=== PATIENT | female | born 1975 | race Caucasian/White ===

== ENCOUNTER 2023-01-29 12:18 | Emergency (ER) | payer OTHER, SELFPAY ==
[2023-01-29] VITALS (14 sets, daily range): BP systolic 130–191; BP diastolic 79–110; PULSE 62–82; RESP 12–23; TEMP 36.1; O2SAT 91–100; BMI 31.6; BMI 33.3
--- NOTE | ~2023-01-29 | XR_ITS ---
EXAMINATION: XR SHOULDER, RIGHT CLINICAL INFORMATION: Post reduction COMPARISON: Portable right shoulder 01/29/2023 TECHNIQUE: Right shoulder is imaged in 3 portable views. FINDINGS: There is interval reduction of the right anterior shoulder dislocation. The glenohumeral alignment is normal. The acromioclavicular alignment is normal. There is no visible fracture. XR/XR shoulder RT min 2V IMPRESSION: Interval reduction of anterior shoulder dislocation. No visible fracture.
--- NOTE | ~2023-01-29 | XR_ITS ---
EXAMINATION: XR SHOULDER, RIGHT CLINICAL INFORMATION: Right shoulder pain. COMPARISON: None available. TECHNIQUE: Three views of the right shoulder. FINDINGS: There is anterior dislocation of the humeral head relative to the bony glenoid. There is no acute fracture. The right acromioclavicular joint is intact. The visualized right ribs are intact. The soft tissues are unremarkable. XR/XR shoulder RT min 2V IMPRESSION: Right glenohumeral anterior dislocation. No acute fracture.
--- NOTE | 2023-01-29 12:28 | ED_ITS ---
HPI - Fall General Chief Complaint: Fall <TAYLOR Jennings - Last Filed: 01/29/23 12:31> Stated Complaint: Fall/ Shoulder Pain <TAYLOR Jennings - Last Filed: 01/29/23 12:31> Time Seen by Provider: 01/29/23 12:30 <TAYLOR Jennings - Last Filed: 01/29/23 12:31> Source: patient, family and RN notes reviewed <Amisha Corley NP - Last Filed: 01/29/23 17:00> Mode of arrival: ambulatory <Amisha Corley NP - Last Filed: 01/29/23 17:00> Limitations: no limitations <Amisha Corley NP - Last Filed: 01/29/23 17:00> History of Present Illness HPI Narrative: This is a 47 year old female right hand dominant presenting today, accompanied by male business administration teacher, with complaints of right shoulder pain status post mechanical fall 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 Pt reports that while she was exiting her vehicle, she accidentally tripped on a cord in her car, and she landed directly onto her right shoulder. She denies hitting her head or LOC. Denies history of right shoulder injuries in the past. She has no numbness or tingling. Denies right elbow or right wrist pain. No other complaints or concerns at this time. <Amisha Corley NP - Last Filed: 01/29/23 17:00> MD complaint: fall <Amisha Corley NP - Last Filed: 01/29/23 17:00> Onset (ago): minute(s) <Amisha Corley NP - Last Filed: 01/29/23 17:00> Fall from: standing <Amisha Corley NP - Last Filed: 01/29/23 17:00> Fall witnessed: no <Amisha Corley NP - Last Filed: 01/29/23 17:00> Place fall occurred: street <Amisha Corley NP - Last Filed: 01/29/23 17:00> Loss of consciousness: none <Amisha Corley NP - Last Filed: 01/29/23 17:00> Prolonged down time: no <Amisha Corley NP - Last Filed: 01/29/23 17:00> Symptoms prior to fall: none <Amisha Corley NP - Last Filed: 01/29/23 17:00> Context: tripped/slipped <Amisha Corley NP - Last Filed: 01/29/23 17:00> Location of injury - extremities: right: shoulder <Amisha Corley NP - Last Filed: 01/29/23 17:00> Severity: moderate <Amisha Corley NP - Last Filed: 01/29/23 17:00> Quality: aching <Amisha Corley NP - Last Filed: 01/29/23 17:00> Associated symptoms (after fall): denies <Amisha Corley NP - Last Filed: 01/29/23 17:00> Related Data Home Medications: Previous Rx's Medication Instructions Recorded ibuprofen 600 mg tablet 600 mg PO Q8H PRN pain #14 tabs 01/29/23 tramadol 50 mg tablet 50 mg PO BID PRN pain #6 tabs 01/29/23 <TAYLOR Jennings - Last Filed: 01/29/23 12:31> Allergies/Adverse Reactions: Allergies Allergy/AdvReac Type Severity Reaction Status Date / Time No Known Allergies Allergy Verified 01/29/23 12:29 <TAYLOR Jennings - Last Filed: 01/29/23 12:31> Review of Systems Review of Systems: Yes all other systems are reviewed and are negative <Amisha Corley NP - Last Filed: 01/29/23 17:00> Constitutional: Constitutional: Reports no additional constitutional complain ts, Denies body ache(s), Denies chills, Denies fever(s), Denies headache(s) and Denies weakness <Amisha Corley NP - Last Filed: 01/29/23 17:00> Eyes: Eyes: Reports no additional eye complaints and Denies change in vision <Amisha Corley NP - Last Filed: 01/29/23 17:00> ENT: Reports system reviewed and no additional complaints, except as documented, Denies dizziness, Denies headache(s), Denies nasal congestion, Denies nasal discharge and Denies neck pain <Amisha Corley NP - Last Filed: 01/29/23 17:00> Cardiovascular: Cardiovascular: Reports no additional cardiovascular complaints, Denies chest pain, Denies leg edema and Denies dyspnea <Amisha Corley NP - Last Filed: 01/29/23 17:00> Respiratory: Respiratory: Reports no additional respiratory complaints, Denies cough and Denies dyspnea <Amisha Corley PROFESSIONAL EMPLOYER CONSULTANT - Last Filed: 01/29/23 17:00> Gastrointestinal: Gastrointestinal: Reports no additional gastrointestinal complaints, Denies abdominal pain, Denies diarrhea, Denies nausea and Denies vomiting <Amisha Corley PROFESSIONAL EMPLOYER CONSULTANT - Last Filed: 01/29/23 17:00> Genitourinary: Genitourinary: Reports no additional female genitourinary complaints and Denies urinary incontinence <Amisha Corley NP - Last Filed: 01/29/23 17:00> Musculoskeletal: Musculoskeletal: Reports no additional musculoskeletal complaints, Denies back pain, Reports deformity, Reports arthralgias, Reports joint swelling, Reports limited range of motion, Denies neck pain, Denies numbness and Denies tingling <Amisha Corley PROFESSIONAL EMPLOYER CONSULTANT - Last Filed: 01/29/23 17:00> Integumentary/Breasts: Skin/Breast: Reports system reviewed and no additional complaints, except as docu and Denies rash <Amisha Corley PROFESSIONAL EMPLOYER CONSULTANT - Last Filed: 01/29/23 17:00> Neurologic: Reports system reviewed and no additional complaints, except as documented, Denies Abnormal speech present, Denies dizziness, Denies headache(s), Denies numbness, Denies tingling and Denies weakness <Amisha Corley NP - Last Filed: 01/29/23 17:00> [facility] Past Medical History Attestation statement: The following information was validated with the patient. <Amisha Corley NP - Last Filed: 01/29/23 17:00> Source: old records reviewed and nursing notes reviewed <CORIE Mahan [facility] t Filed: 01/29/23 17:00> Social History Social History: Social History Smoked in Last 30 Days: No Use of substances other than those prescribed or required for medical reasons: No Advance Directives: No Advance Directives Information Provided: No <TAYLOR Jennings - Last Filed: 01/29/23 12:31> Physical Exam Vital Signs: Vital Signs: Last Vital Signs Temp 97.0 F 01/29/23 12:29 Pulse 78 01/29/23 16:51 Resp 16 01/29/23 16:51 BP 132/84 01/29/23 16:51 Pulse Ox 99 01/29/23 16:51 O2 Del Method 01/29/23 16:51 BMI result Body Mass Index 33.3 <TAYLOR Jennings - Last Filed: 01/29/23 12:31> Vital Signs: Last Vital Signs Temp 97.0 F 01/29/23 12:29 Pulse 78 01/29/23 16:51 Resp 16 01/29/23 16:51 BP 132/84 01/29/23 16:51 Pulse Ox 99 01/29/23 16:51 O2 Del Method 01/29/23 16:51 BMI result Body Mass Index 33.3 <Amisha Corley NP - Last Filed: 01/29/23 17:00> Vital Signs: Last Vital Signs Temp 97.0 F 01/29/23 12:29 Pulse 78 01/29/23 16:51 Resp 16 01/29/23 16:51 BP 132/84 01/29/23 16:51 Pulse Ox 99 01/29/23 16:51 O2 Del Method 01/29/23 16:51 BMI result Body Mass Index 33.3 <Shefali Iraheta MD - Last Filed: 01/29/23 16:58> Const: General: cooperative, healthy appearing, comfortable and no acute distress <Amisha Corley NP - Last Filed: 01/29/23 17:00> Orientation/consciousness: patient oriented x3 <Amisha Corley NP - Last Filed: 01/29/23 17:00> Limitations: no limitations <Amisha Corley PROFESSIONAL EMPLOYER CONSULTANT - Last Filed: 01/29/23 17:00> HEENT: Head: Yes normal to inspection <Amisha Corley PROFESSIONAL EMPLOYER CONSULTANT - Last Filed: 01/29/23 17:00> Ears: hearing grossly normal bilaterally <Amisha Corley PROFESSIONAL EMPLOYER CONSULTANT - Last Filed: 01/29/23 17:00> General nose exam: Normal external nose present <Amisha Corley PROFESSIONAL EMPLOYER CONSULTANT - Last Filed: 01/29/23 17:00> Face and sinus: Yes normal facial exam <Amisha Corley PROFESSIONAL EMPLOYER CONSULTANT - Last Filed: 01/29/23 17:00> Mouth: Normal oral and palatal mucosa present <Amisha Corley PROFESSIONAL EMPLOYER CONSULTANT - Last Filed: 01/29/23 17:00> Throat: Yes posterior oropharynx normal <Amisha Corley PROFESSIONAL EMPLOYER CONSULTANT - Last Filed: 01/29/23 17:00> Eyes: General: appearance normal, both eyes and all related structures <Amisha Corley PROFESSIONAL EMPLOYER CONSULTANT - Last Filed: 01/29/23 17:00> Pupils: Equal, round and reactive pupils present <Amisha Corley PROFESSIONAL EMPLOYER CONSULTANT - Last Filed: 01/29/23 17:00> Neck: Neck: Yes normal visual inspection <Amisha Corley PROFESSIONAL EMPLOYER CONSULTANT - Last Filed: 01/29/23 17:00> Chest: Chest palpation & inspection: normal inspection of the chest <Amisha Corley PROFESSIONAL EMPLOYER CONSULTANT - Last Filed: 01/29/23 17:00> Resp: Effort & Inspection: normal respiratory effort <Amisha Corley PROFESSIONAL EMPLOYER CONSULTANT - Last Filed: 01/29/23 17:00> Auscultation: clear to auscultation bilaterally <Amisha Corley PROFESSIONAL EMPLOYER CONSULTANT - Last Filed: 01/29/23 17:00> Cardio: Rate: regular rate <Amisha Corley PROFESSIONAL EMPLOYER CONSULTANT - Last Filed: 01/29/23 17:00> Rhythm: regular rhythm <Amisha Corley PROFESSIONAL EMPLOYER CONSULTANT - Last Filed: 01/29/23 17:00> Peripheral pulses: Peripheral pulses 2+ throughout <Amisha Corley PROFESSIONAL EMPLOYER CONSULTANT - Last Filed: 01/29/23 17:00> GI: Inspection: Yes normal to inspection <Amisha Corley PROFESSIONAL EMPLOYER CONSULTANT - Last Filed: 01/29/23 17:00> Palpation (GI): Soft to palpation and nontender <Amisha Corley PROFESSIONAL EMPLOYER CONSULTANT - Last Filed: 01/29/23 17:00> Auscultation: normal bowel sounds <Amisha Corley PROFESSIONAL EMPLOYER CONSULTANT - Last Filed: 01/29/23 17:00> Back/Spine/Pelvis: Thoracic/Lumbar Spine: thoracic and lumbar spine normal to inspection <Amisha Corley PROFESSIONAL EMPLOYER CONSULTANT - Last Filed: 01/29/23 17:00> Skin: General skin exam: no rashes or lesions noted <Amisha Corley PROFESSIONAL EMPLOYER CONSULTANT - Last Filed: 01/29/23 17:00> Neuro: General: patient oriented x3, no focal motor deficits and normal sensation to monofilament <Amisha Corley PROFESSIONAL EMPLOYER CONSULTANT - Last Filed: 01/29/23 17:00> Cranial nerves: Yes Equal, round and reactive pupils present <Amisha Corley PROFESSIONAL EMPLOYER CONSULTANT - Last Filed: 01/29/23 17:00> Cognition (Neuro): normal cognition <Amisha Corley PROFESSIONAL EMPLOYER CONSULTANT - Last Filed: 01/29/23 17:00> Speech: No Abnormal speech present <Amisha Corley PROFESSIONAL EMPLOYER CONSULTANT - Last Filed: 01/29/23 17:00> Gait exam (Neuro): Normal gait present <Amisha Corley PROFESSIONAL EMPLOYER CONSULTANT - Last Filed: 01/29/23 17:00> Motor exam (neuro): 5/5 motor strength present throughout <Amisha Corley PROFESSIONAL EMPLOYER CONSULTANT - Last Filed: 01/29/23 17:00> Extrem: Other: Right shoulder with obvious deformity, unable to assess tenderness or ROM secondary to severe pain. Radial pulses 2+. Distal sensation normal. <Amisha Corley PROFESSIONAL EMPLOYER CONSULTANT - Last Filed: 01/29/23 17:00> General: Yes normal to inspection <Amisha Corley PROFESSIONAL EMPLOYER CONSULTANT - Last Filed: 01/29/23 17:00> Course Course Course Narrative: This is an RME: Additional HPI, ROS, PE not included below will be deferred to primary provider. 47 year old female presents w/ severe R shoulder pain sp fall, patient tripped on her laptop and landed right on her right shoulder. Sevre 10/10 pain cant move it. No previous injuries to right shoulder. No head strike or head trauma when she fell. Not on blood thinners. Denies numbness and tingling Physical exam unable to move her right shoulder, guarding right shoulder. 2+ radial pulses equal bilateral. Normal sensation to bilateral upper extremities. Question dislocated right shoulder based off of exam. Will bring in to Emergency minor care. Imaging ordered. <TAYLOR Jennings - Last Filed: 01/29/23 12:31> Reevaluation(s) Reevaluation #1: -Conscious sedation/shoulder reduction done in conjunction with Dr Shefali Iraheta <Amisha Corley NP - Last Filed: 01/29/23 17:00> Medications Administered Discontinued Medications Generic Name Dose Route Start Last Admin Trade Name Randyq PRN Reason Stop Dose Admin Hydromorphone HCl 0.5 mg 01/29/23 13:04 01/29/23 13:11 Hydromorphone Hcl 0.5 Mg/0.5 Ml Syringe IVPUSH 01/29/23 13:05 0.5 mg ONCE ONE Administration Protocol Hydromorphone HCl 1 mg 01/29/23 15:23 01/29/23 15:30 Hydromorphone Hcl 1 Mg/Ml Syringe IVPUSH 01/29/23 15:24 1 mg ONCE ONE Administration Protocol Morphine Sulfate 4 mg 01/29/23 12:37 01/29/23 12:44 Morphine Sulfate 4 Mg/Ml Cartridge IVPUSH 01/29/23 12:38 4 mg ONCE ONE Administration Protocol Ondansetron HCl 4 mg 01/29/23 12:37 01/29/23 12:44 Ondansetron Hcl 4 Mg/2 Ml Vial IVPUSH 01/29/23 12:38 4 mg ONCE ONE Administration Ondansetron HCl 4 mg 01/29/23 14:23 01/29/23 14:28 Ondansetron Hcl 4 Mg/2 Ml Vial IVPUSH 01/29/23 14:24 4 mg ONCE ONE Administration Propofol 40 mg 01/29/23 14:22 01/29/23 14:28 Propofol 200 Mg/20 Ml Vial IVPUSH 01/29/23 14:23 40 mg ONCE ONE Administration Propofol 40 mg 01/29/23 14:51 01/29/23 14:31 Propofol 200 Mg/20 Ml Vial IVPUSH 01/29/23 14:52 40 mg ONCE ONE Administration <Marlin Pearson PA - Last Filed: 01/29/23 12:31> Medications Administered Discontinued Medications Generic Name Dose Route Start Last Admin Trade Name Freq PRN Reason Stop Dose Admin Hydromorphone HCl 0.5 mg 01/29/23 13:04 01/29/23 13:11 Hydromorphone Hcl 0.5 Mg/0.5 Ml Syringe IVPUSH 01/29/23 13:05 0.5 mg ONCE ONE Administration Protocol Hydromorphone HCl 1 mg 01/29/23 15:23 01/29/23 15:30 Hydromorphone Hcl 1 Mg/Ml Syringe IVPUSH 01/29/23 15:24 1 mg ONCE ONE Administration Protocol Morphine Sulfate 4 mg 01/29/23 12:37 01/29/23 12:44 Morphine Sulfate 4 Mg/Ml Cartridge IVPUSH 01/29/23 12:38 4 mg ONCE ONE Administration Protocol Ondansetron HCl 4 mg 01/29/23 12:37 01/29/23 12:44 Ondansetron Hcl 4 Mg/2 Ml Vial IVPUSH 01/29/23 12:38 4 mg ONCE ONE Administration Ondansetron HCl 4 mg 01/29/23 14:23 01/29/23 14:28 Ondansetron Hcl 4 Mg/2 Ml Vial IVPUSH 01/29/23 14:24 4 mg ONCE ONE Administration Propofol 40 mg 01/29/23 14:22 01/29/23 14:28 Propofol 200 Mg/20 Ml Vial IVPUSH 01/29/23 14:23 40 mg ONCE ONE Administration Propofol 40 mg 01/29/23 14:51 01/29/23 14:31 Propofol 200 Mg/20 Ml Vial IVPUSH 01/29/23 14:52 40 mg ONCE ONE Administration <Amisha Corley PROFESSIONAL EMPLOYER CONSULTANT - Last Filed: 01/29/23 17:00> Medications Administered Discontinued Medications Generic Name Dose Route Start Last Admin Trade Name Freq PRN Reason Stop Dose Admin Hydromorphone HCl 0.5 mg 01/29/23 13:04 01/29/23 13:11 Hydromorphone Hcl 0.5 Mg/0.5 Ml Syringe IVPUSH 01/29/23 13:05 0.5 mg ONCE ONE Administration Protocol Hydromorphone HCl 1 mg 01/29/23 15:23 01/29/23 15:30 Hydromorphone Hcl 1 Mg/Ml Syringe IVPUSH 01/29/23 15:24 1 mg ONCE ONE Administration Protocol Morphine Sulfate 4 mg 01/29/23 12:37 01/29/23 12:44 Morphine Sulfate 4 Mg/Ml Cartridge IVPUSH 01/29/23 12:38 4 mg ONCE ONE Administration Protocol Ondansetron HCl 4 mg 01/29/23 12:37 01/29/23 12:44 Ondansetron Hcl 4 Mg/2 Ml Vial IVPUSH 01/29/23 12:38 4 mg ONCE ONE Administration Ondansetron HCl 4 mg 01/29/23 14:23 01/29/23 14:28 Ondansetron Hcl 4 Mg/2 Ml Vial IVPUSH 01/29/23 14:24 4 mg ONCE ONE Administration Propofol 40 mg 01/29/23 14:22 01/29/23 14:28 Propofol 200 Mg/20 Ml Vial IVPUSH 01/29/23 14:23 40 mg ONCE ONE Administration Propofol 40 mg 01/29/23 14:51 01/29/23 14:31 Propofol 200 Mg/20 Ml Vial IVPUSH 01/29/23 14:52 40 mg ONCE ONE Administration <Shefali Iraheta MD - Last Filed: 01/29/23 16:58> Procedures Orthopedic Joint Reduction Joint #1: Time Out Performed: Yes <Shefali Iraheta MD - Last Filed: 01/29/23 16:58> Side: right <Shefali Iraheta MD - Last Filed: 01/29/23 16:58> Joint Reduction Location: shoulder <Shefali Iraheta MD - Last Filed: 01/29/23 16:58> Analgesia: procedural sedation <Shefali Iraheta MD - Last Filed: 01/29/23 16:58> Shoulder Technique Used (if applicable): external rotation <Shefali Iraheta MD - Last Filed: 01/29/23 16:58> Post-reduction neuro exam: intact <Shefali Iraheta MD - Last Filed: 01/29/23 16:58> Post-reduction vascular: intact <Shefali Iraheta MD - Last Filed: 01/29/23 16:58> Post Reduction X-Ray Obtained: Yes <Shefali Iraheta MD - Last Filed: 01/29/23 16:58> Post Reduction X-Ray Results: reduced <Shefali Iraheta MD - Last Filed: 01/29/23 16:58> Splint Applied: Yes <Shefali Iraheta MD - Last Filed: 01/29/23 16:58> Patient Tolerated Procedure: well and no complications <Shefali Iraheta MD - Last Filed: 01/29/23 16:58> Procedural Sedation Indication: fracture/dislocation reduction (Right shoulder dislocation) <Shefali Iraheta MD - Last Filed: 01/29/23 16:58> ASA Class: I <Shefali Iraheta MD - Last Filed: 01/29/23 16:58> Mallampati Class: I <Shefali Iraheta MD - Last Filed: 01/29/23 16:58> Time of Last PO Intake: 09:00 <Shefali Iraheta MD - Last Filed: 01/29/23 16:58> Preparation: silo painter applied, pulse oximeter, supplemental O2 applied, suction/airway equipment at bedside and IV secured <Shefali Iraheta MD - Last Filed: 01/29/23 16:58> IV Propofol dose (mg): 80 <Shefali Iraheta MD - Last Filed: 01/29/23 16:58> Patient Tolerated Procedure: well and no complications <Shefali Iraheta MD - Last Filed: 01/29/23 16:58> Medical Decision Making Medical Decision Making MDM Narrative: 47 year old female, right hand dominant with a hx of arthritis, presents to the ER for evaluation of right shoulder pain status post mechanical fall which happened just F[employer]ER. X-rays of right shoulder significant for right glenohumeral anterior dislocation. Pt is hypertensive, likely due to severe pain. Patient medicated with morphine 4mg IM. Pt with ongoing severe pain, medicated with Dilaudid. Will perform conscious sedation for right shoulder reduction. Discussed risks vs benefits with patient and , and patient & consent for conscious sedation shoulder r eduction. <Amisha Corley NP - Last Filed: 01/29/23 17:00> 47 year old female, right hand dominant with a hx of arthritis, presents to the ER for evaluation of right shoulder pain status post mechanical fall which happened just F[employer]. X-rays of right shoulder significant for right glenohumeral anterior dislocation. Pt is hypertensive, likely due to severe pain. Patient medicated with morphine 4mg IM. Pt with ongoing severe pain, medicated with Dilaudid. Will perform conscious sedation for right shoulder reduction. Discussed risks vs benefits with patient and , and patient & consent for conscious sedation shoulder reduction. -I reviewed patient's baseline labs, EKG my interpretation: Normal sinus rhythm , heart rate 62, no ST segment depression or elevation, nonspecific T-wave inversion in lead 3, QTC 436 -patient requested conscious sedation, agree to procedure (shoulder reduction) -patient received a total of 80 mg of propofol IV. The right shoulder was successfully reduced, Right arm placed in a sling -patient instructed to follow-up with orthopedics -I reviewed the x-ray for post reduction of the right shoulder, my interpretation of the x-ray: Aligned, reduced. -16:32, patient states that she feels completely back to baseline. Patient was ambulated to the bathroom, normal steady gait, no nausea or dizziness. No chest pain shortness of breath. Patient states that she feels completely back to normal. <Shefali Iraheta MD - Last Filed: 01/29/23 16:58> Differential Diagnosis Differential Diagnoses: The differential diagnosis associated with the presentation includes <Amisha Corley NP - Last Filed: 01/29/23 17:00> fracture, dislocation, contusion <Amisha Corley NP - Last Filed: 01/29/23 17:00> Lab Data MDM Lab Attestation statement: I reviewed the patient's lab results. <Amisha Corley NP - Last Filed: 01/29/23 17:00> I reviewed the patient's lab results. <Shefali Iraheta MD - Last Filed: 01/29/23 16:58> Result Diagrams: 01/29/23 13:33 01/29/23 04:34 <TAYLOR Jennings - Last Filed: 01/29/23 12:31> Labs: Lab Results 01/29/23 01/29/23 Range/Units 04:34 13:33 WBC 9.6 (4.8-10.8) X10*3/uL RBC 4.88 (4.20-5.50) X10*6/uL Hgb 14.0 (12.0-16.0) g/dl Hct 42.0 (37.0-47.0) % MCV 86.1 (80.0-98.0) fL MCH 28.7 (27.0-33.0) pg MCHC 33.3 (31.0-35.0) g/dl RDW 12.9 (11.0-16.0) % Plt Count 330 (160-400) X10*3/uL MPV 9.5 (9.4-12.3) fL Immature Gran % (Auto) 0.9 H (0.0-0.4) % Neut % (Auto) 66.1 (45-73) % Lymph % (Auto) 20.0 (20-40) % Newberry % (Auto) 11.0 (2-11) % Eos % (Auto) 1.5 (0-4) % Baso % (Auto) 0.5 (0-2) % Lymph # (Auto) 1.9 (1.2-4.9) X10*3/uL Newberry # (Auto) 1.1 (0.1-1.2) X10*3/uL Eos # (Auto) 0.1 (0.0-0.4) X10*3/uL Baso # (Auto) 0.1 (0.0-0.2) X10*3/uL Abs Immat Gran (auto) 0.09 H (0.00-0.03) X10*3/uL Absolute Neuts (auto) 6.3 (2.0-8.3) x10*3/uL Absolute Nucleated RBC 0.000 (0.0-0.012) X10*3/uL Nucleated RBC % (auto) 0.0 (0.0-0.2) /100WBC Sodium 139 (135-145) mmol/L Potassium 4.0 (3.3-5.1) mmol/L Chloride 109 H (96-108) mmol/L Carbon Dioxide 22 (22-29) mmol/L Anion Gap 12 (12-20) BUN 14 (9-16) mg/dL Creatinine 0.85 (0.5-1.4) mg/dL Estim Creat Clear Calc 81.6 Estimated GFR > 60 Random Glucose 117 H (60-115) mg/dL Calcium 9.2 (8.4-10.2) mg/dL <TAYLOR Jennings - Last Filed: 01/29/23 12:31> Lab Results 01/29/23 01/29/23 Range/Units 04:34 13:33 WBC 9.6 (4.8-10.8) X10*3/uL RBC 4.88 (4.20-5.50) X10*6/uL Hgb 14.0 (12.0-16.0) g/dl Hct 42.0 (37.0-47.0) % MCV 86.1 (80.0-98.0) fL MCH 28.7 (27.0-33.0) pg MCHC 33.3 (31.0-35.0) g/dl RDW 12.9 (11.0-16.0) % Plt Count 330 (160-400) X10*3/uL MPV 9.5 (9.4-12.3) fL Immature Gran % (Auto) 0.9 H (0.0-0.4) % Neut % (Auto) 66.1 (45-73) % Lymph % (Auto) 20.0 (20-40) % Newberry % (Auto) 11.0 (2-11) % Eos % (Auto) 1.5 (0-4) % Baso % (Auto) 0.5 (0-2) % Lymph # (Auto) 1.9 (1.2-4.9) X10*3/uL Newberry # (Auto) 1.1 (0.1-1.2) X10*3/uL Eos # (Auto) 0.1 (0.0-0.4) X10*3/uL Baso # (Auto) 0.1 (0.0-0.2) X10*3/uL Abs Immat Gran (auto) 0.09 H (0.00-0.03) X10*3/uL Absolute Neuts (auto) 6.3 (2.0-8.3) x10*3/uL Absolute Nucleated RBC 0.000 (0.0-0.012) X10*3/uL Nucleated RBC % (auto) 0.0 (0.0-0.2) /100WBC Sodium 139 (135-145) mmol/L Potassium 4.0 (3.3-5.1) mmol/L Chloride 109 H (96-108) mmol/L Carbon Dioxide 22 (22-29) mmol/L Anion Gap 12 (12-20) BUN 14 (9-16) mg/dL Creatinine 0.85 (0.5-1.4) mg/dL Estim Creat Clear Calc 81.6 Estimated GFR > 60 Random Glucose 117 H (60-115) mg/dL Calcium 9.2 (8.4-10.2) mg/dL <Amisha Corley, PROFESSIONAL EMPLOYER CONSULTANT - Last Filed: 01/29/23 17:00> Lab Results 01/29/23 01/29/23 Range/Units 04:34 13:33 WBC 9.6 (4.8-10.8) X10*3/uL RBC 4.88 (4.20-5.50) X10*6/uL Hgb 14.0 (12.0-16.0) g/dl Hct 42.0 (37.0-47.0) % MCV 86.1 (80.0-98.0) fL MCH 28.7 (27.0-33.0) pg MCHC 33.3 (31.0-35.0) g/dl RDW 12.9 (11.0-16.0) % Plt Count 330 (160-400) X10*3/uL MPV 9.5 (9.4-12.3) fL Immature Gran % (Auto) 0.9 H (0.0-0.4) % Neut % (Auto) 66.1 (45-73) % Lymph % (Auto) 20.0 (20-40) % Newberry % (Auto) 11.0 (2-11) % Eos % (Auto) 1.5 (0-4) % Baso % (Auto) 0.5 (0-2) % Lymph # (Auto) 1.9 (1.2-4.9) X10*3/uL Newberry # (Auto) 1.1 (0.1-1.2) X10*3/uL Eos # (Auto) 0.1 (0.0-0.4) X10*3/uL Baso # (Auto) 0.1 (0.0-0.2) X10*3/uL Abs Immat Gran (auto) 0.09 H (0.00-0.03) X10*3/uL Absolute Neuts (auto) 6.3 (2.0-8.3) x10*3/uL Absolute Nucleated RBC 0.000 (0.0-0.012) X10*3/uL Nucleated RBC % (auto) 0.0 (0.0-0.2) /100WBC Sodium 139 (135-145) mmol/L Potassium 4.0 (3.3-5.1) mmol/L Chloride 109 H (96-108) mmol/L Carbon Dioxide 22 (22-29) mmol/L Anion Gap 12 (12-20) BUN 14 (9-16) mg/dL Creatinine 0.85 (0.5-1.4) mg/dL Estim Creat Clear Calc 81.6 Estimated GFR > 60 Random Glucose 117 H (60-115) mg/dL Calcium 9.2 (8.4-10.2) mg/dL <Shefali Iraheta MD - Last Filed: 01/29/23 16:58> Independent Interpretation I performed an independent interpretation of an: Plain X-Ray <Amisha Corley NP - Last Filed: 01/29/23 17:00> Interpretation: I independently reviewed the x-ray and agree with radiologist's report <Amisha Corley NP - Last Filed: 01/29/23 17:00> Radiology Impression Discussion of test interpretation with radiology: I have reviewed the radiologist's reading. <Amisha Corley NP - Last Filed: 01/29/23 17:00> Radiologist Impression: [address] [address] XRay Report Signed Patient: Aura Patel MR#: [id number] : 1975 Acct:[id number] Age/Sex: 47 / F ADM Date: 01/29/23 Loc: .ED Attending Dr: Ordering Physician: Marlin Pearson Date of Service: 01/29/23 Procedure(s): XR shoulder RT min 2V Accession Number(s): [id number] cc: Marlin Pearson~ EXAMINATION: XR SHOULDER, RIGHT CLINICAL INFORMATION: Right shoulder pain.? COMPARISON: None available.? TECHNIQUE: Three views of the right shoulder. FINDINGS: There is anterior dislocation of the humeral head relative to the bony glenoid. There is no acute fracture. The right acromioclavicular joint is intact. The visualized right ribs are intact. The soft tissues are unremarkable.? XR/XR shoulder RT min 2V IMPRESSION: Right glenohumeral anterior dislocation. No acute fracture. <Amisha Corley NP - Last Filed: 01/29/23 17:00> Critical Care Time Critical Care Time Critical Care Time: Yes <Amisha Corley NP - Last Filed: 01/29/23 17:00> Total Critical Care Time: 60 <Amisha Corley NP - Last Filed: 01/29/23 17:00> Attestation: Right anterior shoulder dislocation requiring reduction with conscious sedation <Amisha Corley NP - Last Filed: 01/29/23 17:00> Discharge Plan Discharge Clinical Impression: Anterior shoulder dislocation <TAYLOR Jennings - Last Filed: 01/29/23 12:31> Patient Disposition: Home, Self-Care <TAYLOR Jennings - Last Filed: 01/29/23 12:31> Instructions: Shoulder Dislocation (ED), Shoulder Immobilizer (ED) <TAYLOR Jennings - Last Filed: 01/29/23 12:31> Additional Instructions: Please follow-up with your primary care physician tomorrow. If you have any worsening or new symptoms, please return to the emergency room or call 911 <TAYLOR Jennings - Last Filed: 01/29/23 12:31> Prescriptions: New ibuprofen 600 mg tablet 600 mg PO Q8H PRN (Reason: pain) Qty: 14 0RF tramadol 50 mg tablet 50 mg PO BID PRN (Reason: pain) Qty: 6 0RF <TAYLOR Jennings - Last Filed: 01/29/23 12:31> Referrals: Manda Guzmán PA-C [[facility]] - 01/31/23 <TAYLOR eJnnings - Last Filed: 01/29/23 12:31> Stand Alone Forms: Work/School Release <TAYLOR Jennings - Last Filed: 01/29/23 12:31> Interventions: ED Discharge Assessment Last Done: 01/29/23 16:57 <TAYLOR Jennings - Last Filed: 01/29/23 12:31> Discharge Date/Time: 01/29/23 16:58 <TAYLOR Jennings - Last Filed: 01/29/23 12:31>
[2023-01-29] MEDS: ondansetron HCL 4 MG/2 ML VIAL IVPUSH ×2 (12:44→14:28)
[2023-01-29] MEDS: Morphine Sulfate 4 MG/ML CARTRIDGE IVPUSH (12:44)
[2023-01-29] MEDS: HYDROmorphone HCl 0.5 MG/0.5 ML SYRINGE IVPUSH (13:11)
--- NOTE | 2023-01-29 13:18 | ECG_ITS ---
Test Reason : Conscious sedation Blood Pressure : / mmHG Vent. Rate : 062 BPM Atrial Rate : 062 BPM P-R Int : 148 ms QRS Dur : 084 ms QT Int : 430 ms P-R-T Axes : 036 000 009 degrees QTc Int : 436 ms Normal sinus rhythm Cannot rule out Anterior infarct , age undetermined Abnormal ECG No previous ECGs available Referred By: Shefali Iraheta Electronically Signed By:RODRIGO CASTAÑEDA MD
[2023-01-29 13:39] LABS: MANUAL DIFF FLAG NO
[2023-01-29 13:46] LABS: Basophils Absolute Auto 0.1 X10*3/uL (0.0-0.2); Basophils Percent Auto 0.5 % (0-2); Eosinophils Absolute Auto 0.1 X10*3/uL (0.0-0.4); Eosinophils Percent Auto 1.5 % (0-4); Imm Gran Abs Auto 0.09 X10*3/uL (0.00-0.03); Imm Gran Pct Auto 0.9 % (0.0-0.4); Lymphocytes Absolute Auto 1.9 X10*3/uL (1.2-4.9); Mean Corpuscular HGB Conc 33.3 g/dl (31.0-35.0); Mean Corpuscular Hemoglobin 28.7 pg (27.0-33.0); Mean Corpuscular Volume 86.1 fL (80.0-98.0); Mean Platelet Volume 9.5 fL (9.4-12.3); Monocytes Absolute Auto 1.1 X10*3/uL (0.1-1.2); Neutrophils Absolute Auto 6.3 x10*3/uL (2.0-8.3); Neutrophils Percent Auto 66.1 % (45-73); Platelet Count 330 X10*3/uL (160-400); Red Blood Count 4.88 X10*6/uL (4.20-5.50); Red Cell Distribution Width 12.9 % (11.0-16.0); White Blood Count 9.6 X10*3/uL (4.8-10.8)
[2023-01-29 14:06] LABS: Anion Gap 12 (12-20); Blood Urea Nitrogen 14 mg/dL (9-16); Calcium 9.2 mg/dL (8.4-10.2); Carbon Dioxide 22 mmol/L (22-29); Chloride 109 mmol/L (96-108); Creatinine Clr Calc Pharmacy 81.6; Estimated Glomerular Filt Rate > 60; Glucose Random 117 mg/dL (60-115); Sodium 139 mmol/L (135-145)
[2023-01-29] MEDS: propofoL 200 MG/20 ML VIAL 40 MG IVPUSH ×2 (14:28→14:31)
[2023-01-29] MEDS: HYDROmorphone HCl 1 MG/ML SYRINGE IVPUSH (15:30)
--- NOTE | 2023-01-29 16:31 | PC.NURSE ---
this RN walked pt to bathroom with no difficulty, reports 4/10 pain but says I am feeling much better MD Iraheta aware, plan to discharge shortly. Pt changed into her regular clothes, IV fluids finishing at this time
== END 2023-01-29 16:58 | disposition home or self-care (01) ==
PROVIDERS: Emergency Provider Emergency Medicine
DX: M25.511 Pain in right shoulder (principal); S43.004A Unspecified dislocation of right shoulder joint, initial encounter; W18.39XA Other fall on same level, initial encounter; Y93.89 Activity, other specified; Y92.9 Unspecified place or not applicable
CPT/HCPCS: 36415; 73030; 80048; 85025; 93005; 96374; 96375; 96376; 99285; J1170; J2270; J2405

== ENCOUNTER → 2023-02-08 09:29 | Outpatient (BNVA) | payer OTHER, SELFPAY | PROVIDERS: PCP Internal Medicine; Visit Provider Physician Assistant | DX: S43.004A Unspecified dislocation of right shoulder joint, initial encounter (principal); V48.4XXA Person boarding or alighting a car injured in noncollision transport accident, initial encounter; Y93.C9 Activity, other involving computer technology and electronic devices; Y92.9 Unspecified place or not applicable; Y99.8 Other external cause status | CPT/HCPCS: 99202 ==

== ENCOUNTER → 2023-03-21 12:13 | Outpatient (BNVA) | payer OTHER, MEDICAID, SELFPAY | PROVIDERS: PCP Internal Medicine; Visit Provider Physician Assistant | DX: S43.004D Unspecified dislocation of right shoulder joint, subsequent encounter (principal) | CPT/HCPCS: 99212 ==

== ENCOUNTER 2023-06-11 09:52 | Emergency (ER) | payer OTHER, MEDICAID, SELFPAY ==
[2023-06-11 10:05] VITALS: BP 164/97; PULSE 80; RESP 20; TEMP 37.2; O2SAT 98; BMI 32.5
[2023-06-11] MEDS: Butalb/Acetamin/Caff 50/325/40 TABLET 2 TAB PO (11:15)
--- NOTE | 2023-06-11 11:37 | PC.NURSE ---
awaiting antibiotic to be brought up from pharmacy
[2023-06-11] MEDS: Morphine Sulfate Immed Release 15 MG TABLET PO (11:59)
[2023-06-11] MEDS: Clindamycin HCL 150 MG CAPSULE 450 MG PO (11:59)
--- NOTE | 2023-06-11 12:12 | ED.DENTAL ---
HPI - Dental/Oral General Chief complaint: Dental/Oral Stated complaint: dental pain Time Seen by Provider: 06/11/23 10:09 Source: patient, RN notes reviewed and old records reviewed Mode of arrival: ambulatory History of Present Illness HPI Narrative: 48-year-old female with no significant past medical history presenting to the ED complaining continue to left lower dental pain radiating to left side of face and head x 2 weeks. Admits saw dentist last week, supposed to be scheduled for root canal however tooth was infected and referred to specialist, has been taking amoxicillin and previous prescription for oxycodone (for back pain) without relief. Reports dentist follow-up in August. Admits dental pain is causing her migraine headaches. Denies facial swelling, fever/chills, oral swelling/difficulty or inability to swallow, ear pain, drainage from ear, drainage from mouth MD Complaint: tooth pain Related Data Home Medications Medication Instructions Recorded Confirmed oxycodone-acetaminophen 5 mg-325 1 tab PO BID PRN 02/08/23 mg tablet Previous Rx's Medication Instructions Recorded ibuprofen 600 mg tablet 600 mg PO Q8H PRN pain #14 tabs 01/29/23 celecoxib 200 mg capsule 200 mg PO BID #60 caps 06/05/23 clindamycin HCl 150 mg capsule 450 mg PO TID 7 days #63 caps 06/11/23 Allergies Allergy/AdvReac Type Severity Reaction Status Date / Time No Known Allergies Allergy Verified 03/21/23 12:33 Review of Systems Review of Systems: Constitutional: No Fever, No Chills ENT/Mouth: +dental pain, No Ear Pain, No Nasal Congestion, No Hoarseness, No sore throat, No Rhinorrhea, No Swallowing Difficulty Cardiovascular: No Chest Pain, No SOB Respiratory: No Cough, No Sputum, No Wheezing Gastrointestinal: No Nausea, No Vomiting, No Diarrhea, No Abdominal pain Skin: No Skin Lesions, No rash Neuro: No Weakness, + headache Yes all other systems are reviewed and are negative Constitutional: Constitutional: Reports as per [facility] Past Medical History Attestation statement: The following information was validated with the patient. 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 No facial swelling. Head: Yes normal to inspection and Yes atraumatic Ears: hearing grossly normal bilaterally, external ears normal, TM's normal bilaterally and mastoids normal General nose exam: Normal external nose present Face and sinus: Yes normal facial exam Mouth: Normal oral and palatal mucosa present Throat: Yes posterior oropharynx normal, Yes tonsils normal, Yes uvula midline and No uvular edema Eyes: General: appearance normal, both eyes and all related structures EOM: EOMs intact bilaterally Neck: Neck: Yes normal visual inspection, Yes full ROM, Yes no lymphadenopathy, Yes no meningeal signs, No anterior neck swelling and No torticollis Resp: Effort & Inspection: normal respiratory effort and no respiratory distress Cardio: Rate: regular rate Skin: Rashes: no rashes Wounds: no wounds Neuro: General: patient oriented x3, gait normal, tone normal, moves all extremities, no meningeal signs, no focal motor deficits and CN's II-XI intact bilaterally Cognition (Neuro): normal cognition Gait exam (Neuro): Normal gait present Extrem: General: Yes normal to inspection Medications Administered Discontinued Medications Generic Name Dose Route Start Last Admin Trade Name Freq PRN Reason Stop Dose Admin Acetaminophen/Butalbital/Caffeine 2 tab 06/11/23 11:01 06/11/23 11:15 Butalb/Acetamin/Caff 50/325/40 Tablet PO 06/11/23 11:02 2 tab ONCE ONE Administration Clindamycin HCl 450 mg 06/11/23 11:02 06/11/23 11:59 Clindamycin Hcl 150 Mg Capsule PO 06/11/23 11:03 450 mg ONCE ONE Administration Morphine Sulfate 15 mg 06/11/23 11:54 06/11/23 11:59 Morphine Sulfate Immed Release 15 Mg Tablet PO 06/11/23 11:55 15 mg ONCE ONE Administration Oxycodone HCl 5 mg 06/11/23 11:49 06/11/23 11:53 Oxycodone Hcl Immed Release 5 Mg Tablet PO 06/11/23 11:50 Not Given ONCE ONE Medical Decision Making Medical Decision Making MDM Narrative: 48-year-old female with no significant past medical history presenting to the ED complaining continue to left lower dental pain radiating to left side of face and head x 2 weeks. On exam vital signs stable, NAD, nontoxic appearing, physical exam as noted above with left lower 3rd molar gingival tenderness, no appreciable abscess formation or cellulitis. No facial swelling. Concern for continue dental infection/gingivitis vs migraine headache. 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 clindamycin, pain control, dentistry follow-up Results discussed with patient including worrisome signs and symptoms and strict return precautions, and when to return to the emergency department. They verbalized understanding and feel safe for discharge at this time. Differential Diagnosis Differential Diagnoses: The differential diagnosis associated with the presentation includes As above External Record Review External record reviewed: Inpatient record, Office record, Outpatient record, Prior outpatient labs, Prior outpatient radiology, Primary care record and Outside ED record Tests considered The following testing was considered but not selected: As above Prescription Management I considered prescription management with: Pain Medication and Antibiotic Discharge Plan Discharge Clinical Impression: Toothache Patient Disposition: Home, Self-Care Instructions: Toothache (ED) Additional Instructions: Stop taking previously prescribed amoxicillin and starts taking clindamycin which is another antibiotic. Take with probiotics Continue taking previously prescribed oxycodone for pain In addition take ibuprofen and Tylenol You need to call your dentist for closer follow-up If symptoms persist or worsen/pain becomes unbearable return to the ED Prescriptions: New clindamycin HCl 150 mg capsule 450 mg PO TID 7 Days Qty: 63 0RF No Action celecoxib 200 mg capsule 200 mg PO BID Qty: 60 3RF ibuprofen 600 mg tablet 600 mg PO Q8H PRN (Reason: pain) Qty: 14 0RF oxycodone-acetaminophen 5-325 mg tablet 1 tab PO BID PRN Referrals: Adair Lagunas [Dentist] - Phong Dowd DMD [Dentist] - Hamlet Snider DMD [Dentist] - Meg Vergara MD [Primary Care Provider] - Interventions: ED Discharge Assessment Last Done: 06/11/23 12:50 Discharge Date/Time: 06/11/23 12:51
== END 2023-06-11 12:51 | disposition home or self-care (01) ==
PROVIDERS: Emergency Provider Emergency Medicine; PCP Internal Medicine
DX: K08.89 Other specified disorders of teeth and supporting structures (principal); Z79.899 Other long term (current) drug therapy
CPT/HCPCS: 99283

== ENCOUNTER 2023-09-03 13:10 | Emergency (ER) | payer OTHER, SELFPAY ==
--- NOTE | ~2023-09-03 | XR_ITS ---
EXAMINATION: XR KNEE, RIGHT CLINICAL INFORMATION: Pain. Using. COMPARISON: None available. TECHNIQUE: Four views of the right knee. FINDINGS: Examination demonstrates mild degenerative changes predominantly involving the medial and patellofemoral compartments, with mild joint space narrowing. No fracture or joint effusion identified. Alignment is anatomic. No abnormal soft tissue calcification appreciated. XR/XR knee RT 3V IMPRESSION: Mild degenerative change.
--- NOTE | ~2023-09-03 | US_ITS ---
EXAMINATION: US VENOUS ULTRASOUND WITH DOPPLER LOWER EXTREMITY, RIGHT CLINICAL INFORMATION: Right leg pain, swelling and bruising. COMPARISON: None available. TECHNIQUE: Ultrasound of the deep veins is performed from the hip to the calf with compression sonography and color and pulse Doppler assessment. Spectral analysis with color-flow imaging is performed. FINDINGS: There is normal venous compression and respiratory variation and augmented flow. The visualized common femoral vein, superficial femoral vein, profunda femoral vein, popliteal vein, and the trifurcation region shows no evidence of deep venous thrombosis. There is a 6.1 x 1.5 x 2.8 cm Pitts's cyst. If the patient's symptoms persist, followup ultrasound in 5 days 7 days might be of value to exclude proximal propagation from a non-visualized calf vein. US/US venous duplex LE RT IMPRESSION: No DVT demonstrated in the right lower extremity. 6.1 x 1.5 x 2.8 cm Pitts's cyst.
--- NOTE | ~2023-09-03 | XR_ITS ---
EXAMINATION: XR FOOT, RIGHT CLINICAL INFORMATION: Pain and swelling. COMPARISON: None available. TECHNIQUE: AP, lateral, and oblique views of the right foot. FINDINGS: Small plantar calcaneal spur. Mild degenerative changes of the first MTP joint. The bones and soft tissues otherwise appear unremarkable. No fracture appreciated. Alignment is anatomic. Joint spaces are maintained. XR/XR foot RT 2V IMPRESSION: The history does not specify exactly where symptoms of pain and swelling are located, limiting sensitivity and specificity of this study. Recommend clinical correlation. Mild degenerative changes of the first MTP joint. Small plantar calcaneal spur.
--- NOTE | ~2023-09-03 | XR_ITS ---
EXAMINATION: XR TIBIA AND FIBULA, RIGHT CLINICAL INFORMATION: Pain. Swelling. COMPARISON: None available. TECHNIQUE: AP and lateral views of the right tibia and fibula were obtained. FINDINGS: The bones and soft tissues appear unremarkable. No fracture appreciated. No osseous lesions identified. XR/XR tibia fibula RT 2V IMPRESSION: Normal Naveen film examination of the right tibia and fibula.
[2023-09-03 13:19] VITALS: BP 180/96; PULSE 88; RESP 16; TEMP 36.6; O2SAT 100; BMI 31.5
--- NOTE | 2023-09-03 13:19 | ED.GENADULT ---
HPI - General Adult General Chief complaint: Extremity Problem Stated complaint: r knee pain Time Seen by Provider: 09/03/23 15:26 Source: patient Mode of arrival: ambulatory Limitations: no limitations History of Present Illness HPI narrative: Patient is a 48 year old assigned female at with a history of right knee arthritis presenting to the emergency department today with right knee and lower extremity pain, bruising, and swelling. Patient states that over the last day she has noticed right lower leg bruising and swelling with pain. Patient denies any dizziness, lightheadedness, abdominal pain, nausea, vomiting, fever, chills, blurry vision, double vision, loss of vision, chest pain, difficulty breathing, shortness of breath, back pain, night sweats, pain with urination, increased urinary frequency, increased urinary urgency, blood in her urine or stool, syncope or a near syncopal episode, recent trauma or falls, bowel incontinence, bladder incontinence, bowel retention, bladder retention, or any other complaints at this time. Onset (ago): day(s) Location: right and lower extremity Severity: mild Severity scale (1-10): 3 Quality: aching and dull Pain Consistency: constant Relieving factors: none Exacerbating factors: none Associated symptoms: denies other symptoms Treatments prior to arrival: none Related Data Home Medications Medication Instructions Recorded Confirmed oxycodone-acetaminophen 5 mg-325 1 tab PO BID PRN 02/08/23 mg tablet Previous Rx's Medication Instructions Recorded ibuprofen 600 mg tablet 600 mg PO Q8H PRN pain #14 tabs 01/29/23 celecoxib 200 mg capsule 200 mg PO BID #60 caps 06/05/23 clindamycin HCl 150 mg capsule 450 mg (3 x 150 mg) PO TID 7 days 06/11/23 #63 caps Allergies Allergy/AdvReac Type Severity Reaction Status Date / Time No Known Allergies Allergy Verified 03/21/23 12:33 Review of Systems Constitutional: Constitutional: Reports no additional constitutional complaints, Denies chills, Denies fever(s) and Denies night sweats Eyes: Eyes: Reports no additional eye complaints, Denies blurry vision, Denies change in vision, Denies diplopia, Denies eye discharge, Denies loss of vision and Denies eye pain ENT: Denies dizziness Cardiovascular: Cardiovascular: Reports no additional cardiovascular complaints, Denies chest pain, Denies lightheadedness, Denies Loss of Consciousness and Denies dyspnea Respiratory: Respiratory: Reports no additional respiratory complaints and Denies dyspnea Gastrointestinal: Gastrointestinal: Reports no additional gastrointestinal complaints, Denies abdominal pain, Denies melena, Denies hematochezia, Denies change in bowel habits and Denies change in stool character Genitourinary: Genitourinary: Denies hematuria, Denies urinary frequency, Denies dysuria, Denies urinary incontinence, Denies urinary hesitancy and Denies urinary urgency Musculoskeletal: Musculoskeletal: Reports no additional musculoskeletal complaints, Denies numbness and Denies tingling Comments: right lower extremity pain, swelling, and bruising Neurologic: Denies dizziness, Denies loss of vision, Denies numbness and Denies tingling Psychiatric: Psychiatric: Reports no additional psychiatric complaints Endocrine: Endocrine: Reports no additional endocrine complaints Hematologic/Lymphatic: Hematologic/Lymphatic: Reports no additional hematologic/lymphatic complaints Allergic/Immunologic: Allergic/Immunologic: Reports no additional allergic/immunologic complaints PMFSH Past Medical History Attestation statement: The following information was validated with the patient. 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 ED Vital Signs: Vital Signs - 24 hr 09/03/23 13:19 Temperature 98 F Pulse Rate 88 Respiratory Rate 16 Blood Pressure 180/96 H Pulse Oximetry 100 Oxygen Delivery Method Room Air BMI result Body Mass Index 31.5 Const General: cooperative, no acute distress, alert and awake Nutritional Appearance: well nourished Orientation/consciousness: patient oriented x3 Limitations: no limitations HENMT Head: Yes normal to inspection and Yes atraumatic Ears: hearing grossly normal bilaterally and external ears normal General nose exam: Normal external nose present, no nasal discharge noted and no epistaxis Face and sinus: Yes normal facial exam, No abrasion and No laceration Mouth: Normal oral and palatal mucosa present, no drooling and no muffled voice Eyes General: appearance normal, both eyes and all related structures Periorbital: periorbital findings normal Eyelids: Yes eyelids normal Conjunctivae: conjunctivae normal Pupils: Equal, round and reactive pupils present EOM: EOMs intact bilaterally Neck Neck: Yes normal visual inspection, Yes full ROM and Yes no lymphadenopathy Chest Chest palpation & inspection: normal inspection of the chest Resp Effort & Inspection: normal respiratory effort and able to speak in complete sentences GI Inspection: Yes normal to inspection Neuro General: patient oriented x3 and moves all extremities Cranial nerves: Yes Equal, round and reactive pupils present Cognition (Neuro): normal cognition Motor exam (neuro): 5/5 motor strength present throughout Sensory Exam: Normal double simultaneous stimulation for sensation Coordination: [id number] test normal Extrem Other: minimal swelling and bruising present to the right lower extremity General: Yes full ROM and Yes capillary refill normal Psych Appearance: grossly normal Mental Status: mental status grossly normal Affect: normal affect Attitude: cooperative Thought process: Normal thought process present Thought content: Normal thought content present Insight: Good insight present (Psych) Course Course Course Narrative: RME performed by Laine Geronimo PA-C. Patient is a 48 year old assigned female at presenting to the emergency department with right knee pain and right lower leg pain. Patient states that something came out of her right knee / lower leg and has a big bruise. Imaging ordered. Patient placed back in the waiting room pending room availability and results. Medical Decision Making Medical Decision Making MDM Narrative: Patient is a 48 year old assigned female at with a history of right knee osteoarthritis presenting to the emergency department today with right lower extremity pain, swelling, and bruising. Patient's physical exam was as noted in the physical exam portion of this note. Patient's right knee, right tib + fib, and right foot x-rays showed no acute process. Patient's right lower leg US showed a pitts's cyst. Patient's clinical presentation is consistent with an actively leaking pitts's cyst. I explained my physical exam findings as well as all test results to the patient. I answered all questions asked by the patient. I stressed the importance of the patient taking her medication as prescribed. I stressed the importance of the patient following up with her primary care provider and an orthopedic provider. I stressed the importance of the patient returning to the emergency department immediately if her symptoms were to worsen or if she were to develop any dizziness, shortness of breath, difficulty breathing, chest pain, blurry vision, loss of vision, nausea, vomiting, abdominal pain, fever, chills, back pain, or any other complaints. Patient verbalized agreement and understanding with this treatment plan and discharge. Differential Diagnosis Differential Diagnoses: The differential diagnosis associated with the presentation includes Pitts's cyst DVT Osteoarthritis Independent Interpretation I performed an independent interpretation of an: Plain X-Ray and Ultrasound Interpretation: My interpretation is in agreement with the radiologist's impression of these imaging studies. EXAMINATION: XR FOOT, RIGHT CLINICAL INFORMATION: Pain and swelling. COMPARISON: None available. TECHNIQUE: AP, lateral, and oblique views of the right foot. FINDINGS: Small plantar calcaneal spur. Mild degenerative changes of the first MTP joint. The bones and soft tissues otherwise appear unremarkable. No fracture appreciated. Alignment is anatomic. Joint spaces are maintained. XR/XR foot RT 2V IMPRESSION: The history does not specify exactly where symptoms of pain and swelling are located, limiting sensitivity and specificity of this study. Recommend clinical correlation. Mild degenerative changes of the first MTP joint. Small plantar calcaneal spur. Dictated By: Jose Tovar Signed By: Electronically signed by Jose Tovar 09/03/23 1456 EXAMINATION: XR KNEE, RIGHT CLINICAL INFORMATION: Pain. Using. COMPARISON: None available. TECHNIQUE: Four views of the right knee. FINDINGS: Examination demonstrates mild degenerative changes predominantly involving the medial and patellofemoral compartments, with mild joint space narrowing. No fracture or joint effusion identified. Alignment is anatomic. No abnormal soft tissue calcification appreciated. XR/XR knee RT 3V IMPRESSION: Mild degenerative change. Dictated By: Jose Tovar Signed By: Electronically signed by Jose Tovar 09/03/23 1458 EXAMINATION: XR TIBIA AND FIBULA, RIGHT CLINICAL INFORMATION: Pain. Swelling. COMPARISON: None available. TECHNIQUE: AP and lateral views of the right tibia and fibula were obtained. FINDINGS: The bones and soft tissues appear unremarkable. No fracture appreciated. No osseous lesions identified. XR/XR tibia fibula RT 2V IMPRESSION: Normal Naveen film examination of the right tibia and fibula. Dictated By: Jose Tovar Signed By: Electronically signed by Jose Tovar 09/03/23 1458 EXAMINATION: US VENOUS ULTRASOUND WITH DOPPLER LOWER EXTREMITY, RIGHT CLINICAL INFORMATION: Right leg pain, swelling and bruising. COMPARISON: None available. TECHNIQUE: Ultrasound of the deep veins is performed from the hip to the calf with compression sonography and color and pulse Doppler assessment. Spectral analysis with color-flow imaging is performed. FINDINGS: There is normal venous compression and respiratory variation and augmented flow. The visualized common femoral vein, superficial femoral vein, profunda femoral vein, popliteal vein, and the trifurcation region shows no evidence of deep venous thrombosis. There is a 6.1 x 1.5 x 2.8 cm Pitts's cyst. If the patient's symptoms persist, followup ultrasound in 5 days 7 days might be of value to exclude proximal propagation from a non-visualized calf vein. US/US venous duplex LE RT IMPRESSION: No DVT demonstrated in the right lower extremity. 6.1 x 1.5 x 2.8 cm Pitts's cyst. Dictated By: Bari Martinez Signed By: Electronically signed by Bari Martinez 09/03/23 1136 Radiology Impression Discussion of test interpretation with radiology: I have reviewed the radiologist's reading. Discharge Plan Discharge Clinical Impression: Pitts's cyst Patient Disposition: Home, Self-Care Instructions: Bakers Cyst (ED) Additional Instructions: Follow up with your primary care provider and an orthopedic provider. Return to the emergency department immediately if your symptoms worsen or if you develop any dizziness, shortness of breath, difficulty breathing, chest pain, blurry vision, loss of vision, nausea, vomiting, abdominal pain, fever, chills, back pain, or any other complaints. Prescriptions: No Action celecoxib 200 mg capsule 200 mg PO BID Qty: 60 3RF ibuprofen 600 mg tablet 600 mg PO Q8H PRN (Reason: pain) Qty: 14 0RF clindamycin HCl 150 mg capsule 450 mg PO TID 7 Days Qty: 63 0RF oxycodone-acetaminophen 5-325 mg tablet 1 tab PO BID PRN Referrals: [facility] [Provider Group] (Call to establish and follow up with an orthopedic provider.) Meg Vergara MD [Primary Care Provider] - Stand Alone Forms: Work/School Release Print Language: Portuguese
== END 2023-09-03 15:33 | disposition home or self-care (01) ==
PROVIDERS: Emergency Provider Emergency Medicine; PCP Internal Medicine
DX: M71.21 Synovial cyst of popliteal space [Baker], right knee (principal); R60.0 Localized edema; M79.604 Pain in right leg; M79.671 Pain in right foot
CPT/HCPCS: 73562; 73590; 73620; 93971; 99282; 99284

== ENCOUNTER 2024-03-31 10:58 | Outpatient (AMB) | payer OTHER, SELFPAY ==
--- NOTE | 2024-03-31 11:06 | HO.SPINEOV ---
Intake Visit Reasons: disk herniation in lumbar spine Intake Note: Ms. Patel is here today c/o back pain. Allergies No Known Allergies Allergy (Verified 03/21/23 12:33) Assessment & Plan Assessment & Plan (1) Spondylolisthesis, lumbar region: Code(s): M43.16 - Spondylolisthesis, lumbar region Category: Medical Plan Dear Dr Craig, Thank you for referring Mrs Patel to our office today. This is a 49-year-old female who has had chronic back pain for many years. It is located in the lower lumbar area. She has no radicular features, it is primarily mechanical back pain. She has a lot of problems with being in 1 position for any length of time. Specifically, standing, sitting, lying down can all cause discomfort in she will have to get up and move around and change position in order to make it go away. She has pain all throughout the day from the morning straight through to the night. She has tried all the usual conservative treatments including physical therapy, chiropractic, acupuncture. She is due to have an upcoming cortisone injection at your office. She can take Motrin but only sparingly as it will cause rectal bleeding. She has taken Tylenol but it does not really do much. She takes an oxycodone periodically just to try to get through the day. She comes in today to see us with an MRI showing a spondylolisthesis at L4-5 with right L4 foraminal disc protrusion. PMH: Recently had a right knee replacement, history of fibromyalgia, diverticulitis, IBS Social hx: She does not smoke, drink or use any recreational drugs Medications: Oxycodone p.r.n. Allergies: Motrin causes rectal bleeding Physical exam: She is awake alert oriented no acute distress, she has pain over the lower lumbar spine to palpation, strength in the lower extremities is normal. Imaging review: Lumbar MRI done at [facility] shows a grade 1-2 spondylolisthesis at L4-5 with overgrowth of the facets and right-sided neuroforaminal stenosis with a disc protrusion. Impression: 49-year-old female with chronic low back pain, who has been through all the usual conservative treatments, who has a grade 1-2 spondylolisthesis at L4-5. I suspect when she stands and moves she has some degree of instability. I am going to send her for flexion-extension x-rays. Nonetheless, given the spondylolisthesis and the lack of response to conservative treatments I think she had be a good candidate for surgery. Typically this is something Dr. Carranza would choose to do an L4-5 oblique lumbar interbody fusion. We did discuss that procedure at length, risks, benefits etc. as well as recovery. The patient is interested in moving forward. I tentatively scheduled her for June 24. I will call her once I have a chance to finalize the plan with Dr. Carranza. Thank you for allowing us to care for your patient. The total time spent with this visit with this patient was 45 minutes reviewing history, physical exam, lumbar imaging review, and implementation of treatment plan or further diagnostic testing Lopez Carranza MD,PhD [facility] Orders: Orders XR lumbar spine 4V min Today M43.16 - Spondylolisthesis, lumbar region Coding Level of Care Code New Pt Level 4 (61227) Diagnoses Spondylolisthesis, lumbar region M43.16
== END 2024-03-31 12:00 | disposition home or self-care (01) ==
PROVIDERS: PCP Internal Medicine; Referring Provider Physical Medicine & Rehabilitation; Visit Provider Physician Assistant
DX: M43.16 Spondylolisthesis, lumbar region (principal)
CPT/HCPCS: 99204

== ENCOUNTER 2024-03-31 10:58 | Outpatient (REF) | payer OTHER, SELFPAY ==
--- NOTE | ~2024-03-31 | XR_ITS ---
EXAMINATION: XR LUMBOSACRAL SPINE WITH OBLIQUES CLINICAL INFORMATION: Spondylolisthesis lumbar region. COMPARISON: MR lumbar spine 10/01/2021, radiographs lumbar spine 06/23/2021. TECHNIQUE: 4 views of the lumbar spine inclusive of AP, lateral, neutral flexion and extension views. Please note that visualization is limited particularly at level of L1-L2 on AP view due to overlying presumed bra hardware. FINDINGS: Facet arthritis in the [id number] lumbar spine. Moderate multilevel lumbar spondylosis with loss of disc space height at L4-L5. Grade 1 anterolisthesis of L4 and L5 with flexion and extension. XR/XR lumbar spine 4V min IMPRESSION: 1. Moderate multilevel lumbar spondylosis with loss of disc space height at L4-L5. 2. Grade 1 anterolisthesis of L4 and L5 with flexion and extension.
== END 2024-03-31 10:59 | disposition home or self-care (01) ==
LOC: HO.HOSX 10:58
PROVIDERS: PCP Internal Medicine; Visit Provider Physician Assistant
DX: M43.16 Spondylolisthesis, lumbar region (principal)
CPT/HCPCS: 72110; 99202

== ENCOUNTER 2024-04-16 14:58 | Outpatient (AMB) | payer OTHER, SELFPAY ==
--- NOTE | 2024-04-16 15:08 | HO.SPINEOV ---
Intake Visit Reasons: Discuss surgery Intake Note: Ms. Patel is here today to Discuss Surgery [employer] Required: No Allergies No Known Allergies Allergy (Verified 04/16/24 15:10) Assessment & Plan Assessment & Plan (1) Spondylolisthesis, lumbar region: Code(s): M43.16 - Spondylolisthesis, lumbar region Category: Medical Plan Dear colleague, On 04/16/2024 I saw for preoperative visit Aura Patel to discuss her upcoming L4-5 oblique lumbar interbody fusion. We addressed expected postoperative course. Most people recover around 6 weeks. She currently takes 2 oxycodone is a day prescribed by the primary care physician. I advised her to not further increase his preoperatively as it will interfere with postoperative pain control. We will briefly prescribe narcotics for a few weeks postoperatively. She is scheduled for 06/24/2024. All questions were answered. I spent 15 minutes in this consult. Thank you for letting me take care of your patient. Do not hesitate to call with any questions or concerns. Daquan Carranza MD, PhD Sp[facility] Trained Neurosurgeon Director, [facility] [place] [facility] Coding Level of Care Code Est Pt Level 2 (31280) Diagnoses Spondylolisthesis, lumbar region M43.16
== END 2024-04-16 15:29 | disposition home or self-care (01) ==
PROVIDERS: PCP Internal Medicine; Visit Provider Neurological Surgery
DX: M43.16 Spondylolisthesis, lumbar region (principal)
CPT/HCPCS: 99212

== ENCOUNTER → 2024-04-16 14:58 | Outpatient (BNVA) | payer OTHER, SELFPAY | PROVIDERS: PCP Internal Medicine; Visit Provider Neurological Surgery | DX: M43.16 Spondylolisthesis, lumbar region (principal) | CPT/HCPCS: 99212 ==

== ENCOUNTER 2024-09-15 09:08 | Outpatient (AMB) | payer OTHER, SELFPAY ==
--- NOTE | 2024-09-15 09:10 | A.OFFVIS_ITS ---
Vital Signs 09/15/24 09:11 Height 5 ft 3 in Weight 182 lb 15.739 oz BMI 32.4 BP 153/73 H Blood Pressure Location Lt brachial Position Sitting Pulse 75 Intake Visit Reasons: Diverticulitis Intake Note: Enmanuel presents in the office as a new patient for Diverticulitis. CC: She states that she goes between constipation. and diarrhea. She will eat and the food will go right through her. She gets bloated in her stomach. Allergies No Known Allergies Allergy (Verified 09/15/24 09:12) HPI Comments Details: 49 y.o F who is here for consultation after acute uncomplicated diverticulitis in May. Pt reports this is the 2nd time she had diverticulitis. Last flare was 15-[address] ago in [facility], for which she was in the hospital for almost a week. Almost had to get surgery done but then improved and eventually discharged. More recently, was admitted to the hospital in May for acute uncomplicated diverticulitis. CT abdomen and pelvis showed involvement of distal descending colon. Patient was managed with IV antibiotics and discharge within 24 hours on 7 days of levaquin and flagyl. Currently, pt reports altered BM habits. Has significant bloating and pain ana cristina after eating. Also has urgency and passes loose BMs. Can also fluctuate towards constipation. Last colo was possibly 6-7 years ago at [facility]. Recalls polyps. Pat grandmother had CRC in her 70s. Pt also has GERD on her problem list. However reports this is very well managed. Does not take any daily meds. Occ takes Tums 1-2 times in a month. No difficulty swallowing, no regurgitation. No unintentional weight loss. Of note- pt had a recent stress test for occ R sided chest pains lasting 10 mins without shortness of breath, nausea, vomiting. Stress test reportedly normal, will get a copy of the report. 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 Review of Systems Const All systems reviewed & are unremarkable except as noted in HPI and below Physical Exam Vital Signs: Last Vital Signs Pulse 75 09/15/24 09:11 BP 153/73 H 09/15/24 09:11 BMI result Body Mass Index 32.4 No apparent distress Nonicteric Abdomen soft, nondistended Alert and oriented x3, normal gait Assessment & Plan Assessment & Plan (1) History of diverticulitis: Code(s): Z87.19 - Personal history of other diseases of the digestive system Category: Medical (2) Chest pain: Code(s): R07.9 - Chest pain, unspecified Category: Medical (3) GERD (gastroesophageal reflux disease): Code(s): K21.9 - Gastro-esophageal reflux disease without esophagitis Category: Medical (4) Change in bowel habit: Code(s): R19.4 - Change in bowel habit Category: Medical Plan Follow up colonoscopy indicated after recent diverticulitis flare and now with altered bowel habits. Will also book her for EGD at the same time for eval of atypical chest pain and GERD. Pt aware will need to review stress test report prior to booking these. Plan: - EGD/colo - PEG prep Rxed and instructions reviewed. - Msg sent to team to obtain PCP clearance/stress test report - Trial of omeprazole 20 once daily x 8 weeks in the interim for atypical chest pain without pyrosis Follow up after procedures. Medications: New omeprazole 20 mg PO DAILY 90 caps 0RF K21.9 - Gastro-esophageal reflux disease without esophagitis, R07.9 - Chest pain, unspecified peg 3350-electrolytes 236-22.74-6.74 -5.86 gram (Golytely) as per split prep instructions, until fecal effluent is clear 240 mL PO Q10M 4,000 mL 0RF colonoscopy Coding Level of Care Code New Pt Level 4 (80490) Diagnoses History of diverticulitis Z87.19 Chest pain R07.9 GERD (gastroesophageal reflux disease) K21.9 Change in bowel habit R19.4
[2024-09-15 09:11] VITALS: BP 153/73; PULSE 75; BMI 32.4
== END 2024-09-15 10:06 | disposition home or self-care (01) ==
LOC: HO.HGI 09:09
PROVIDERS: PCP Internal Medicine; Visit Provider Internal Medicine
DX: Z87.19 Personal history of other diseases of the digestive system (principal); R07.9 Chest pain, unspecified; K21.9 Gastro-esophageal reflux disease without esophagitis; R19.4 Change in bowel habit
CPT/HCPCS: 99204

== ENCOUNTER → 2024-09-15 09:08 | Outpatient (BNVA) | payer OTHER, SELFPAY | PROVIDERS: PCP Internal Medicine; Visit Provider Internal Medicine | DX: K21.9 Gastro-esophageal reflux disease without esophagitis (principal); R07.9 Chest pain, unspecified; R19.4 Change in bowel habit; Z87.19 Personal history of other diseases of the digestive system | CPT/HCPCS: 99202 ==

== ENCOUNTER 2024-10-14 07:33 | Inpatient (IN) | payer OTHER, SELFPAY ==
[2024-09-29 10:06] VITALS: BP 156/91; PULSE 73; RESP 16; O2SAT 97; BMI 31.9
[2024-09-29 12:02] LABS: Hematocrit 44.2 % (37.0-47.0); Hemoglobin 14.3 g/dl (12.0-16.0); Mean Corpuscular HGB Conc 32.4 g/dl (31.0-35.0); Mean Corpuscular Hemoglobin 28.7 pg (27.0-33.0); Mean Corpuscular Volume 88.6 fL (80.0-98.0); Mean Platelet Volume 9.6 fL (9.4-12.3); Platelet Count 325 X10*3/uL (160-400); Red Blood Count 4.99 X10*6/uL (4.20-5.50); Red Cell Distribution Width 12.3 % (11.0-16.0); White Blood Count 6.6 X10*3/uL (4.8-10.8)
[2024-09-29 12:34] LABS: Anion Gap 10 (12-20); Blood Urea Nitrogen 14 mg/dL (9-16); Calcium 9.1 mg/dL (8.4-10.2); Carbon Dioxide 24 mmol/L (22-29); Chloride 108 mmol/L (96-108); Estimated Glomerular Filt Rate > 60; Glucose Fasting 81 mg/dL (60-99); Sodium 138 mmol/L (135-145)
[2024-10-14] VITALS (15 sets, daily range): BP systolic 108–150; BP diastolic 52–109; PULSE 79–109; RESP 13–23; TEMP 36–36.7; O2SAT 96–100
--- OUTSIDE RECORDS SUMMARY | 2024-10-14 07:40 | XMS_ITS | Continuity of Care Document ---
Author Organization [facility] Address [address] [place] [id number]- Care Team Providers Care Dungeon Master Name Role Phone Meg Vergara MD Primary Care Physician Encounter [facility] Date(s): 02/13/23 - 03/15/[address] [address] Attending Physician: AdmGhazala pena Admitting Physician: Admtr, Ar8 Referring Physician: Admtr, Ar8 Allergies, Adverse Reactions, Alerts No Known Allergies Immunizations Given and Recorded Vaccine Date Status Refusal Reason influenza virus vaccine, inactivated 1 09/07/22 Gi venkatesh influenza virus vaccine, inactivated 09/06/21 Douglas rded influenza virus vaccine, inactivated 2 09/28/20 Gi venkatesh influenza virus vaccine, inactivated 3 10/31/19 Gi venkatesh influenza virus vaccine, inactivated 11/27/17 Douglas rded influenza virus vaccine, inactivated 09/27/16 Give n influenza virus vaccine, inactivated 08/05/14 Give n influenza virus vaccine, inactivated 4 07/22/12 Gi venkatesh influenza virus vaccine, inactivated 08/17/11 Gi venkatesh influenza virus vaccine, inactivated 08/18/10 Give n tetanus/diphtheria/pertussis, acel(Tdap) 6 03/09/22 Given tetanus/diphtheria/pertussis, acel(Tdap) 7 01/12/11 Given SARS-CoV-2 (COVID-19) mRNA BNT-162b2 vac 09/06/21 Recorded SARS-CoV-2 (COVID-19) mRNA BNT-162b2 vac 02/14/21 Recorded SARS-CoV-2 (COVID-19) mRNA BNT-162b2 vac 01/24/21 Recorded 1Result Comment: [facility] [id number] 2Result Comment: [facility] [id number] Pt tolerated vaccine without inicident...NH 3Result Comment: [id number] 4Admin Note: FLULAVAL 5Admin Note: given w/o incident 6Result Comment: [facility] [id number] 7Admin Note: [facility] Medications acetaminophen-oxyCODONE 325 mg-5 mg oral tablet 1, tablet, By Mouth, 2 times a day, PRN, for 28 days, # 56 tablet, Refills 0, Tot. Refills 0, Acute, Pain , Severe, 04/05/23 15:37:00 EDT, 03/08/23 15:37:00 EDT, Route to Pharmacy Electronically, [facility] #[id number] Tablet, Partial fill upon p... Start Date: 03/08/23 Stop Date: 04/05/23 Status: Ordered Albuterol (Eqv-ProAir HFA) 90 mcg/inh inhalation aerosol 2 puffs, Inhalation, 4 times a day, PRN NEEDED FOR WHEEZING OR SHORTNESS OF BREATH, # 8.5 Gm, 0 Refills, [facility] #[id number], 25, INHALE 2 PUFFS FOUR TIMES DAILY NEEDED FOR WHEEZING OR SHORTNESS OF BREATH, 169, cm, 10/31/21 15:06:00 EST,... Start Date: 01/19/22 Status: Ordered amitriptyline 10 mg oral tablet 1, tablet, By Mouth, Daily at bedtime, # 30 tablet, Refills 0, Maintenance, 12/14/22 17:14:00 EST, Route to Pharmacy Electronically, [facility] #[id number], 169, cm, 11/08/22 14:13:00 EST, Height, 92.8, kg, 05/12/21 16:58:00 EDT, Dry Weight Start Date: 12/14/22 Status: Ordered Emgality Prefilled Syringe 120 mg/mL subcutaneous solution 0 Refills, Maintenance, 11/08/22 14:45:00 EST, Partial fill upon patient request if the prescription is for a schedule II opioid drug. Start Date: 11/08/22 Status: Ordered hyoscyamine 0.125 mg oral tablet 0.125 mg, 1, tablet, By Mouth, 3 times a day, PRN, # 90 tablet, Refills 0, Tot. Refills 0, Maintenance, for spasm, 09/07/22 14:26:00 EDT, Route to Pharmacy Electronically, [facility] #[id number], Partial fill upon patient request if the prescript... Start Date: 09/07/22 Stop Date: 10/07/22 Status: Ordered omeprazole 20 mg oral enteric coated capsule 1 capsule, By Mouth, Daily, PRN NEEDED FOR INDIGESTION, # 90 capsule, 1 Refills, Maintenance, 11/08/22 15:02:00 EST, [facility] #[id number], 169, cm, 11/08/22 14:13:00 EST, Height, 92.8, kg, 05/12/21 16:58:00 EDT, Dry Weight Start Date: 11/08/22 Stop Date: 05/07/23 Status: Ordered phentermine 37.5 mg oral tablet 0 Refills, Maintenance, 09/07/22 14:14:00 EDT, Partial fill upon patient request if the prescription is for a schedule II opioid drug. Start Date: 09/07/22 Status: Ordered topiramate 100 mg oral tablet 0 Refills, Maintenance, 09/07/22 14:14:00 EDT, Partial fill upon patient request if the prescription is for a schedule II opioid drug. Start Date: 09/07/22 Status: Ordered Problem List Condition Confirmation Course Effective Dates Status H ealth Status Informant Family history of diabetes mellitus Confirmed Active Fibromyalgia Confirmed Active Drug or alcohol risk assessment or counseling 1 Confirmed Active GERD - Gastro-esophageal reflux disease Confirmed Active Use of opiates for therapeutic purposes Confirmed Active IBS - Irritable bowel syndrome Confirmed Active Insomnia Confirmed Active Low back pain Confirmed Active Lumbar spondylosis Confirmed Active Lumbosacral radiculopathy Confirmed Active Well woman exam with routine gynecological exam Confirmed Active Migraine Confirmed Active GONZÁLEZ (obstructive sleep apnea) Confirmed Active Lower extremity pain Confirmed Active Moderate somatic symptom disorder with predominant pain Confirmed Active 1SOAPP-R: 5 on 05/08/17 Social History Social History Type Response Smoking Status Never smoker entered on: 02/05/14 Sex Patient Care team information Care Team Personnel Name: Kandis Leahy RN Position: [facility] RN Member Role: Primary Care Nurse Name: Meg Vergara MD Position: [facility] Primary Care Physician Member Role: PCP Address: Address: [address] [facility] [place] [address]- Care Team Related Persons Name: ROB KANG Name: LAUREN GOMES Address: home [address] [place] [address] Name: REGINE TREADWELL Address: home [address] [place] [address]
--- OUTSIDE RECORDS SUMMARY | 2024-10-14 07:40 | XMS_ITS | Continuity of Care Document ---
Author Organization [facility] Address [address] [place] [address]- Care Team Providers Care Graphotype Operator Name Role Phone Meg Vergara MD Primary Care Physician Encounter [facility] Date(s): 08/20/24 - 09/19/24 [facility] [address] [place], [place] [address] Allergies, Adverse Reactions, Alerts No Known Allergies Immunizations Given and Recorded Vaccine Date Status Refusal Reason influenza virus vaccine, inactivated 1 08/27/24 Gi venkatesh influenza virus vaccine, inactivated 2 09/18/23 Gi venkatesh influenza virus vaccine, inactivated 3 09/07/22 Gi venkatesh influenza virus vaccine, inactivated 09/06/21 Douglas rded influenza virus vaccine, inactivated 4 09/28/20 Gi venkatesh influenza virus vaccine, inactivated 5 10/31/19 Gi venkatesh influenza virus vaccine, inactivated 11/27/17 Douglas rded influenza virus vaccine, inactivated 09/27/16 Give n influenza virus vaccine, inactivated 08/05/14 Give n influenza virus vaccine, inactivated 6 07/22/12 Gi venkatesh influenza virus vaccine, inactivated 7 08/17/11 Gi venkatesh influenza virus vaccine, inactivated 08/18/10 Give n tetanus/diphtheria/pertussis, acel(Tdap) 8 03/09/22 Given tetanus/diphtheria/pertussis, acel(Tdap) 9 01/12/11 Given SARS-CoV-2 (COVID-19) mRNA BNT-162b2 vac 09/06/21 Recorded SARS-CoV-2 (COVID-19) mRNA BNT-162b2 vac 02/14/21 Recorded SARS-CoV-2 (COVID-19) mRNA BNT-162b2 vac 01/24/21 Recorded 1Result Comment: [facility] [id number] 2Result Comment: [facility] [id number] 3Result Comment: [facility] [id number] 4Result Comment: [facility] [id number] Pt tolerated vaccine without inicident...NH 5Result Comment: [id number] 6Admin Note: FLULAVAL 7Admin Note: given w/o incident 8Result Comment: [facility] [id number] 9Admin Note: [employer] Medications acetaminophen-oxyCODONE 325 mg-5 mg oral tablet 1, tablet, By Mouth, 2 times a day, PRN, for 28 days, # 56 tablet, Refills 0, Tot. Refills 0, Acute, Pain , Severe, 10/16/24 13:51:00 EST, 09/18/24 13:51:00 EST, Route to Pharmacy Electronically, [facility] #[id number] Tablet, Partial fill upon p... Start Date: 09/18/24 Stop Date: 10/16/24 Status: Ordered Albuterol (Eqv-ProAir HFA) 90 mcg/inh inhalation aerosol 2 puffs, Inhalation, 4 times a day, PRN NEEDED FOR WHEEZING OR SHORTNESS OF BREATH, # 8.5 Gm, 0 Refills, [facility] #[id number], 25, INHALE 2 PUFFS FOUR TIMES DAILY NEEDED FOR WHEEZING OR SHORTNESS OF BREATH, 169, cm, 10/31/21 15:06:00 EST,... Start Date: 01/19/22 Status: Ordered Botox Inj Every 3 months, for migraines, 0 Refills, Maintenance, 04/08/24 12:05:00 EDT, Partial fill upon patient request if the prescription is for a schedule II opioid drug. Start Date: 04/08/24 Status: Ordered fluticasone 50 mcg/inh nasal spray See Instructions, SHAKE LIQUID AND USE 1 SPRAY IN EACH NOSTRIL TWICE DAILY SHAKE WELL BEFORE USING,# 16 Gm, 0 Refills, Maintenance, 08/20/24 21:36:00 EDT, [facility] #[id number], 30, SHAKE LIQUID AND USE 1 SPRAY IN EACH NOSTRIL TWICE DAILY SHAKE... Start Date: 08/20/24 Status: Ordered metronidazole topical 0.75% gel with applicator 1 applicator, Vaginally, Daily at bedtime, for 5 days, # 70 Gm, 0 Refills, Acute 09/20/24 10:34:00 EST, 09/15/24 10:34:00 EST, Gel, [facility] #[id number], Partial fill upon patient request if the prescription is for a schedule II opioid drug., 1... Start Date: 09/15/24 Stop Date: 09/20/24 Status: Ordered omeprazole 20 mg oral enteric coated capsule 1 capsule, By Mouth, Daily, PRN NEEDED FOR INDIGESTION, # 90 capsule, 3 Refills, Maintenance, 05/30/24 16:14:00 EDT, [facility] #[id number], 160, cm, 05/30/24 15:48:00 EDT, Height, 81, kg, 05/30/24 15:48:00 EDT, Dry Weight Start Date: 05/30/24 Status: Ordered phentermine 37.5 mg oral tablet 0 Refills, Maintenance, 08/27/24 14:37:00 EDT, Partial fill upon patient request if the prescription is for a schedule II opioid drug. Start Date: 08/27/24 Status: Ordered topiramate 50 mg oral tablet 0 Refills, Maintenance, 04/16/24 11:15:00 EDT, Partial fill upon patient request if the prescription is for a schedule II opioid drug. Start Date: 04/16/24 Status: Ordered Problem List Condition Confirmation Course [...] gynecological exam Confirmed Active Migraine Confirmed Active Obese class I Confirmed Active GONZÁLEZ (obstructive sleep apnea) Confirmed Active Lower extremity pain Confirmed Active Moderate somatic symptom disorder with predominant pain Confirmed Active 1SOAPP-R: 5 on 05/08/17 Social History Social History Type Response Smoking Status Never smoker entered on: 02/05/14 Sex Patient Care team information Care Team Personnel Name: Kandis Leahy RN Position: [facility] RN Member Role: Primary Care Nurse Name: Anita Hemphill RN Position: S RN Member Role: Primary Care Nurse Name: Meg Vergara MD Position: [facility] Physician - Primary Care Member Role: PCP Address: Address: [address] [place] [address] [facility] [place], [place] [address] Name: Elaina Lyon RN Position: [facility] OB RN Member Role: Primary Care Nurse Care Team Related Persons Name: ROB KANG Name: LAUREN GOMES Address: home [address] [place] [id number] Name: REGINE TREADWELL Address: [address] [place] [address]
--- OUTSIDE RECORDS SUMMARY | 2024-10-14 07:40 | XMS_ITS | Continuity of Care Document ---
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 Name Role Phone Meg Vergara MD Primary Care Physician Encounter [facility] Date(s): 05/12/21 - 05/13/[address] [address] Discharge Disposition: A-D/C Home Attending Physician: Braxton Stein MD Admitting Physician: Joel Gomez MD Referring Physician: Not on Staff, Referring MD Allergies, Adverse Reactions, Alerts Substance Reaction Severity Status NKA Active Immunizations Given and Recorded Vaccine Date Status Refusal Reason SARS-CoV-2 (COVID-19) mRNA BNT-162b2 vac 02/14/21 Recorded SARS-CoV-2 (COVID-19) mRNA BNT-162b2 vac 01/24/21 Recorded influenza virus vaccine, inactivated 1 09/28/20 Gi venkatesh influenza virus vaccine, inactivated 2 10/31/19 Gi venkatesh influenza virus vaccine, inactivated 11/27/17 Douglas rded influenza virus vaccine, inactivated 09/27/16 Give n influenza virus vaccine, inactivated 08/05/14 Give n influenza virus vaccine, inactivated 3 07/22/12 Gi venkatesh influenza virus vaccine, inactivated 4 08/17/11 Gi venkatesh influenza virus vaccine, inactivated 08/18/10 Give n tetanus/diphtheria/pertussis, acel(Tdap) 5 01/12/11 Given 1Result Comment: [facility] 34594-017-43 Pt tolerated vaccine without inicident...NH 2Result Comment: [id number] 3Admin Note: FLULAVAL 4Admin Note: given w/o incident 5Admin Note: [facility] Medications acetaminophen-oxyCODONE 325 mg-5 mg oral tablet 1, tablet, By Mouth, 2 times a day, PRN, may fill for less for 28 days, # 56 tablet, Refills 0, Tot. Refills 0, Acute, Pain , Severe, 06/02/21 11:11:00 EDT, 05/05/21 11:11:00 EDT, Route to Pharmacy Electronically, [facility] #[id number] Tablet... Start Date: 05/05/21 Stop Date: 06/02/21 Status: Ordered Aimovig SureClick Autoinjector-aooe 140 mg/mL subcutaneous solution 0 Refills, Maintenance, 09/05/19 11:33:37 EDT Start Date: 09/05/19 Status: Ordered docusate sodium 100 mg oral capsule 100 mg, 1, capsule, By Mouth, 2 times a day, # 60 capsule, Refills 5, Tot. Refills 5, Maintenance, 05/11/21 16:01:00 EDT, Route to Pharmacy Electronically, [facility] #[id number], 160, cm, 12/17/20 10:53:00 EST, Height, 83.9, kg, 11/21/19 2:52:00... Start Date: 05/11/21 Stop Date: 11/07/21 Status: Ordered Excedrin Migraine oral tablet 2 tablet, By Mouth, Every 6 hours, PRN for headache, Maintenance, 06/28/19 17:39:20 EDT, Tablet Start Date: 06/28/19 Status: Ordered lactulose 10 gm/15 ml oral syrup 30 mL = 20 Gm, By Mouth, 2 times a day, for 3 days, # 180 mL, 0 Refills, Acute 05/14/21 16:00:00 EDT, 05/11/21 16:00:00 EDT, Syrup, [facility] #[id number], 30 mL By Mouth 2 times a day,x3 days, 160, cm, 12/17/20 10:53:00 EST, Height, 83.9, kg, 01... Start Date: 05/11/21 Stop Date: 05/14/21 Status: Ordered MiraLax oral powder for reconstitution = 17 Gm, By Mouth, Daily, dissolve in water before taking, # 255 Gm, 0 Refills, Acute 06/10/21 20:00:00 EDT, 05/13/21 12:25:00 EDT, REC Powder, [facility] #[id number], Partial fill upon patient request if the prescription is for a schedule II opi... Start Date: 05/13/21 Stop Date: 06/10/21 Status: Ordered omeprazole 20 mg oral enteric coated capsule 1 capsule = 20 mg, By Mouth, Daily, PRN Dyspepsia, # 30 capsule, 2 Refills, Maintenance, 09/22/19 17:05:14 EST Start Date: 09/22/19 Stop Date: 12/21/19 Status: Ordered ProAir HFA 90 mcg/inh inhalation aerosol with adapter 2, puffs, Inhalation, 4 times a day, PRN, # 1 each, Refills 2, Tot. Refills 2, Maintenance, 12/23/20 15:08:00 EST, Aerosol, Route to Pharmacy Electronically, [id number], [facility] #[id number], 160, cm, 12/17/20 10:53:00... Start Date: 12/23/20 Stop Date: 03/23/21 Status: Ordered Splint See Instructions, # 1 each, Maintenance, use for right wrist at night dx-carpal tunnel syndrome duration -99, 04/02/20 14:28:00 EDT, Supply Start Date: 04/02/20 Status: Ordered traMADol 50 mg oral tablet 1 tablet = 50 mg, By Mouth, Every 4 hours, PRN as needed for pain, for 3 days, # 12 tablet, 0 Refills, Acute 05/16/21 15:07:00 EDT, 05/13/21 15:07:00 EDT, Tablet, [facility] #[id number], Partialfill upon patient request if the prescription is fo... Start Date: 05/13/21 Stop Date: 05/16/21 Status: Ordered Ultram 50 mg oral tablet 100 mg, Tablet, By Mouth, Every 6 hours, PRN for Pain , Moderate, Routine, 05/12/21 19:57:00 EDT Start Date: 05/12/21 Stop Date: 05/13/21 Status: Discontinued Problem List Condition Effective Dates Status Health Status Inform ant Family history of diabetes mellitus(Confirmed) Active Fibromyalgia(Confirmed) Active Drug or alcohol risk assessm ent or counseling(Confirmed) 1 Active GERD - Gastro-esophageal ref lux disease(Confirmed) Active Use of opiates for therapeut ic purposes(Confirmed) Active IBS - Irritable bowel syndrome(Confirmed) Active Insomnia(Confirmed) Active Low back pain(Confirmed) Active Lumbar spondylosis(Confirmed) Active Lumbosacral radiculopathy(Confirmed) Active Well woman exam with routine gynecological exam(Confirmed) Active Migraine(Confirmed) Active GONZÁLEZ (obstructive sleep apnea)(Confirmed) Active Lower extremity pain(Confirmed) Active Moderate somatic symptom dis order with predominant pain(Confirmed) Active 1SOAPP-R: 5 on 05/08/17 Vital Signs Most recent to oldest [Reference Range]: 1 2 3 Height 169 cm (05/13/21 3:45 AM) 169 cm (05/12/21 11:45 PM) 169 cm (05/12/21 7:46 PM) Weight 92.8 kg (05/12/21 4:58 PM) 92.8 kg (05/12/21 2:04 PM) 92.8 kg (05/12/21 10:32 AM) Oxygen Saturation [94-100 %] 96 % (05/13/21 10:52 AM) 99 % (05/13/21 7:51 AM) 97 % (05/13/21 3:45 AM) Pulse Rate [55-90 bpm] 87 bpm (05/13/21 10:52 AM) 80 bpm (05/13/21 7:51 AM) 85 bpm (05/13/21 3:45 AM) Body Mass Index [18.5-24.99] 32.49 *>HHI* (05/12/21 4:58 PM) 32.49 *>HHI* (05/12/21 2:04 PM) 32.49 *>HHI* (05/12/21 10:32 AM) Blood Pressure [90-138/55-84 mm Hg] 104/58mm Hg (05/13/21 10:52 AM) 97/53mm Hg (05/13/21 7:51 AM) 95/57mm Hg (05/13/21 3:45 AM) Respiratory Rate [16-30 br/min] 20 br/min (05/13/21 10:52 AM) 18 br/min (05/13/21 9:52 AM) 18 br/min (05/13/21 9:00 AM) Temperature [96.8-100.4 DegF] 97.9 DegF (05/13/21 10:52 AM) 98.1 DegF (05/13/21 7:51 AM) 98.0 DegF (05/13/21 3:45 AM) Mode of Delivery (Oxygen) Room air (05/13/21 10:52 AM) Room air (05/13/21 7:51 AM) Room air (05/13/21 3:45 AM) Blood pressure sites Arm, right (05/13/21 10:52 AM) Arm, right (05/13/21 7:51 AM) Arm, right (05/13/21 3:45 AM) Temperature Route Oral (05/13/21 10:52 AM) Oral (05/13/21 7:51 AM) Oral (05/13/21 3:45 AM) Dry Weight 92.8 kg (05/12/21 4:58 PM) 92.8 kg (05/12/21 2:04 PM) 92.8 kg (05/12/21 10:32 AM) Weight Obtained Via Standing scale (05/12/21 10:19 AM) Dry Weight Obtained Via Standing scale (05/12/21 10:19 AM) Social History Social History Type Response Smoking Status Never smoker entered on: 02/05/14 Sex
--- OUTSIDE RECORDS SUMMARY | 2024-10-14 07:40 | XMS_ITS | Continuity of Care Document ---
Author Organization 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 [address] [place], [place] [address] Allergies, Adverse Reactions, Alerts No Known Allergies Immunizations Given and Recorded Vaccine Date Status Refusal Reason influenza virus vaccine, inactivated 1 09/18/23 Gi venkatesh influenza virus vaccine, inactivated 2 09/07/22 Gi venkatesh influenza virus vaccine, inactivated 09/06/21 Douglas rded influenza virus vaccine, inactivated 3 09/28/20 Gi venkatesh influenza virus vaccine, inactivated 4 10/31/19 Gi venkatesh influenza virus vaccine, inactivated 11/27/17 Douglas rded influenza virus vaccine, inactivated 09/27/16 Give n influenza virus vaccine, inactivated 08/05/14 Give n influenza virus vaccine, inactivated 5 07/22/12 Gi venkatesh influenza virus vaccine, inactivated 6 08/17/11 Gi venkatesh influenza virus vaccine, inactivated 08/18/10 Give n tetanus/diphtheria/pertussis, acel(Tdap) 7 03/09/22 Given tetanus/diphtheria/pertussis, acel(Tdap) 8 01/12/11 Given SARS-CoV-2 (COVID-19) mRNA BNT-162b2 vac 09/06/21 Recorded SARS-CoV-2 (COVID-19) mRNA BNT-162b2 vac 02/14/21 Recorded SARS-CoV-2 (COVID-19) mRNA BNT-162b2 vac 01/24/21 Recorded 1Result Comment: [facility] 2] 22780-935-02 2Result Comment: [facility]NOTE 2] 79191-286-13 3Result Comment: [facility][NOTE 2] 50644-777-88 Pt tolerated vaccine without inicident...NH 4Result Comment: [id number] 5Admin Note: FLULAVAL 6Admin Note: given w/o incident 7Result Comment: [facility][NOTE 2] 74256-950-36 8Admin Note: [facility] Medications acetaminophen-oxyCODONE 325 mg-5 mg oral tablet 1, tablet, By Mouth, 2 times a day, PRN, for 28 days, # 56 tablet, Refills 0, Tot. Refills 0, Acute, Pain , Severe, 12/20/23 16:34:00 EST, 11/22/23 16:34:00 EST, Route to Pharmacy Electronically, [facility] #[id number] Tablet, Partial fill upon p... Start Date: 11/22/23 Stop Date: 12/20/23 Status: Ordered Albuterol (Eqv-ProAir HFA) 90 mcg/inh inhalation aerosol 2 puffs, Inhalation, 4 times a day, PRN NEEDED FOR WHEEZING OR SHORTNESS OF BREATH, # 8.5 Gm, 0 Refills, [facility] #[id number], 25, INHALE 2 PUFFS FOUR TIMES DAILY NEEDED FOR WHEEZING OR SHORTNESS OF BREATH, 169, cm, 10/31/21 15:06:00 EST,... Start Date: 01/19/22 Status: Ordered amitriptyline 10 mg oral tablet 1, tablet, By Mouth, Daily at bedtime, # 30 tablet, Refills 0, Maintenance, 12/14/22 17:14:00 EST, Route to Pharmacy Electronically, [facility] #[id number], 169, cm, 11/08/22 14:13:00 EST, Height, 92.8, [...] 0, Tot. Refills 0, Maintenance, for spasm, 10/22/23 12:37:00 EST, Route to Pharmacy Electronically, [facility] #[id number], Partial fill upon patient request if the prescript... Start Date: 10/22/23 Stop Date: 11/21/23 Status: Ordered omeprazole 20 mg oral enteric coated capsule 1 capsule, By Mouth, Daily, PRN NEEDED FOR INDIGESTION, # 90 capsule, 1 Refills, Maintenance, 07/13/23 13:09:00 EDT, [facility] #[id number], 169, cm, 02/07/23 11:17:00 EDT, Height Start Date: 07/13/23 Status: Ordered phentermine 37.5 mg oral tablet 0 Refills, Maintenance, 09/07/22 14:14:00 EDT, Partial fill upon patient request if the prescription is for a schedule II opioid drug. Start Date: 09/07/22 Status: Ordered sucralfate 1 gm/10 ml oral suspension 10 mL = 1 Gm, By Mouth, 3 times a day before meals and bedtime, # 280 mL, 0 Refills, Maintenance, 10/22/23 12:37:00 EST, [facility] #[id number], Partial fill upon patient request if the prescription is for a schedule II opioid drug., 169, cm, ... Start Date: 10/22/23 Stop Date: 10/29/23 Status: Ordered topiramate 100 mg oral tablet 0 Refills, Maintenance, 09/07/22 14:14:00 EDT, Partial fill upon patient request if the prescription is for a schedule II opioid drug. Start Date: 09/07/22 Status: Ordered Zithromax Z-Nash 250 mg oral tablet See Instructions, as directed on package labeling, # 6 tablet, 0 Refills, Maintenance, 10/19/23 14:39:00 EST, Tablet, [facility] #[id number], Partial fill upon patient request if the prescription is for a schedule II opioid drug., 169, cm, ... Start Date: 10/19/23 Status: Ordered Problem List Condition Confirmation Course [...] team information Care Team Personnel Name: Kandis Leayh RN Position: [facility] SN RN Member Role: Primary Care Nurse Name: Meg Vergara MD Position: [facility] Physician - Primary Care Member Role: PCP Address: Address: [address] [place] [address] Adult [place] [address]- Care Team Related Persons Name: ROB KANG Name: LAUREN GOMES Address: home [address] [place] [address] Name: REGINE TREADWELL Address: home [address] [place] [address]
--- OUTSIDE RECORDS SUMMARY | 2024-10-14 07:40 | XMS_ITS | Continuity of Care Document ---
Author Organization [facility] ter Address [address] [place] [address]- Care Team Providers Care Core Analyst Name Role Phone Meg Vergara MD Primary Care Physician Encounter [facility] Date(s): 01/29/20 - 03/05/[address] [address]- [facility] Attending Physician: Marce Naranjo MD Admitting Physician: Marce Naranjo MD Referring Physician: Marce Naranjo MD Allergies, Adverse Reactions, Alerts Substance Reaction Severity Status NKA Active Immunizations Given and Recorded Vaccine Date Status Refusal Reason influenza virus vaccine, inactivated 1 10/31/19 Gi venkatesh influenza virus vaccine, inactivated 11/27/17 Douglas rded influenza virus vaccine, inactivated 09/27/16 Give n influenza virus vaccine, inactivated 08/05/14 Give n influenza virus vaccine, inactivated 2 07/22/12 Gi venkatesh influenza virus vaccine, inactivated 3 08/17/11 Gi venkatesh influenza virus vaccine, inactivated 08/18/10 Give n tetanus/diphtheria/pertussis, acel(Tdap) 4 01/12/11 Given 1Result Comment: [id number] 2Admin Note: FLULAVAL 3Admin Note: given w/o incident 4Admin Note: [facility] Medications acetaminophen-oxyCODONE 325 mg-5 mg oral tablet 1, tablet, By Mouth, 2 times a day, PRN, may fill for less for 28 days, # 56 tablet, Refills 0, Tot. Refills 0, Acute, Pain , Severe, 03/11/20 9:13:00 EDT, 02/12/20 9:13:00 EDT, Route to Pharmacy Electronically, [facility] #[id number] Tablet,... Start Date: 02/12/20 Stop Date: 03/11/20 Status: Ordered Aimovig SureClick Autoinjector-aooe 140 mg/mL subcutaneous solution 0 Refills, Maintenance, 09/05/19 11:33:37 EDT Start Date: 09/05/19 Status: Ordered Excedrin Migraine oral tablet 2 tablet, By Mouth, Every 6 hours, PRN for headache, Maintenance, 06/28/19 17:39:20 EDT, Tablet Start Date: 06/28/19 Status: Ordered ibuprofen 800 mg oral tablet 1, tablet, By Mouth, 3 times a day, FOR ACRUTE MIGRAINE., # 30 tablet, Refills 0, Tot. Refills 0, Acute, 02/20/20 9:33:00 EDT, Route to Pharmacy Electronically, [facility] #[id number], 160, cm, 01/16/20 11:09:00 EST, Height, 83.9, kg, 11/21/19 2:... Start Date: 02/20/20 Status: Ordered omeprazole 20 mg oral enteric coated capsule 1 capsule = 20 mg, By Mouth, Daily, PRN Dyspepsia, # 30 capsule, 2 Refills, Maintenance, 09/22/19 17:05:14 EST Start Date: 09/22/19 Stop Date: 12/21/19 Status: Ordered ProAir HFA 90 mcg/inh inhalation aerosol with adapter 2, puffs, Inhalation, 4 times a day, PRN, # 1 each, Refills 5, Tot. Refills 5, Maintenance, 11/18/19 12:52:00 EST, Aerosol, Route to Pharmacy Electronically, [id number], [facility] #[id number], 160, cm, 10/31/19 10:30:00... Start Date: 11/18/19 Stop Date: 05/16/20 Status: Ordered Zofran 4 mg oral tablet 1 tablet = 4 mg, By Mouth, Every 8 hours, PRN Nausea & Vomiting, # 10 tablet, 0 Refills, Maintenance, 06/13/19 17:01:42 EDT, Tablet Start Date: 06/13/19 Status: Ordered Problem List Condition Effective Dates Status Health [...] predominant pain(Confirmed) Active 1SOAPP-R: 5 on 05/08/17 Social History Social History Type Response Smoking Status Never smoker entered on: 02/05/14 Sex
--- OUTSIDE RECORDS SUMMARY | 2024-10-14 07:40 | XMS_ITS | Continuity of Care Document ---
Author Organization [facility] Address [address] [place] [address]- Care Team Providers Care Card Painter Name Role Phone Meg Vergara MD Primary Care Physician [phone] Encounter [facility] Date(s): 01/29/24 - 02/28/24 [facility] [address] [place], [place] [address] Allergies, Adverse Reactions, Alerts [...] mRNA BNT-162b2 vac 01/24/21 Recorded 1Result Comment: [facility] [id number] 2Result Comment: [facility] [id number] 3Result Comment: [facility] 24674-536-17 Pt tolerated vaccine without inicident...NH 4Result Comment: [id number] 5Admin Note: FLULAVAL 6Admin Note: given w/o incident 7Result Comment: [facility] [id number] 8Admin Note: [facility] Medications acetaminophen-oxyCODONE 325 mg-5 mg oral tablet 1, tablet, By Mouth, 2 times a day, PRN, for 28 days, # 56 tablet, Refills 0, Tot. Refills 0, Acute, Pain , Severe, 03/18/24 16:52:00 EDT, 02/19/24 16:52:00 EDT, Route to Pharmacy Electronically, [facility] #[id number] Tablet, Partial fill upon p... Start Date: 02/19/24 Stop Date: 03/18/24 Status: Ordered Albuterol (Eqv-ProAir HFA) 90 mcg/inh inhalation aerosol 2 puffs, Inhalation, 4 times a day, PRN NEEDED FOR WHEEZING OR SHORTNESS OF BREATH, # 8.5 Gm, 0 Refills, [facility] #[id number], 25, INHALE 2 PUFFS FOUR TIMES DAILY NEEDED FOR WHEEZING OR SHORTNESS OF BREATH, 169, cm, 10/31/21 15:06:00 EST,... Start Date: 01/19/22 Status: Ordered amitriptyline 10 mg oral tablet 1, tablet, By Mouth, Daily at bedtime, # 30 tablet, Refills 0, Maintenance, 12/14/22 17:14:00 EST, Route to Pharmacy Electronically, [facility] #[id number], 169, cm, 11/08/22 14:13:00 EST, Height, 92.8, [...] 10/22/23 12:37:00 EST, Route to Pharmacy Electronically, [facility] #[id number], Partial fill upon patient request if the prescript... Start Date: 10/22/23 Stop Date: 11/21/23 Status: Ordered omeprazole 20 mg oral enteric coated capsule 1 capsule, By Mouth, Daily, PRN NEEDED FOR INDIGESTION, # 90 capsule, 0 Refills, Maintenance, 01/18/24 18:31:00 EST, [facility] #[id number], 169, cm, 10/22/23 12:21:00 EST, Height, 83, kg, 10/22/23 12:21:00 EST, Dry Weight Start Date: 01/18/24 Status: Ordered sucralfate 1 gm/10 ml oral suspension 10 mL = 1 Gm, By Mouth, 3 times a day before meals and bedtime, # 280 mL, 0 Refills, Maintenance, 10/22/23 12:37:00 EST, [facility] #[id number], Partial fill upon patient request if the [...] 0 Refills, Maintenance, 10/19/23 14:39:00 EST, Tablet, [facility] #[id number], Partial fill upon patient request if the prescription is for a schedule II opioid drug., 169, cm, .. Start Date: 10/19/23 Status: Ordered Problem List [...] Care team information Care Team Personnel Name: Ursula BURCH, Meg Bains Position: [facility] Physician - Primary Care Member Role: PCP Address: Address: [address] [place] [address] Adult & [place] [address]- Care Team Related Persons Name: ROB KANG Name: LAUREN GOMES Address: home [address] [place] [id number] Name: REGINE TREADWELL Address: home [address] [place] [address]
--- OUTSIDE RECORDS SUMMARY | 2024-10-14 07:40 | XMS_ITS | Continuity of Care Document ---
Author Organization [facility] Address [address] [place] [address]- Care Team Providers Care Vp Patient Name Role Phone Meg Vergara MD Primary Care Physician Encounter [facility] Date(s): 06/29/22 - 07/06/22 [facility] [address] [place], [place] [address] Encounter Diagnosis Acute otitis media, right(Discharge Diagnosis) - 06/29/22 Attending Physician: Yesenia [employer], Shea Allergies, Adverse Reactions, Alerts No Known Allergies Immunizations Given and Recorded Vaccine Date Status Refusal Reason tetanus/diphtheria/pertussis, acel(Tdap) 1 03/09/22 Given tetanus/diphtheria/pertussis, acel(Tdap) 2 01/12/11 Given influenza virus vaccine, inactivated 09/06/21 Douglas rded [...] influenza virus vaccine, inactivated 08/18/10 Give n SARS-CoV-2 (COVID-19) mRNA BNT-162b2 vac 09/06/21 Recorded SARS-CoV-2 (COVID-19) mRNA BNT-162b2 vac 02/14/21 Recorded SARS-CoV-2 (COVID-19) mRNA BNT-162b2 vac 01/24/21 Recorded 1Result Comment: [facility] [id number] 2Admin Note: [facility] 3Result Comment: [facility] 69498-785-22 Pt tolerated vaccine without inicident...NH 4Result Comment: [id number] 5Admin Note: FLULAVAL 6Admin Note: given w/o incident Medications acetaminophen-oxyCODONE 325 mg-5 mg oral tablet 1, tablet, By Mouth, 2 times a day, PRN, for 28 days, # 56 tablet, Refills 0, Tot. Refills 0, Acute, Pain , Severe, 07/18/22 11:55:00 EDT, 06/20/22 11:55:00 EDT, Route to Pharmacy Electronically, [facility] #[id number] Tablet, Partial fill upon p... Start Date: 06/20/22 Stop Date: 07/18/22 Status: Ordered Aimovig SureClick Autoinjector-aooe 140 mg/mL subcutaneous solution 0 Refills, Maintenance, 09/05/19 11:33:37 EDT Start Date: 09/05/19 Status: Ordered Albuterol (Eqv-ProAir HFA) 90 mcg/inh inhalation aerosol 2 puffs, Inhalation, 4 times a day, PRN NEEDED FOR WHEEZING OR SHORTNESS OF BREATH, # 8.5 Gm, 0 Refills, [facility] #[id number], 25, INHALE 2 PUFFS FOUR TIMES DAILY NEEDED FOR WHEEZING OR SHORTNESS OF BREATH, 169, cm, 10/31/21 15:06:00 EST,... Start Date: 01/19/22 Status: Ordered Fish Oil By Mouth, 0 Refills, Maintenance, 03/09/22 10:56:00 EDT, Partial fill upon patient request if the prescription is for a schedule II opioid drug. Start Date: 03/09/22 Status: Ordered Home Blood Pressure Monitor See Instructions, # 1 each, Maintenance, Use to check BP as instructed ICD 10: I10, 02/15/22 14:31:00 EDT, Supply Start Date: 02/15/22 Status: Ordered Multivitamin Daily, 0 Refills, Maintenance, 03/09/22 10:56:00 EDT, Partial fill upon patient request if the prescription is for a schedule II opioid drug. Start Date: 03/09/22 Status: Ordered omeprazole 20 mg oral enteric coated capsule 1 capsule, By Mouth, Daily, PRN NEEDED FOR INDIGESTION, # 30 capsule, 2 Refills, [facility] #[id number], 169, cm, 03/27/22 16:12:00 EDT, Height, 92.8, kg, 05/12/21 16:58:00 EDT, Dry Weight Start Date: 05/10/22 Status: Ordered Vitamin C By Mouth, Daily, 0 Refills, Maintenance, 03/09/22 10:56:00 EDT, Partial fill upon patient request if the prescription is for a schedule II opioid drug. Start Date: 03/09/22 Status: Ordered Problem List Condition Effective Dates [...] predominant pain(Confirmed) Active 1SOAPP-R: 5 on 05/08/17 Diagnosis Diagnosis Type Effective Dates Health Status Cl inical Service Informant Acute otitis media, right Discharge Diagnosis 06/29/22 Vital Signs Most recent to oldest [Reference Range]: 1 Height 169 cm (06/29/22 10:54 AM) Weight 83.4 kg (06/29/22 10:54 AM) Oxygen Saturation [94-100 %] 99 % (06/29/22 10:54 AM) Pulse Rate [55-90 bpm] 98 bpm *H* (06/29/22 10:54 AM) Body Mass Index [18.5-24.99] 29.2 *H* (06/29/22 10:54 AM) Blood Pressure [90-138/55-84 mm Hg] 106/ 66mm Hg (06/29/22 10:54 AM) Mode of Delivery (Oxygen) Room air (06/29/22 10:54 AM) Blood pressure sites Arm, left (06/29/22 10:54 AM) Weight Obtained Via Standing scale (06/29/22 10:54 AM) Social History Social History Type Response Smoking Status Never smoker entered on: 02/05/14 Sex Care Team Personnel Name: Ursula BURCH, Meg Bains Address: [address] [place] [address] Adult & Pediatric [place], [place] [address]
--- OUTSIDE RECORDS SUMMARY | 2024-10-14 07:40 | XMS_ITS | Continuity of Care Document ---
Author Organization [facility] Address [address] [place] [address]- Care Team Providers Care Pen Ruler Operator Name Role Phone Ursula BURCH, Meg Bains Primary Care Physician [place] [facility] [place]20 [facility] [address] [place] [address]- [facility] Allergies, Adverse Reactions, Alerts Substance Reaction Severity [...] tetanus/diphtheria/pertussis, acel(Tdap) 4 01/12/11 Given 1Result Comment: [id number] 2Admin Note: FLULAVAL 3Admin Note: given w/o incident 4Admin Note: [facility] Medications acetaminophen-oxyCODONE 325 mg-5 mg oral tablet 1, tablet, By Mouth, 2 times a day, PRN, may fill for less for 28 days, # 56 tablet, Refills 0, Tot. Refills 0, Acute, Pain , Severe, 09/09/20 9:33:00 EDT, 08/12/20 9:33:00 EDT, Route to Pharmacy Electronically, [facility] #[id number] Tablet,... Start Date: 08/12/20 Stop Date: 09/09/20 Status: Ordered Aimovig SureClick Autoinjector-aooe 140 mg/mL [...] 02/20/20 9:33:00 EDT, Route to Pharmacy Electronically, [facility] #[id number], 160, cm, 01/16/20 11:09:00 EST, Height, 83.9, [...] 12:52:00 EST, Aerosol, Route to Pharmacy Electronically, [id number], [facility] #[id number], 160, cm, 10/31/19 10:30:00... Start Date: 11/18/19 Stop Date: 05/16/20 Status: Ordered Splint See Instructions, # 1 each, Maintenance, use for right wrist at night dx-carpal tunnel syndrome duration -99, 04/02/20 14:28:00 EDT, Supply Start Date: 04/02/20 Status: Ordered Zofran 4 mg oral tablet [...]
--- OUTSIDE RECORDS SUMMARY | 2024-10-14 07:40 | XMS_ITS | Continuity of Care Document ---
Author Organization [facility] Address [address] [place] [address]- Care Team Providers Care Director Selection And Administration Name Role Phone Meg Vergara MD Primary Care Physician Encounter [facility] [place] Date(s): 12/25/23 - 01/24/24 [facility] [address] [place], [place] [address] Allergies, Adverse Reactions, Alerts No [...] mRNA BNT-162b2 vac 01/24/21 Recorded 1Result Comment: [facility] 27978-822-40 2Result Comment: [facility] [id number] 3Result Comment: [facility] 90054-793-01 Pt tolerated vaccine without inicident...NH 4Result Comment: [id number] 5Admin Note: FLULAVAL 6Admin Note: given w/o incident 7Result Comment: [facility] 47620-457-63 8Admin Note: [employer] Medications acetaminophen-oxyCODONE 325 mg-5 mg oral tablet 1-2 tablet, By Mouth, Every 6 hours, PRN, dx- acute knee pain post knee replacement for 7 days, # 28 tablet, Refills 0, Tot. Refills 0, Acute, Pain , Severe, 01/28/24 17:12:00 EDT, 01/21/24 17:12:00 EDT, Route to Pharmacy Electronically, [facility]... Start Date: 01/21/24 Stop Date: 01/28/24 Status: Ordered Albuterol (Eqv-ProAir HFA) 90 mcg/inh inhalation aerosol 2 puffs, Inhalation, 4 times a day, PRN NEEDED FOR WHEEZING OR SHORTNESS OF BREATH, # 8.5 Gm, 0 Refills, [facility] #[id number], 25, INHALE 2 PUFFS FOUR TIMES DAILY NEEDED FOR WHEEZING OR SHORTNESS OF BREATH, 169, cm, 10/31/21 15:06:00 EST,... Start Date: 01/19/22 Status: Ordered amitriptyline 10 mg oral tablet 1, tablet, By Mouth, Daily at bedtime, # 30 tablet, Refills 0, Maintenance, 12/14/22 17:14:00 EST, Route to Pharmacy Electronically, [facility] #[id number], 169, cm, 11/08/22 14:13:00 EST, Height, 92.8, [...] 10/22/23 12:37:00 EST, Route to Pharmacy Electronically, [facility] #[id number], Partial fill upon patient request if the prescript... Start Date: 10/22/23 Stop Date: 11/21/23 Status: Ordered omeprazole 20 mg oral enteric coated capsule 1 capsule, By Mouth, Daily, PRN NEEDED FOR INDIGESTION, # 90 capsule, 0 Refills, Maintenance, 01/18/24 18:31:00 EST, [facility] #[id number], 169, cm, 10/22/23 12:21:00 EST, Height, 83, kg, 10/22/23 12:21:00 EST, Dry Weight Start Date: 01/18/24 Status: Ordered sucralfate 1 gm/10 ml oral suspension 10 mL = 1 Gm, By Mouth, 3 times a day before meals and bedtime, # 280 mL, 0 Refills, Maintenance, 10/22/23 12:37:00 EST, [facility] #[id number], Partial fill upon patient request if the [...] 0 Refills, Maintenance, 10/19/23 14:39:00 EST, Tablet, [facility] #[id number], Partial fill upon patient request if the [...] Personnel Name: Ursula BURCH, Meg Bains Position: [facility] Physician - Primary Care Member Role: PCP Address: Address: [address] [place] [address] Adult [place] [address]- Care Team Related Persons Name: ROB KANG Name: LAUREN GOMES Address: home [address] [place] [address] Name: REGINE TREADWELL Address: home [address] [place] [address]
--- OUTSIDE RECORDS SUMMARY | 2024-10-14 07:40 | XMS_ITS | Continuity of Care Document ---
Author Organization [facility] Address [address] [place] [address]- Care Team Providers Care Promotions Representative Name Role Phone Meg Vergara MD Primary Care Physician Encounter [facility] [place] Date(s): 11/08/22 - 02/02/23 [facility] [address] [place], [place] [address] Attending Physician: Meg Vergara MD Allergies, Adverse Reactions, Alerts No Known Allergies [...] 07/22/12 Gi venkatesh influenza virus vaccine, inactivated 5 08/17/11 Gi venkatesh influenza virus vaccine, inactivated 08/18/10 Give n tetanus/diphtheria/pertussis, acel(Tdap) 6 03/09/22 Given tetanus/diphtheria/pertussis, acel(Tdap) 7 01/12/11 Given SARS-CoV-2 (COVID-19) mRNA BNT-162b2 vac 09/06/21 Recorded SARS-CoV-2 (COVID-19) mRNA BNT-162b2 vac 02/14/21 Recorded SARS-CoV-2 (COVID-19) mRNA BNT-162b2 vac 01/24/21 Recorded 1Result Comment: [facility] [id number] 2Result Comment: [facility] 16812-757-60 Pt tolerated vaccine without inicident...NH 3Result Comment: [id number] 4Admin Note: FLULAVAL 5Admin Note: given w/o incident 6Result Comment: [facility] [id number] 7Admin Note: [employer] Medications Albuterol (Eqv-ProAir HFA) 90 mcg/inh inhalation aerosol 2 puffs, Inhalation, 4 times a day, PRN NEEDED FOR WHEEZING OR SHORTNESS OF BREATH, # 8.5 Gm, 0 Refills, [facility] #[id number], 25, INHALE 2 PUFFS FOUR TIMES DAILY NEEDED FOR WHEEZING OR SHORTNESS OF BREATH, 169, cm, 10/31/21 15:06:00 EST,... Start Date: 01/19/22 Status: Ordered amitriptyline 10 mg oral tablet 1, tablet, By Mouth, Daily at bedtime, # 30 tablet, Refills 0, Maintenance, 12/14/22 17:14:00 EST, Route to Pharmacy Electronically, [facility] #[id number], 169, cm, 11/08/22 14:13:00 EST, Height, 92.8, [...] 09/07/22 14:26:00 EDT, Route to Pharmacy Electronically, [facility] #[id number], Partial fill upon patient request if the prescript... Start Date: 09/07/22 Stop Date: 10/07/22 Status: Ordered omeprazole 20 mg oral enteric coated capsule 1 capsule, By Mouth, Daily, PRN NEEDED FOR INDIGESTION, # 90 capsule, 1 Refills, Maintenance, 11/08/22 15:02:00 EST, [facility] #[id number], 169, cm, 11/08/22 14:13:00 EST, Height, 92.8, [...] Team Personnel Name: Kandis Leahy RN Position: [facility] SN RN Member Role: Primary Care Nurse Name: Meg Vergara MD Position: [facility] Primary Care Physician Member Role: PCP Address: Address: [address] [place] [address] Adult & [place] [address]- Care Team Related Persons Name: ROB KANG Name: LAUREN GOMES Address: home [address] [place] [address] Name: REGINE TREADWELL Address: home [address] [place] [address]
--- OUTSIDE RECORDS SUMMARY | 2024-10-14 07:40 | XMS_ITS | Continuity of Care Document ---
Author Organization [facility] Address [address] [place] [address]- Care Team Providers Care Laborer Tan [place] Name Role Phone Meg Vergara MD Primary Care Physician [phone] Encounter [facility] [place] Date(s): 04/10/24 - 05/10/24 [facility] [address] [place], [place] [address] Allergies, Adverse Reactions, Alerts [...] mRNA BNT-162b2 vac 01/24/21 Recorded 1Result Comment: [facility] [id number] 2Result Comment: [facility] 24255-548-77 3Result Comment: [facility] 12656-892-10 Pt tolerated vaccine without inicident...NH 4Result Comment: [id number] 5Admin Note: FLULAVAL 6Admin Note: given w/o incident 7Result Comment: [facility] 33324-681-93 8Admin Note: [employer] Medications acetaminophen-oxyCODONE 325 mg-5 mg oral tablet 1, tablet, By Mouth, 2 times a day, PRN, for 28 days, # 56 tablet, Refills 0, Tot. Refills 0, Acute, Pain , Severe, 05/15/24 10:20:00 EDT, 04/17/24 10:20:00 EDT, Route to Pharmacy Electronically, [facility] #[id number] Tablet, Partial fill upon p... Start Date: 04/17/24 Stop Date: 05/15/24 Status: Ordered Albuterol (Eqv-ProAir HFA) 90 mcg/inh inhalation aerosol 2 puffs, Inhalation, 4 times a day, PRN NEEDED FOR WHEEZING OR SHORTNESS OF BREATH, # 8.5 Gm, 0 Refills, [facility] #[id number], 25, INHALE 2 PUFFS FOUR TIMES DAILY NEEDED FOR WHEEZING OR SHORTNESS OF BREATH, 169, cm, 10/31/21 15:06:00 EST,... Start Date: 01/19/22 Status: Ordered Botox Inj Every 3 months, for migraines, 0 Refills, Maintenance, 04/08/24 12:05:00 EDT, Partial fill upon patient request if the prescription is for a schedule II opioid drug. Start Date: 04/08/24 Status: Ordered meloxicam 15 mg oral tablet 0 Refills, Maintenance, 04/08/24 12:04:00 EDT, Partial fill upon patient request if the prescription is for a schedule II opioid drug. Start Date: 04/08/24 Status: Ordered omeprazole 20 mg oral enteric coated capsule 1 capsule, By Mouth, Daily, PRN NEEDED FOR INDIGESTION, # 90 capsule, 1 Refills, Maintenance, 04/16/24 11:14:00 EDT, [facility] #[id number], 169, cm, 04/16/24 10:32:00 EDT, Height, 83.9, kg, 04/16/24 10:29:00 EDT, Dry Weight Start Date: 04/16/24 Status: Ordered phentermine 37.5 mg oral tablet 1 tablet = 37.5 mg, By Mouth, Daily, for 30 days, at least one hour after meals, # 30 tablet, 0 Refills, Acute 05/11/24 14:14:00 EDT, 04/11/24 14:14:00 EDT, Tablet, [facility] #[id number], Partial fill upon patient request if the prescription is... Start Date: 04/11/24 Stop Date: 05/11/24 Status: Ordered topiramate 50 mg oral tablet [...] Team Personnel Name: Kandis Leahy RN Position: [facility] RN Member Role: Primary Care Nurse Name: Meg Vergara MD Position: [facility] Physician - Primary Care Member Role: PCP Address: Address: [address] [place] [address] Adult [place] [address]- Care Team Related Persons Name: ROB KANG Name: LAUREN GOMES Address: home [address] [place] [address] Name: REGINE TREADWELL Address: home [address] [place] [address]
--- OUTSIDE RECORDS SUMMARY | 2024-10-14 07:40 | XMS_ITS | Continuity of Care Document ---
Author Organization [facility] Address [address] [place] [address]- Care Team Providers Care Studio Technician Name Role Phone Meg Vergara MD Primary Care Physician [phone] Encounter [facility] Date(s): 05/10/22 - 06/09/22 [facility] [address] [place], [place] [address] Allergies, Adverse Reactions, Alerts No Known [...] BNT-162b2 vac 01/24/21 Recorded 1Result Comment: [facility] 31041-612-78 2Admin Note: [employer] 3Result Comment: [facility] 52570-430-58 Pt tolerated vaccine without inicident...NH 4Result Comment: [id number] 5Admin Note: FLULAVAL 6Admin Note: given w/o incident Medications acetaminophen-oxyCODONE 325 mg-5 mg oral tablet 1, tablet, By Mouth, 2 times a day, PRN, for 28 days, # 56 tablet, Refills 0, Tot. Refills 0, Acute, Pain , Severe, 06/19/22 15:04:00 EDT, 05/22/22 15:04:00 EDT, Route to Pharmacy Electronically, [facility] #[id number] Tablet, Partial fill upon p... Start Date: 05/22/22 Stop Date: 06/19/22 Status: Ordered Aimovig SureClick Autoinjector-aooe 140 mg/mL subcutaneous solution 0 Refills, Maintenance, 09/05/19 11:33:37 EDT Start Date: 09/05/19 Status: Ordered Albuterol (Eqv-ProAir HFA) 90 mcg/inh inhalation aerosol 2 puffs, Inhalation, 4 times a day, PRN NEEDED FOR WHEEZING OR SHORTNESS OF BREATH, # 8.5 Gm, 0 Refills, [facility] #[id number], 25, INHALE 2 PUFFS FOUR TIMES DAILY [...] EDT, Supply Start Date: 02/15/22 Status: Ordered Linzess 145 mcg oral capsule 1 capsule = 145 mcg, By Mouth, Daily, # 30 capsule, 1 Refills, Maintenance, 03/29/22 11:14:00 EDT, Capsule, [facility] #[id number], Partial fill upon patient request if the prescription is for aschedule II opioid drug., 169, cm, 03/27/22 16:12:0... Start Date: 03/29/22 Status: Ordered Multivitamin Daily, 0 Refills, Maintenance, 03/09/22 10:56:00 EDT, Partial fill upon patient request if the prescription is for a schedule II opioid drug. Start Date: 03/09/22 Status: Ordered omeprazole 20 mg oral enteric coated capsule 1 capsule, By Mouth, Daily, PRN NEEDED FOR INDIGESTION, # 30 capsule, 2 Refills, [facility] #[id number], 169, cm, 03/27/22 16:12:00 EDT, Height, 92.8, [...]
--- OUTSIDE RECORDS SUMMARY | 2024-10-14 07:40 | XMS_ITS | Continuity of Care Document ---
Author Organization [facility] Address [address] [place] [address]- Care Team Providers Care Outboard Motorboat Operator Name Role Phone Meg Vergara MD Primary Care Physician Encounter [facility] [place] Date(s): 05/30/24 - 06/06/24 [facility] [address] [place], [place] [address] Encounter Diagnosis Acute diverticulitis(Discharge Diagnosis) - 05/31/24 IBS - Irritable bowel syndrome(Discharge Diagnosis) - 05/31/24 Use of opiates for therapeutic purposes(Discharge Diagnosis) - 05/31/24 Attending Physician: Meg Vergara MD Allergies, Adverse [...] mRNA BNT-162b2 vac 01/24/21 Recorded 1Result Comment: [facility] [id number] 2Result Comment: [facility] 48154-720-58 3Result Comment: [facility] 45145-544-60 Pt tolerated vaccine without inicident...NH 4Result Comment: [id number] 5Admin Note: FLULAVAL 6Admin Note: given w/o incident 7Result Comment: [facility] 22770-375-04 8Admin Note: [facility] Medications acetaminophen-oxyCODONE 325 mg-5 mg oral tablet 1, tablet, By Mouth, 2 times a day, PRN, for 28 days, # 56 tablet, Refills 0, Tot. Refills 0, Acute, Pain , Severe, 06/13/24 17:14:00 EDT, 05/16/24 17:14:00 EDT, Route to Pharmacy Electronically, [facility] #[id number] Tablet, Partial fill upon p... Start Date: 05/16/24 Stop Date: 06/13/24 Status: Ordered Albuterol (Eqv-ProAir HFA) 90 mcg/inh inhalation aerosol 2 puffs, Inhalation, 4 times a day, PRN NEEDED FOR WHEEZING OR SHORTNESS OF BREATH, # 8.5 Gm, 0 Refills, [facility] #[id number], 25, INHALE 2 PUFFS FOUR TIMES DAILY [...] capsule, 1 Refills, Maintenance, 04/16/24 11:14:00 EDT, [email or web address] #[id number], 169, cm, 04/16/24 10:32:00 EDT, Height, 83.9, kg, 04/16/24 10:29:00 EDT, Dry Weight Start Date: 04/16/24 Status: Ordered omeprazole 20 mg oral enteric coated capsule 1 capsule, By Mouth, Daily, PRN NEEDED FOR INDIGESTION, # 90 capsule, 3 Refills, Maintenance, 05/30/24 16:14:00 EDT, [facility] #[id number], 160, cm, 05/30/24 15:48:00 EDT, Height, 81, kg, 05/30/24 15:48:00 EDT, Dry Weight Start Date: 05/30/24 Status: Ordered topiramate 50 mg oral tablet [...] pain Confirmed Active 1SOAPP-R: 5 on 05/08/17 Diagnosis Diagnosis Type Effective Dates Health Status Clinical Service Informant Acute diverticulitis Discharge Diagnosis 05/31/24 IBS - Irritable bowel syndrome Discharge Diagnosis 05/31/24 Use of opiates for therapeutic purposes Discharge Diagnosis 05/31/24 Vital Signs Most recent to oldest [Reference Range]: 1 Height 160 cm (05/30/24 3:48 PM) Weight 81 kg (05/30/24 3:48 PM) Oxygen Saturation [94-100 %] 100 % (05/30/24 3:48 PM) Pulse Rate [55-90 bpm] 100 bpm *H* (05/30/24 3:48 PM) Body Mass Index [18.5-24.99 kg/m2] 31.64 kg/m2 *>HHI* (05/30/24 3:48 PM) Blood Pressure [90-138/55-84 mm Hg] 120/ 82mm Hg (05/30/24 3:48 PM) Mode of Delivery (Oxygen) Room air (05/30/24 3:48 PM) Blood pressure sites Arm, right (05/30/24 3:48 PM) Dry Weight 81 kg (05/30/24 3:48 PM) Weight Obtained Via Standing scale (05/30/24 3:48 PM) Dry Weight Obtained Via Standing scale (05/30/24 3:48 PM) Social History Social History Type Response Smoking Status Never smoker entered on: 02/05/14 Sex Note * Candace Rain: PERFORM Event Display: Patient Education/Instruction Authored Date: [id number] Ambulatory Adult Visit Summary [facility] [address] [place] [address] Name: HUGO GOMES : 1975?? Visit: 05/30/2024 15:32?? Ambulatory Visit Instructions ?? Your Care Team Primary Care Provider Meg Vergara MD? This Visit Provider Meg Vergara MD Vitals Signs Pulse Rate:??100 bpm??High Height: 160 cm Systolic Blood Pressure: 120 mm Hg Weight: 81 kg Diastolic Blood Pressure: 82 mm Hg Body Mass Index:??31.64 kg/m2??Critical Oxygen Saturation: 100 % Body surface area: 1.9 What to do next Instructions From Your Provider soft diet, advance as tolerated if foods with seeds/ fiber -.small amounts and not 2-3 days in a row.?? fluids + stool softeners - docusate if stool is hard ?? referral to [facility]?? Scheduled Follow-Up Appointments 2023 2:30 PM EDT ?? With: Elmer Jarrell MD Where: [facility] [address] [facility] 3rd Floor, [address] [place] [address]- Status: Pending Sunday 1:40 PM EDT ?? With: Meg Vergara MD Where: [facility] [address] [place] [address]- Status: Pending Medications The list below reflects the information in our records and provided by you today along with any changes made during this visit. Please continue your medications until treatment is completed or stopped by your provider. If this is different from the information you have or there are other questions,please contact the prescribing provider. What How Much When Why Instructions Changed Omeprazole (omeprazole 20 mg oral enteric coated capsule) 1 capsule Oral Daily as needed for NEEDED FOR INDIGESTION Changed Omeprazole (omeprazole 20 mg oral enteric coated capsule) 1 capsule Oral Daily as needed for NEEDED FOR INDIGESTION Pickup at [facility] #[id number] Unchanged Albuterol (Albuterol (Eqv-ProAir HFA) 90 mcg/ inh inhalation aerosol) 2 puff(s) Inhalation 4 times a day as needed for NEEDED FOR WHEEZING OR SHORTNESS OF BREATH Unchanged onabotulinumtoxinA (Botox Inj) Every 3 months for migraines ?? Unchanged Oxycodone / Acetaminophen (acetaminophen-oxyCODONE 325 mg-5 mg oral tablet) 1 tab(s) Oral Twice a day as needed for Pain , Severe DDD (degenerative disc disease), lumbar Duration: 28 Days Unchanged Topiramate (topiramate 50 mg oral tablet) Pharmacy Information [facility] #[id number]: [address] [place], [place] [id number] [phone] ?? What When Comments Stop Taking Meloxicam (meloxicam 15 mg oral tablet) Medications and Immunizations Administered Medications Given During Visit No medications given during this visit.?? Allergies (NKA means No Known Allergies) NKA Common Emergency Awareness Tips IS IT A STROKE? Act FAST and Check for these signs: FACE Does the face look uneven? ARM Does one arm drift down? SPEECH Does their speech sound strange? TIME Call at any sign of stroke ?? Heart Attack Signs Chest discomfort: Most heart attacks involve discomfort in the center of the chest and lasts more than a few minutes, or goes away and comes back. It can feel like uncomfortable pressure, squeezing, fullness or pain. Discomfort in upper body: Symptoms can include pain or discomfort in one or both arms, back, neck, jaw or stomach. Shortness of breath: With or without discomfort. Other signs: Breaking out in a cold sweat, nausea, or lightheaded. Remember, MINUTES DO MATTER. If you experience any of these heart attack warning signs, call to get immediate medical attention! ?? Smoking can increase your chances of developing chronic health problems and can cause harmful effects to other family members in your house. If you smoke, you are strongly encouraged to quit. Please call [facility] [employer] - is now [employer] [facility] at [phone] or [phone] ([phone]) or log in to [email or web address] for referrals to smoking cessation programs. ?? The National Suicide Prevention Hotline is available 04/06 if you or someone you know needs to find a reason to keep living. By calling 7-334-581-Thismoment (6987) you'll be connected to a skilled, trained counselor at a crisis center in your area. [facility] [employer] - is now [employer] Portal You can view and manage your care through the patient portal or by using a health care charlene of your choosing. [employer] is a website that allows you to securely view your medical information including your hospital discharge summary, office visit summaries, medications and follow-up visits. You can also request appointments, renew medications, and request access to your medical information using a health care charlene of your choosing, or just ask a question. You can enroll at [email or web address] or register during your next office visit. [facility], in keeping with [facility] guidance, no longer requires face masks for staff, patientsor visitors in most situations. Similiar to time spent indoors at other locations, there is the chance that you were exposed to repiratory viruses during your time with us (such as flu or COVID-19). If you develop symptoms concerning for a viral respiratory infection, please seek testing (and treatment if indicated) from your medical provider or home test kit. ?? Disclaimer: The information provided is of a general nature and is intended to be used in conjunction with the recommendations and advice of your health care practitioner. Every effort has been made to ensure that the information provided is accurate and complete at the time it is provided to you however, as your needs change, or, as new information becomes available, different or additional instructions may be required. ?? If you have questions, please consult with your primary care provider or pharmacist, as appropriate. This information is not intended to serve as substitution for assessment and evaluation by a qualified health care provider. If you do not have a primary care provider, you may find a [facility] provider by calling [facility] at [phone]. Patient Care team information Care Team Personnel Name: Kandis Leahy RN Position: [facility] RN Member Role: Primary Care Nurse Name: Anita Hemphill RN Position: [facility] RN Member Role: Primary Care Nurse Name: Meg Vergara MD Position: [facility] Physician - Primary Care Member Role: PCP Address: Address: [address] [place] [address] Adult [place] [address]- Care Team Related Persons Name: ROB KANG Name: LAUREN GOMES Address: [address] [address] Name: REGINE TREADWELL Address: home [address] [place] [address]
--- OUTSIDE RECORDS SUMMARY | 2024-10-14 07:40 | XMS_ITS | Continuity of Care Document ---
Author Organization [facility] Address [address] [place] [address]- Care Team Providers Care Duco Polisher Name Role Phone Meg Vergara MD Primary Care Physician Encounter [facility] [place] Date(s): 01/01/24 - 01/31/24 [facility] [address] [place], [place] [address] Allergies, Adverse Reactions, Alerts No Known Allergies Immunizations Given and Recorded Vaccine Date Status Refusal Reason influenza virus vaccine, inactivated 1 09/18/23 Gi venkatesh influenza virus vaccine, inactivated 2 09/07/22 Gi venkatesh influenza virus vaccine, inactivated 09/06/21 Douglas rded influenza virus vaccine, inactivated 3 09/28/20 Gi venaktesh influenza virus vaccine, inactivated 4 10/31/19 Gi [...] mRNA BNT-162b2 vac 01/24/21 Recorded 1Result Comment: [facility] 38264-425-08 2Result Comment: [facility] [id number] 3Result Comment: [facility] [id number] Pt tolerated vaccine without inicident...NH 4Result Comment: [id number] 5Admin Note: FLULAVAL 6Admin Note: given w/o incident 7Result Comment: [facility] [id number] 8Admin Note: [employer] Medications acetaminophen-oxyCODONE 325 mg-5 mg oral tablet 1-2 tablet, By Mouth, Every 6 hours, PRN, dx- acute knee pain post knee replacement for 7 days, # 28 tablet, Refills 0, Tot. Refills 0, Acute, Pain , Severe, 02/05/24 16:59:00 EDT, 01/29/24 16:59:00 EDT, Route to Pharmacy Electronically, [facility]... Start Date: 01/29/24 Stop Date: 02/05/24 Status: Ordered Albuterol (Eqv-ProAir HFA) 90 mcg/inh inhalation aerosol 2 puffs, Inhalation, 4 times a day, PRN NEEDED FOR WHEEZING OR SHORTNESS OF BREATH, # 8.5 Gm, 0 Refills, [facility] #[id number], 25, INHALE 2 PUFFS FOUR TIMES DAILY NEEDED FOR WHEEZING OR SHORTNESS OF BREATH, 169, cm, 10/31/21 15:06:00 EST,... Start Date: 01/19/22 Status: Ordered amitriptyline 10 mg oral tablet 1, tablet, By Mouth, Daily at bedtime, # 30 tablet, Refills 0, Maintenance, 12/14/22 17:14:00 EST, Route to Pharmacy Electronically, [facility] #[id number], 169, cm, 11/08/22 14:13:00 EST, Height, 92.8, [...] 10/22/23 12:37:00 EST, Route to Pharmacy Electronically, [facility] #[id number], Partial fill upon patient request if the prescript... Start Date: 10/22/23 Stop Date: 11/21/23 Status: Ordered omeprazole 20 mg oral enteric coated capsule 1 capsule, By Mouth, Daily, PRN NEEDED FOR INDIGESTION, # 90 capsule, 0 Refills, Maintenance, 01/18/24 18:31:00 EST, [facility] #[id number], 169, cm, 10/22/23 12:21:00 EST, Height, 83, kg, 10/22/23 12:21:00 EST, Dry Weight Start Date: 01/18/24 Status: Ordered sucralfate 1 gm/10 ml oral suspension 10 mL = 1 Gm, By Mouth, 3 times a day before meals and bedtime, # 280 mL, 0 Refills, Maintenance, 10/22/23 12:37:00 EST, [facility] #[id number], Partial fill upon patient request if the [...] 0 Refills, Maintenance, 10/19/23 14:39:00 EST, Tablet, [facility] #[id number], Partial fill upon patient request if the [...] Personnel Name: Ursula BURCH, Meg Bains Position: [facility] Physician - Primary Care Member Role: PCP Address: Address: [address] [place] [address] Adult & [place] [address]- Care Team Related Persons Name: ROB KANG Name: LAUREN GOMES Address: home [address] [place] [id number] Name: REGINE TREADWELL Address: home [address] [place] [address]
--- OUTSIDE RECORDS SUMMARY | 2024-10-14 07:40 | XMS_ITS | Continuity of Care Document ---
Author Organization [facility] Address [address] [place] [address]- Care Team Providers Care Salesperson Recreational Vehicles Name Role Phone Meg Vergara MD Primary Care Physician [phone] Encounter [facility] [place] Date(s): 11/16/20 - 12/16/[address] [address] Attending Physician: AdmGhazala pena Admitting Physician: Admtr, [id number] Referring Physician: Admtr, Ar8 Allergies, Adverse Reactions, Alerts Substance Reaction Severity Status NKA Active Immunizations Given and Recorded Vaccine Date Status Refusal Reason influenza virus vaccine, inactivated 1 09/28/20 Gi [...] tetanus/diphtheria/pertussis, acel(Tdap) 5 01/12/11 Given 1Result Comment: [facility] 01326-620-89 Pt tolerated vaccine without inicident...NH 2Result Comment: [id number] 3Admin Note: FLULAVAL 4Admin Note: given w/o incident 5Admin Note: [employer] Medications acetaminophen-oxyCODONE 325 mg-5 mg oral tablet 1, tablet, By Mouth, 2 times a day, PRN, may fill for less for 28 days, # 56 tablet, Refills 0, Tot. Refills 0, Acute, Pain , Severe, 01/03/21 15:42:00 EST, 12/06/20 15:42:00 EST, Route to Pharmacy Electronically, [facility] #[id number] Tablet... Start Date: 12/06/20 Stop Date: 01/03/21 Status: Ordered Aimovig SureClick Autoinjector-aooe 140 mg/mL subcutaneous solution 0 Refills, Maintenance, 09/05/19 11:33:37 EDT Start Date: 09/05/19 Status: Ordered Excedrin Migraine oral tablet 2 tablet, By Mouth, Every 6 hours, PRN for headache, Maintenance, 06/28/19 17:39:20 EDT, Tablet Start Date: 06/28/19 Status: Ordered omeprazole 20 mg oral enteric coated capsule 1 capsule = 20 mg, By Mouth, Daily, PRN Dyspepsia, # 30 capsule, 2 Refills, Maintenance, 09/22/19 17:05:14 EST Start Date: 09/22/19 Stop Date: 12/21/19 Status: Ordered Splint See Instructions, # 1 each, Maintenance, use for right wrist at night dx-carpal tunnel syndrome duration -99, 04/02/20 14:28:00 EDT, Supply Start Date: 04/02/20 Status: Ordered Problem List Condition Effective Dates [...]
--- OUTSIDE RECORDS SUMMARY | 2024-10-14 07:40 | XMS_ITS | Continuity of Care Document ---
Author Organization [facility] Address [address] [place] [address]- Care Team Providers Care Finished Goods Inspector Name Role Phone Meg Vergara MD Primary Care Physician [phone] Encounter [facility] [place] Date(s): 05/19/21 - 07/30/21 [facility] [address] [place], [place] [address] Attending Physician: Meg Vergara MD Allergies, Adverse Reactions, Alerts Substance Reaction [...] tetanus/diphtheria/pertussis, acel(Tdap) 5 01/12/11 Given 1Result Comment: [facility] [id number] Pt tolerated vaccine without inicident...NH 2Result Comment: [id number] 3Admin Note: FLULAVAL 4Admin Note: given w/o incident 5Admin Note: [employer] Medications Aimovig SureClick Autoinjector-aooe 140 mg/mL subcutaneous solution 0 Refills, Maintenance, 09/05/19 11:33:37 EDT Start Date: 09/05/19 Status: Ordered docusate sodium 100 mg oral capsule 100 mg, 1, capsule, By Mouth, 2 times a day, # 60 capsule, Refills 5, Tot. Refills 5, Maintenance, 05/11/21 16:01:00 EDT, Route to Pharmacy Electronically, [facility] #[id number], 160, cm, 12/17/20 10:53:00 EST, Height, 83.9, [...] 15:08:00 EST, Aerosol, Route to Pharmacy Electronically, [id number], [id number], 160, cm, 12/17/20 10:53:00... Start Date: 12/23/20 [...]
--- OUTSIDE RECORDS SUMMARY | 2024-10-14 07:40 | XMS_ITS | Continuity of Care Document ---
Author Organization [facility]] [facility] Address [address] [place] [address]- Care Team Providers Care Vegetable Farming Supervisor Name Role Phone Meg Vergara MD Primary Care Physician [place] [facility] 03/20/24 - 04/19/24 [facility] [address] [place], [place] [address] Allergies, Adverse Reactions, Alerts No [...] vac 01/24/21 Recorded 1Result Comment: [facility] 47395-790-41 2Result Comment: [facility] 72152-543-77 3Result Comment: [facility] 50904-102-07 Pt tolerated vaccine without inicident...NH 4Result Comment: [id number] 5Admin Note: FLULAVAL 6Admin Note: given w/o incident 7Result Comment: [facility] 09684-035-42 8Admin Note: [employer] Medications acetaminophen-oxyCODONE 325 mg-5 mg oral tablet 1, tablet, By Mouth, 2 times a day, PRN, for 28 days, # 56 tablet, Refills 0, Tot. Refills 0, Acute, Pain , Severe, 05/15/24 10:20:00 EDT, 04/17/24 10:20:00 EDT, Route to Pharmacy Electronically, [facility] #[id number] Tablet, Partial fill upon p... Start Date: 04/17/24 Stop Date: 05/15/24 Status: Ordered Albuterol (Eqv-ProAir HFA) 90 mcg/inh inhalation aerosol 2 puffs, Inhalation, 4 times a day, PRN NEEDED FOR WHEEZING OR SHORTNESS OF BREATH, # 8.5 Gm, 0 Refills, [facility] #[id number], 25, INHALE 2 PUFFS FOUR TIMES DAILY NEEDED FOR WHEEZING OR SHORTNESS OF BREATH, 169, cm, 10/31/21 15:06:00 EST,... Start Date: 01/19/22 Status: Ordered Botox Inj Every 3 months, for migraines, 0 Refills, Maintenance, 04/08/24 12:05:00 EDT, Partial fill upon patient request if the prescription is for a schedule II opioid drug. Start Date: 04/08/24 Status: Ordered ibuprofen 600 mg oral tablet 600 mg, 1, tablet, By Mouth, 3 times a day, # 42 tablet, Refills 0, Tot. Refills 0, Acute 04/30/24 11:22:00 EDT, 04/16/24 11:22:00 EDT, Route to Pharmacy Electronically, [facility] #[id number], Partial fill upon patient request if the prescriptio... Start Date: 04/16/24 Stop Date: 04/30/24 Status: Ordered meloxicam 15 mg oral tablet 0 Refills, Maintenance, 04/08/24 12:04:00 EDT, Partial fill upon patient request if the prescription is for a schedule II opioid drug. Start Date: 04/08/24 Status: Ordered omeprazole 20 mg oral enteric coated capsule 1 capsule, By Mouth, Daily, PRN NEEDED FOR INDIGESTION, # 90 capsule, 1 Refills, Maintenance, 04/16/24 11:14:00 EDT, [facility] #[id number], 169, cm, 04/16/24 10:32:00 EDT, Height, 83.9, kg, 04/16/24 10:29:00 EDT, Dry Weight Start Date: 04/16/24 Status: Ordered phentermine 37.5 mg oral tablet 1 tablet = 37.5 mg, By Mouth, Daily, for 30 days, at least one hour after meals, # 30 tablet, 0 Refills, Acute 05/11/24 14:14:00 EDT, 04/11/24 14:14:00 EDT, Tablet, [facility] #[id number], Partial fill upon patient request if the [...] Team Personnel Name: Kandis Leahy RN Position: [facility] RN Member Role: Primary Care Nurse Name: Meg Vergara MD Position: [facility] Physician - Primary Care Member Role: PCP Address: Address: [address] [facility] [place] [address]- Care Team Related Persons Name: ROB KANG Name: LAUREN GOMES Address: home [address] [place] [address] Name: REGINE TREADWELL Address: home [address] [place] [address]
--- OUTSIDE RECORDS SUMMARY | 2024-10-14 07:40 | XMS_ITS | Continuity of Care Document ---
Author Organization [facility] Address [address] [place] [address]- Care Team Providers Care Board Winder Name Role Phone Meg Vergara MD Primary Care Physician [place] [facility] [place]s): 02/08/22 - 02/15/22 [facility] [address] [place], [place] [address] Encounter Diagnosis Migraine(Discharge Diagnosis) - 02/08/22 Attending Physician: Not on Staff, Attending MD Referring Physician: Meg Vergara MD Allergies, Adverse Reactions, Alerts No Known Allergies Immunizations Given and Recorded Vaccine Date Status Refusal Reason influenza virus vaccine, inactivated 09/06/21 Douglas rded influenza virus vaccine, inactivated 1 09/28/20 Gi [...] SARS-CoV-2 (COVID-19) mRNA BNT-162b2 vac 01/24/21 Recorded tetanus/diphtheria/pertussis, acel(Tdap) 5 01/12/11 Given 1Result Comment: [facility] 44491-482-14 Pt tolerated vaccine without inicident...NH 2Result Comment: [id number] 3Admin Note: FLULAVAL 4Admin Note: given w/o incident 5Admin Note: [employer] Medications acetaminophen-oxyCODONE 325 mg-5 mg oral tablet 1, tablet, By Mouth, 2 times a day, PRN, fill on or after 12/28/21; may fill for less for 28 days, #56 tablet, Refills 0, Tot. Refills 0, Acute, Pain , Severe, 02/22/22 18:08:00 EDT, 01/25/22 18:08:00 EDT, Route to Pharmacy Electronically, [facility]... Start Date: 01/25/22 Stop Date: 02/22/22 Status: Ordered Aimovig SureClick Autoinjector-aooe 140 mg/mL subcutaneous solution 0 Refills, Maintenance, 09/05/19 11:33:37 EDT Start Date: 09/05/19 Status: Ordered Albuterol (Eqv-ProAir HFA) 90 mcg/inh inhalation aerosol 2 puffs, Inhalation, 4 times a day, PRN NEEDED FOR WHEEZING OR SHORTNESS OF BREATH, # 8.5 Gm, 0 Refills, [facility] #[id number], 25, INHALE 2 PUFFS FOUR TIMES DAILY NEEDED FOR WHEEZING OR SHORTNESS OF BREATH, 169, cm, 10/31/21 15:06:00 EST,... Start Date: 01/19/22 Status: Ordered Home Blood Pressure Monitor See Instructions, # 1 each, Maintenance, Use to check BP as instructed ICD 10: I10, 02/15/22 14:31:00 EDT, Supply Start Date: 02/15/22 Status: Ordered omeprazole 20 mg oral enteric coated capsule 1 capsule, By Mouth, Daily, PRN NEEDED FOR INDIGESTION, # 30 capsule, 2 Refills, [facility] #[id number], 169, cm, 10/31/21 15:06:00 EST, Height, 92.8, kg, 05/12/21 16:58:00 EDT, Dry Weight Start Date: 01/30/22 Status: Ordered Readi-Cat 2 oral suspension 450 mL = 9 Gm, By Mouth, 2 times a day, Please dispense two 450 mL bottles for a total dose that equals 900 mLs. Drink first bottle [address] and then drink second bottle [address] scan,# 2 each, 0 Refills, Maintenance, 11/01/21 9:55:00... Start Date: 11/01/21 Status: Ordered Splint See Instructions, # 1 [...] Diagnosis Diagnosis Type Effective Dates Health Status Clini rodney Service Informant Migraine Discharge Diagnosis 02/08/22 Social History Social History Type Response Smoking Status Never smoker entered on: 02/05/14 Sex
--- OUTSIDE RECORDS SUMMARY | 2024-10-14 07:40 | XMS_ITS | Continuity of Care Document ---
Author Organization [facility] Address [address] [place] [address]- Care Team Providers Care Accounting Policy Consultant Name Role Phone Ursula BURCH, Meg Bains Primary Care Physician Encounter [facility] [place] Date(s): 10/31/21 - 11/07/21 [facility] [address] [place], [place] [address] Attending Physician: Meg Vergara MD [...] tetanus/diphtheria/pertussis, acel(Tdap) 5 01/12/11 Given 1Result Comment: [facility] 92915-407-13 Pt tolerated vaccine without inicident...NH 2Result Comment: [id number] 3Admin Note: FLULAVAL 4Admin Note: given w/o incident 5Admin Note: [employer] Medications acetaminophen-oxyCODONE 325 mg-5 mg oral tablet 1, tablet, By Mouth, 2 times a day, PRN, may fill for less for 28 days, # 56 tablet, Refills 0, Tot. Refills 0, Acute, Pain , Severe, 11/25/21 11:48:00 EST, 10/28/21 11:48:00 EST, Route to Pharmacy Electronically, [facility] #[id number] Tablet... Start Date: 10/28/21 Stop Date: 11/25/21 Status: Ordered Aimovig SureClick Autoinjector-aooe 140 mg/mL subcutaneous solution 0 Refills, Maintenance, 09/05/19 11:33:37 EDT Start Date: 09/05/19 Status: Ordered Augmentin 875 mg-125 mg oral tablet 1 tablet, By Mouth, Every 12 hours, for 10 days, # 20 tablet, 0 Refills, Acute 11/10/21 15:52:00 EST, 10/31/21 15:52:00 EST, Tablet, [facility] #[id number], Partial fill upon patient request if the prescription is for a schedule II opioid drug.,... Start Date: 10/31/21 Stop Date: 11/10/21 Status: Ordered omeprazole 20 mg oral enteric coated capsule 1 capsule, By Mouth, Daily, PRN NEEDED FOR INDIGESTION, # 30 capsule, 2 Refills, [facility] #[id number], 169, cm, 10/31/21 15:06:00 EST, Height, 92.8, kg, 05/12/21 16:58:00 EDT, Dry Weight Start Date: 11/03/21 Status: Ordered ProAir HFA 90 mcg/inh inhalation aerosol with adapter 2, puffs, Inhalation, 4 times a day, PRN, # 1 each, Refills 2, Tot. Refills 2, Maintenance, 12/23/20 15:08:00 EST, Aerosol, Route to Pharmacy Electronically, [id number], [facility] #[id number], 160, cm, 12/17/20 10:53:00... Start Date: 12/23/20 Stop Date: 03/23/21 Status: Ordered Readi-Cat 2 oral suspension 450 [...] oldest [Reference Range]: 1 Height 169 cm (10/31/21 3:06 PM) Weight 84.5 kg (10/31/21 3:06 PM) Oxygen Saturation [94-100 %] 99 % (10/31/21 3:06 PM) Pulse Rate [55-90 bpm] 95 bpm *H* (10/31/21 3:06 PM) Body Mass Index [18.5-24.99] 29.59 *H* (10/31/21 3:06 PM) Blood Pressure [90-138/55-84 mm Hg] 128/ 88mm Hg (10/31/21 3:06 PM) Temperature [96.8-100.4 DegF] 97.7 DegF (10/31/21 3:06 PM) Blood pressure sites Arm, right (10/31/21 3:06 PM) Temperature Route Temporal (12/20/21 3:06 PM) Weight Obtained Via Standing scale (10/31/21 3:06 PM) Social History Social History Type Response Smoking Status Never smoker entered on: 02/05/14 Sex
--- OUTSIDE RECORDS SUMMARY | 2024-10-14 07:41 | XMS_ITS | Continuity of Care Document ---
Author Organization [facility] Address [address] [place] [address]- Care Team Providers Care Dining Car Hop Name Role Phone Meg Vergara MD Primary Care Physician Encounter [facility] [place] Date(s): 09/13/22 - 10/13/22 [facility] [address] [place] [address]- Attending Physician: AdmGhazala pena Admitting Physician: Admtr, [...] BNT-162b2 vac 01/24/21 Recorded 1Result Comment: [facility] 60126-728-29 2Result Comment: [facility] 74179-006-02 Pt tolerated vaccine without inicident...NH 3Result Comment: [id number] 4Admin Note: FLULAVAL 5Admin Note: given w/o incident 6Result Comment: [facility] 23017-795-81 7Admin Note: [employer] Medications acetaminophen-oxyCODONE 325 mg-5 mg oral tablet 1, tablet, By Mouth, 2 times a day, PRN, for 28 days, # 56 tablet, Refills 0, Tot. Refills 0, Acute, Pain , Severe, 11/09/22 12:50:00 EST, 10/12/22 12:50:00 EST, Route to Pharmacy Electronically, [facility] #[id number] Tablet, Partial fill upon p... Start Date: 10/12/22 Stop Date: 11/09/22 Status: Ordered Aimovig SureClick Autoinjector-aooe 140 mg/mL subcutaneous solution 0 Refills, Maintenance, 09/05/19 11:33:37 EDT Start Date: 09/05/19 Status: Ordered Albuterol (Eqv-ProAir HFA) 90 mcg/inh inhalation aerosol 2 puffs, Inhalation, 4 times a day, PRN NEEDED FOR WHEEZING OR SHORTNESS OF BREATH, # 8.5 Gm, 0 Refills, [facility] #[id number], 25, INHALE 2 PUFFS FOUR TIMES DAILY NEEDED FOR WHEEZING OR SHORTNESS OF BREATH, 169, cm, 10/31/21 15:06:00 EST,... Start Date: 01/19/22 Status: Ordered Fish Oil By Mouth, 0 Refills, Maintenance, 03/09/22 10:56:00 EDT, Partial fill upon patient request if the prescription is for a schedule II opioid drug. Start Date: 03/09/22 Status: Ordered hyoscyamine 0.125 mg oral tablet 0.125 mg, 1, tablet, By Mouth, 3 times a day, PRN, # 90 tablet, Refills 0, Tot. Refills 0, Maintenance, for spasm, 09/07/22 14:26:00 EDT, Route to Pharmacy Electronically, [facility] #[id number], Partial fill upon patient request if the prescript... Start Date: 09/07/22 Stop Date: 10/07/22 Status: Ordered Multivitamin Daily, 0 Refills, Maintenance, 03/09/22 10:56:00 EDT, Partial fill upon patient request if the prescription is for a schedule II opioid drug. Start Date: 03/09/22 Status: Ordered omeprazole 20 mg oral enteric coated capsule 1 capsule, By Mouth, Daily, PRN NEEDED FOR INDIGESTION, # 30 capsule, 1 Refills, Maintenance, 09/13/22 18:38:00 EDT, [facility] #[id number], 169, cm, 09/07/22 13:52:00 EDT, Height, 92.8, kg, 05/12/21 16:58:00 EDT, Dry Weight Start Date: 09/13/22 Status: Ordered phentermine 37.5 mg oral tablet [...] opioid drug. Start Date: 09/07/22 Status: Ordered Vitamin C By Mouth, Daily, 0 Refills, Maintenance, 03/09/22 10:56:00 EDT, Partial fill upon patient request if the prescription is for a schedule II opioid drug. Start Date: 03/09/22 Status: Ordered Problem List Condition Confirmation Course [...] RN Member Role: Primary Care Nurse Name: Ursula BURCH, Meg Bains Position: [facility] Primary Care Physician Member Role: PCP Address: Address: [address] [place] [address] Adult [place] [address]- Care Team Related Persons Name: ROB KANG Name: LAUREN GOMES Address: [address] [place] [address] Name: REGINE TREADWELL Address: [address] [place] [address]
--- OUTSIDE RECORDS SUMMARY | 2024-10-14 07:41 | XMS_ITS | Continuity of Care Document ---
Author Organization [facility] Address [address] [place] [address]- Care Team Providers Care Vocational Guidance Counselor Name Role Phone Meg Vergara MD Primary Care Physician [place] [facility]22 - 07/03/22 [facility] [address] [place], [place] [address] Encounter Diagnosis Impacted cerumen, right ear(Discharge Diagnosis) - 06/26/22 Attending Physician: Yesenia FONTENOT, Shea Referring Physician: Meg Vergara MD Allergies, Adverse [...] BNT-162b2 vac 01/24/21 Recorded 1Result Comment: [facility] 32513-679-96 2Admin Note: [employer] [facility] 3Result Comment: [facility] 55975-369-68 Pt tolerated vaccine without inicident...[place] 4Result Comment: [id number] 5Admin Note: FLULAVAL 6Admin Note: given w/o incident Medications acetaminophen-oxyCODONE 325 mg-5 mg oral tablet 1, tablet, By Mouth, 2 times a day, PRN, for 28 days, # 56 tablet, Refills 0, Tot. Refills 0, Acute, Pain , Severe, 07/18/22 11:55:00 EDT, 06/20/22 11:55:00 EDT, Route to Pharmacy Electronically, [facility] #[id number] Tablet, Partial fill upon p... Start Date: 06/20/22 Stop Date: 07/18/22 Status: Ordered Aimovig SureClick Autoinjector-aooe 140 mg/mL subcutaneous solution 0 Refills, Maintenance, 09/05/19 11:33:37 EDT Start Date: 09/05/19 Status: Ordered Albuterol (Eqv-ProAir HFA) 90 mcg/inh inhalation aerosol 2 puffs, Inhalation, 4 times a day, PRN NEEDED FOR WHEEZING OR SHORTNESS OF BREATH, # 8.5 Gm, 0 Refills, [facility] #[id number], 25, INHALE 2 PUFFS FOUR TIMES DAILY NEEDED FOR WHEEZING OR SHORTNESS OF BREATH, 169, cm, 10/31/21 15:06:00 EST,... Start Date: 01/19/22 Status: Ordered amoxicillin 500 mg oral capsule 1 capsule = 500 mg, By Mouth, 3 times a day, for 7 days, # 21 capsule, 0 Refills, Acute 07/06/22 11:12:00 EDT, 06/29/22 11:12:00 EDT, Capsule, [facility] #[id number], Partial fill upon patient request if the prescription is for a schedule II opio... Start Date: 06/29/22 Stop Date: 07/06/22 Status: Ordered Fish Oil By Mouth, 0 [...] FOR INDIGESTION, # 30 capsule, 2 Refills, [facility] #[id number], 169, cm, 03/27/22 16:12:00 EDT, Height, 92.8, [...] Dates Health Status Cl inical Service Informant Impacted cerumen, right ear Discharge Diagnosis 06/26/22 Vital Signs Most recent to oldest [Reference Range]: 1 Height 169 cm (06/26/22 1:27 PM) Oxygen Saturation [94-100 %] 98 % (06/26/22 1:27 PM) Pulse Rate [55-90 bpm] 77 bpm (06/26/22 1:27 PM) Blood Pressure [90-138/55-84 mm Hg] 135/ 86mm Hg (06/26/22 1:27 PM) Respiratory Rate [16-30 br/min] 20 br/mi n (06/26/22 1:27 PM) Temperature [96.8-100.4 DegF] 97.1 DegF (06/26/22 1:27 PM) Mode of Delivery (Oxygen) Room air (06/26/22 1:27 PM) Blood pressure sites Arm, left (06/26/22 1:27 PM) Temperature Route Tympanic (06/26/22 1:27 PM) Social History Social History Type Response Smoking Status Never smoker entered on: 02/05/14 Sex
--- OUTSIDE RECORDS SUMMARY | 2024-10-14 07:41 | XMS_ITS | Continuity of Care Document ---
Author Organization [facility] Address [address] [place] [address]- Care Team Providers Care Charge Out Clerk Name Role Phone Meg Vergara MD Primary Care Physician [place] [facility] [place]/23 [facility] [address] [place], [place] [address] Allergies, Adverse Reactions, Alerts No Known Allergies [...] mRNA BNT-162b2 vac 01/24/21 Recorded 1Result Comment: [facility] 93252-152-34 2Result Comment: [facility] 81293-353-82 3Result Comment: [facility] 59601-483-99 Pt tolerated vaccine without inicident...NH 4Result Comment: [id number] 5Admin Note: FLULAVAL 6Admin Note: given w/o incident 7Result Comment: [facility] 40338-674-85 8Admin Note: [employer] Medications acetaminophen-oxyCODONE 325 mg-5 mg oral tablet 1, tablet, By Mouth, 2 times a day, PRN, for 28 days, # 56 tablet, Refills 0, Tot. Refills 0, Acute, Pain , Severe, 11/22/23 16:49:00 EST, 10/25/23 16:49:00 EST, Route to Pharmacy Electronically, [facility] #[id number] Tablet, Partial fill upon p... Start Date: 10/25/23 Stop Date: 11/22/23 Status: Ordered Albuterol (Eqv-ProAir HFA) 90 mcg/inh inhalation aerosol 2 puffs, Inhalation, 4 times a day, PRN NEEDED FOR WHEEZING OR SHORTNESS OF BREATH, # 8.5 Gm, 0 Refills, [facility] #[id number], 25, INHALE 2 PUFFS FOUR TIMES DAILY NEEDED FOR WHEEZING OR SHORTNESS OF BREATH, 169, cm, 10/31/21 15:06:00 EST,... Start Date: 01/19/22 Status: Ordered amitriptyline 10 mg oral tablet 1, tablet, By Mouth, Daily at bedtime, # 30 tablet, Refills 0, Maintenance, 12/14/22 17:14:00 EST, Route to Pharmacy Electronically, [id number], 169, cm, 11/08/22 14:13:00 EST, Height, 92.8, [...] 10/22/23 12:37:00 EST, Route to Pharmacy Electronically, [facility][id number], Partial fill upon patient request if the prescript... Start Date: 10/22/23 Stop Date: 11/21/23 Status: Ordered omeprazole 20 mg oral enteric coated capsule 1 capsule, By Mouth, Daily, PRN NEEDED FOR INDIGESTION, # 90 capsule, 1 Refills, Maintenance, 07/13/23 13:09:00 EDT, [facility] #[id number], 169, cm, 02/07/23 11:17:00 EDT, Height Start [...] mL, 0 Refills, Maintenance, 10/22/23 12:37:00 EST, [facility][id number], Partial fill upon patient request if the [...] 0 Refills, Maintenance, 10/19/23 14:39:00 EST, Tablet, [id number], Partial fill upon patient request if the [...] Team Personnel Name: Kandis Leahy RN Position: [facility] SN RN Member Role: Primary Care Nurse Name: Meg Vergara MD Position: [facility] Physician - Primary Care Member Role: PCP Address: Address: [address] [place] [address] Adult [place] [address]- Care Team Related Persons Name: ROB KANG Name: LAUREN GOMES Address: home [address] [place] [id number] Name: REGINE TREADWELL Address: home [address] [place] [address]
--- OUTSIDE RECORDS SUMMARY | 2024-10-14 07:41 | XMS_ITS | Continuity of Care Document ---
Author Organization [facility] Address [address] [place] [address]- Care Team Providers Care Loan Secretary Name Role Phone Meg Vergara MD Primary Care Physician [place] [facility] [place] Date(s): 07/22/22 - 08/21/22 [facility] [address] [place], [place] [address] Allergies, Adverse Reactions, Alerts No [...] mRNA BNT-162b2 vac 01/24/21 Recorded 1Result Comment: [facility] 57947-140-29 2Admin Note: [employer] [facility] 3Result Comment: [facility] 46221-093-20 Pt tolerated vaccine without inicident...NH 4Result Comment: [id number] 5Admin Note: FLULAVAL 6Admin Note: given w/o incident Medications acetaminophen-oxyCODONE 325 mg-5 mg oral tablet 1, tablet, By Mouth, 2 times a day, PRN, for 28 days, # 56 tablet, Refills 0, Tot. Refills 0, Acute, Pain , Severe, 09/12/22 12:59:00 EDT, 08/15/22 12:59:00 EDT, Route to Pharmacy Electronically, [facility] #[id number] Tablet, Partial fill upon p... Start Date: 08/15/22 Stop Date: 09/12/22 Status: Ordered Aimovig SureClick Autoinjector-aooe 140 mg/mL subcutaneous solution 0 Refills, Maintenance, 09/05/19 11:33:37 EDT Start Date: 09/05/19 Status: Ordered Albuterol (Eqv-ProAir HFA) 90 mcg/inh inhalation aerosol 2 puffs, Inhalation, 4 times a day, PRN NEEDED FOR WHEEZING OR SHORTNESS OF BREATH, # 8.5 Gm, 0 Refills, [facility] #[id number], 25, INHALE 2 PUFFS FOUR TIMES DAILY NEEDED FOR WHEEZING OR SHORTNESS OF BREATH, 169, cm, 10/31/21 15:06:00 EST,... Start Date: 01/19/22 Status: Ordered Fish Oil By Mouth, 0 Refills, Maintenance, 03/09/22 10:56:00 EDT, Partial fill upon patient request if the prescription is for a schedule II opioid drug. Start Date: 03/09/22 Status: Ordered Linzess 145 mcg oral capsule 1 capsule = 145 mcg, By Mouth, Daily, for 30 days, # 30 capsule, 1 Refills, Acute 09/26/22 10:53:00EST, 07/28/22 10:53:00 EDT, Capsule, [facility] #[id number], Partial fill upon patient requestif the prescription is for a schedule II opioid karley... Start Date: 07/28/22 Stop Date: 09/26/22 Status: Ordered Multivitamin Daily, 0 Refills, Maintenance, 03/09/22 10:56:00 EDT, Partial fill upon patient request if the prescription is for a schedule II opioid drug. Start Date: 03/09/22 Status: Ordered omeprazole 20 mg oral enteric coated capsule 1 capsule, By Mouth, Daily, PRN NEEDED FOR INDIGESTION, # 30 capsule, 0 Refills, Maintenance, 08/15/22 5:56:00 EDT, [facility] #[id number], 169, cm, 07/28/22 10:21:00 EDT, Height, 92.8, kg, 05/12/21 16:58:00 EDT, Dry Weight Start Date: 08/15/22 Status: Ordered Vitamin C By Mouth, Daily, [...] on: 02/05/14 Sex Patient Care team information Personnel Name: Ursula BURCH, Meg Bains Address: Address: [address] [place] [address] Adult & Pediatric [address]
--- OUTSIDE RECORDS SUMMARY | 2024-10-14 07:41 | XMS_ITS | Continuity of Care Document ---
Author Organization [facility] Address [address] [place] [address]- Care Team Providers Care Package Reinspector Name Role Phone Meg Vergara MD Primary Care Physician Encounter [facility] Date(s): 01/15/24 - 02/14/24 [facility] [address] [place], [place] [address] Allergies, Adverse Reactions, Alerts No Known Allergies Immunizations Given and Recorded Vaccine Date Status Refusal Reason influenza virus vaccine, inactivated 1 09/18/23 Gi venkatesh influenza virus vaccine, inactivated 2 09/07/22 Gi venkatesh influenza virus vaccine, inactivated 09/06/21 Douglas rded influenza virus vaccine, inactivated 3 09/28/20 Gi veknatesh influenza virus vaccine, inactivated 4 10/31/19 Gi [...] 1Result Comment: [facility] 93291-270-46 2Result Comment: [facility] 91689-694-44 3Result Comment: [facility] 40347-715-54 Pt tolerated vaccine without inicident...NH 4Result Comment: [id number] 5Admin Note: FLULAVAL 6Admin Note: given w/o incident 7Result Comment: [facility] 39427-768-67 8Admin Note: [employer] Medications acetaminophen-oxyCODONE 325 mg-5 mg oral tablet 1-2 tablet, By Mouth, Every 6 hours, PRN, dx- acute knee pain post knee replacement for 7 days, # 28 tablet, Refills 0, Tot. Refills 0, Acute, Pain , Severe, 02/20/24 15:03:00 EDT, 02/13/24 15:03:00 EDT, Route to Pharmacy Electronically, [facility]... Start Date: 02/13/24 Stop Date: 02/20/24 Status: Ordered Albuterol (Eqv-ProAir HFA) 90 mcg/inh inhalation aerosol 2 puffs, Inhalation, 4 times a day, PRN NEEDED FOR WHEEZING OR SHORTNESS OF BREATH, # 8.5 Gm, 0 Refills, [facility] #[id number], 25, INHALE 2 PUFFS FOUR TIMES DAILY NEEDED FOR WHEEZING OR SHORTNESS OF BREATH, 169, cm, 10/31/21 15:06:00 EST,... Start Date: 01/19/22 Status: Ordered amitriptyline 10 mg oral tablet 1, tablet, By Mouth, Daily at bedtime, # 30 tablet, Refills 0, Maintenance, 12/14/22 17:14:00 EST, Route to Pharmacy Electronically, [facility] #[id number], 169, cm, 11/08/22 14:13:00 EST, Height, 92.8, [...] 10/22/23 12:37:00 EST, Route to Pharmacy Electronically, [facility] #[id number], Partial fill upon patient request if the prescript... Start Date: 10/22/23 Stop Date: 11/21/23 Status: Ordered omeprazole 20 mg oral enteric coated capsule 1 capsule, By Mouth, Daily, PRN NEEDED FOR INDIGESTION, # 90 capsule, 0 Refills, Maintenance, 01/18/24 18:31:00 EST, [facility] #[id number], 169, cm, 10/22/23 12:21:00 EST, Height, 83, kg, 10/22/23 12:21:00 EST, Dry Weight Start Date: 01/18/24 Status: Ordered sucralfate 1 gm/10 ml oral suspension 10 mL = 1 Gm, By Mouth, 3 times a day before meals and bedtime, # 280 mL, 0 Refills, Maintenance, 10/22/23 12:37:00 EST, [facility] #[id number], Partial fill upon patient request if the [...] 0 Refills, Maintenance, 10/19/23 14:39:00 EST, Tablet, [facility] #[id number], Partial fill upon patient request if the [...] Personnel Name: Ursula BURCH, Meg Bains Position: S Physician - Primary Care Member Role: PCP Address: Address: [address] [place] [address] Adult [place] [address]- Care Team Related Persons Name: ROB KANG Name: LAUREN GOMES Address: home [address] [place] [id number] Name: REGINE TREADWELL Address: home [address] [place] [address]
--- OUTSIDE RECORDS SUMMARY | 2024-10-14 07:41 | XMS_ITS | Continuity of Care Document ---
Author Organization [facility] Address [address] [place] [address]- Care Team Providers Care Fan Balancer Name Role Phone Meg Vergara MD Primary Care Physician [place] [facility] [place]24 [place] 05/02/24 [facility] [address] [place], [place] [address] Allergies, Adverse Reactions, Alerts [...] BNT-162b2 vac 01/24/21 Recorded 1Result Comment: [facility] 45576-570-44 2Result Comment: [facility] 75946-426-42 3Result Comment: [facility] 62701-096-09 Pt tolerated vaccine without inicident...NH 4Result Comment: [id number] 5Admin Note: FLULAVAL 6Admin Note: given w/o incident 7Result Comment: [facility] 95667-934-05 8Admin Note: [facility] Medications acetaminophen-oxyCODONE 325 mg-5 mg oral tablet 1, tablet, By Mouth, 2 times a day, PRN, for 28 days, # 56 tablet, Refills 0, Tot. Refills 0, Acute, Pain , Severe, 05/15/24 10:20:00 EDT, 04/17/24 10:20:00 EDT, Route to Pharmacy Electronically, [facility] #[id number] Tablet, Partial fill upon p... Start Date: 04/17/24 Stop Date: 05/15/24 Status: Ordered Albuterol (Eqv-ProAir HFA) 90 mcg/inh inhalation aerosol 2 puffs, Inhalation, 4 times a day, PRN NEEDED FOR WHEEZING OR SHORTNESS OF BREATH, # 8.5 Gm, 0 Refills, [facility] #[id number], 25, INHALE 2 PUFFS FOUR TIMES DAILY [...] capsule, 1 Refills, Maintenance, 04/16/24 11:14:00 EDT, [facility] #[id number], 169, cm, 04/16/24 10:32:00 EDT, Height, 83.9, kg, 04/16/24 10:29:00 EDT, Dry Weight Start Date: 04/16/24 Status: Ordered phentermine 37.5 mg oral tablet 1 tablet = 37.5 mg, By Mouth, Daily, for 30 days, at least one hour after meals, # 30 tablet, 0 Refills, Acute 05/11/24 14:14:00 EDT, 04/11/24 14:14:00 EDT, Tablet, [facility] #[id number], Partial fill upon patient request if the [...] Team Personnel Name: Kandis Leahy RN Position: [facility] RN Member Role: Primary Care Nurse Name: Meg Vergara MD Position: [facility] Physician - Primary Care Member Role: PCP Address: Address: [address] [place] [address] Adult & [place] [address]- Care Team Related Persons Name: ROB KANG Name: LAUREN GOMES Address: home [address] [place] [address] Name: REGINE TREADWELL Address: home [address] [place] [address]
--- OUTSIDE RECORDS SUMMARY | 2024-10-14 07:41 | XMS_ITS | Continuity of Care Document ---
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 Role Phone Meg Vergara MD Primary Care Physician [phone] Encounter [facility] Date(s): 10/24/23 - 11/23/23 [facility] [address] [place], [place] [address] Allergies, Adverse Reactions, Alerts No [...] mRNA BNT-162b2 vac 01/24/21 Recorded 1Result Comment: [facility] 98819-175-69 2Result Comment: [facility] 31853-840-06 3Result Comment: [facility] 16579-124-84 Pt tolerated vaccine without inicident...NH 4Result Comment: [id number] 5Admin Note: FLULAVAL 6Admin Note: given w/o incident 7Result Comment: [facility] 97240-871-71 8Admin Note: [employer] [facility] Medications acetaminophen-oxyCODONE 325 mg-5 mg oral tablet 1, tablet, By Mouth, 2 times a day, PRN, for 28 days, # 56 tablet, Refills 0, Tot. Refills 0, Acute, Pain , Severe, 12/20/23 16:34:00 EST, 11/22/23 16:34:00 EST, Route to Pharmacy Electronically, [facility] #[id number] Tablet, Partial fill upon p... Start Date: 11/22/23 Stop Date: 12/20/23 Status: Ordered Albuterol (Eqv-ProAir HFA) 90 mcg/inh inhalation aerosol 2 puffs, Inhalation, 4 times a day, PRN NEEDED FOR WHEEZING OR SHORTNESS OF BREATH, # 8.5 Gm, 0 Refills, [facility] #[id number], 25, INHALE 2 PUFFS FOUR TIMES DAILY NEEDED FOR WHEEZING OR SHORTNESS OF BREATH, 169, cm, 10/31/21 15:06:00 EST,... Start Date: 01/19/22 Status: Ordered amitriptyline 10 mg oral tablet 1, tablet, By Mouth, Daily at bedtime, # 30 tablet, Refills 0, Maintenance, 12/14/22 17:14:00 EST, Route to Pharmacy Electronically, [facility] #[id number], 169, cm, 11/08/22 14:13:00 EST, Height, 92.8, [...] 10/22/23 12:37:00 EST, Route to Pharmacy Electronically, [facility] #[id number], Partial fill upon patient request if the prescript... Start Date: 10/22/23 Stop Date: 11/21/23 Status: Ordered omeprazole 20 mg oral enteric coated capsule 1 capsule, By Mouth, Daily, PRN NEEDED FOR INDIGESTION, # 90 capsule, 1 Refills, Maintenance, 07/13/23 13:09:00 EDT, [facility] #[id number], 169, cm, 02/07/23 11:17:00 EDT, Height Start [...] mL, 0 Refills, Maintenance, 10/22/23 12:37:00 EST, [facility] #[id number], Partial fill upon patient request if the [...] 0 Refills, Maintenance, 10/19/23 14:39:00 EST, Tablet, [facility] #26297, Partial fill upon patient request if the [...] Team Personnel Name: Kandis Leahy RN Position: [facility] SN RN Member Role: Primary Care Nurse Name: Meg Vergara MD Position: [facility] Physician - Primary Care Member Role: PCP Address: Address: [address] [place] [address] Adult & [place] [address]- Care Team Related Persons Name: ROB KANG Name: LAUREN GOMES Address: home [address] [place] [id number] Name: REGINE TREADWELL Address: home [address] [place] [address]
--- OUTSIDE RECORDS SUMMARY | 2024-10-14 07:41 | XMS_ITS | Continuity of Care Document ---
Author Organization 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 [address] [place], [place] [address] Allergies, Adverse Reactions, Alerts No [...] BNT-162b2 vac 01/24/21 Recorded 1Result Comment: [facility] 03004-659-44 2Result Comment: [facility] 56933-042-69 3Result Comment: [facility] 23714-949-86 Pt tolerated vaccine without inicident...NH 4Result Comment: [id number] 5Admin Note: FLULAVAL 6Admin Note: given w/o incident 7Result Comment: [facility] 83954-243-72 8Admin Note: [facility] Medications acetaminophen-oxyCODONE 325 mg-5 mg oral tablet 1, tablet, By Mouth, 2 times a day, PRN, for 28 days, # 56 tablet, Refills 0, Tot. Refills 0, Acute, Pain , Severe, 12/20/23 16:34:00 EST, 11/22/23 16:34:00 EST, Route to Pharmacy Electronically, [facility] #[id number] Tablet, Partial fill upon p... Start Date: 11/22/23 Stop Date: 12/20/23 Status: Ordered Albuterol (Eqv-ProAir HFA) 90 mcg/inh inhalation aerosol 2 puffs, Inhalation, 4 times a day, PRN NEEDED FOR WHEEZING OR SHORTNESS OF BREATH, # 8.5 Gm, 0 Refills, [facility] #[id number], 25, INHALE 2 PUFFS FOUR TIMES DAILY NEEDED FOR WHEEZING OR SHORTNESS OF BREATH, 169, cm, 10/31/21 15:06:00 EST,... Start Date: 01/19/22 Status: Ordered amitriptyline 10 mg oral tablet 1, tablet, By Mouth, Daily at bedtime, # 30 tablet, Refills 0, Maintenance, 12/14/22 17:14:00 EST, Route to Pharmacy Electronically, [facility] #[id number], 169, cm, 11/08/22 14:13:00 EST, Height, 92.8, [...] 10/22/23 12:37:00 EST, Route to Pharmacy Electronically, [facility] #[id number], Partial fill upon patient request if the prescript... Start Date: 10/22/23 Stop Date: 11/21/23 Status: Ordered omeprazole 20 mg oral enteric coated capsule 1 capsule, By Mouth, Daily, PRN NEEDED FOR INDIGESTION, # 90 capsule, 1 Refills, Maintenance, 07/13/23 13:09:00 EDT, [facility] #[id number], 169, cm, 02/07/23 11:17:00 EDT, Height Start [...] mL, 0 Refills, Maintenance, 10/22/23 12:37:00 EST, [facility] #[id number], Partial fill upon patient request if the [...] 0 Refills, Maintenance, 10/19/23 14:39:00 EST, Tablet, [facility] #[id number], Partial fill upon patient request if the [...] Team Personnel Name: Kandis Leahy RN Position: [facility] SN RN Member Role: Primary Care Nurse Name: Meg Vergara MD Position: [facility] Physician - Primary Care Member Role: PCP Address: Address: [address] [place] [address] Adult & [place] [address]- Care Team Related Persons Name: ROB KANG Name: LAUREN GOMES Address: home [address] [place] [id number] Name: REGINE TREADWELL Address: home [address] [place] [address]
--- OUTSIDE RECORDS SUMMARY | 2024-10-14 07:41 | XMS_ITS | Continuity of Care Document ---
Author Organization [facility] Address [address] [place] [address]- Care Team Providers Care File System Installer Name Role Phone Meg Vergara MD Primary Care Physician Encounter [facility] Date(s): 05/22/21 - 06/21/21 [facility] [address] [place], [place] [address] Allergies, Adverse Reactions, Alerts Substance Reaction Severity [...] tetanus/diphtheria/pertussis, acel(Tdap) 5 01/12/11 Given 1Result Comment: [facility] 87953-120-93 Pt tolerated vaccine without inicident...NH 2Result Comment: [id number] 3Admin Note: FLULAVAL 4Admin Note: given w/o incident 5Admin Note: [facility] Medications acetaminophen-oxyCODONE 325 mg-5 mg oral tablet 1, tablet, By Mouth, 2 times a day, PRN, may fill for less for 28 days, # 56 tablet, Refills 0, Tot. Refills 0, Acute, Pain , Severe, 06/30/21 9:52:00 EDT, 06/02/21 9:52:00 EDT, Route to Pharmacy Electronically, [facility] #[id number] Tablet,... Start Date: 06/02/21 Stop Date: 06/30/21 Status: Ordered [employer] SureClick Autoinjector-aooe 140 mg/mL subcutaneous solution 0 Refills, Maintenance, 09/05/19 11:33:37 EDT Start Date: 09/05/19 Status: Ordered docusate sodium 100 mg oral capsule 100 mg, 1, capsule, By Mouth, 2 times a day, # 60 capsule, Refills 5, Tot. Refills 5, Maintenance, 05/11/21 16:01:00 EDT, Route to Pharmacy Electronically, [facility] #[id number], 160, cm, 12/17/20 10:53:00 EST, Height, 83.9, [...] 15:08:00 EST, Aerosol, Route to Pharmacy Electronically, [id number], [facility] #[id number], 160, cm, 12/17/20 10:53:00... Start Date: 12/23/20 [...]
--- OUTSIDE RECORDS SUMMARY | 2024-10-14 07:41 | XMS_ITS | Continuity of Care Document ---
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 Name Role Phone Meg Vergara MD Primary Care Physician [place] [facility] [place] [facility] [id number] Date(s): 04/08/24 - 04/15/24 [facility] [address] [place], [place] [address] Attending Physician: Meg Vergara [...] Recorded 1Result Comment: [facility] 91105-199-28 2Result Comment: [facility] 52553-704-43 3Result Comment: [facility] 78165-301-77 Pt tolerated vaccine without inicident...NH 4Result Comment: [id number] 5Admin Note: FLULAVAL 6Admin Note: given w/o incident 7Result Comment: [facility] 41042-107-31 8Admin Note: [facility] Medications acetaminophen-oxyCODONE 325 mg-5 mg oral tablet 1, tablet, By Mouth, 2 times a day, PRN, for 28 days, # 56 tablet, Refills 0, Tot. Refills 0, Acute, Pain , Severe, 04/17/24 15:31:00 EDT, 03/20/24 15:31:00 EDT, Route to Pharmacy Electronically, [facility] #[id number] Tablet, Partial fill upon p... Start Date: 03/20/24 Stop Date: 04/17/24 Status: Ordered Albuterol (Eqv-ProAir HFA) 90 mcg/inh inhalation aerosol 2 puffs, Inhalation, 4 times a day, PRN NEEDED FOR WHEEZING OR SHORTNESS OF BREATH, # 8.5 Gm, 0 Refills, [facility] #[id number], 25, INHALE 2 PUFFS FOUR TIMES DAILY [...] capsule, 0 Refills, Maintenance, 01/18/24 18:31:00 EST, [facility][id number], 169, cm, 10/22/23 12:21:00 EST, Height, 83, kg, 10/22/23 12:21:00 EST, Dry Weight Start Date: 01/18/24 Status: Ordered phentermine 37.5 mg oral tablet 1 tablet = 37.5 mg, By Mouth, Daily, for 30 days, at least one hour after meals, # 30 tablet, 0 Refills, Acute 05/11/24 14:14:00 EDT, 04/11/24 14:14:00 EDT, Tablet, [facility] #[id number], Partial fill upon patient request if the prescription is... Start Date: 04/11/24 Stop Date: 05/11/24 Status: Ordered Problem List Condition Confirmation Course [...] pain Confirmed Active 1SOAPP-R: 5 on 05/08/17 Vital Signs Most recent to oldest [Reference Range]: 1 Height 169 cm (04/08/24 11:34 AM) Weight 83.6 kg (04/08/24 11:34 AM) Oxygen Saturation [94-100 %] 98 % (04/08/24 11:34 AM) Pulse Rate [55-90 bpm] 92 bpm *H* (04/08/24 11:34 AM) Body Mass Index [18.5-24.99 kg/m2] 29.27 kg/m2 *H* (04/08/24 11:34 AM) Blood Pressure [90-138/55-84 mm Hg] 127/ 85mm Hg (04/08/24 11:34 AM) Mode of Delivery (Oxygen) Room air (04/08/24 11:34 AM) Blood pressure sites Arm, right (04/08/24 11:34 AM) Dry Weight 83.6 kg (04/08/24 11:34 AM) Weight Obtained Via Standing scale (04/08/24 11:34 AM) Dry Weight Obtained Via Standing scale (04/08/24 11:34 AM) Social History Social History Type Response Smoking Status Never smoker entered on: 02/05/14 Sex Patient Care team information Care Team Personnel Name: Kandis Leahy RN Position: [facility] RN Member Role: Primary Care Nurse Name: Meg Vergara MD Position: [facility] Physician - Primary Care Member Role: PCP Address: Address: [address] [place] [address] Adult & [place] [address]- Care Team Related Persons Name: ROB KANG Name: LAUREN GOMES Address: home [address] [place] [id number] Name: REGINE TREADWELL Address: home [address] [place] [address]
--- OUTSIDE RECORDS SUMMARY | 2024-10-14 07:41 | XMS_ITS | Continuity of Care Document ---
Author Organization [facility] Address [address] [place] [address]- Care Team Providers Care Medical Transcription Supervisor Name Role Phone Meg Vergara MD Primary Care Physician [phone] Encounter [facility] [place] [place] Date(s): 10/26/20 - 11/25/20 [facility] [address] [place], [place] [address] Attending Physician: Ghazala Ventura Admitting Physician: AdmtrGhazala Referring Physician: Admtr, Ar8 Allergies, Adverse Reactions, [...] tetanus/diphtheria/pertussis, acel(Tdap) 5 01/12/11 Given 1Result Comment: [facility] 17023-376-99 Pt tolerated vaccine without inicident...NH 2Result Comment: [id number] 3Admin Note: FLULAVAL 4Admin Note: given w/o incident 5Admin Note: [employer] Medications acetaminophen-oxyCODONE 325 mg-5 mg oral tablet 1, tablet, By Mouth, 2 times a day, PRN, may fill for less for 28 days, # 56 tablet, Refills 0, Tot. Refills 0, Acute, Pain , Severe, 12/06/20 10:52:00 EST, 11/08/20 10:52:00 EST, Route to Pharmacy Electronically, [facility] #[id number] Tablet... Start Date: 11/08/20 Stop Date: 12/06/20 Status: Ordered Aimovig SureClick Autoinjector-aooe 140 mg/mL [...]
--- OUTSIDE RECORDS SUMMARY | 2024-10-14 07:41 | XMS_ITS | Continuity of Care Document ---
Author Organization [facility] Address [address] [place] [address]- Care Team Providers Care Medical Genetics Director Name Role Phone Meg Vergara MD Primary Care Physician [phone] Encounter [facility] [place] [place] [place] [id number] Date(s): 08/27/24 - 09/03/24 [facility] [address] [place] [address]- Encounter Diagnosis IBS - Irritable bowel syndrome(Discharge Diagnosis) - 08/31/24 Low back pain(Discharge Diagnosis) - 08/31/24 Obese class I(Discharge Diagnosis) - 08/31/24 GERD - Gastro-esophageal reflux disease(Discharge Diagnosis) - 08/31/24 Migraine(Discharge Diagnosis) - 08/31/24 Attending Physician: Meg Vergara MD Allergies, Adverse [...] 01/12/11 Given SARS-CoV-2 (COVID-19) mRNA BNT-162b2 vac 10/26/21 Recorded SARS-CoV-2 (COVID-19) mRNA BNT-162b2 vac 02/14/21 Recorded SARS-CoV-2 (COVID-19) mRNA BNT-162b2 vac 01/24/21 Recorded 1Result Comment: [facility] 70691-163-49 2Result Comment: [facility] 26728-172-23 3Result Comment: [facility] 26298-501-45 4Result Comment: [facility] 18129-001-24 Pt tolerated vaccine without inicident...NH 5Result Comment: [id number] 6Admin Note: FLULAVAL 7Admin Note: given w/o incident 8Result Comment: [facility] 41984-996-41 9Admin Note: [employer] Medications acetaminophen-oxyCODONE 325 mg-5 mg oral tablet 1, tablet, By Mouth, 2 times a day, PRN, for 28 days, # 56 tablet, Refills 0, Tot. Refills 0, Acute, Pain , Severe, 09/18/24 17:34:00 EST, 08/21/24 17:34:00 EDT, Route to Pharmacy Electronically, [facility] #[id number] Tablet, Partial fill upon p... Start Date: 08/21/24 Stop Date: 09/18/24 Status: Ordered Albuterol (Eqv-ProAir HFA) 90 mcg/inh inhalation aerosol 2 puffs, Inhalation, 4 times a day, PRN NEEDED FOR WHEEZING OR SHORTNESS OF BREATH, # 8.5 Gm, 0 Refills, [facility] #[id number], 25, INHALE 2 PUFFS FOUR TIMES DAILY [...] Gm, 0 Refills, Maintenance, 08/20/24 21:36:00 EDT, [facility] #[id number], 30, SHAKE LIQUID AND USE 1 SPRAY IN EACH NOSTRIL TWICE DAILY SHAKE... Start Date: 08/20/24 Status: Ordered omeprazole 20 mg oral enteric coated capsule 1 capsule, By Mouth, Daily, PRN NEEDED FOR INDIGESTION, # 90 capsule, 3 Refills, Maintenance, 05/30/24 16:14:00 EDT, [facility] #[id number], 160, cm, 05/30/24 15:48:00 EDT, Height, 81, [...] Diagnosis Diagnosis Type Effective Dates Health Status inical Service Informant IBS - Irritable bowel syndrome Discharge Diagnosis 08/31/24 Low back pain Discharge Diagnosis 08/31/24 Obese class I Discharge Diagnosis 08/31/24 GERD - Gastro-esophagea l reflux disease Discharge Diagnosis 08/31/24 Migraine Discharge Diagnosis 08/31/24 Vital Signs Most recent to oldest [Reference Range]: 1 2 Height 160 cm (08/27/24 3:38 PM) 160 cm (08/27/24 2:39 PM) Weight 81 kg (08/27/24 3:38 PM) Blood Pressure [90-138/55-84 mm Hg] 130/ 80mm Hg (08/27/24 2:39 PM) Blood pressure sites Arm, right (08/27/24 2:39 PM) Social History Social History Type Response Smoking Status Never smoker entered on: 02/05/14 Sex EKG study * Event Display: ECG 12-Lead Authored Date: Please click on pdf link to open report * Event Display: ECG 12-Lead Authored Date: Ventricular Rate: 81 BPM Atrial Rate: 81 BPM P-R Interval: 144 ms QRS Duration: 84 ms Q-T Interval: 384 ms QTC Calculation(Bazett): 446 ms P Sweetwater: 43 degrees R Sweetwater: -8 degrees T Sweetwater: 18 degrees Normal sinus rhythm Possible Left atrial enlargement Cannot rule out Anterior infarct , age undetermined Abnormal ECG When compared with ECG of 20-MAY-2024 08:28, No significant change was found Confirmed by GREGORY LUNA MD ([id number]) on 08/27/2024 5:10:01 PM Also confirmed by GREGORY LUNA MD ([id number]) on 08/27/2024 5:13:12 PM Hughes: GREGORY LUNA MD Note * Raiza Artis: AVA Event Display: Patient Education/Instruction Authored Date: Ambulatory Adult Visit Summary [facility] [address] [place] [address] Name: HUGO GOMES : 1975?? Visit: 08/27/2024 13:40?? Ambulatory Visit Instructions ?? Your Care Team Primary Care Provider Meg Vergara MD? This Visit Provider Meg Vergara MD Your Diagnosis Chest pain Vitals Signs Systolic Blood Pressure: 130 mm Hg Height: 160 cm Diastolic Blood Pressure: 80 mm Hg ?? What to do next Instructions From Your Provider stool softener - DOCUSATE ( COLACE) 100 mg capsule- 2 capsule daily for 2-3 weeks may add SENNA to it if needed within 2-3 weeks ?? follow for colonoscopy and then discuss with GI about regimen for constipation? EKG ,stress test and monitor BP at home.? do sinus xray Scheduled Follow-Up Appointments Sunday 10:40 AM EDT ?? With: Jalyn Mariscal NP Where: [facility] [employer] [address] [place] [address]- Status: Pending Sunday 1:00 PM EST ?? With: Lincoln FONTENOT, María Farnsworth Where: [facility] [address] [facility] 3rd [address] [place] [address]- Status: Pending Follow-Up Appointments Follow Up with??Ursula BURCH, Meg Bains When:??12/30/2024 01:40 PM EST Where: [address] [facility] [place] [address]- Medications The list below reflects the information in our records and provided by you today along with any changes made during this visit. Please continue your medications until treatment is completed or stopped by your provider. If this is different from the information you have or there are other questions,please contact the prescribing provider. What How Much When Why Instructions Unchanged Albuterol (Albuterol (Eqv-ProAir HFA) 90 mcg/ inh inhalation aerosol) 2 puff(s) Inhalation 4 times a day as needed for NEEDED FOR WHEEZING OR SHORTNESS OF BREATH Unchanged Fluticasone Nasal (fluticasone 50 mcg/ inh nasal spray) See instructions SHAKE LIQUID AND USE 1 SPRAY IN EACH NOSTRIL TWICE DAILY SHAKE WELL BEFORE USING ?? Unchanged Omeprazole (omeprazole 20 mg oral enteric coated capsule) 1 capsule Oral Daily as needed for NEEDED FOR INDIGESTION Unchanged onabotulinumtoxinA (Botox Inj) Every 3 months for migraines ?? Unchanged Oxycodone / Acetaminophen (acetaminophen-oxyCODONE 325 mg-5 mg oral tablet) 1 tab(s) Oral Twice a day as needed for Pain , Severe DDD (degenerative disc disease), lumbar Duration: 28 Days Unchanged Phentermine (phentermine 37.5 mg oral tablet) Unchanged Topiramate (topiramate 50 mg oral tablet) Medications and Immunizations Administered [...] are strongly encouraged to quit. Please call [facility] [place] [facility] Link at [phone] or [phone] ([phone]) or log in to [email or web address] for referrals to smoking cessation programs. ?? The National Suicide Prevention Hotline is available 04/06 if you or someone you know needs to find a reason to keep living. By calling 5-687-663-mPortico (8242) you'll be connected to a skilled, trained counselor at a crisis center in your area. [facility] Portal You can view and manage your care through the patient portal or by using a health care charlene of your choosing. [employer] is a website that allows you to securely view your medical information including your hospital discharge summary, office visit summaries, medications and follow-up visits. You can also request appointments, renew medications, and request access to your medical information using a health care charlene of your choosing, or just ask a question. You can enroll at [email or web address] or register during your next office visit. [facility], in keeping with [facility] guidance, no longer requires face [...] primary care provider, you may find a [facility] provider by calling [facility] at [phone]. Patient Care team information Care Team Personnel Name: Kandis Leahy RN Position: [facility] RN Member Role: Primary Care Nurse Name: Anita Hemphill RN Position: [facility] RN Member Role: Primary Care Nurse Name: Meg Vergara MD Position: [facility] Physician - Primary Care Member Role: PCP Address: Address: [address] [place] [address] Adult & [place] [address]- Name: Elaina Lyon RN Position: [facility] RN Member Role: Primary Care Nurse Care Team Related Persons Name: ROB KANG Name: LAUREN GOMES Address: home [address] [place] [id number] Name: REGINE TREADWELL Address: home [address] [place] [address]
--- OUTSIDE RECORDS SUMMARY | 2024-10-14 07:41 | XMS_ITS | Continuity of Care Document ---
Author Organization [facility] Address [address] [facility], [address] [place] [address]- Care Team Providers Care Malted Milk Masher Name Role Phone Meg Vergara MD Primary Care Physician Encounter [facility] [place] Date(s): 09/12/24 - 09/19/24 [facility] [address] [facility] 4th [place] [address]- Attending Physician: Not on Staff, Attending MD Referring Physician: Harini Camarillo Allergies, Adverse Reactions, Alerts No Known Allergies [...] mRNA BNT-162b2 vac 01/24/21 Recorded 1Result Comment: [facility] 95709-500-57 2Result Comment: [facility] 77657-804-23 3Result Comment: [facility] 36001-852-93 4Result Comment: [facility] 98235-346-17 Pt tolerated vaccine without inicident...NH 5Result Comment: [id number] 6Admin Note: FLULAVAL 7Admin Note: given w/o incident 8Result Comment: [facility] 05851-465-97 9Admin Note: [employer] [facility] Medications acetaminophen-oxyCODONE 325 mg-5 mg oral tablet 1, tablet, By Mouth, 2 times a day, PRN, for 28 days, # 56 tablet, Refills 0, Tot. Refills 0, Acute, Pain , Severe, 10/16/24 13:51:00 EST, 09/18/24 13:51:00 EST, Route to Pharmacy Electronically, [facility] #[id number] Tablet, Partial fill upon p... Start Date: 09/18/24 Stop Date: 10/16/24 Status: Ordered Albuterol (Eqv-ProAir HFA) 90 mcg/inh inhalation aerosol 2 puffs, Inhalation, 4 times a day, PRN NEEDED FOR WHEEZING OR SHORTNESS OF BREATH, # 8.5 Gm, 0 Refills, [facility] #[id number], 25, INHALE 2 PUFFS FOUR TIMES DAILY [...] Gm, 0 Refills, Maintenance, 08/20/24 21:36:00 EDT, [facility] #[id number], 30, SHAKE LIQUID AND USE 1 SPRAY IN EACH NOSTRIL TWICE DAILY SHAKE... Start Date: 08/20/24 Status: Ordered metronidazole topical 0.75% gel with applicator 1 applicator, Vaginally, Daily at bedtime, for 5 days, # 70 Gm, 0 Refills, Acute 09/20/24 10:34:00 EST, 09/15/24 10:34:00 EST, Gel, [facility] #[id number], Partial fill upon patient request if the prescription is for a schedule II opioid drug., 1... Start Date: 09/15/24 Stop Date: 09/20/24 Status: Ordered omeprazole 20 mg oral enteric coated capsule 1 capsule, By Mouth, Daily, PRN NEEDED FOR INDIGESTION, # 90 capsule, 3 Refills, Maintenance, 05/30/24 16:14:00 EDT, [facility] #[id number], 160, cm, 05/30/24 15:48:00 EDT, Height, 81, [...] oldest [Reference Range]: 1 Height 160 cm (09/12/24 10:12 AM) Weight 83.18 kg (09/12/24 10:12 AM) Pulse Rate [55-90 bpm] 85 bpm (09/12/24 10:12 AM) Body Mass Index [18.5-24.99 kg/m2] 32.49 kg/m2 *>HHI* (09/12/24 10:12 AM) Blood Pressure [90-138/55-84 mm Hg] 134/ 79mm Hg (09/12/24 10:12 AM) Blood pressure sites Arm, right (09/12/24 10:12 AM) Weight Obtained Via Standing scale (09/12/24 10:12 AM) Social History Social History Type Response Smoking Status Never smoker entered on: 02/05/14 Sex Patient Care team information Care Team Personnel Name: Kandis Leahy RN Position: [facility] RN Member Role: Primary Care Nurse Name: Anita Hemphill RN Position: [facility] RN Member Role: Primary Care Nurse Name: Meg Vergara MD Position: [facility] Physician - Primary Care Member Role: PCP Address: Address: [address] [place] [address] Adult & Pediatric [place], [place] [address] Name: Elaina Lyon RN Position: [facility] RN Member Role: Primary Care Nurse Care Team Related Persons Name: ROB KANG Name: LAUREN GOMES Address: home [address] [place] [address] Name: REGINE TREADWELL Address: home [address] [place] [address]
--- OUTSIDE RECORDS SUMMARY | 2024-10-14 07:41 | XMS_ITS | Continuity of Care Document ---
Author Organization [facility] Address [address] [place] [address]- Care Team Providers Care Legal Financial Specialist Name Role Phone Meg Vergara MD Primary Care Physician [phone] Encounter [facility] [place] Date(s): 05/14/24 - 06/13/24 [facility] [address] [place], [place] [address] Allergies, Adverse Reactions, Alerts No Known [...] mRNA BNT-162b2 vac 01/24/21 Recorded 1Result Comment: [facility] 04123-435-40 2Result Comment: [facility] 58689-202-79 3Result Comment: [facility] 25601-997-83 Pt tolerated vaccine without inicident...NH 4Result Comment: [id number] 5Admin Note: FLULAVAL 6Admin Note: given w/o incident 7Result Comment: [facility] 69509-398-54 8Admin Note: [employer] Medications Albuterol (Eqv-ProAir HFA) 90 mcg/inh inhalation aerosol 2 puffs, Inhalation, 4 times a day, PRN NEEDED FOR WHEEZING OR SHORTNESS OF BREATH, # 8.5 Gm, 0 Refills, [facility] #[id number], 25, INHALE 2 PUFFS FOUR TIMES DAILY [...] capsule, 1 Refills, Maintenance, 04/16/24 11:14:00 EDT, [facility] #[id number], 169, cm, 04/16/24 10:32:00 EDT, Height, 83.9, kg, 04/16/24 10:29:00 EDT, Dry Weight Start Date: 04/16/24 Status: Ordered omeprazole 20 mg oral enteric coated capsule 1 capsule, By Mouth, Daily, PRN NEEDED FOR INDIGESTION, # 90 capsule, 3 Refills, Maintenance, 05/30/24 16:14:00 EDT, [facility] #[id number], 160, cm, 05/30/24 15:48:00 EDT, Height, 81, [...] Team Personnel Name: Kandis Leahy RN Position: [facility] RN Member Role: Primary Care Nurse Name: Anita Hemphill RN Position: [facility] RN Member Role: Primary Care Nurse Name: Meg Vergara MD Position: [facility] Physician - Primary Care Member Role: PCP Address: Address: [address] [place] [address] Adult & [place] [address]- Care Team Related Persons Name: ROB KANG Name: LAUREN GOMES Address: home [address] [place] [address] Name: REGINE TREADWELL Address: home [address] [place] [address]
--- OUTSIDE RECORDS SUMMARY | 2024-10-14 07:41 | XMS_ITS | Continuity of Care Document ---
Author Organization [facility] Address [address] [place] [address]- Care Team Providers Care Wrapper Stemmer Hand Name Role Phone Meg Vergara MD Primary Care Physician Encounter [facility] Date(s): 08/09/23 - 09/08/23 [facility] [address] [place], [place] [address]ies, Adverse Reactions, Alerts No Known Allergies [...] BNT-162b2 vac 01/24/21 Recorded 1Result Comment: [facility] 39270-102-02 2Result Comment: [facility] 71552-449-12 Pt tolerated vaccine without inicident...NH 3Result Comment: [id number] 4Admin Note: FLULAVAL 5Admin Note: given w/o incident 6Result Comment: [facility] 43640-325-02 7Admin Note: [employer] [facility] Medications acetaminophen-oxyCODONE 325 mg-5 mg oral tablet 1, tablet, By Mouth, 2 times a day, PRN, for 28 days, # 56 tablet, Refills 0, Tot. Refills 0, Acute, Pain , Severe, 09/26/23 17:07:00 EST, 08/29/23 17:07:00 EDT, Route to Pharmacy Electronically, [facility] #[id number] Tablet, Partial fill upon p... Start Date: 08/29/23 Stop Date: 09/26/23 Status: Ordered Albuterol (Eqv-ProAir HFA) 90 mcg/inh inhalation aerosol 2 puffs, Inhalation, 4 times a day, PRN NEEDED FOR WHEEZING OR SHORTNESS OF BREATH, # 8.5 Gm, 0 Refills, [facility] #[id number], 25, INHALE 2 PUFFS FOUR TIMES DAILY NEEDED FOR WHEEZING OR SHORTNESS OF BREATH, 169, cm, 10/31/21 15:06:00 EST,... Start Date: 01/19/22 Status: Ordered amitriptyline 10 mg oral tablet 1, tablet, By Mouth, Daily at bedtime, # 30 tablet, Refills 0, Maintenance, 12/14/22 17:14:00 EST, Route to Pharmacy Electronically, [facility] #[id number], 169, cm, 11/08/22 14:13:00 EST, Height, 92.8, [...] 09/07/22 14:26:00 EDT, Route to Pharmacy Electronically, [facility] #[id number], Partial fill upon patient request if the prescript... Start Date: 09/07/22 Stop Date: 10/07/22 Status: Ordered omeprazole 20 mg oral enteric coated capsule 1 capsule, By Mouth, Daily, PRN NEEDED FOR INDIGESTION, # 90 capsule, 1 Refills, Maintenance, 07/13/23 13:09:00 EDT, [facility] #[id number], 169, cm, 02/07/23 11:17:00 EDT, Height Start [...] Leahy RN Position: [facility] SN RN Member Role: Primary Care Nurse Name: Meg Vergara MD Position: [facility] Physician - Primary Care Member Role: PCP Address: Address: [address] [place] [address] Adult & [place] [address]- Care Team Related Persons Name: ROB KANG Name: LAUREN GOMES Address: [address] [address] Name: REGINE TREADWELL Address: home [address] [place] [address]
--- OUTSIDE RECORDS SUMMARY | 2024-10-14 07:41 | XMS_ITS | Continuity of Care Document ---
Author Organization [facility] Address [address] [place] [address]- Care Team Providers Care Market Research Analyst Name Role Phone Meg Vergara MD Primary Care Physician [phone] Encounter [facility] Date(s): 01/31/23 - 03/02/23 [facility] [address] [place], [place] [address] Allergies, Adverse Reactions, Alerts No [...] mRNA BNT-162b2 vac 01/24/21 Recorded 1Result Comment: [facility] 29771-192-73 2Result Comment: [facility] 94317-677-88 Pt tolerated vaccine without inicident...NH 3Result Comment: [id number] 4Admin Note: FLULAVAL 5Admin Note: given w/o incident 6Result Comment: [facility] 68170-119-49 7Admin Note: [facility] Medications acetaminophen-oxyCODONE 325 mg-5 mg oral tablet 1, tablet, By Mouth, 2 times a day, PRN, for 28 days, # 56 tablet, Refills 0, Tot. Refills 0, Acute, Pain , Severe, 03/07/23 16:43:00 EDT, 02/07/23 16:43:00 EDT, Route to Pharmacy Electronically, [facility] #[id number] Tablet, Partial fill upon p... Start Date: 02/07/23 Stop Date: 03/07/23 Status: Ordered Albuterol (Eqv-ProAir HFA) 90 mcg/inh inhalation aerosol 2 puffs, Inhalation, 4 times a day, PRN NEEDED FOR WHEEZING OR SHORTNESS OF BREATH, # 8.5 Gm, 0 Refills, [facility] #22509, 25, INHALE 2 PUFFS FOUR TIMES DAILY NEEDED FOR WHEEZING OR SHORTNESS OF BREATH, 169, cm, 10/31/21 15:06:00 EST,... Start Date: 01/19/22 Status: Ordered amitriptyline 10 mg oral tablet 1, tablet, By Mouth, Daily at bedtime, # 30 tablet, Refills 0, Maintenance, 12/14/22 17:14:00 EST, Route to Pharmacy Electronically, [facility] #[id number], 169, cm, 11/08/22 14:13:00 EST, Height, 92.8, [...] 09/07/22 14:26:00 EDT, Route to Pharmacy Electronically, [facility] #[id number], Partial fill upon patient request if the prescript... Start Date: 09/07/22 Stop Date: 10/07/22 Status: Ordered ibuprofen 600 mg oral tablet 600 mg, 1, tablet, By Mouth, 3 times a day, # 42 tablet, Refills 0, Tot. Refills 0, Acute 03/10/23 12:03:00 EDT, 02/07/23 12:02:00 EDT, Route to Pharmacy Electronically, [facility] #78237, Partial fill upon patient request if the prescriptio... Start Date: 02/07/23 Stop Date: 03/10/23 Status: Ordered omeprazole 20 mg oral enteric coated capsule 1 capsule, By Mouth, Daily, PRN NEEDED FOR INDIGESTION, # 90 capsule, 1 Refills, Maintenance, 11/08/22 15:02:00 EST, [facility] #[id number], 169, cm, 11/08/22 14:13:00 EST, Height, 92.8, [...] Team Personnel Name: Kandis Leahy RN Position: [facility] RN Member Role: Primary Care Nurse Name: Meg Vergara MD Position: [facility] Primary Care Physician Member Role: PCP Address: Address: [address] [place] [address] Adult & [place] [address]- Care Team Related Persons Name: ROB KANG Name: LAUREN GOMES Address: home [address] [place] [address] Name: REGINE TREADWELL Address: home [address] [place] [address]
--- OUTSIDE RECORDS SUMMARY | 2024-10-14 07:41 | XMS_ITS | Continuity of Care Document ---
Author Organization [facility] Address [address] [place] [address]- Care Team Providers Care Fur Blower Name Role Phone Meg Vergara MD Primary Care Physician [place] [facility] [place] 04/02[place]20 - 04/09/20 [facility] [address] [place] [address]- [facility] Attending Physician: Meg Vergara MD Allergies, Adverse [...] tetanus/diphtheria/pertussis, acel(Tdap) 4 01/12/11 Given 1Result Comment: [id number] 2Admin Note: FLULAVAL 3Admin Note: given w/o incident 4Admin Note: [facility] Medications acetaminophen-oxyCODONE 325 mg-5 mg oral tablet 1, tablet, By Mouth, 2 times a day, PRN, may fill for less for 28 days, # 56 tablet, Refills 0, Tot. Refills 0, Acute, Pain , Severe, 04/20/20 10:44:00 EDT, 03/23/20 10:44:00 EDT, Route to Pharmacy Electronically, [facility] #[id number] Tablet... Start Date: 03/23/20 Stop Date: 04/20/20 Status: Ordered [employer] SureClick Autoinjector-aooe 140 mg/mL [...] 02/20/20 9:33:00 EDT, Route to Pharmacy Electronically, [facility] #[id number], 160, cm, 01/16/20 11:09:00 EST, Height, 83.9, [...] 12:52:00 EST, Aerosol, Route to Pharmacy Electronically, [id number], [facility] #[id number], 160, cm, 10/31/19 10:30:00... Start Date: 11/18/19 [...] oldest [Reference Range]: 1 Height 160 cm (04/02/20 11:35 AM) Social History Social History Type Response Smoking Status Never smoker entered on: 02/05/14 Sex
--- OUTSIDE RECORDS SUMMARY | 2024-10-14 07:41 | XMS_ITS | Continuity of Care Document ---
Author Organization [facility] Address [address] [place] [address]- Care Team Providers Care Funeral Home Makeup Artist Name Role Phone Meg Vergara MD Primary Care Physician [facility] [facility] [place] [id number] Date(s): 01/14/21 - 02/13/21 [facility] [address] [place], [place] [address] Attending Physician: AdmGhazala pena Admitting Physician: Admtr, Ghazala Referring Physician: Admtr, Ar8 Allergies, Adverse Reactions, [...] tetanus/diphtheria/pertussis, acel(Tdap) 5 01/12/11 Given 1Result Comment: [facility] 02569-455-00 Pt tolerated vaccine without inicident...NH 2Result Comment: [id number] 3Admin Note: FLULAVAL 4Admin Note: given w/o incident 5Admin Note: [employer] Medications acetaminophen-oxyCODONE 325 mg-5 mg oral tablet 1, tablet, By Mouth, 2 times a day, PRN, may fill for less for 28 days, # 56 tablet, Refills 0, Tot. Refills 0, Acute, Pain , Severe, 02/28/21 10:51:00 EDT, 01/31/21 10:51:00 EDT, Route to Pharmacy Electronically, [facility] #[id number] Tablet... Start Date: 01/31/21 Stop Date: 02/28/21 Status: Ordered [employer] SureClick Autoinjector-aooe 140 mg/mL [...] 15:08:00 EST, Aerosol, Route to Pharmacy Electronically, [id number], [facility] #[id number], 160, cm, 12/17/20 10:53:00... Start Date: 12/23/20 [...]
--- OUTSIDE RECORDS SUMMARY | 2024-10-14 07:41 | XMS_ITS | Continuity of Care Document ---
Author Organization [facility] Address [address] [place] [address]- Care Team Providers Care Sponge Clipper Name Role Phone Meg Vergara MD Primary Care Physician Encounter [facility] Date(s): 10/21/19 - 10/31/19 [facility] [address] [place] [address]- [facility] Attending Physician: AdmGhazala pena Admitting Physician: Admtr, [...] tetanus/diphtheria/pertussis, acel(Tdap) 4 01/12/11 Given 1Result Comment: [id number] 2Admin Note: FLULAVAL 3Admin Note: given w/o incident 4Admin Note: [employer] Medications Aimovig SureClick Autoinjector-aooe 140 mg/mL subcutaneous solution 0 Refills, Maintenance, 09/05/19 11:33:37 EDT Start Date: 09/05/19 Status: Ordered cyclobenzaprine 10 mg oral tablet 10 mg, 1, tablet, By Mouth, Daily at bedtime, for 14 days, # 14 tablet, Refills 0, Tot. Refills 0, Acute 11/14/19 10:48:00 EST, 10/31/19 10:48:00 EST, Route to Pharmacy Electronically, [facility] #[id number], 160, cm, 10/31/19 10:30:00 EST, Heigh... Start Date: 10/31/19 Stop Date: 11/14/19 Status: Ordered Excedrin Migraine oral tablet 2 tablet, By Mouth, Every 6 hours, PRN for headache, Maintenance, 06/28/19 17:39:20 EDT, Tablet Start Date: 06/28/19 Status: Ordered Motrin Tablet 800 mg, By Mouth, Every 4 hours, PRN, Maintenance, headache, 06/28/19 17:39:55 EDT Start Date: 06/28/19 Status: Ordered omeprazole 20 mg oral enteric coated capsule 1 capsule = 20 mg, By Mouth, Daily, PRN Dyspepsia, # 30 capsule, 2 Refills, Maintenance, 09/22/19 17:05:14 EST Start Date: 09/22/19 Stop Date: 12/21/19 Status: Ordered Percocet-5/325 325 mg-5 mg oral tablet 1, tablet, By Mouth, 2 times a day, PRN, may fill for less for 28 days, # 56 tablet, Refills 0, Tot. Refills 0, Acute, Pain , Severe, 11/17/19 13:52:00 EST, 10/20/19 13:52:00 EST, Route to Pharmacy Electronically, [id number]... Start Date: 10/20/19 Stop Date: 11/17/19 Status: Ordered ProAir HFA 90 mcg/inh inhalation aerosol with adapter 2, puffs, Inhalation, 4 times a day, PRN, # 1 each, Refills 0, Tot. Refills 0, Maintenance, 10/24/18 11:31:25 EST, Aerosol, Route to Pharmacy Electronically, [id number], [id number] Start Date: 10/24/18 Stop Date: 11/23/18 Status: Ordered Zofran 4 mg oral tablet [...]
--- OUTSIDE RECORDS SUMMARY | 2024-10-14 07:41 | XMS_ITS | Continuity of Care Document ---
Author Organization [facility] Address [address] [place] [address]- Care Team Providers Care Follow Up Specialist Name Role Phone Meg Vergara MD Primary Care Physician [phone] [place] [facility] [place]18[place]23 - 09/25/23 [facility] [address] [place], [place] [address] Encounter Diagnosis Knee pain, right(Discharge Diagnosis) - 09/18/23 Lumbar spondylosis(Discharge Diagnosis) - 09/18/23 Attending Physician: Meg Vergara MD Allergies, Adverse [...] mRNA BNT-162b2 vac 01/24/21 Recorded 1Result Comment: [facility] 53050-666-70 2Result Comment: [facility] 22436-126-24 3Result Comment: [facility] 52532-436-93 Pt tolerated vaccine without inicident...NH 4Result Comment: [id number] 5Admin Note: FLULAVAL 6Admin Note: given w/o incident 7Result Comment: [facility] 47375-939-04 8Admin Note: [employer] Medications acetaminophen-oxyCODONE 325 mg-5 mg oral tablet 1, tablet, By Mouth, 2 times a day, PRN, for 28 days, # 56 tablet, Refills 0, Tot. Refills 0, Acute, Pain , Severe, 09/26/23 17:07:00 EST, 08/29/23 17:07:00 EDT, Route to Pharmacy Electronically, [facility] #[id number] Tablet, Partial fill upon p... Start Date: 08/29/23 Stop Date: 09/26/23 Status: Ordered Albuterol (Eqv-ProAir HFA) 90 mcg/inh inhalation aerosol 2 puffs, Inhalation, 4 times a day, PRN NEEDED FOR WHEEZING OR SHORTNESS OF BREATH, # 8.5 Gm, 0 Refills, [facility] #[id number], 25, INHALE 2 PUFFS FOUR TIMES DAILY NEEDED FOR WHEEZING OR SHORTNESS OF BREATH, 169, cm, 10/31/21 15:06:00 EST,... Start Date: 01/19/22 Status: Ordered amitriptyline 10 mg oral tablet 1, tablet, By Mouth, Daily at bedtime, # 30 tablet, Refills 0, Maintenance, 12/14/22 17:14:00 EST, Route to Pharmacy Electronically, [facility] #[id number], 169, cm, 11/08/22 14:13:00 EST, Height, 92.8, [...] 09/07/22 14:26:00 EDT, Route to Pharmacy Electronically, [facility] #[id number], Partial fill upon patient request if the prescript... Start Date: 09/07/22 Stop Date: 10/07/22 Status: Ordered omeprazole 20 mg oral enteric coated capsule 1 capsule, By Mouth, Daily, PRN NEEDED FOR INDIGESTION, # 90 capsule, 1 Refills, Maintenance, 07/13/23 13:09:00 EDT, [facility] #[id number], 169, cm, 02/07/23 11:17:00 EDT, Height Start [...] Effective Dates Health Status Clinical Service Informant Knee pain, right Discharge Diagnosis 09/18/23 Lumbar spondylosis Discharge Diagnosis 09/18/23 Vital Signs Most recent to oldest [Reference Range]: 1 Height 169 cm (09/18/23 11:27 AM) Weight 83.3 kg (09/18/23 11:27 AM) Oxygen Saturation [94-100 %] 97 % (09/18/23 11:27 AM) Pulse Rate [55-90 bpm] 90 bpm (09/18/23 11:27 AM) Body Mass Index [18.5-24.99 kg/m2] 29.17 kg/m2 *H* (09/18/23 11:27 AM) Blood Pressure [90-138/55-84 mm Hg] 133/ 88mm Hg (09/18/23 11:27 AM) Mode of Delivery (Oxygen) Room air (09/18/23 11:27 AM) Blood pressure sites Arm, left (09/18/23 11:27 AM) Weight Obtained Via Standing scale (09/18/23 11:27 AM) Social History Social History Type Response Smoking Status Never smoker entered on: 02/05/14 Sex Patient Care team information Care Team Personnel Name: Kandis Leahy RN Position: [facility] SN RN Member Role: Primary Care Nurse Name: Meg Vergara MD Position: [facility] Physician - Primary Care Member Role: PCP Address: Address: [address] [place] [address] Adult [place] [address]- Care Team Related Persons Name: ROB KANG Name: LAUREN GOMES Address: [address] [place] [address] Name: REGINE TREADWELL Address: home [address] [place] [address]
--- OUTSIDE RECORDS SUMMARY | 2024-10-14 07:41 | XMS_ITS | Continuity of Care Document ---
Author Organization [facility] Address [address] [place] [address]- Care Team Providers Care Roller Print Tender Name Role Phone Meg Vergara MD Primary Care Physician [phone] [place] [facility] [place] 03/02[place]21 - 04/01/21 [facility] [address] [place], [place] [address] Allergies, Adverse Reactions, Alerts Substance Reaction Severity [...] tetanus/diphtheria/pertussis, acel(Tdap) 5 01/12/11 Given 1Result Comment: [facility] 44202-028-26 Pt tolerated vaccine without inicident...NH 2Result Comment: [id number] 3Admin Note: FLULAVAL 4Admin Note: given w/o incident 5Admin Note: [employer] Medications acetaminophen-oxyCODONE 325 mg-5 mg oral tablet 1, tablet, By Mouth, 2 times a day, PRN, may fill for less for 28 days, # 56 tablet, Refills 0, Tot. Refills 0, Acute, Pain , Severe, 04/07/21 16:33:00 EDT, 03/10/21 16:33:00 EDT, Route to Pharmacy Electronically, [facility] #[id number] Tablet... Start Date: 03/10/21 Stop Date: 04/07/21 Status: Ordered [employer]ig SureClick Autoinjector-aooe 140 mg/mL [...] 15:08:00 EST, Aerosol, Route to Pharmacy Electronically, [id number], [facility] #[id number], 160, cm, 12/17/20 10:53:00... Start Date: 12/23/20 [...]
--- OUTSIDE RECORDS SUMMARY | 2024-10-14 07:41 | XMS_ITS | Continuity of Care Document ---
Author Organization [facility] Address [address] [place] [address]- Care Team Providers Care Heel Sewer Name Role Phone Meg Vergara MD Primary Care Physician [place] [facility] 04/16/24 - 04/23/24 [facility] [address] [place], [place] [address] Attending Physician: Meg Vergara [...] [facility] 44816-148-04 2Result Comment: [facility] 54795-788-18 3Result Comment: [facility] 61803-702-31 Pt tolerated vaccine without inicident...NH 4Result Comment: [id number] 5Admin Note: FLULAVAL 6Admin Note: given w/o incident 7Result Comment: [facility] 41256-987-16 8Admin Note: [employer] Medications acetaminophen-oxyCODONE 325 mg-5 mg oral tablet 1, tablet, By Mouth, 2 times a day, PRN, for 28 days, # 56 tablet, Refills 0, Tot. Refills 0, Acute, Pain , Severe, 05/15/24 10:20:00 EDT, 04/17/24 10:20:00 EDT, Route to Pharmacy Electronically, [facility] #[id number] Tablet, Partial fill upon p... Start Date: 04/17/24 Stop Date: 05/15/24 Status: Ordered Albuterol (Eqv-ProAir HFA) 90 mcg/inh inhalation aerosol 2 puffs, Inhalation, 4 times a day, PRN NEEDED FOR WHEEZING OR SHORTNESS OF BREATH, # 8.5 Gm, 0 Refills, [facility] #[id number], 25, INHALE 2 PUFFS FOUR TIMES DAILY [...] 04/16/24 11:22:00 EDT, Route to Pharmacy Electronically, [facility] #[id number], Partial fill upon patient request if the [...] capsule, 1 Refills, Maintenance, 04/16/24 11:14:00 EDT, [facility] #[id number], 169, cm, 04/16/24 10:32:00 EDT, Height, 83.9, kg, 04/16/24 10:29:00 EDT, Dry Weight Start Date: 04/16/24 Status: Ordered phentermine 37.5 mg oral tablet 1 tablet = 37.5 mg, By Mouth, Daily, for 30 days, at least one hour after meals, # 30 tablet, 0 Refills, Acute 05/11/24 14:14:00 EDT, 04/11/24 14:14:00 EDT, Tablet, [facility] #[id number], Partial fill upon patient request if the [...] pain Confirmed Active 1SOAPP-R: 5 on 05/08/17 Procedures Procedure Date Related Diagnosis Body Site Status Total knee arthroplasty RIGHT 12/25/23 Completed Vital Signs Most recent to oldest [Reference Range]: 1 2 Height 169 cm (04/16/24 10:32 AM) 169 cm (04/16/24 10:29 AM) Weight 83.9 kg (04/16/24 10:29 AM) Oxygen Saturation [94-100 %] 99 % (04/16/24 10:29 AM) Pulse Rate [55-90 bpm] 80 bpm (04/16/24 10:29 AM) Body Mass Index [18.5-24.99 kg/m2] 29.38 kg/m2 *H* (04/16/24 10:29 AM) Blood Pressure [90-138/55-84 mm Hg] 150/ 94mm Hg *H* (04/16/24 10:32 AM) 147/92mm Hg *H* (04/16/24 10:29 AM) Mode of Delivery (Oxygen) Room air (04/16/24 10:29 AM) Blood pressure sites Arm, left (04/16/24 10:32 AM) Arm, left (04/16/24 10:29 AM) Dry Weight 83.9 kg (04/16/24 10:29 AM) Weight Obtained Via Standing scale (04/16/24 10:29 AM) Dry Weight Obtained Via Standing scale (04/16/24 10:29 AM) Social History Social History Type Response Smoking Status Never smoker entered on: 02/05/14 Sex Note * Kina Mack: PERFORM Event Display: Patient Education/Instruction Authored Date: Ambulatory Adult Visit Summary [facility] [address] [place] [address] Name: HUGO GOMES : 1975?? Visit: 04/16/2024 10:12?? Ambulatory Visit Instructions ?? Your Care Team Primary Care Provider Meg Vergara MD? This Visit Provider Meg Vergara MD Vitals Signs Pulse Rate: 80 bpm Height: 169 cm Systolic Blood Pressure:??150 mm Hg??High Weight: 83.9 kg Diastolic Blood Pressure:??94 mm Hg??High Body Mass Index:??29.38 kg/m2??High Oxygen Saturation: 99 % Body surface area: 1.98 What to do next Instructions From Your Provider use triple antibiotic ointment? d/w about pros and cons, joan-operative pain management and reocmmendation if??more opiates are needed ?? call emergency department physician for annual exam?? [facility] to [facility] - to be done every 2 yrs. call [phone] Follow-Up Appointments Follow Up with??Bruce BURCH [OB], Kami Morelos Where: [address] [facility] [place] [address]- Future Orders MM Digital Mammo Screening, Routine, Reason for Exam: Screening, Conditional Orders: MM Diag/US Breast/Guided Asp/Breast Bx Breast Ultrasound Breast Biopsy, Once, *Est. 04/16/24 Medications The list below reflects the information in our records and provided by you today along with any changes made during this visit. Please continue your medications until treatment is completed or stopped by your provider. If this is different from the information you have or there are other questions,please contact the prescribing provider. What How Much When Why Instructions New Ibuprofen (ibuprofen 600 mg oral tablet) 1 tab(s) Oral 3 times a day Pickup at [facility] #[id number] Unchanged Albuterol (Albuterol (Eqv-ProAir HFA) 90 mcg/ inh inhalation aerosol) 2 puff(s) Inhalation 4 times a day as needed for NEEDED FOR WHEEZING OR SHORTNESS OF BREATH Unchanged Meloxicam (meloxicam 15 mg oral tablet) Unchanged Omeprazole (omeprazole 20 mg oral enteric coated capsule) 1 capsule Oral Daily as needed for NEEDED FOR INDIGESTION Pickup at [facility] #[id number] Unchanged onabotulinumtoxinA (Botox Inj) Every 3 months for migraines ?? Unchanged Oxycodone / Acetaminophen (acetaminophen-oxyCODONE 325 mg-5 mg oral tablet) 1 tab(s) Oral Twice a day as needed for Pain , Severe DDD (degenerative disc disease), lumbar Duration: 28 Days Unchanged Phentermine (phentermine 37.5 mg oral tablet) 1 tab(s) Oral Daily Duration: 30 Days at least one hour after meals ?? Unchanged Topiramate (topiramate 50 mg oral tablet) Pharmacy Information [facility] #[id number]: [address] [place], [place] [id number] [phone] Medications and Immunizations Administered Medications Given During [...] are strongly encouraged to quit. Please call [facility] at [phone] or [phone] ([phone]) or log in to [email or web address] for referrals to smoking cessation programs. ?? The National Suicide Prevention Hotline is available 04/06 if you or someone you know needs to find a reason to keep living. By calling 8-816-655-Beat.no (3941) you'll be connected to a skilled, trained counselor at a crisis center in your area. [facility] You can view and manage your care through the patient portal or by using a health care charlene of your choosing. [employer] is a website that allows you to securely view your medical information including your hospital discharge summary, office visit summaries, medications and follow-up visits. You can also request appointments, renew medications, and request access to your medical information using a health care charlene of your choosing, or just ask a question. You can enroll at [email or web address] or register during your next office visit. [facility], in keeping with [facility] guidance, no longer requires face masks for [...] primary care provider, you may find a [facility] provider by calling [facility] at [phone]. Patient Care team information Care Team Personnel Name: Kandis Leahy RN Position: [facility] SN RN Member Role: Primary Care Nurse Name: Meg Vergara MD Position: [facility] Physician - Primary Care Member Role: PCP Address: Address: [address] [place] [address] Adult & [place] [address]- Care Team Related Persons Name: ROB KANG Name: LAUREN GOMES Address: [address] [place] [address] Name: REGINE TREADWELL Address: [address] [place] [address]
--- OUTSIDE RECORDS SUMMARY | 2024-10-14 07:42 | XMS_ITS | Continuity of Care Document ---
Author Organization [facility] Address [address] [place] [address]- Care Team Providers Care Community Relations Director Name Role Phone Ursula BURCH, Meg Bains Primary Care Physician Encounter [facility] Date(s): 11/23/23 - 12/23/23 [facility] [address] [place], [place] [address] Allergies, Adverse Reactions, Alerts No Known [...] mRNA BNT-162b2 vac 01/24/21 Recorded 1Result Comment: [facility] 86172-440-65 2Result Comment: [facility] 27890-056-70 3Result Comment: [facility] 83417-803-95 Pt tolerated vaccine without inicident...NH 4Result Comment: [id number] 5Admin Note: FLULAVAL 6Admin Note: given w/o incident 7Result Comment: [facility] 57581-420-61 8Admin Note: [employer] [facility] Medications acetaminophen-oxyCODONE 325 mg-5 mg oral tablet 1, tablet, By Mouth, 2 times a day, PRN, for 28 days, # 56 tablet, Refills 0, Tot. Refills 0, Acute, Pain , Severe, 01/17/24 17:02:00 EST, 12/20/23 17:02:00 EST, Route to Pharmacy Electronically, [facility] #[id number] Tablet, Partial fill upon p... Start Date: 12/20/23 Stop Date: 01/17/24 Status: Ordered Albuterol (Eqv-ProAir HFA) 90 mcg/inh inhalation aerosol 2 puffs, Inhalation, 4 times a day, PRN NEEDED FOR WHEEZING OR SHORTNESS OF BREATH, # 8.5 Gm, 0 Refills, [facility] #[id number], 25, INHALE 2 PUFFS FOUR TIMES DAILY NEEDED FOR WHEEZING OR SHORTNESS OF BREATH, 169, cm, 10/31/21 15:06:00 EST,... Start Date: 01/19/22 Status: Ordered amitriptyline 10 mg oral tablet 1, tablet, By Mouth, Daily at bedtime, # 30 tablet, Refills 0, Maintenance, 12/14/22 17:14:00 EST, Route to Pharmacy Electronically, [facility] #[id number], 169, cm, 11/08/22 14:13:00 EST, Height, 92.8, [...] 10/22/23 12:37:00 EST, Route to Pharmacy Electronically, [facility] #[id number], Partial fill upon patient request if the prescript... Start Date: 10/22/23 Stop Date: 11/21/23 Status: Ordered omeprazole 20 mg oral enteric coated capsule 1 capsule, By Mouth, Daily, PRN NEEDED FOR INDIGESTION, # 90 capsule, 1 Refills, Maintenance, 07/13/23 13:09:00 EDT, [facility] #[id number], 169, cm, 02/07/23 11:17:00 EDT, Height Start [...] mL, 0 Refills, Maintenance, 10/22/23 12:37:00 EST, [facility] #[id number], Partial fill upon patient request if the prescription is for a schedule II opioid drug., 169, cm, ... Start Date: 10/22/23 Stop Date: 10/29/23 Status: Ordered topiramate 100 mg oral tablet 0 Refills, Maintenance, 09/07/22 14:14:00 EDT, Partial fill upon patient request if the prescription is for a schedule II opioid drug. Start Date: 09/07/22 Status: Ordered triamcinolone 0.1% topical cream 1 application, Topically, 2 times a day, for 14 days, APPLY TOPICALLY TO AFFECTED AREA(S) TWICE DAILY FOR 14 DAYS, # 15 Gm, 0 Refills, Acute 01/02/24 13:56:00 EST, 12/19/23 13:56:00 EST, Cream, [facility] #[id number], Partial fill upon patient re... Start Date: 12/19/23 Stop Date: 01/02/24 Status: Ordered Wegovy (0.25 mg dose) subcutaneous solution = 0.25 mg, Subcutaneous Injection, Every week, for 4 week(s), in the abdomen, thigh, or upper arm, # 2 mL, 0 Refills, Acute 01/18/24 9:58:00 EST, 12/21/23 9:58:00 EST, Solution, [facility] #[id number], Partial fill upon patient request if the pre... Start Date: 12/21/23 Stop Date: 01/18/24 Status: Ordered Zithromax Z-Nash 250 mg oral tablet See Instructions, as directed on package labeling, # 6 tablet, 0 Refills, Maintenance, 10/19/23 14:39:00 EST, Tablet, [facility] #08707, Partial fill upon patient request if the [...] Personnel Name: Ursula BURCH, Meg Bains Position: [facility] Physician - Primary Care Member Role: PCP Address: Address: [address] [place] [address] Adult & [place] [address]- Care Team Related Persons Name: ROB KANG Name: LAUREN GOMES Address: home [address] [place] [id number] Name: REGINE TREADWELL Address: [address] [place] [address]
--- OUTSIDE RECORDS SUMMARY | 2024-10-14 07:42 | XMS_ITS | Continuity of Care Document ---
Author Organization [facility] Address [address] [place] [address]- Care Team Providers Care Roving Department End Finder Name Role Phone Ursula BURCH, Meg Bains Primary Care Physician Encounter [facility] ACCT R [id number] Date(s): 12/17/20 - 12/24/20 [facility] [address] [place], [place] [address] Attending Physician: Meg Vergara MD Allergies, Adverse Reactions, Alerts Substance Reaction Severity Status NKA Active Immunizations Given and Recorded Vaccine Date Status Refusal Reason influenza virus vaccine, inactivated 1 09/28/20 Gi veknatesh influenza virus vaccine, inactivated 2 10/31/19 Gi venkatesh influenza virus vaccine, inactivated 11/27/17 Douglas rded influenza virus vaccine, inactivated 09/27/16 Give n influenza virus vaccine, inactivated 08/05/14 Give n influenza virus vaccine, inactivated 3 07/22/12 Gi venkatesh influenza virus vaccine, inactivated 4 08/17/11 Gi venkaetsh influenza virus vaccine, inactivated 08/18/10 Give n tetanus/diphtheria/pertussis, acel(Tdap) 5 01/12/11 Given 1Result Comment: [facility] 01641-326-16 Pt tolerated vaccine without inicident...NH 2Result Comment: [id number] 3Admin Note: FLULAVAL 4Admin Note: given w/o incident 5Admin Note: [facility] Medications acetaminophen-oxyCODONE 325 mg-5 mg oral tablet 1, tablet, By Mouth, 2 times a day, PRN, may fill for less for 28 days, # 56 tablet, Refills 0, Tot. Refills 0, Acute, Pain , Severe, 01/03/21 15:42:00 EST, 12/06/20 15:42:00 EST, Route to Pharmacy Electronically, [facility] #[id number] Tablet... Start Date: 12/06/20 Stop Date: 01/03/21 [...] 15:08:00 EST, Aerosol, Route to Pharmacy Electronically, [id number], [facility] #[id number], 160, cm, 12/17/20 10:53:00... Start Date: 12/23/20 [...] oldest [Reference Range]: 1 Height 160 cm (12/17/20 10:53 AM) Weight 81.6 kg (12/17/20 10:53 AM) Oxygen Saturation [94-100 %] 98 % (12/17/20 10:53 AM) Pulse Rate [55-90 bpm] 93 bpm *H* (12/17/20 10:53 AM) Body Mass Index [18.5-24.99] 31.88 *>HHI* (12/17/20 10:53 AM) Blood Pressure [90-138/55-84 mm Hg] 126/ 82mm Hg (12/17/20 10:53 AM) Temperature [96.8-100.4 DegF] 98.2 DegF (12/17/20 10:53 AM) Mode of Delivery (Oxygen) Room air (12/17/20 10:53 AM) Blood pressure sites Arm, left (12/17/20 10:53 AM) Temperature Route Temporal (12/17/20 10:53 AM) Weight Obtained Via Standing scale (12/17/20 10:53 AM) Social History Social History Type Response Smoking Status Never smoker entered on: 02/05/14 Sex
--- OUTSIDE RECORDS SUMMARY | 2024-10-14 07:42 | XMS_ITS | Continuity of Care Document ---
Author Organization [facility] Address [address] [place] [address]- Care Team Providers Care Publicity Agent Name Role Phone Meg Vergara MD Primary Care Physician [facility]counter [facility] Date(s): 05/22/21 - 06/21/21 [facility] [address] [place], [place] [address] Allergies, Adverse Reactions, Alerts Substance Reaction Severity [...] tetanus/diphtheria/pertussis, acel(Tdap) 5 01/12/11 Given 1Result Comment: [facility] 58724-953-58 Pt tolerated vaccine without inicident...NH 2Result Comment: [id number] 3Admin Note: FLULAVAL 4Admin Note: given w/o incident 5Admin Note: [facility] Medications acetaminophen-oxyCODONE 325 mg-5 mg oral tablet 1, tablet, By Mouth, 2 times a day, PRN, may fill for less for 28 days, # 56 tablet, Refills 0, Tot. Refills 0, Acute, Pain , Severe, 06/30/21 9:52:00 EDT, 06/02/21 9:52:00 EDT, Route to Pharmacy Electronically, [email or web address] #[id number] Tablet,... Start Date: 06/02/21 Stop Date: 06/30/21 Status: Ordered Aimovig SureClick Autoinjector-aooe 140 mg/mL subcutaneous solution 0 Refills, Maintenance, 09/05/19 11:33:37 EDT Start Date: 09/05/19 Status: Ordered docusate sodium 100 mg oral capsule 100 mg, 1, capsule, By Mouth, 2 times a day, # 60 capsule, Refills 5, Tot. Refills 5, Maintenance, 05/11/21 16:01:00 EDT, Route to Pharmacy Electronically, [email or web address] #[id number], 160, cm, 12/17/20 10:53:00 EST, Height, 83.9, [...] 15:08:00 EST, Aerosol, Route to Pharmacy Electronically, [id number], [email or web address] #[id number], 160, cm, 12/17/20 10:53:00... Start Date: 12/23/20 [...]
--- OUTSIDE RECORDS SUMMARY | 2024-10-14 07:42 | XMS_ITS | Continuity of Care Document ---
Author Organization [facility] Address [address] [place] [address]- Care Team Providers Care Mobile Heavy Equipment Operator Name Role Phone Meg Vergara MD Primary Care Physician Encounter [facility] Date(s): 07/19/22 - 08/18/22 [facility] [address] [place], [place] [address] Attending Physician: Gloria Price DO Allergies, Adverse Reactions, Alerts No Known Allergies [...] mRNA BNT-162b2 vac 01/24/21 Recorded 1Result Comment: [facility] 54863-457-93 2Admin Note: [facility] 3Result Comment: [facility] 11014-902-58 Pt tolerated vaccine without inicident...NH 4Result Comment: [id number] 5Admin Note: FLULAVAL 6Admin Note: given w/o incident Medications acetaminophen-oxyCODONE 325 mg-5 mg oral tablet 1, tablet, By Mouth, 2 times a day, PRN, for 28 days, # 56 tablet, Refills 0, Tot. Refills 0, Acute, Pain , Severe, 09/12/22 12:59:00 EDT, 08/15/22 12:59:00 EDT, Route to Pharmacy Electronically, [facility] #[id number] Tablet, Partial fill upon p... Start Date: 08/15/22 Stop Date: 09/12/22 Status: Ordered Aimovig SureClick Autoinjector-aooe 140 mg/mL subcutaneous solution 0 Refills, Maintenance, 09/05/19 11:33:37 EDT Start Date: 09/05/19 Status: Ordered Albuterol (Eqv-ProAir HFA) 90 mcg/inh inhalation aerosol 2 puffs, Inhalation, 4 times a day, PRN NEEDED FOR WHEEZING OR SHORTNESS OF BREATH, # 8.5 Gm, 0 Refills, [facility] #[id number], 25, INHALE 2 PUFFS FOUR TIMES DAILY [...] Acute 09/26/22 10:53:00EST, 07/28/22 10:53:00 EDT, Capsule, [facility] #[id number], Partial fill upon patient requestif the prescription [...] capsule, 0 Refills, Maintenance, 08/15/22 5:56:00 EDT, [facility] #[id number], 169, cm, 07/28/22 10:21:00 EDT, Height, 92.8, [...] Name: Ursula BURCH, Meg Bains Address: Address: [address] [place] [address] Adult & [place], [place] [address]
--- OUTSIDE RECORDS SUMMARY | 2024-10-14 07:42 | XMS_ITS | Continuity of Care Document ---
Author Organization [facility] Address [address] [place] [address]- Care Team Providers Care Informatics Consultant Name Role Phone Meg Vergara MD Primary Care Physician [facility]counter [facility] Date(s): 06/11/23 - 07/11/23 [facility] [address] [place], [place] [address] Allergies, Adverse Reactions, Alerts [...] 01/24/21 Recorded 1Result Comment: [facility] 49705-004-01 2Result Comment: [facility] 89227-129-48 Pt tolerated vaccine without inicident...NH 3Result Comment: [id number] 4Admin Note: FLULAVAL 5Admin Note: given w/o incident 6Result Comment: [facility] 30421-907-34 7Admin Note: [employer] Medications acetaminophen-oxyCODONE 325 mg-5 mg oral tablet 1, tablet, By Mouth, 2 times a day, PRN, for 28 days, # 56 tablet, Refills 0, Tot. Refills 0, Acute, Pain , Severe, 08/01/23 13:13:00 EDT, 07/04/23 13:13:00 EDT, Route to Pharmacy Electronically, [facility][id number] Tablet, Partial fill upon p... Start Date: 07/04/23 Stop Date: 08/01/23 Status: Ordered Albuterol (Eqv-ProAir HFA) 90 mcg/inh inhalation aerosol 2 puffs, Inhalation, 4 times a day, PRN NEEDED FOR WHEEZING OR SHORTNESS OF BREATH, # 8.5 Gm, 0 Refills, [facility] #[id number], 25, INHALE 2 PUFFS FOUR TIMES DAILY NEEDED FOR WHEEZING OR SHORTNESS OF BREATH, 169, cm, 10/31/21 15:06:00 EST,... Start Date: 01/19/22 Status: Ordered amitriptyline 10 mg oral tablet 1, tablet, By Mouth, Daily at bedtime, # 30 tablet, Refills 0, Maintenance, 12/14/22 17:14:00 EST, Route to Pharmacy Electronically, [facility] #[id number], 169, cm, 11/08/22 14:13:00 EST, Height, 92.8, [...] 09/07/22 14:26:00 EDT, Route to Pharmacy Electronically, [facility] #[id number], Partial fill upon patient request if the prescript... Start Date: 09/07/22 Stop Date: 10/07/22 Status: Ordered omeprazole 20 mg oral enteric coated capsule 1 capsule, By Mouth, Daily, PRN NEEDED FOR INDIGESTION, # 90 capsule, 0 Refills, Maintenance, 04/17/23 9:18:00 EDT, [facility] #[id number], 169, cm, 02/07/23 11:17:00 EDT, Height, 92.8, kg, 05/12/21 16:58:00 EDT, Dry Weight Start Date: 04/17/23 Status: Ordered phentermine 37.5 mg oral tablet [...] Team Personnel Name: Kandis Leahy RN Position: [facility] RN Member Role: Primary Care Nurse Name: Meg Vergara MD Position: [facility] Physician - Primary Care Member Role: PCP Address: Address: [address] [place] [address] Adult & Pediatric [address] Care Team Related Persons Name: ROB KANG Name: LAUREN GOMES Address: home [address] [place] [address] Name: REGINE TREADWELL Address: home [address] [place] [address]
--- OUTSIDE RECORDS SUMMARY | 2024-10-14 07:42 | XMS_ITS | Continuity of Care Document ---
Author Organization [facility] Address [address] [place] [address]- Care Team Providers Care Public Safety Director Name Role Phone Meg Vergara MD Primary Care Physician Encounter [facility] Date(s): 10/17/22 - 11/16/22 [facility] [address] [place], [place] [address] Allergies, Adverse Reactions, Alerts No Known Allergies [...] 01/24/21 Recorded 1Result Comment: [facility] 89601-125-25 2Result Comment: [facility] 33190-343-17 Pt tolerated vaccine without inicident...NH 3Result Comment: [id number] 4Admin Note: FLULAVAL 5Admin Note: given w/o incident 6Result Comment: [facility] 79823-727-36 7Admin Note: [employer] Medications acetaminophen-oxyCODONE 325 mg-5 mg oral tablet 1, tablet, By Mouth, 2 times a day, PRN, for 28 days, # 56 tablet, Refills 0, Tot. Refills 0, Acute, Pain , Severe, 12/07/22 15:58:00 EST, 11/09/22 15:58:00 EST, Route to Pharmacy Electronically, [facility] #[id number] Tablet, Partial fill upon p... Start Date: 11/09/22 Stop Date: 12/07/22 Status: Ordered Albuterol (Eqv-ProAir HFA) 90 mcg/inh inhalation aerosol 2 puffs, Inhalation, 4 times a day, PRN NEEDED FOR WHEEZING OR SHORTNESS OF BREATH, # 8.5 Gm, 0 Refills, [facility] #[id number], 25, INHALE 2 PUFFS FOUR TIMES DAILY NEEDED FOR WHEEZING OR SHORTNESS OF BREATH, 169, cm, 10/31/21 15:06:00 EST,... Start Date: 01/19/22 Status: Ordered amitriptyline 10 mg oral tablet 10 mg, 1, tablet, By Mouth, Daily at bedtime, # 30 tablet, Refills 0, Tot. Refills 0, Maintenance, 11/08/22 15:03:00 EST, Route to Pharmacy Electronically, [facility] #[id number], Partial fill upon patient request if the prescription is for a taylor... Start Date: 11/08/22 Stop Date: 12/08/22 Status: Ordered Em[employer] Prefilled Syringe 120 mg/mL [...] 09/07/22 14:26:00 EDT, Route to Pharmacy Electronically, [facility] #96147, Partial fill upon patient request if the prescript... Start Date: 09/07/22 Stop Date: 10/07/22 Status: Ordered omeprazole 20 mg oral enteric coated capsule 1 capsule, By Mouth, Daily, PRN NEEDED FOR INDIGESTION, # 90 capsule, 1 Refills, Maintenance, 11/08/22 15:02:00 EST, [id number], 169, cm, 11/08/22 14:13:00 EST, Height, 92.8, [...] Team Personnel Name: Kandis Leahy RN Position: [facility] RN Member Role: Primary Care Nurse Name: Meg Vergara MD Position: [facility] Primary Care Physician Member Role: PCP Address: Address: [address] [place] [address] Adult & Pediatric [address] Care Team Related Persons Name: ROB KANG Name: LAUREN GOMES Address: [address] [place] [address] Name: REGINE TREADWELL Address: [address] [place] [address]
--- OUTSIDE RECORDS SUMMARY | 2024-10-14 07:42 | XMS_ITS | Continuity of Care Document ---
Author Organization [facility] Address [address] [place] [address]- Care Team Providers Care Copra Processor Name Role Phone Meg Vergara MD Primary Care Physician Encounter [facility] Date(s): 04/14/20 - 05/14/20 [facility] [address] [place] [address] [facility] Attending Physician: Ghazala Ventura Admitting Physician: AdmtrGhazala [...] tetanus/diphtheria/pertussis, acel(Tdap) 4 01/12/11 Given 1Result Comment: [id number] 2Admin Note: FLULAVAL 3Admin Note: given w/o incident 4Admin Note: [employer] Medications acetaminophen-oxyCODONE 325 mg-5 mg oral tablet 1, tablet, By Mouth, 2 times a day, PRN, may fill for less for 28 days, # 56 tablet, Refills 0, Tot. Refills 0, Acute, Pain , Severe, 05/18/20 11:17:00 EDT, 04/20/20 11:17:00 EDT, Route to Pharmacy Electronically, [facility] #[id number] Tablet... Start Date: 04/20/20 Stop Date: 05/18/20 Status: Ordered Aimovig SureClick Autoinjector-aooe 140 mg/mL [...] 02/20/20 9:33:00 EDT, Route to Pharmacy Electronically, [facility] #[id number], 160, cm, 01/16/20 11:09:00 EST, Height, 83.9, [...] 12:52:00 EST, Aerosol, Route to Pharmacy Electronically, [id number], [facility] #[id number], 160, cm, 10/31/19 10:30:00... Start Date: 11/18/19 [...]
--- OUTSIDE RECORDS SUMMARY | 2024-10-14 07:42 | XMS_ITS | Continuity of Care Document ---
Author Organization [facility] Address [address] [place] [address]- Care Team Providers Care Dishwasher Name Role Phone Meg Vergara MD Primary Care Physician Encounter [facility] Date(s): 10/22/23 - 11/21/23 [facility] [address] [place], [place] [address] Attending Physician: AdmGhazala pena Admitting Physician: Admtr, [...] vac 01/24/21 Recorded 1Result Comment: [facility] 08189-071-60 2Result Comment: [facility] 83346-830-69 3Result Comment: [facility] 24475-250-47 Pt tolerated vaccine without inicident...NH 4Result Comment: [id number] 5Admin Note: FLULAVAL 6Admin Note: given w/o incident 7Result Comment: [facility] 20284-997-91 8Admin Note: [employer] Medications acetaminophen-oxyCODONE 325 mg-5 mg oral tablet 1, tablet, By Mouth, 2 times a day, PRN, for 28 days, # 56 tablet, Refills 0, Tot. Refills 0, Acute, Pain , Severe, 11/22/23 16:49:00 EST, 10/25/23 16:49:00 EST, Route to Pharmacy Electronically, [facility] #[id number] Tablet, Partial fill upon p... Start Date: 10/25/23 Stop Date: 11/22/23 Status: Ordered Albuterol (Eqv-ProAir HFA) 90 mcg/inh inhalation aerosol 2 puffs, Inhalation, 4 times a day, PRN NEEDED FOR WHEEZING OR SHORTNESS OF BREATH, # 8.5 Gm, 0 Refills, [facility] #37110, 25, INHALE 2 PUFFS FOUR TIMES DAILY NEEDED FOR WHEEZING OR SHORTNESS OF BREATH, 169, cm, 10/31/21 15:06:00 EST,... Start Date: 01/19/22 Status: Ordered amitriptyline 10 mg oral tablet 1, tablet, By Mouth, Daily at bedtime, # 30 tablet, Refills 0, Maintenance, 12/14/22 17:14:00 EST, Route to Pharmacy Electronically, [facility] #[id number], 169, cm, 11/08/22 14:13:00 EST, Height, 92.8, [...] 10/22/23 12:37:00 EST, Route to Pharmacy Electronically, [facility] #[id number], Partial fill upon patient request if the prescript... Start Date: 10/22/23 Stop Date: 11/21/23 Status: Ordered omeprazole 20 mg oral enteric coated capsule 1 capsule, By Mouth, Daily, PRN NEEDED FOR INDIGESTION, # 90 capsule, 1 Refills, Maintenance, 07/13/23 13:09:00 EDT, [facility] #[id number], 169, cm, 02/07/23 11:17:00 EDT, Height Start [...] mL, 0 Refills, Maintenance, 10/22/23 12:37:00 EST, [facility] #[id number], Partial fill upon patient request if the [...] 0 Refills, Maintenance, 10/19/23 14:39:00 EST, Tablet, [facility] #[id number], Partial fill upon patient request if the [...] Status Never smoker entered on: 02/05/14 Sex XR Upper extremity Views * Event Display: X-Ray Upper Extremity Authored Date: XR Shoulder Views * Event Display: X-Ray Shoulder Authored Date: Radiology * Event Display: X-Ray Knee, Non- BH Authored Date: * Event Display: X-Ray Ankle/Foot, Non- BH Authored Date: * Event Display: X-Ray Knee, Non- BH Authored Date: * Event Display: X-Ray Lower Extremity, Non- BH Authored Date: * Event Display: X-Ray Knee, Non- BH Authored Date: * Event Display: X-Ray Hip/Groin Authored Date: * Fannie Martinez: PERFORM Event Display: Radiology Results Scanned Authored Date: Patient Care team information Care Team Personnel Name: Kandis Leahy RN Position: [facility] SN RN Member Role: Primary Care Nurse Name: Mge Vergara MD Position: [facility] Physician - Primary Care Member Role: PCP Address: Address: [address] [place] [address] Adult [place] [address]- Care Team Related Persons Name: PEARL ROB Name: LAUREN GOMES Address: home [address] [place] [address] Name: REGINE TREADWELL Address: home [address] [place] [address]
--- OUTSIDE RECORDS SUMMARY | 2024-10-14 07:42 | XMS_ITS | Continuity of Care Document ---
Author Organization [facility] Address [address] [place] [address]- Care Team Providers Care Home Care Liaison Name Role Phone Ursula BURCH, Meg Bains Primary Care Physician [place] [facility] [place]s): 10/26/20 - 11/02/20 [facility] [address] [place], [place] [address] Encounter Diagnosis Right tennis elbow(Discharge Diagnosis) - 10/26/20 Golfer's elbow(Discharge Diagnosis) - 10/26/20 Attending Physician: Meg Vergara MD Allergies, Adverse [...] acel(Tdap) 5 01/12/11 Given 1Result Comment: [facility] 37524-885-82 Pt tolerated vaccine without inicident...NH 2Result Comment: [id number] 3Admin Note: FLULAVAL 4Admin Note: given w/o incident 5Admin Note: [facility] Medications acetaminophen-oxyCODONE 325 mg-5 mg oral tablet 1, tablet, By Mouth, 2 times a day, PRN, may fill for less for 28 days, # 56 tablet, Refills 0, Tot. Refills 0, Acute, Pain , Severe, 11/08/20 11:59:00 EST, 10/11/20 11:59:00 EST, Route to Pharmacy Electronically, [facility] #[id number] Tablet... Start Date: 10/11/20 Stop Date: 11/08/20 Status: Ordered [employer]ig SureClick Autoinjector-aooe 140 mg/mL [...] Dates Health Status Cl inical Service Informant Right tennis elbow Discharge Diagnosis 10/26/20 Golfer's elbow Discharge Diagnosis 10/26/20 Social History Social History Type Response Smoking Status Never smoker entered on: 02/05/14 Sex
--- OUTSIDE RECORDS SUMMARY | 2024-10-14 07:42 | XMS_ITS | Continuity of Care Document ---
Author Organization [facility] Address [address] [place] [address]- Care Team Providers Care Appraisal Analyst Name Role Phone Meg Vergara MD Primary Care Physician En[facility] Date(s): 03/08/23 - 04/07/23 [facility] [address] [place], [place] [address] Allergies, Adverse Reactions, Alerts [...] 01/24/21 Recorded 1Result Comment: [facility] 95353-009-16 2Result Comment: [facility] 97949-154-97 Pt tolerated vaccine without inicident...NH 3Result Comment: [id number] 4Admin Note: FLULAVAL 5Admin Note: given w/o incident 6Result Comment: [facility] 28087-669-56 7Admin Note: [employer] [facility] Medications acetaminophen-oxyCODONE 325 mg-5 mg oral tablet 1, tablet, By Mouth, 2 times a day, PRN, for 28 days, # 56 tablet, Refills 0, Tot. Refills 0, Acute, Pain , Severe, 05/03/23 15:23:00 EDT, 04/05/23 15:23:00 EDT, Route to Pharmacy Electronically, [facility] #[id number] Tablet, Partial fill upon p... Start Date: 04/05/23 Stop Date: 05/03/23 Status: Ordered Albuterol (Eqv-ProAir HFA) 90 mcg/inh inhalation aerosol 2 puffs, Inhalation, 4 times a day, PRN NEEDED FOR WHEEZING OR SHORTNESS OF BREATH, # 8.5 Gm, 0 Refills, [facility] #56323, 25, INHALE 2 PUFFS FOUR TIMES DAILY NEEDED FOR WHEEZING OR SHORTNESS OF BREATH, 169, cm, 10/31/21 15:06:00 EST,... Start Date: 01/19/22 Status: Ordered amitriptyline 10 mg oral tablet 1, tablet, By Mouth, Daily at bedtime, # 30 tablet, Refills 0, Maintenance, 12/14/22 17:14:00 EST, Route to Pharmacy Electronically, [facility] #66606, 169, cm, 11/08/22 14:13:00 EST, Height, 92.8, [...] 09/07/22 14:26:00 EDT, Route to Pharmacy Electronically, [facility] #[id number], Partial fill upon patient request if the prescript... Start Date: 09/07/22 Stop Date: 10/07/22 Status: Ordered omeprazole 20 mg oral enteric coated capsule 1 capsule, By Mouth, Daily, PRN NEEDED FOR INDIGESTION, # 90 capsule, 1 Refills, Maintenance, 11/08/22 15:02:00 EST, [facility] #95609, 169, cm, 11/08/22 14:13:00 EST, Height, 92.8, [...] Team Personnel Name: Kandis Leahy RN Position: [facility] RN Member Role: Primary Care Nurse Name: Meg Vergara MD Position: S Physician - Primary Care Member Role: PCP Address: Address: [address] [place] [address] Adult & Pediatric [address] Care Team Related Persons Name: ROB KANG Name: LAUREN GOMES Address: [address] [address] Name: REGINE TREADWELL Address: [address] [place] [address]
--- OUTSIDE RECORDS SUMMARY | 2024-10-14 07:42 | XMS_ITS | Continuity of Care Document ---
Author Organization [facility] Address [address] [place] [address]- Care Team Providers Care Pierce And Shave Press Operator Name Role Phone Meg Vergara MD Primary Care Physician [phone] [facility] [place] 02/13/23 - 04/15/23 [facility] [address] [place] [address]- Encounter Diagnosis Unspecified dislocation of right shoulder joint, subsequent encounter(Final) - Discharge Disposition: A-D/C Home Attending Physician: Meg Vergara MD Admitting Physician: Meg Vergara MD Referring Physician: Meg Vergara MD Allergies, [...] [facility] 03416-039-88 2Result Comment: [facility] 60742-657-23 Pt tolerated vaccine without inicident...NH 3Result Comment: [id number] 4Admin Note: FLULAVAL 5Admin Note: given w/o incident 6Result Comment: [facility] 74673-103-85 7Admin Note: [facility] Medications acetaminophen-oxyCODONE 325 mg-5 mg oral tablet 1, tablet, By Mouth, 2 times a day, PRN, for 28 days, # 56 tablet, Refills 0, Tot. Refills 0, Acute, Pain , Severe, 05/03/23 15:23:00 EDT, 04/05/23 15:23:00 EDT, Route to Pharmacy Electronically, [facility] #43535 Tablet, Partial fill upon p... Start Date: 04/05/23 Stop Date: 05/03/23 Status: Ordered Albuterol (Eqv-ProAir HFA) 90 mcg/inh inhalation aerosol 2 puffs, Inhalation, 4 times a day, PRN NEEDED FOR WHEEZING OR SHORTNESS OF BREATH, # 8.5 Gm, 0 Refills, [facility] #36312, 25, INHALE 2 PUFFS FOUR TIMES DAILY NEEDED FOR WHEEZING OR SHORTNESS OF BREATH, 169, cm, 10/31/21 15:06:00 EST,... Start Date: 01/19/22 Status: Ordered amitriptyline 10 mg oral tablet 1, tablet, By Mouth, Daily at bedtime, # 30 tablet, Refills 0, Maintenance, 12/14/22 17:14:00 EST, Route to Pharmacy Electronically, [facility] #[id number], 169, cm, 11/08/22 14:13:00 EST, Height, 92.8, [...] 09/07/22 14:26:00 EDT, Route to Pharmacy Electronically, [facility] #[id number], Partial fill upon patient request if the prescript... Start Date: 09/07/22 Stop Date: 10/07/22 Status: Ordered omeprazole 20 mg oral enteric coated capsule 1 capsule, By Mouth, Daily, PRN NEEDED FOR INDIGESTION, # 90 capsule, 1 Refills, Maintenance, 11/08/22 15:02:00 EST, [facility] #87653, 169, cm, 11/08/22 14:13:00 EST, Height, 92.8, [...] Nurse Name: Ursula BURCH, Meg Bains Position: [facility] Physician - Primary Care Member Role: PCP Address: Address: [address] [place] [address] Adult & [place] [address]- Care Team Related Persons Name: ROB KANG Name: LAUREN GOMES Address: home [address] [place] [id number] Name: REGINE TREADWELL Address: home [address] [place] [address]
--- OUTSIDE RECORDS SUMMARY | 2024-10-14 07:42 | XMS_ITS | Continuity of Care Document ---
Author Organization [facility] Address [address] [place] [address]- Care Team Providers Care Radio Frequency Technician Name Role Phone Meg Vergara MD Primary Care Physician [phone] Encounter [facility] Date(s): 02/05/23 - 03/07/23 [facility] [address] [place], [place] [address] Allergies, Adverse Reactions, Alerts No Known [...] 1Result Comment: [facility] [id number] 2Result Comment: [facility] 07689-934-87 Pt tolerated vaccine without inicident...NH 3Result Comment: [id number] 4Admin Note: FLULAVAL 5Admin Note: given w/o incident 6Result Comment: [facility] 79649-691-78 7Admin Note: [facility] Medications Albuterol (Eqv-ProAir HFA) 90 mcg/inh inhalation aerosol 2 puffs, Inhalation, 4 times a day, PRN NEEDED FOR WHEEZING OR SHORTNESS OF BREATH, # 8.5 Gm, 0 Refills, [facility] #[id number], 25, INHALE 2 PUFFS FOUR TIMES DAILY NEEDED FOR WHEEZING OR SHORTNESS OF BREATH, 169, cm, 10/31/21 15:06:00 EST,... Start Date: 01/19/22 Status: Ordered amitriptyline 10 mg oral tablet 1, tablet, By Mouth, Daily at bedtime, # 30 tablet, Refills 0, Maintenance, 12/14/22 17:14:00 EST, Route to Pharmacy Electronically, [facility] #[id number], 169, cm, 11/08/22 14:13:00 EST, Height, 92.8, [...] 09/07/22 14:26:00 EDT, Route to Pharmacy Electronically, [facility] #[id number], Partial fill upon patient request if the prescript... Start Date: 09/07/22 Stop Date: 10/07/22 Status: Ordered ibuprofen 600 mg oral tablet 600 mg, 1, tablet, By Mouth, 3 times a day, # 42 tablet, Refills 0, Tot. Refills 0, Acute 03/10/23 12:03:00 EDT, 02/07/23 12:02:00 EDT, Route to Pharmacy Electronically, [facility] #[id number], Partial fill upon patient request if the prescriptio... Start Date: 02/07/23 Stop Date: 03/10/23 Status: Ordered omeprazole 20 mg oral enteric coated capsule 1 capsule, By Mouth, Daily, PRN NEEDED FOR INDIGESTION, # 90 capsule, 1 Refills, Maintenance, 11/08/22 15:02:00 EST, [email or web address] #[id number], 169, cm, 11/08/22 14:13:00 EST, Height, 92.8, [...] Team Personnel Name: Kandis Leahy RN Position: [facility] RN Member Role: Primary Care Nurse Name: Meg Vergara MD Position: [facility] Primary Care Physician Member Role: PCP Address: Address: [address] [place] [address] Adult & Pediatric [address] Care Team Related Persons Name: ROB KANG Name: LAUREN GOMES Address: home [address] [place] [address] Name: REGINE TREADWELL Address: home [address] [place] [address]
--- OUTSIDE RECORDS SUMMARY | 2024-10-14 07:42 | XMS_ITS | Continuity of Care Document ---
Author Organization [facility] Address [address] [place] [address]- Care Team Providers Care Granulizing Machine Operator Name Role Phone Meg Vergara MD Primary Care Physician Encounter [facility] R [id number] Date(s): 12/17/20 - 02/13/21 [facility] [address] [place], [place] [address] Attending Physician: Meg Vergara MD Allergies, Adverse [...] tetanus/diphtheria/pertussis, acel(Tdap) 5 01/12/11 Given 1Result Comment: [facility] 31432-528-03 Pt tolerated vaccine without inicident...NH 2Result Comment: [id number] 3Admin Note: FLULAVAL 4Admin Note: given w/o incident 5Admin Note: [facility] Medications acetaminophen-oxyCODONE 325 mg-5 mg oral tablet 1, tablet, By Mouth, 2 times a day, PRN, may fill for less for 28 days, # 56 tablet, Refills 0, Tot. Refills 0, Acute, Pain , Severe, 02/28/21 10:51:00 EDT, 01/31/21 10:51:00 EDT, Route to Pharmacy Electronically, [facility] #[id number] Tablet... Start Date: 01/31/21 Stop Date: 02/28/21 [...] 15:08:00 EST, Aerosol, Route to Pharmacy Electronically, [id number], [facility] #[id number], 160, cm, 12/17/20 10:53:00... Start Date: 12/23/20 [...]
--- OUTSIDE RECORDS SUMMARY | 2024-10-14 07:42 | XMS_ITS | Continuity of Care Document ---
Author Organization [facility] Address [address] [place] [address]- Care Team Providers Care Leather Currier Name Role Phone Ursula BURCH, Meg Bains Primary Care Physician Encounter [facility] Date(s): 01/16/20 - 01/23/20 [facility] [address] [place] [address]- [facility] Attending Physician: Moreno Soriano MD Referring Physician: Meg Vergara MD Allergies, [...] tetanus/diphtheria/pertussis, acel(Tdap) 4 01/12/11 Given 1Result Comment: [id number] 2Admin Note: FLULAVAL 3Admin Note: given w/o [...] 12:52:00 EST, Aerosol, Route to Pharmacy Electronically, [id number], [facility] #[id number], 160, cm, 10/31/19 10:30:00... Start Date: 11/18/19 [...] oldest [Reference Range]: 1 Height 160 cm (01/16/20 11:09 AM) Weight 83.4 kg (01/16/20 11:09 AM) Oxygen Saturation [94-100 %] 99 % (01/16/20 11:09 AM) Pulse Rate [55-90 bpm] 71 bpm (01/16/20 11:09 AM) Body Mass Index [18.5-24.99] 32.58 *>HHI* (01/16/20 11:09 AM) Blood Pressure [90-138/55-84 mm Hg] 134/ 80mm Hg (01/16/20 11:09 AM) Mode of Delivery (Oxygen) Room air (01/16/20 11:09 AM) Blood pressure sites Arm, left (01/16/20 11:09 AM) Social History Social History Type Response Smoking Status Never smoker entered on: 02/05/14 Sex
--- OUTSIDE RECORDS SUMMARY | 2024-10-14 07:42 | XMS_ITS | Continuity of Care Document ---
Author Organization [facility] Address [address] [place] [address]- Care Team Providers Care Biomass Boiler Operator Name Role Phone Meg Vergara MD Primary Care Physician Encounter [facility] Date(s): 02/15/23 - 03/17/23 [facility] [address] [place], [place] [address] Allergies, Adverse Reactions, Alerts No [...] mRNA BNT-162b2 vac 01/24/21 Recorded 1Result Comment: [facility] 73708-809-80 2Result Comment: [facility] [id number] Pt tolerated vaccine without inicident...NH 3Result Comment: [id number] 4Admin Note: FLULAVAL 5Admin Note: given w/o incident 6Result Comment: [facility] [id number] 7Admin Note: [facility] Medications acetaminophen-oxyCODONE 325 mg-5 mg oral tablet 1, tablet, By Mouth, 2 times a day, PRN, for 28 days, # 56 tablet, Refills 0, Tot. Refills 0, Acute, Pain , Severe, 04/05/23 15:37:00 EDT, 03/08/23 15:37:00 EDT, Route to Pharmacy Electronically, [facility] #[id number] Tablet, Partial fill upon p... Start Date: 03/08/23 Stop Date: 04/05/23 Status: Ordered Albuterol (Eqv-ProAir HFA) 90 mcg/inh inhalation aerosol 2 puffs, Inhalation, 4 times a day, PRN NEEDED FOR WHEEZING OR SHORTNESS OF BREATH, # 8.5 Gm, 0 Refills, [facility] #[id number], 25, INHALE 2 PUFFS FOUR TIMES DAILY NEEDED FOR WHEEZING OR SHORTNESS OF BREATH, 169, cm, 10/31/21 15:06:00 EST,... Start Date: 01/19/22 Status: Ordered amitriptyline 10 mg oral tablet 1, tablet, By Mouth, Daily at bedtime, # 30 tablet, Refills 0, Maintenance, 12/14/22 17:14:00 EST, Route to Pharmacy Electronically, [facility] #[id number], 169, cm, 11/08/22 14:13:00 EST, Height, 92.8, [...] 09/07/22 14:26:00 EDT, Route to Pharmacy Electronically, [facility] #[id number], Partial fill upon patient request if the prescript... Start Date: 09/07/22 Stop Date: 10/07/22 Status: Ordered omeprazole 20 mg oral enteric coated capsule 1 capsule, By Mouth, Daily, PRN NEEDED FOR INDIGESTION, # 90 capsule, 1 Refills, Maintenance, 11/08/22 15:02:00 EST, [facility] #[id number], 169, cm, 11/08/22 14:13:00 EST, Height, 92.8, [...] Care Nurse Name: Meg Vergara MD Position: [facility] Primary Care Physician Member Role: PCP Address: Address: [address] [place] [address] Adult & Pediatric [address] Care Team Related Persons Name: ROB KANG Name: LAUREN GOMES Address: [address] [address] Name: REGINE TREADWELL Address: home [address] [place] [address]
--- OUTSIDE RECORDS SUMMARY | 2024-10-14 07:42 | XMS_ITS | Continuity of Care Document ---
Author Organization [facility] Address [address] [place] [address]- Care Team Providers Care Script Worker Name Role Phone Ursula BURCH, Meg Bains Primary Care Physician [facility]counter [facility] Date(s): 07/15/20 - 08/14/20 [facility] [address] [place] [address]- [facility] Allergies, Adverse Reactions, Alerts Substance Reaction Severity [...] tetanus/diphtheria/pertussis, acel(Tdap) 4 01/12/11 Given 1Result Comment: [id number] 2Admin Note: FLULAVAL 3Admin Note: given w/o incident 4Admin Note: [facility] Medications acetaminophen-oxyCODONE 325 mg-5 mg oral tablet 1, tablet, By Mouth, 2 times a day, PRN, may fill for less for 28 days, # 56 tablet, Refills 0, Tot. Refills 0, Acute, Pain , Severe, 09/09/20 9:33:00 EDT, 08/12/20 9:33:00 EDT, Route to Pharmacy Electronically, [facility] #[id number] Tablet,... Start Date: 08/12/20 Stop Date: 09/09/20 [...] 02/20/20 9:33:00 EDT, Route to Pharmacy Electronically, [facility] #[id number], 160, cm, 01/16/20 11:09:00 EST, Height, 83.9, [...] 12:52:00 EST, Aerosol, Route to Pharmacy Electronically, [id number], [facility] #[id number], 160, cm, 10/31/19 10:30:00... Start Date: 11/18/19 [...]
--- OUTSIDE RECORDS SUMMARY | 2024-10-14 07:42 | XMS_ITS | Continuity of Care Document ---
Author Organization [facility] Address [address] [place] [address]- Care Team Providers Care Political Science Professor Name Role Phone Meg Vergara MD Primary Care Physician Encounter [facility] Date(s): 02/13/24 - 03/14/24 [facility] [address] [place], [place] [address] Allergies, Adverse Reactions, [...] mRNA BNT-162b2 vac 01/24/21 Recorded 1Result Comment: [facility] 01477-973-55 2Result Comment: [facility] 98539-595-15 3Result Comment: [facility] 23480-019-64 Pt tolerated vaccine without inicident...NH 4Result Comment: [id number] 5Admin Note: FLULAVAL 6Admin Note: given w/o incident 7Result Comment: [facility] 44156-632-93 8Admin Note: [facility] Medications acetaminophen-oxyCODONE 325 mg-5 mg oral tablet 1, tablet, By Mouth, 2 times a day, PRN, for 28 days, # 56 tablet, Refills 0, Tot. Refills 0, Acute, Pain , Severe, 03/18/24 16:52:00 EDT, 02/19/24 16:52:00 EDT, Route to Pharmacy Electronically, [facility] #[id number] Tablet, Partial fill upon p... Start Date: 02/19/24 Stop Date: 03/18/24 Status: Ordered Albuterol (Eqv-ProAir HFA) 90 mcg/inh inhalation aerosol 2 puffs, Inhalation, 4 times a day, PRN NEEDED FOR WHEEZING OR SHORTNESS OF BREATH, # 8.5 Gm, 0 Refills, [facility] #[id number], 25, INHALE 2 PUFFS FOUR TIMES DAILY NEEDED FOR WHEEZING OR SHORTNESS OF BREATH, 169, cm, 10/31/21 15:06:00 EST,... Start Date: 01/19/22 Status: Ordered amitriptyline 10 mg oral tablet 1, tablet, By Mouth, Daily at bedtime, # 30 tablet, Refills 0, Maintenance, 12/14/22 17:14:00 EST, Route to Pharmacy Electronically, [facility] #[id number], 169, cm, 11/08/22 14:13:00 EST, Height, 92.8, [...] 10/22/23 12:37:00 EST, Route to Pharmacy Electronically, [facility] #[id number], Partial fill upon patient request if the prescript... Start Date: 10/22/23 Stop Date: 11/21/23 Status: Ordered omeprazole 20 mg oral enteric coated capsule 1 capsule, By Mouth, Daily, PRN NEEDED FOR INDIGESTION, # 90 capsule, 0 Refills, Maintenance, 01/18/24 18:31:00 EST, [facility] #[id number], 169, cm, 10/22/23 12:21:00 EST, Height, 83, kg, 10/22/23 12:21:00 EST, Dry Weight Start Date: 01/18/24 Status: Ordered sucralfate 1 gm/10 ml oral suspension 10 mL = 1 Gm, By Mouth, 3 times a day before meals and bedtime, # 280 mL, 0 Refills, Maintenance, 10/22/23 12:37:00 EST, [facility] #[id number], Partial fill upon patient request if the [...] 0 Refills, Maintenance, 10/19/23 14:39:00 EST, Tablet, [facility] #09490, Partial fill upon patient request if the [...] Team Personnel Name: Kandis Leahy RN Position: [facility] RN Member Role: Primary Care Nurse Name: Meg Vergara MD Position: [facility] Physician - Primary Care Member Role: PCP Address: Address: [address] [place] [address] Adult [place] [address]- Care Team Related Persons Name: ROB KANG Name: LAUREN GOMES Address: home [address] [place] [address] Name: REGINE TREADWELL Address: home [address] [place] [address]
--- OUTSIDE RECORDS SUMMARY | 2024-10-14 07:42 | XMS_ITS | Continuity of Care Document ---
Author Organization [facility] Address [address] [place] [address]- Care Team Providers Care Pruner Name Role Phone Meg Vergara MD Primary Care Physician [phone] [place] [facility] [place]s): 06/16/24 - 07/16/24 [facility] [address] [place], [place] [address] Allergies, Adverse Reactions, Alerts No [...] BNT-162b2 vac 01/24/21 Recorded 1Result Comment: [facility] 82520-947-87 2Result Comment: [facility] 40108-426-62 3Result Comment: [facility] 19745-724-79 Pt tolerated vaccine without inicident...NH 4Result Comment: [id number] 5Admin Note: FLULAVAL 6Admin Note: given w/o incident 7Result Comment: [facility] 15458-328-02 8Admin Note: [facility] Medications acetaminophen-oxyCODONE 325 mg-5 mg oral tablet 1, tablet, By Mouth, 2 times a day, PRN, for 28 days, # 56 tablet, Refills 0, Tot. Refills 0, Acute, Pain , Severe, 08/12/24 13:25:00 EDT, 07/15/24 13:25:00 EDT, Route to Pharmacy Electronically, [facility] #[id number] Tablet, Partial fill upon p... Start Date: 07/15/24 Stop Date: 08/12/24 Status: Ordered Albuterol (Eqv-ProAir HFA) 90 mcg/inh inhalation aerosol 2 puffs, Inhalation, 4 times a day, PRN NEEDED FOR WHEEZING OR SHORTNESS OF BREATH, # 8.5 Gm, 0 Refills, [facility] #[id number], 25, INHALE 2 PUFFS FOUR TIMES DAILY NEEDED FOR WHEEZING OR SHORTNESS OF BREATH, 169, cm, 10/31/21 15:06:00 EST,... Start Date: 01/19/22 Status: Ordered Botox Inj Every 3 months, for migraines, 0 Refills, Maintenance, 04/08/24 12:05:00 EDT, Partial fill upon patient request if the prescription is for a schedule II opioid drug. Start Date: 04/08/24 Status: Ordered Flonase Allergy Relief 50 mcg/inh nasal spray 1 sprays = 50 mcg, Nares, Both, 2 times a day, shake well before using, # 16 Gm, 1 Refills, Maintenance, 06/23/24 12:37:00 EDT, [place], [facility] #[id number], Partial fill upon patient request if the prescription is for a schedule II opioid drug.... Start Date: 06/23/24 Stop Date: 08/22/24 Status: Ordered omeprazole 20 mg oral enteric coated capsule 1 capsule, By Mouth, Daily, PRN NEEDED FOR INDIGESTION, # 90 capsule, 3 Refills, Maintenance, 05/30/24 16:14:00 EDT, [facility] #[id number], 160, cm, 05/30/24 15:48:00 EDT, Height, 81, [...] Care Nurse Name: Anita Hemphill RN Position: [facility] RN Member Role: Primary Care Nurse Name: Meg Vergara MD Position: [facility] Physician - Primary Care Member Role: PCP Address: Address: [address] [place] [address] Adult & [place] [address]- Care Team Related Persons Name: ROB KANG Name: LAUREN GOMES Address: home [address] [place] [address] Name: REGINE TREADWELL Address: home [address] [place] [address]
--- OUTSIDE RECORDS SUMMARY | 2024-10-14 07:42 | XMS_ITS | Continuity of Care Document ---
Author Organization [facility] Address [address] [place] [address]- Care Team Providers Care Pharmacy Benefit Manager Name Role Phone Meg Vergara MD Primary Care Physician Encounter [facility] Date(s): 09/10/24 - 10/10/24 [facility] [address] [place], [place] [address] Encounter Type: Triage Allergies, Adverse Reactions, Alerts No Known Allergies [...] mRNA BNT-162b2 vac 01/24/21 Recorded 1Result Comment: [facility] [id number] 2Result Comment: [facility] 72788-959-37 3Result Comment: [facility] 88184-846-82 4Result Comment: [facility] 07207-675-17 Pt tolerated vaccine without inicident...NH 5Result Comment: [id number] 6Admin Note: FLULAVAL 7Admin Note: given w/o incident 8Result Comment: [facility] 16012-343-06 9Admin Note: [facility] Medications acetaminophen-oxyCODONE 325 mg-5 mg oral tablet 1, tablet, By Mouth, 2 times a day, PRN, for 28 days, # 56 tablet, Refills 0, Tot. Refills 0, Acute, Pain , Severe, 10/16/24 1:51:00 PM EST, 09/18/24 1:51:00 PM EST, Route to Pharmacy Electronically, [facility] #[id number] Tablet, Partial fill upon patient request -; patient is using bID PRN dose for chronic back pain. dx- M54.5, 160, cm, 09/12/24 10:12:00 EDT, Height, 81.8, kg, 08/27/24 13:59:00 EDT, Dry Weight Start Date: 09/18/24 Stop Date: 10/16/24 Status: Ordered Quantity: 56.0 Unit: tablet Repeat number: 1 Indication: Other intervertebral disc degeneration, lumbar region Albuterol (Eqv-ProAir HFA) 90 mcg/inh inhalation aerosol 2 puffs, Inhalation, 4 times a day, PRN NEEDED FOR WHEEZING OR SHORTNESS OF BREATH, # 8.5 Gm, 0 Refills, [facility] #65905, 25, INHALE 2 PUFFS FOUR TIMES DAILY NEEDED FOR WHEEZING OR SHORTNESS OF BREATH, 169, cm, 10/31/21 15:06:00 EST, Height, 92.8, kg, 05/12/21 16:58:00 EDT, Dry Weight Start Date: 3/10/22 Status: Ordered Quantity: 8.5 Unit: g Repeat number: 1 Botox Inj Every 3 months, for migraines, 0 Refills, Maintenance, 04/08/24 12:05:00 PM EDT, Partial fill upon patient request if the prescription is for a schedule II opioid drug. Start Date: 04/08/24 Status: Ordered Repeat number: 1 fluticasone 50 mcg/inh nasal spray See Instructions, SHAKE LIQUID AND USE 1 SPRAY IN EACH NOSTRIL TWICE DAILY SHAKE WELL BEFORE USING,# 16 Gm, 0 Refills, Maintenance, 08/20/24 9:36:00 PM EDT, [facility] #[id number], 30, SHAKE LIQUID AND USE 1 SPRAY IN EACH NOSTRIL TWICE DAILY SHAKE WELL BEFORE USING, 160, cm, 06/23/24 12:04:00 EDT, Height, 79.8, kg, 06/23/24 12:04:00 EDT, Dry Weight Start Date: 08/20/24 Status: Ordered Quantity: 16.0 Unit: g Repeat number: 1 omeprazole 20 mg oral enteric coated capsule 1 capsule, By Mouth, Daily, PRN NEEDED FOR INDIGESTION, # 90 capsule, 3 Refills, Maintenance, 05/30/24 4:14:00 PM EDT, [facility] #[id number], 160, cm, 05/30/24 15:48:00 EDT, Height, 81, kg, 05/30/24 15:48:00 EDT, Dry Weight Start Date: 05/30/24 Status: Ordered Quantity: 90.0 Unit: capsule Repeat number: 4 phentermine 37.5 mg oral tablet 0 Refills, Maintenance, 08/27/24 2:37:00 PM EDT, Partial fill upon patient request if the prescription is for a schedule II opioid drug. Start Date: 08/27/24 Status: Ordered Repeat number: 1 topiramate 50 mg oral tablet 0 Refills, Maintenance, 04/16/24 11:15:00 AM EDT, Partial fill upon patient request if the prescription is for a schedule II opioid drug. Start Date: 04/16/24 Status: Ordered Repeat number: 1 Problem List Condition Confirmation Course Effective Dates [...] Status Never smoker entered on: 02/05/14 Sex Sex Representation Female (finding) Patient Care team information Care Team Personnel Name: Kandis Leahy RN Position: [facility] SN RN Member Role: Primary Care Nurse Name: Anita Hemphill RN Position: [facility] RN Member Role: Primary Care Nurse Name: Meg Vergara MD Position: [facility] Physician - Primary Care Member Role: PCP Address: [address] [place] [address] Adult & Pediatric [address] [employer]: Name: Elaina Lyon RN Position: [facility] OB RN Member Role: Primary Care Nurse Care Team Related Persons Name: ROB KANG Name: LAUREN GOMES Name: REGINE TREADWELL Insurance Providers Guarantor name: HUGO GOMES Health Plan Information #: 1 Payer: [facility] [employer] Member Number: NA Policy Number: NA Group Number: NA
--- OUTSIDE RECORDS SUMMARY | 2024-10-14 07:42 | XMS_ITS | Continuity of Care Document ---
Author Organization [facility] Address [address] [place] [address]- Care Team Providers Care Support Staff Name Role Phone Meg Vergara MD Primary Care Physician [place] [facility] [place]s): [place]/23/24 - 07/23/24 [facility] [address] [place], [place] [address] Attending Physician: Ghazala Ventura Admitting Physician: AdmtrGhazala Referring Physician: Admtr, ArShailesh Allergies, Adverse Reactions, Alerts No Known Allergies [...] mRNA BNT-162b2 vac 01/24/21 Recorded 1Result Comment: [facility] 64404-781-61 2Result Comment: [facility] 86133-617-13 3Result Comment: [facility] 56322-228-77 Pt tolerated vaccine without inicident...NH 4Result Comment: [id number] 5Admin Note: FLULAVAL 6Admin Note: given w/o incident 7Result Comment: [facility] [id number] 8Admin Note: [facility] Medications acetaminophen-oxyCODONE 325 mg-5 mg oral tablet 1, tablet, By Mouth, 2 times a day, PRN, for 28 days, # 56 tablet, Refills 0, Tot. Refills 0, Acute, Pain , Severe, 08/12/24 13:25:00 EDT, 07/15/24 13:25:00 EDT, Route to Pharmacy Electronically, [facility] #[id number] Tablet, Partial fill upon p... Start Date: 07/15/24 Stop Date: 08/12/24 Status: Ordered Albuterol (Eqv-ProAir HFA) 90 mcg/inh inhalation aerosol 2 puffs, Inhalation, 4 times a day, PRN NEEDED FOR WHEEZING OR SHORTNESS OF BREATH, # 8.5 Gm, 0 Refills, [facility] #[id number], 25, INHALE 2 PUFFS FOUR TIMES DAILY [...] Gm, 1 Refills, Maintenance, 06/23/24 12:37:00 EDT, [place], [facility] #98491, Partial fill upon patient request if the prescription is for a schedule II opioid drug.... Start Date: 06/23/24 Stop Date: 08/22/24 Status: Ordered omeprazole 20 mg oral enteric coated capsule 1 capsule, By Mouth, Daily, PRN NEEDED FOR INDIGESTION, # 90 capsule, 3 Refills, Maintenance, 05/30/24 16:14:00 EDT, [facility] #39304, 160, cm, 05/30/24 15:48:00 EDT, Height, 81, [...] Authored Date: Radiology * Event Display: X-Ray Spine, Non- BH Authored Date: * Event Display: Ultrasound Miscellaneous Authored Date: * Event Display: X-Ray Knee, Non- BH Authored Date: * Event Display: X-Ray Knee, Non- BH Authored Date: * Event Display: X-Ray Knee, Non- BH Authored Date: * Event Display: X-Ray Ankle/Foot, Non- BH Authored Date: * Event Display: X-Ray Lower Extremity, Non- BH Authored Date: * Event Display: X-Ray Hip/Groin Authored Date: * [place], Fannie: PERFORM Event Display: Radiology Results Scanned Authored Date: [id number] Patient Care team information Care Team Personnel Name: Kandis Leahy RN Position: [facility] SN RN Member Role: Primary Care Nurse Name: Anita Hemphill RN Position: [facility] RN Member Role: Primary Care Nurse Name: Meg Vergara MD Position: [facility] Physician - Primary Care Member Role: PCP Address: Address: [address] [place] [address] Adult [place] [address]- Care Team Related Persons Name: ROB KANG Name: LAUREN GOMES Address: [address] [place] [address] Name: REGINE TREADWELL Address: home [address] [place] [address]
--- OUTSIDE RECORDS SUMMARY | 2024-10-14 07:42 | XMS_ITS | Continuity of Care Document ---
Author Organization [facility] Address [address] [place] [address]- Care Team Providers Care Receiving Worker Name Role Phone Ursula BURCH, Meg Bains Primary Care Physician Encounter [facility] Date(s): 07/22/21 - 08/24/21 [facility] [address] [place], [place] [address] Attending Physician: Meg Vergara MD Allergies, [...] 1Result Comment: [facility] [id number] Pt tolerated vaccine without inicident...NH 2Result Comment: [id number] 3Admin Note: FLULAVAL 4Admin Note: given w/o incident 5Admin Note: [facility] Medications acetaminophen-oxyCODONE 325 mg-5 mg oral tablet 1, tablet, By Mouth, 2 times a day, PRN, may fill for less for 28 days, # 56 tablet, Refills 0, Tot. Refills 0, Acute, Pain , Severe, 09/02/21 12:15:00 EDT, 08/05/21 12:15:00 EDT, Route to Pharmacy Electronically, [facility] #[id number] Tablet... Start Date: 08/05/21 Stop Date: 09/02/21 Status: Ordered Aimovig SureClick Autoinjector-aooe 140 mg/mL subcutaneous solution 0 Refills, Maintenance, 09/05/19 11:33:37 EDT Start Date: 09/05/19 Status: Ordered omeprazole 20 mg oral enteric coated capsule 1 capsule = 20 mg, By Mouth, Daily, PRN Dyspepsia, # 30 capsule, 2 Refills, Maintenance, 08/08/21 9:43:00 EDT, [facility] #[id number], 169, cm, 08/08/21 9:22:00 EDT, Height, 92.8, kg, 05/12/21 16:58:00 EDT, Dry Weight Start Date: 08/08/21 Stop Date: 11/06/21 Status: Ordered ProAir HFA 90 mcg/inh inhalation aerosol with adapter 2, puffs, Inhalation, 4 times a day, PRN, # 1 each, Refills 2, Tot. Refills 2, Maintenance, 12/23/20 15:08:00 EST, Aerosol, Route to Pharmacy Electronically, [id number], [facility] #[id number], 160, cm, 12/17/20 10:53:00... Start Date: 12/23/20 [...]
--- OUTSIDE RECORDS SUMMARY | 2024-10-14 07:42 | XMS_ITS | Continuity of Care Document ---
Author Organization [facility] Address [address] [place] [address]- Care Team Providers Care Geriatric Psychiatrist Name Role Phone Meg Vergara MD Primary Care Physician Encounter [facility] Date(s): 06/23/24 - 06/30/24 [facility] [address] [place], [place] [address] Encounter Diagnosis Anosmia(Discharge Diagnosis) - 06/24/24 Attending Physician: Meg Vergara MD Allergies, Adverse [...] 02/14/21 Recorded SARS-CoV-2 (COVID-19) mRNA BNT-162b2 vac 3/15/21 Recorded 1Result Comment: [facility] [id number] 2Result Comment: [facility] 35622-214-55 3Result Comment: [facility] 28114-903-81 Pt tolerated vaccine without inicident...NH 4Result Comment: [id number] 5Admin Note: FLULAVAL 6Admin Note: given w/o incident 7Result Comment: [facility] 37048-636-77 8Admin Note: [facility] Medications acetaminophen-oxyCODONE 325 mg-5 mg oral tablet 1, tablet, By Mouth, 2 times a day, PRN, for 28 days, # 56 tablet, Refills 0, Tot. Refills 0, Acute, Pain , Severe, 07/15/24 15:39:00 EDT, 06/17/24 15:39:00 EDT, Route to Pharmacy Electronically, [facility] #[id number] Tablet, Partial fill upon p... Start Date: 06/17/24 Stop Date: 07/15/24 Status: Ordered Albuterol (Eqv-ProAir HFA) 90 mcg/inh inhalation aerosol 2 puffs, Inhalation, 4 times a day, PRN NEEDED FOR WHEEZING OR SHORTNESS OF BREATH, # 8.5 Gm, 0 Refills, [facility] #[id number], 25, INHALE 2 PUFFS FOUR TIMES DAILY [...] Gm, 1 Refills, Maintenance, 06/23/24 12:37:00 EDT, [place], [facility] #[id number], Partial fill upon patient request if the prescription is for a schedule II opioid drug.... Start Date: 06/23/24 Stop Date: 08/22/24 Status: Ordered omeprazole 20 mg oral enteric coated capsule 1 capsule, By Mouth, Daily, PRN NEEDED FOR INDIGESTION, # 90 capsule, 3 Refills, Maintenance, 05/30/24 16:14:00 EDT, [email or web address] #[id number], 160, cm, 05/30/24 15:48:00 EDT, Height, 81, [...] Dates Health Status Clini rodney Service Informant Anosmia Discharge Diagnosis 06/24/24 Vital Signs Most recent to oldest [Reference Range]: 1 Height 160 cm (06/23/24 12:04 PM) Weight 79.8 kg (06/23/24 12:04 PM) Oxygen Saturation [94-100 %] 97 % (06/23/24 12:04 PM) Pulse Rate [55-90 bpm] 84 bpm (06/23/24 12:04 PM) Body Mass Index [18.5-24.99 kg/m2] 31.17 kg/m2 *>HHI* (06/23/24 12:04 PM) Blood Pressure [90-138/55-84 mm Hg] 135/ 88mm Hg (06/23/24 12:04 PM) Mode of Delivery (Oxygen) Room air (06/23/24 12:04 PM) Blood pressure sites Arm, right (06/23/24 12:04 PM) Dry Weight 79.8 kg (06/23/24 12:04 PM) Weight Obtained Via Standing scale (06/23/24 12:04 PM) Dry Weight Obtained Via Standing scale (06/23/24 12:04 PM) Social History Social History Type Response Smoking Status Never smoker entered on: 02/05/14 Sex Note * Candace Rain: PERFORM Event Display: Patient Education/Instruction Authored Date: Ambulatory Adult Visit Summary [facility] [address] [place] [address] Name: HUGO GOMES : 1975?? Visit: 06/23/2024 11:40?? Ambulatory Visit Instructions ?? Your Care Team Primary Care Provider Ursula BURCH, Meg Bains? This Visit Provider Meg Vergara MD Vitals Signs Pulse Rate: 84 bpm Height: 160 cm Systolic Blood Pressure: 135 mm Hg Weight: 79.8 kg Diastolic Blood Pressure:??88 mm Hg??High Body Mass Index:??31.17 kg/m2??Critical Oxygen Saturation: 97 % Body surface area: 1.88 What to do next Instructions From Your Provider use flonase spray twice daily for 1 mth ,??then once daily/ as needed do sinus xray at [address]?? Scheduled Follow-Up Appointments 2023 2:30 PM EDT ?? With: Elmer Jarrell MD Where: [facility] [address] [facility] 3rd Floor, [address] [place] [address]- Status: Pending Sunday 1:40 PM EDT ?? With: Meg Vergara MD Where: [facility] [address] [place] [id number]- Status: Pending Future Orders XR Sinuses Comp Min 3 Views, Routine, Reason for Exam: Other:, C/Q: Sinusitis, Once, *Est. 06/23/24 Medications The list below reflects the information in our records and provided by you today along with any changes made during this visit. Please continue your medications until treatment is completed or stopped by your provider. If this is different from the information you have or there are other questions,please contact the prescribing provider. What How Much When Why Instructions New Fluticasone Nasal (Flonase Allergy Relief 50 mcg/ inh nasalspray) 1 spray(s) Nares, Both Twice a day Duration: 30 Days Refills: 1 shake well before using ?? Pickup at [facility] #[id number] Changed Omeprazole (omeprazole 20 mg oral enteric coated capsule) 1 capsule Oral Daily as needed for NEEDED FOR INDIGESTION Unchanged Albuterol (Albuterol (Eqv-ProAir HFA) 90 mcg/ [...] (topiramate 50 mg oral tablet) Pharmacy Information [facility] #[id number]: [address], [place] [id number] [phone] Medications and Immunizations Administered Medications Given During [...] are strongly encouraged to quit. Please call [employer] at [phone] or [phone] ([phone]) or log in to [email or web address] for referrals to smoking cessation programs. ?? The National Suicide Prevention Hotline is available 04/06 if you or someone you know needs to find a reason to keep living. By calling 9-705-725-[employer] (7720) you'll be connected to a skilled, trained counselor at a crisis center in your area. [facility] [employer] Portal You can view and manage your care through the patient portal or by using a health care charlene of your choosing. [employer] is a website that allows you to securely view your medical information including your hospital discharge summary, office visit summaries, medications and follow-up visits. You can also request appointments, renew medications, and request access to your medical information using a health care charlene of your choosing, or just ask a question. You can enroll at [email or web address] or register during your next office visit. [facility], in keeping with [facility] guidance, no longer requires face masks for [...] primary care provider, you may find a [facility] [employer] provider by calling [employer] at [phone]. Patient Care team information Care Team Personnel Name: Kandis Leahy RN Position: [facility] RN Member Role: Primary Care Nurse Name: Anita Hemphill RN Position: [facility] RN Member Role: Primary Care Nurse Name: Meg Vergara MD Position: [facility] Physician - Primary Care Member Role: PCP Address: Address: [address] [place] [address] Adult [place] [address]- [place] Care Team Related Persons Name: ROB KANG Name: LAUREN GOMES Address: home [address] [place] [id number] Name: REGINE TREADWELL Address: home [address] [place] [address]
--- OUTSIDE RECORDS SUMMARY | 2024-10-14 07:43 | XMS_ITS | Continuity of Care Document ---
Author Organization [facility] Address [address] [place] [address]- Care Team Providers Care Inclusion Specialist Name Role Phone Meg Vergara MD Primary Care Physician [facility] Date(s): 12/11/22 - 01/10/23 [facility] [address] [place], [place] [address] Allergies, Adverse Reactions, Alerts No [...] BNT-162b2 vac 01/24/21 Recorded 1Result Comment: [facility] [id number] 2Result Comment: [facility] [id number] Pt tolerated vaccine without inicident...NH 3Result Comment: [id number] 4Admin Note: FLULAVAL 5Admin Note: given w/o incident 6Result Comment: [facility] [id number] 7Admin Note: [facility] Medications acetaminophen-oxyCODONE 325 mg-5 mg oral tablet 1, tablet, By Mouth, 2 times a day, PRN, for 28 days, # 56 tablet, Refills 0, Tot. Refills 0, Acute, Pain , Severe, 02/01/23 10:46:00 EDT, 01/04/23 10:46:00 EST, Route to Pharmacy Electronically, [facility] #[id number] Tablet, Partial fill upon p... Start Date: 01/04/23 Stop Date: 02/01/23 Status: Ordered Albuterol (Eqv-ProAir HFA) 90 mcg/inh inhalation aerosol 2 puffs, Inhalation, 4 times a day, PRN NEEDED FOR WHEEZING OR SHORTNESS OF BREATH, # 8.5 Gm, 0 Refills, [facility] #[id number], 25, INHALE 2 PUFFS FOUR TIMES DAILY NEEDED FOR WHEEZING OR SHORTNESS OF BREATH, 169, cm, 10/31/21 15:06:00 EST,... Start Date: 01/19/22 Status: Ordered amitriptyline 10 mg oral tablet 1, tablet, By Mouth, Daily at bedtime, # 30 tablet, Refills 0, Maintenance, 12/14/22 17:14:00 EST, Route to Pharmacy Electronically, [facility] #[id number], 169, cm, 11/08/22 14:13:00 EST, Height, 92.8, [...] 09/07/22 14:26:00 EDT, Route to Pharmacy Electronically, [facility] #[id number], Partial fill upon patient request if the prescript... Start Date: 09/07/22 Stop Date: 10/07/22 Status: Ordered omeprazole 20 mg oral enteric coated capsule 1 capsule, By Mouth, Daily, PRN NEEDED FOR INDIGESTION, # 90 capsule, 1 Refills, Maintenance, 11/08/22 15:02:00 EST, [facility] #[id number], 169, cm, 11/08/22 14:13:00 EST, Height, 92.8, [...] Nurse Name: Meg Vergara MD Position: [facility] Primary Care Physician Member Role: PCP Address: Address: [address] [place] [address] Adult & [address] Care Team Related Persons Name: ROB KANG Name: LAUREN GOMES Address: [address] [address] Name: REGINE TREADWELL Address: home [address] [place] [address]
--- OUTSIDE RECORDS SUMMARY | 2024-10-14 07:43 | XMS_ITS | Continuity of Care Document ---
Author Organization [facility] Address [address] [place] [address]- Care Team Providers Care Skid [address] Man Name Role Phone Ursula BURCH, Meg Bains Primary Care Physician [facility]counter [facility] Date(s): 10/31/21 - 11/30/21 [facility] [address] [place], [place] [address] Allergies, Adverse Reactions, Alerts No Known [...] tetanus/diphtheria/pertussis, acel(Tdap) 5 01/12/11 Given 1Result Comment: [facility] 87790-308-20 Pt tolerated vaccine without inicident...NH 2Result Comment: [id number] 3Admin Note: FLULAVAL 4Admin Note: given w/o incident 5Admin Note: [facility] Medications acetaminophen-oxyCODONE 325 mg-5 mg oral tablet 1, tablet, By Mouth, 2 times a day, PRN, may fill for less for 28 days, # 56 tablet, Refills 0, Tot. Refills 0, Acute, Pain , Severe, 12/23/21 9:48:00 EST, 11/25/21 9:48:00 EST, Route to Pharmacy Electronically, [facility] #[id number] Tablet,... Start Date: 11/25/21 Stop Date: 12/23/21 Status: Ordered [employer]ig SureClick Autoinjector-aooe 140 mg/mL subcutaneous solution 0 Refills, Maintenance, 09/05/19 11:33:37 EDT Start Date: 09/05/19 Status: Ordered omeprazole 20 mg oral enteric coated capsule 1 capsule, By Mouth, Daily, PRN NEEDED FOR INDIGESTION, # 30 capsule, 2 Refills, [facility] #[id number], 169, cm, 10/31/21 15:06:00 EST, Height, 92.8, kg, 05/12/21 16:58:00 EDT, Dry Weight Start Date: 11/03/21 Status: Ordered ProAir HFA 90 mcg/inh inhalation aerosol with adapter 2, puffs, Inhalation, 4 times a day, PRN, # 1 each, Refills 2, Tot. Refills 2, Maintenance, 12/23/20 15:08:00 EST, Aerosol, Route to Pharmacy Electronically, [id number], [facility] #[id number], 160, cm, 12/17/20 10:53:00... Start Date: 12/23/20 [...]
--- OUTSIDE RECORDS SUMMARY | 2024-10-14 07:43 | XMS_ITS | Continuity of Care Document ---
Author Organization [facility] Address [address] [place] [address]- Care Team Providers Care Health And Safety Advisor Name Role Phone Ursula BURCH, Meg Bains Primary Care Physician [facility] Date(s): 11/01/21 - 12/01/21 [facility] [address] [place], [place] [address] Allergies, Adverse Reactions, Alerts No Known [...] tetanus/diphtheria/pertussis, acel(Tdap) 5 01/12/11 Given 1Result Comment: [facility][NOTE 3] 64742-060-09 Pt tolerated vaccine without inicident...NH 2Result Comment: [id number] 3Admin Note: FLULAVAL 4Admin Note: given w/o incident 5Admin Note: [facility] Medications acetaminophen-oxyCODONE 325 mg-5 mg oral tablet 1, tablet, By Mouth, 2 times a day, PRN, may fill for less for 28 days, # 56 tablet, Refills 0, Tot. Refills 0, Acute, Pain , Severe, 12/23/21 9:48:00 EST, 11/25/21 9:48:00 EST, Route to Pharmacy Electronically, [facility] #[id number] Tablet,... Start Date: 11/25/21 Stop Date: 12/23/21 Status: Ordered Aimovig SureClick Autoinjector-aooe 140 mg/mL subcutaneous solution 0 Refills, Maintenance, 09/05/19 11:33:37 EDT Start Date: 09/05/19 Status: Ordered omeprazole 20 mg oral enteric coated capsule 1 capsule, By Mouth, Daily, PRN NEEDED FOR INDIGESTION, # 30 capsule, 2 Refills, [facility] #[id number], 169, cm, 10/31/21 15:06:00 EST, Height, 92.8, kg, 05/12/21 16:58:00 EDT, Dry Weight Start Date: 11/03/21 Status: Ordered ProAir HFA 90 mcg/inh inhalation aerosol with adapter 2, puffs, Inhalation, 4 times a day, PRN, # 1 each, Refills 2, Tot. Refills 2, Maintenance, 12/23/20 15:08:00 EST, Aerosol, Route to Pharmacy Electronically, [id number], [facility] #[id number], 160, cm, 12/17/20 10:53:00... Start Date: 12/23/20 [...]
--- OUTSIDE RECORDS SUMMARY | 2024-10-14 07:43 | XMS_ITS | Continuity of Care Document ---
Author Organization [facility] Address [address] [place] [address]- Care Team Providers Care Medical Radiation Therapist Name Role Phone Meg Vergara MD Primary Care Physician [phone] Encounter [facility] Date(s): 01/21/24 - 02/20/24 [facility] [address] [place], [place] [address] Allergies, Adverse Reactions, Alerts [...] BNT-162b2 vac 01/24/21 Recorded 1Result Comment: [facility] 48073-047-74 2Result Comment: [facility] 13560-206-27 3Result Comment: [facility] 11204-383-15 Pt tolerated vaccine without inicident...NH 4Result Comment: [id number] 5Admin Note: FLULAVAL 6Admin Note: given w/o incident 7Result Comment: [facility] 39707-416-93 8Admin Note: [facility] Medications acetaminophen-oxyCODONE 325 mg-5 mg oral tablet 1, tablet, By Mouth, 2 times a day, PRN, for 28 days, # 56 tablet, Refills 0, Tot. Refills 0, Acute, Pain , Severe, 03/18/24 16:52:00 EDT, 02/19/24 16:52:00 EDT, Route to Pharmacy Electronically, [facility] #[id number] Tablet, Partial fill upon p... Start Date: 02/19/24 Stop Date: 03/18/24 Status: Ordered Albuterol (Eqv-ProAir HFA) 90 mcg/inh inhalation aerosol 2 puffs, Inhalation, 4 times a day, PRN NEEDED FOR WHEEZING OR SHORTNESS OF BREATH, # 8.5 Gm, 0 Refills, [facility] #[id number], 25, INHALE 2 PUFFS FOUR TIMES DAILY NEEDED FOR WHEEZING OR SHORTNESS OF BREATH, 169, cm, 10/31/21 15:06:00 EST,... Start Date: 01/19/22 Status: Ordered amitriptyline 10 mg oral tablet 1, tablet, By Mouth, Daily at bedtime, # 30 tablet, Refills 0, Maintenance, 12/14/22 17:14:00 EST, Route to Pharmacy Electronically, [facility] #[id number], 169, cm, 11/08/22 14:13:00 EST, Height, 92.8, [...] 10/22/23 12:37:00 EST, Route to Pharmacy Electronically, [facility] #[id number], Partial fill upon patient request if the prescript... Start Date: 10/22/23 Stop Date: 11/21/23 Status: Ordered omeprazole 20 mg oral enteric coated capsule 1 capsule, By Mouth, Daily, PRN NEEDED FOR INDIGESTION, # 90 capsule, 0 Refills, Maintenance, 01/18/24 18:31:00 EST, [facility] #[id number], 169, cm, 10/22/23 12:21:00 EST, Height, 83, kg, 10/22/23 12:21:00 EST, Dry Weight Start Date: 01/18/24 Status: Ordered sucralfate 1 gm/10 ml oral suspension 10 mL = 1 Gm, By Mouth, 3 times a day before meals and bedtime, # 280 mL, 0 Refills, Maintenance, 10/22/23 12:37:00 EST, [facility] #[id number], Partial fill upon patient request if the [...] 0 Refills, Maintenance, 10/19/23 14:39:00 EST, Tablet, [facility] #[id number], Partial fill upon patient request if the [...] Personnel Name: Ursula BURCH, Meg Bains Position: [facility] Physician - Primary Care Member Role: PCP Address: Address: [address] [place] [address] Adult & [place] [address]- Care Team Related Persons Name: ROB KANG Name: LAUREN GOMES Address: home [address] [place] [address] Name: REGINE TREADWELL Address: [address] [place] [address]
--- OUTSIDE RECORDS SUMMARY | 2024-10-14 07:43 | XMS_ITS | Continuity of Care Document ---
Author Organization [facility] ter Address [address] [place] [id number] Care Team Providers Care Skidder Driver Name Role Phone Meg Vergara MD Primary Care Physician Encounter [facility] [place] [facility] [place] Date(s): 05/20/24 - 05/21/[address] [id number] Discharge Disposition: A-D/C Home Attending Physician: Felicia Montana MD Admitting Physician: Dia Mejia MD Referring Physician: Not on Staff, Referring MD Allergies, Adverse Reactions, Alerts No Known [...] 01/24/21 Recorded 1Result Comment: [facility] [id number] 2Result Comment: [facility] [id number] 3Result Comment: [facility] [id number] Pt tolerated vaccine without inicident...NH 4Result Comment: [id number] 5Admin Note: FLULAVAL 6Admin Note: given w/o incident 7Result Comment: [facility] [id number] 8Admin Note: [employer] Medications acetaminophen-oxyCODONE 325 mg-5 mg oral tablet 1, tablet, By Mouth, 2 times a day, PRN, for 28 days, # 56 tablet, Refills 0, Tot. Refills 0, Acute, Pain , Severe, 06/13/24 17:14:00 EDT, 05/16/24 17:14:00 EDT, Route to Pharmacy Electronically, [facility] #[id number] Tablet, Partial fill upon p... Start Date: 05/16/24 Stop Date: 06/13/24 Status: Ordered Albuterol (Eqv-ProAir HFA) 90 mcg/inh inhalation aerosol 2 puffs, Inhalation, 4 times a day, PRN NEEDED FOR WHEEZING OR SHORTNESS OF BREATH, # 8.5 Gm, 0 Refills, [facility] #[id number], 25, INHALE 2 PUFFS FOUR TIMES DAILY NEEDED FOR WHEEZING OR SHORTNESS OF BREATH, 169, cm, 10/31/21 15:06:00 EST,... Start Date: 01/19/22 Status: Ordered Botox Inj Every 3 months, for migraines, 0 Refills, Maintenance, 04/08/24 12:05:00 EDT, Partial fill upon patient request if the prescription is for a schedule II opioid drug. Start Date: 04/08/24 Status: Ordered docusate-senna 50 mg-187 mg oral tablet 2 tablet, By Mouth, Daily at bedtime, PRN Constipation, for 5 days, # 10 tablet, 0 Refills, Acute 05/26/24 9:12:00 EDT, 05/21/24 9:12:00 EDT, Tablet, [facility] #[id number], Partial fill upon patient request if the prescription is for a schedule... Start Date: 05/21/24 Stop Date: 05/26/24 Status: Ordered levoFLOXacin 750 mg oral tablet 1 tablet = 750 mg, By Mouth, Every 24 hours, for 6 days, # 6 tablet, 0 Refills, Acute 05/27/24 9:11:00 EDT, 05/21/24 9:11:00 EDT, Tablet, [facility] #[id number], Partial fill upon patient request if the prescription is for a schedule II opioid dr... Start Date: 05/21/24 Stop Date: 05/27/24 Status: Ordered meloxicam 15 mg oral tablet 0 Refills, Maintenance, 04/08/24 12:04:00 EDT, Partial fill upon patient request if the prescription is for a schedule II opioid drug. Start Date: 04/08/24 Status: Ordered metroNIDAZOLE 500 mg oral tablet 1 tablet = 500 mg, By Mouth, Every 8 hours, for 6 days, # 18 tablet, 0 Refills, Acute 05/27/24 9:10:00 EDT, 05/21/24 9:10:00 EDT, Tablet, [facility] #[id number], Partial fill upon patient request if the prescription is for a schedule II opioid dr... Start Date: 05/21/24 Stop Date: 05/27/24 Status: Ordered omeprazole 20 mg oral enteric coated capsule 1 capsule, By Mouth, Daily, PRN NEEDED FOR INDIGESTION, # 90 capsule, 1 Refills, Maintenance, 04/16/24 11:14:00 EDT, [facility] #[id number], 169, cm, 04/16/24 10:32:00 EDT, Height, 83.9, kg, 04/16/24 10:29:00 EDT, Dry Weight Start Date: 04/16/24 Status: Ordered ondansetron 4 mg oral tablet, disintegrating 1 tablet = 4 mg, By Mouth, Every 8 hours, PRN as needed for nausea/vomiting, for 5 days, # 15 tablet, 0 Refills, Acute 05/26/24 9:11:00 EDT, 05/21/24 9:11:00 EDT, DIS Tablet, [facility] #[id number], Partial fill upon patient request if the prescr... Start Date: 05/21/24 Stop Date: 05/26/24 Status: Ordered topiramate 50 mg oral tablet 0 Refills, Maintenance, 04/16/24 11:15:00 EDT, Partial fill upon patient request if the prescription is for a schedule II opioid drug. Start Date: 04/16/24 Status: Ordered Toradol Inj 15 mg, Injection, Intramuscular, 05/21/24 3:00:00 EDT, Stop date 05/21/24 3:00:00 EDT Start Date: 05/21/24 Stop Date: 05/21/24 Status: Completed Problem List Condition Confirmation Course Effective Dates [...] pain Confirmed Active 1SOAPP-R: 5 on 05/08/17 Results Radiology Reports * Exam Date Time Procedure Performing Provider Status 05/20/24 12:[address] Abd/Pelvis W/ IV Contrast Only Analy Hirsch; Abigail (Verified) Notes: (CT Abd/Pelvis W/ IV Contrast Only) Reason For Exam: Pain RESULT: CT Abd/Pelvis W/ IV Contrast Only CT Abd/Pelvis W/ IV Contrast Only Hx of Present Illness: pt reports left sided abdominal pain since 22:00 bloating x48 hours. Endorses nausea but no vomiting 1 episode of watery diarrhea this morning. Hx diverticulitis. Last PO intake 20:30.; Reason: Pain; Clinical Question(s): Diverticulitis; Order Comment: TECHNIQUE: Spiral CT through the abdomen and pelvis with IV contrast formatted in 3 planes. 100 cc of Omnipaque 300 was administered intravenously. This study was performed without oral contrast. Weight-based protocol using automatic tube modulation was used to optimize exposure parameters. CTDIvol Body: 19.20 mGy, DLP Body: 1318 mGy*cm. COMPARISON: None. FINDINGS: Machine Operator Transplanter View Findings, Lines and Tubes: None. Visualized Chest: Bibasilar atelectasis. No pleural effusion. The heart is normal in size. No pericardial effusion. Bilateral breast implants. Small hiatal hernia. Diaphragm: Normal. Liver: Normal. Gallbladder: No CT evidence of gallbladder pathology. Bile ducts: No biliary ductal dilation. Spleen: Normal. Pancreas: Normal. Adrenal glands: Normal. Kidneys and ureters: No hydronephrosis, stones, or suspicious masses. Bladder: Normal. Reproductive organs: Uterus is surgically absent.. Stomach, small bowel, and large bowel: Circumferential wall thickening within the distal descendingcolon with a couple diverticula and adjacent stranding. There is diffuse diverticulosis. Appendix: Normal. Peritoneum and retroperitoneum: No ascites or pneumoperitoneum. No omental or mesenteric lesions. Lymph nodes: No enlarged lymph nodes. Blood vessels: Normal. No aneurysm. No evidence of venous thrombosis. Abdominal and pelvic wall: Unremarkable. Bones: No acute abnormality. There is mild anterolisthesis of L4 on L5 due to bilateral facet degenerative disease. IMPRESSION: Acute uncomplicated diverticulitis of the distal descending colon. An actionable message ([place]) has been communicated via the [employer] system on 05/20/2024 1:32 PM, Message ID [id number]. WSN: [id number] Ordering Physician: Lopez Laguna Dictated By: Carlos Bautista MD Dictated Date/Time: 05/20/24 1:32 pm Reviewed By: Carlos Bautista MD Signed By: Carlos Bautista MD Signed Date/Time: 05/20/24 1:32 pm Transcribed By: MICHELLE Transcribed Date/Time: 05/20/24 1:22 pm Vital Signs Most recent to oldest [Reference Range]: 1 2 3 Height 160 cm (05/21/24 7:11 AM) 160 cm (05/21/24 3:30 AM) 160 cm (05/20/24 10:30 PM) Weight 80.7 kg (05/20/24 5:25 PM) 80.7 kg (05/20/24 2:54 PM) 80.7 kg (05/20/24 10:50 AM) Oxygen Saturation [94-100 %] 97 % (05/21/24 7:11 AM) 95 % (05/21/24 3:30 AM) 96 % (05/20/24 10:30 PM) Pulse Rate [55-90 bpm] 73 bpm (05/21/24 7:11 AM) 69 bpm (05/21/24 3:30 AM) 85 bpm (05/20/24 10:30 PM) Body Mass Index [18.5-24.99 kg/m2] 31.52 kg/m2 *>HHI* (05/20/24 5:25 PM) 31.52 kg/m2 *>HHI* (05/20/24 2:54 PM) 31.52 kg/m2 *>HHI* (05/20/24 10:50 AM) Blood Pressure [90-138/55-84 mm Hg] 135/85mm Hg (05/21/24 7:11 AM) 118/70mm Hg (05/21/24 3:30 AM) 114/65mm Hg (05/20/24 10:30 PM) Respiratory Rate [16-30 br/min] 18 br/min (05/21/24 10:11 AM) 18 br/min (05/21/24 7:11 AM) 16 br/min (05/21/24 4:03 AM) Temperature [96.8-100.4 DegF] 97.6 DegF (05/21/24 7:11 AM) 98.1 DegF (05/21/24 3:30 AM) 98.0 DegF (05/20/24 10:30 PM) Mode of Delivery (Oxygen) Room air (05/21/24 7:11 AM) Room air (05/21/24 3:30 AM) Room air (05/20/24 10:30 PM) Blood pressure sites Arm, left (05/21/24 7:11 AM) Arm, left (05/21/24 3:30 AM) Arm, right (05/20/24 10:30 PM) Temperature Route Oral (05/21/24 7:11 AM) Oral (05/21/24 3:30 AM) Oral (05/20/24 10:30 PM) Dry Weight 81 kg (05/20/24 5:25 PM) 81 kg (05/20/24 2:54 PM) 81 kg (05/20/24 10:50 AM) Weight Obtained Via Patient/family state d (05/20/24 7:55 AM) Dry Weight Obtained Via Patient/family s tated (05/20/24 7:42 AM) Social History Social History Type Response Smoking Status Never smoker entered on: 02/05/14 Sex Admission evaluation note * Ayad FONTENOT, Jimena Cruz: PERFORM, MODIFY Event Display: Admission Note Authored Date: Patient: ??HUGO GOMES ? Age:??49 Years?Sex:??Female?:??1975?? Chief Complaint/Reason for Consultation abdominal pain History of Present Illness 49-year-old woman with a past medical history significant for chronic low back pain, GERD, chronic migraines, fibromyalgia,??GERD, IBS,??GONZÁLEZ??who presents with a chief complaint of abdominal pain anddiscomfort. ?? Reports a 2-day course of abdominal bloating, nausea, and diarrhea associated with left-sided tenderness. Has had had a similar episode 18 years ago and was medically treated at that time. ??No fevers, chills, sob, vomiting, or dysuria. ?? On arrival to the ED, she was noted to be afebrile with a temperature of 98.4, pulse rate of 90 bpm, respiratory rate of 20, blood pressure 151/88, room air saturation 99%.?? Initial laboratory analysis notable for leukocytosis of 15.2, left shift of 11.5, urinalysis with decreased hemoglobin..?? CT abdomen pelvis notable for acute uncomplicated diverticulitis of the distal descending colon. Pt started on CFTX and Flagyl, given a fluid bolus, diluadid and morphine for pain control.?? Review of Systems Constitutional: no fever, chills, sweats, weakness Cardiac: no chest pain, no dizziness, no lightheadedness, no syncope Respiratory: no wheezing, coughing, or sputum production, no sob with activity.?? Neuro: no changes in memory, vision or hearing, no seizures GI:??+ abdominal pain, + nausea, vomiting, + diarrhea, constipation. : no dysuria or hematuria Musculoskeletal: no joint pain or muscle pain Hematologic: no hematuria, melena, epistaxis or easy bruising Integument: no rash, sores, lumps Lymphatics: No enlarged lymph nodes Psychiatric: no depression or anxiety Endocrine: no reports of sweating, no cold or heat intolerance. No polyuria or polydipsia All other systems reviewed and negative except as noted in HPI Objective?? Objective Measurements?? Height: 160 cm (05/20/24) Weight: 80.7 kg (05/20/24) Dry Weight: 81 kg (05/20/24) Body Mass Index:??31.52 kg/m2??Critical (05/20/24) ? Vital Signs?? Temperature: 98 DegF (05/20/24:25:00) Temperature: 98 DegF (05/20/24:25:00) Temperature Route: Oral (05/20/24::) Temperature Route: Oral (05/20/24:25:) Pulse Rate:??99 bpm??High (05/20/24:25:00) Pulse Rate:??99 bpm??High (05/20/24:25:) Respiratory Rate: 16 br/min (05/20/24 18:37:00) Systolic Blood Pressure: 138 mm Hg (05/20/24 17:25:00) Systolic Blood Pressure: 138 mm Hg (05/20/24 17:25:00) Diastolic Blood Pressure: 81 mm Hg (05/20/24:25:00) Diastolic Blood Pressure: 81 mm Hg (05/20/24 17:25:00) Blood pressure sites: Arm, right (05/20/24:25:00) Blood pressure sites: Arm, right (05/20/24:25:00) Mean Arterial Pressure: 100 mm Hg (05/20/24:25:00) Mean Arterial Pressure: 100 mm Hg (05/20/24 17:25:00) Pulse Pressure: 57 mm Hg (05/20/24 17:25:00) Pulse Pressure: 57 mm Hg (05/20/24:25:00) Oxygen Saturation: 99 % (05/20/24:25:00) Mode of Delivery (Oxygen): Room air (05/20/24 17:25:00) Early Warning Score: 0 (05/20/24 18:30:50) ? Physical Exam General appearance: no acute distress, resting comfortably?? HEENT: Atraumatic, normocephalic. PERRL, EOM grossly intact, nonicteric. Neck: ??Supple, trachea midline. No JVD Respiratory: CTAB, easy respiratory effort, no wheeze, no accessory muscle use Cardiac: S1S2, heart rate regular, no murmurs/heaves/rubs/gallops Abdomen: round, softly distended,??Tender LLQ, ND +bowel sounds x4 quadrants, no HSM appreciated?? Extremities: no edema, HINTON, ??2+ radial, 2+ dorsalis pedis pulses Integument: Warm, dry, intact, no rash Neurologic: A/O x3, CN grossly intact. No focal weakness Psychological: Appropriate mood and affect Assessment/Plan Diagnoses Diverticulitis ??(K57.92) 1. ??Fibromyalgia ??(M79.7) 2. ??GERD - Gastro-esophageal reflux disease ??(K21.9) 3. ??IBS - Irritable bowel syndrome ??(K58.9) 4. ??Low back pain ??(M54.50) 5. ??GONZÁLEZ (obstructive sleep apnea) ??(G47.33) ?? 49-year-old woman with a past medical history significant for chronic low back pain, GERD, chronic migraines, fibromyalgia,??GERD, IBS,??GONZÁLEZ??who presents with a chief complaint of abdominal pain and discomfort. ?? Diverticulitis (K57.92):?? presents with 2 day course of left-sided tenderness abd pain associated with nausea and diarrhea Ct a/p showing??acute uncomplicated diverticulitis of the distal descending colon. continue with CFTX and flagyl multimodal pain control with scheduled acetaminophen, IV toradol, IV dilaudid, and oxycodone clear liquid diet, slowly advance as tolerated surgical consult if no improvement ?? Fibromyalgia (M79.7):??no current treatment ?? GERD - Gastro-esophageal reflux disease (K21.9):??pantoprazole in place of omeprazole ?? IBS - Irritable bowel syndrome (K58.9):??stable, OP FU ?? Low back pain (M54.50):??PRN pain regimen ?? GONZÁLEZ (obstructive sleep apnea) (G47.33):??cpap ?? VTE Prophylaxis:??SCD's, fully ambulatory ?VTE Prophylaxis Assessment:??VTE Prophylaxis Ordered ?? Discharge Planning:??home in 1-2 days ?? Ongoing Medical Necessity:??diverticulitis management ?? Code Status:??full code, confirmed at bedside ?Order Code Status:??Code Status Ordered ? Histories Allergies Allergies ?(Active and Proposed Allergies Only) NKA? (Severity: Unknown severity, Onset: Unknown) ? Past Medical History/Problem List Active Problems(16) Drug or alcohol risk assessment or counseling Family history of diabetes mellitus Fibromyalgia GERD - Gastro-esophageal reflux disease IBS - Irritable bowel syndrome Insomnia Low back pain Lower extremity pain Lumbar spondylosis Lumbosacral radiculopathy Migraine Moderate somatic symptom disorder with predominant pain Obese class I GONZÁLEZ (obstructive sleep apnea) Use of opiates for therapeutic purposes Well woman exam with routine gynecological exam ? Past Surgical History Total knee arthroplasty RIGHT: 12/25/23 Liposuction of abdomen + BBL: 04/19/21 Liposuction of lower extremity and back lift: 10/21/18 Revision abdominoplasty.,brachioplasty, liposuction, fat graft: 07/24/18 Colonoscopy: 03/06/18 Surgical placement of percutaneous thoracic spinal cord stimulator electrodes x 2: 12/14/17 Revision Abdominoplasty and liposuction: 03/09/16 Mastopexy, exchange of implants, liposuction: 02/03/15 Colonoscopy: 06/30/13 breast implant exchange , mastopexy, breast augmentation: 2008 abdominoplasty: 2007 breast augmentation: 2006 vaginal hysterectomy for GELACIO: 1998 tonsilectomy: 1977 ? Social History Alcohol Details:??Use: Current. ??Frequency: socially. Employment/School Details:??Status: Disabled. ??Other: SSDI due to migraines. Exercise Details:??Other: limited by knee/ back pain. ??Regular exercise: No. Home/Environment Details:??Living situation: Home/Independent. ??Lives with: Spouse. Nutrition/Health Details:??Diet: Calorie restricted. ??Other: weight loss diet per bariatric team. ??Caffeine intakeamount: occasionally. ??Wants to lose weight: Yes. ??Feels highly stressed: Yes. Sexual Details:??Sexually involved in last 6 months: No. Substance Abuse Details:??Use: Never. Tobacco Details:??Use: Never smoker. ? Family History Mother: Dementia; Hyperlipidemia; Hypertension; Rheumatoid arthritis Father??(): Alzheimer's disease; CAD - Coronary artery disease; Diabetes mellitus type II; Hypertension; Myocardial infarction; Seizure disorder; Stroke Pat. Grandmother: Ca cervix Brother??(-): Diabetes mellitus type II (iddm post amputation, CKD); Renal failure syndrome ? Medications Home Medications Albuterol (Albuterol (Eqv-ProAir HFA) 90 mcg/inh inhalation aerosol)?2?puff(s)?Inhalation?4 times a day?as needed? NEEDED FOR WHEEZING OR SHORTNESS OF BREATH Omeprazole (omeprazole 20 mg oral enteric coated capsule)?1?capsule?By Mouth?Daily?as needed? NEEDED FOR INDIGESTION onabotulinumtoxinA (Botox Inj)?Every 3 months?for migraines Oxycodone / Acetaminophen (acetaminophen-oxyCODONE 325 mg-5 mg oral tablet)?1?tab(s)?By Mouth?2 times a day?as needed?for 28?Days?Pain , Severe ? Inpatient Medications Medications (13) Active SCHEDULED: (4) Ceftriaxone (Ceftriaxone Inj) ??1 Gm, IVPB, Every 24 hours Enoxaparin 40 mg Inj (Enoxaparin Inj) ??40 mg 0.4 mL, Subcutaneous Injection, Daily Metronidazole 500 mg / NaCL 0.9% 100 mL (Flagyl IVPB) ??500 mg 100 mL, IVPB, Every 8 hours NaCl 0.9% Flush 3ml (NaCL 0.9% Flush) ??3 mL, IV Push, Every 8 hours CONTINUOUS: (0) PRN: (9) Acetaminophen 325 mg Tablet (Acetaminophen Tablet) ??650 mg, By Mouth, Every 4 hours Docusate Sodium 100 mg Capsule (Docusate Sodium Capsule) ??100 mg 1 capsule, By Mouth, 2 times a day HYDROmorphone 0.5 mg/0.5 mL Inj Syringe (Dilaudid Inj) ??0.5 mg 0.5 mL, IV Push Slowly, Every 4 hours Melatonin 3 mg Tablet (Melatonin Tablet) ??3 mg, By Mouth, Daily at bedtime NaCl 0.9% Flush 3ml (NaCL 0.9% Flush) ??3 mL, IV Push, Every 8 hours Ondansetron 2mg/mL Inj (2mL Vial) (Ondansetron Inj) ??4 mg, IV Push Slowly, Every 30 minutes OxyCODONE 5 mg IR Tablet (oxyCODONE 5 mg oral tablet) ??5 mg, By Mouth, Every 6 hours Polyethylene Glycol 17 Gm Powder (MiraLax Powder) ??17 Gm 1 pack/packet, By Mouth, Daily Senna Tablet ??8.6 mg 1 tablet, By Mouth, 2 times a day ? Results Recent Labs BLOOD COUNT & DIFF WBC 15.2 k/mm3 (High)?? 05/20/2024 10:14 RBC 4.61 m/mm3 ()?? 05/20/2024 10:14 Hgb 12.8 Gm/dL ()?? 05/20/2024 10:14 Hct 40.4 % ()?? 05/20/2024 10:14 MCV 87.6 femtoliters ()?? 05/20/2024 10:14 MCH 27.8 pg ()?? 05/20/2024 10:14 MCHC 31.7 g/dL (Low)?? 05/20/2024 10:14 Platelet Count 248 k/mm3 ()?? 05/20/2024 10:14 RDW-SD 43.0 femtoliters ()?? 05/20/2024 10:14 MPV 9.2 femtoliters (Low)?? 05/20/2024 10:14 Nucleated RBC (Automated) 0.0 #/100 WBC'S ()?? 05/20/2024 10:14 Abs. NRBC 0.0 k/mm3 ()?? 05/20/2024 10:14 Abs. Neut 11.5 k/mm3 (High)?? 05/20/2024 10:14 Abs. Lymph 1.8 k/mm3 ()?? 05/20/2024 10:14 Abs. Wirt 1.5 k/mm3 (High)?? 05/20/2024 10:14 Abs. Eo 0.1 k/mm3 ()?? 05/20/2024 10:14 Abs. Baso 0.0 k/mm3 ()?? 05/20/2024 10:14 Neut % 75.9 % ()?? 05/20/2024 10:14 Lymph % 12.1 % (Low)?? 05/20/2024 10:14 Wirt % 9.7 % ()?? 05/20/2024 10:14 Eos % 0.9 % ()?? 05/20/2024 10:14 Baso % 0.2 % ()?? 05/20/2024 10:14 Imm Gran 1.2 % ()?? 05/20/2024 10:14 Abs. Imm Gran 0.2 k/mm3 ()?? 05/20/2024 10:14 ?? CHEM GENERAL Sodium 137 mmol/L ()?? 05/20/2024 08:26 Potassium 4.6 mmol/L ()?? 05/20/2024 10:14 Chloride 104 mmol/L ()?? 05/20/2024 08:26 Bicarbonate Level 20 mmol/L (Low)?? 05/20/2024 08:26 Anion Gap 13 ()?? 05/20/2024 08:26 Glucose Level 89 mg/dL ()?? 05/20/2024 08:26 BUN 16 mg/dL ()?? 05/20/2024 08:26 Creatinine-Blood 0.66 mg/dL ()?? 05/20/2024 08:26 Estimated GFR Creatinine 107 ML/MIN/1.73 M2 ()?? 05/20/2024 08:26 Alkaline Phosphatase 68 units/L ()?? 05/20/2024 08:26 Lipase 26 units/L ()?? 05/20/2024 10:14 AST (SGOT) 17 units/L ()?? 05/20/2024 10:14 ALT (SGPT) 27 units/L ()?? 05/20/2024 08:26 Bilirubin, Total 0.5 mg/dL ()?? 05/20/2024 08:26 Lactate HEMOLYZED mmol/L ()?? 05/20/2024 08:26 ?? ENDOCRINE/TUMOR MARKER Blood <1 mIU/mL ()?? 05/20/2024 08:26 ?? UA/URINALYSIS Appear/Color, Urine LIGHT YELLOW ()?? 05/20/2024 10:09 Specific [place], Urine 1.025 ()?? 05/20/2024 10:09 pH, Urine 5.5 ()?? 05/20/2024 10:09 Albumin, Urine NEGATIVE ()?? 05/20/2024 10:09 Glucose, Urine NEGATIVE ()?? 05/20/2024 10:09 Ketones, Urine NEGATIVE ()?? 05/20/2024 10:09 Bilirubin, Urine NEGATIVE ()?? 05/20/2024 10:09 Hemoglobin, Urine TRACE (Abnormal)?? 05/20/2024 10:09 Nitrite, Urine NEGATIVE ()?? 05/20/2024 10:09 Leukocyte, Urine NEGATIVE ()?? 05/20/2024 10:09 Urobilinogen NORMAL mg/dL ()?? 05/20/2024 10:09 WBC's, Urine <1 /HPF ()?? 05/20/2024 10:09 RBC's, Urine 1 /HPF ()?? 05/20/2024 10:09 Mucus SLIGHT /LPF ()?? 05/20/2024 10:09 Hold Urine Culture Testing available 48 hours from time of collection. ()?? 05/20/2024 10:09 ?? URINE OTHER Est Creatinine Clearance 84.33 mL/min ()?? 05/20/2024 09:43 ? Abnormal Labs ?? BLOOD COUNT & DIFF Abs. Imm Gran?0.2 k/mm3 ()?05/20/2024 10:14 Abs. Wirt?1.5 k/mm3 (High)?05/20/2024 10:14 Abs. NRBC?0.0 k/mm3 ()?05/20/2024 10:14 Abs. Neut?11.5 k/mm3 (High)?05/20/2024 10:14 Imm Gran?1.2 % ()?05/20/2024 10:14 Lymph %?12.1 % (Low)?05/20/2024 10:14 MCHC?31.7 g/dL (Low)?05/20/2024 10:14 MPV?9.2 femtoliters (Low)?05/20/2024 10:14 Nucleated RBC (Automated)?0.0 #/100 WBC'S ()?05/20/2024 10:14 RDW-SD?43.0 femtoliters ()?05/20/2024 10:14 WBC?15.2 k/mm3 (High)?05/20/2024 10:14 ?? CHEM GENERAL Bicarbonate Level?20 mmol/L (Low)?05/20/2024 08:26 Estimated GFR Creatinine?107 ML/MIN/1.73 M2 ()?05/20/2024 08:26 Lactate?HEMOLYZED mmol/L ()?05/20/2024 08:26 ?? ENDOCRINE/TUMOR MARKER Blood ?<1 mIU/mL ()?05/20/2024 08:26 ?? UA/URINALYSIS Albumin, Urine?NEGATIVE ()?05/20/2024 10:09 Appear/Color, Urine?LIGHT YELLOW ()?05/20/2024 10:09 Bilirubin, Urine?NEGATIVE ()?05/20/2024 10:09 Glucose, Urine?NEGATIVE ()?05/20/2024 10:09 Hemoglobin, Urine?TRACE (Abnormal)?05/20/2024 10:09 Hold Urine Culture?Testing available 48 hours from time of collection. () ?05/20/2024 10:09 Ketones, Urine?NEGATIVE ()?05/20/2024 10:09 Leukocyte, Urine?NEGATIVE ()?05/20/2024 10:09 Mucus?SLIGHT /LPF ()?05/20/2024 10:09 Nitrite, Urine?NEGATIVE ()?05/20/2024 10:09 Urobilinogen?NORMAL mg/dL ()?05/20/2024 10:09 ?? Note: Critical results are displayed in red. ? Blood Glucose Trend Glucose Level: 89 mg/dL (05/20/24 08:26:00) ? CBC, CBC w/Diff?? CBC?? Differential?? WBC:??15.2 k/mm3??High (10:14) Abs. Neut:??11.5 k/mm3??High (10:14) RBC: 4.61 m/mm3 (10:14) Abs. Lymph: 1.8 k/mm3 (10:14) Hct: 40.4 % (10:14) Abs. Wirt:??1.5 k/mm3??High (10:14) RDW-SD: 43 femtoliters (10:14) Abs. Eo: 0.1 k/mm3 (10:14) Nucleated RBC (Automated): 0 #/100 WBC'S (:14) Abs. Baso: 0 k/mm3 (10:14) Abs. NRBC: 0 k/mm3 (10:14) Neut %: 75.9 % (10:14) ?? Lymph %:??12.1 %??Low (10:14) ?? Wirt %: 9.7 % (10:14) ?? Eos %: 0.9 % (10:14) ?? Baso %: 0.2 % (10:14) ?? Imm Gran: 1.2 % (:14) ?? Abs. Imm Gran: 0.2 k/mm3 (:14) ? BMP, Mg, and Phos Anion Gap: 13 (08:) Bicarbonate Level:??20 mmol/L??Low (08:) BUN: 16 mg/dL (08:) Chloride: 104 mmol/L (:) Creatinine-Blood: 0.66 mg/dL (:) Estimated GFR Creatinine: 107 ML/MIN/1.73 M2 (08:26) Glucose Level: 89 mg/dL (08:) Potassium: 4.6 mmol/L (:14) Sodium: 137 mmol/L (:26) ?? Coagulation Profile?? No qualifying data available. ?? LFT Alkaline Phosphatase: 68 units/L (08:26) ALT (SGPT): 27 units/L (08:26) AST (SGOT): 17 units/L (:14) Bilirubin, Total: 0.5 mg/dL (:26) ?? Urinalysis Albumin, Urine: NEGATIVE (10:09) Appear/Color, Urine: LIGHT YELLOW (10:09) Bilirubin, Urine: NEGATIVE (10:09) Est Creatinine Clearance: 84.33 mL/min (09:43) Glucose, Urine: NEGATIVE (10:09) Hemoglobin, Urine: TRACE Abnormal (10:09) Hold Urine Culture: Testing available 48 hours from time of collection. (10:09) Ketones, Urine: NEGATIVE (10:) Leukocyte, Urine: NEGATIVE (10:) Mucus: SLIGHT (:) Nitrite, Urine: NEGATIVE (:) pH, Urine: 5.5 (10:09) RBC's, Urine: 1 /HPF (:) Specific [place], Urine: 1.025 (10:) Urobilinogen: NORMAL (10:) WBC's, Urine: <1 (10:) ? EKG study * Event Display: ECG 12-Lead Authored Date: Please click on pdf link to open report * Event Display: ECG 12-Lead Authored Date: Ventricular Rate: 85 BPM Atrial Rate: 85 BPM P-R Interval: 140 ms QRS Duration: 70 ms Q-T Interval: 378 ms QTC Calculation([place]az[place]): 449 ms P [place]: 37 degrees R [place]: -8 degrees T [place]: 4 degrees Normal sinus rhythm Possible Left atrial enlargement Borderline ECG When compared with ECG of 12-MAY-2021 11:48, No significant change was found Confirmed by Maykel Kirkpatrick ([id number]) on 05/20/2024 8:34:33 AM [place]: Maykel Kirkpatrick [facility] Progress note * Anita Hemphill RN: PERFORM, SIGN, VERIFY Event Display: Progress Note Hospital Authored Date: Patient: HUGO GOMES Age: 49 years Sex: Female : 1975 Associated Diagnoses: None Author: Anita Hemphill RN Findings Narrative/Incidental Pt A&OX4 VSS PIV removed reliefed with pin control sign dc instructions aware meds and follow up see chart for further assessment.. * Mary Nicole RN: PERFORM, SIGN, VERIFY Event Display: Progress Note Hospital Authored Date: Patient: HUGO GOMES Age: 49 years Sex: Female : 1975 Associated Diagnoses: None Author: Bonnie AKERS, Mary Findings Problem Related to Alteration in Gastrointestinal : Alteration in Gastrointestinal Func/new 05/20/2024 17:00 EDT Alteration in GI status Related to Other: Diverticulitis Goals & Outcomes, Gastrointestinal Nutritional intake is adequate for metabolic needs, Pt will achieve normal/improved fluid balance, Pt will maintain normal elimination patterns Interventions, Gastrointestinal Assess/monitor abdomen for distention, tenderness, Assess/monitor bowel pattern, bowel sounds, flatus, Assess/monitor color, quantity, quality, consistency of stoo, Assess/monitor pt for nausea, vomiting, Assess/monitor intake & output, Assess if pt tolerating diet BH Goals/Interventions, Gastrointestinal Yes Gastrointestinal, Problem Start 05/20/2024 17:07 Reviewed plan with, Gastrointestinal Patient Patient Progression, Gastrointestinal Plan Initiation . Evaluation Patient alert and oriented x4, family at bedside. Patient on room air, no labored breathing noted, lung sounds clear but diminished as patient unable to take deep breath. Skin is intact. Patient reports 10/10 pain to left quadrant of abdomen, left side and headache, IV dilaudid and oxycodone administered. Patient tolerating clear liquid diet. Abdomen is round, distended and tender on the left side, hypoactive bowel sounds present. Patient ambulating independently to the bathroom, last BM was 05/20. Will continue to monitor.. Note * Anita Hemphill RN: PERFORM Event Display: Discharge/Transfer Note Hospital Authored Date: [id number] Nursing Discharge Note Entered On: 05/21/2024 11:39 EDT Performed On: 05/21/2024 11:38 EDT by Anita Hemphill RN Nursing Discharge Note 2 Discharge Time : 05/21/2024 11:20 EDT Discharge Level of Care at Discharge : Home/Snf/Foster Care Patient Left Unit Via : Ambulatory Patient Accompanied Off Unit with : Significant other DC Instructions Provided & Signed by Pt : Yes Patient Understands D/C Instructions : Yes Patient Instructions Discharge Signed : Yes Did Pt have Specialty Bed or Wound Vac : No Anita Hemphill RN - 05/21/2024 11:38 EDT * Felicia Montana MD: MODIFY, PERFORM Event Display: Discharge/Transfer Note Hospital Authored Date: [id number] Patient: ??OGMES, HUGO ? Age:??49 Years?Sex:??Female?:??1975?? Patient Information Discharge Location: [facility] Primary Care Physician: Meg Vergara MD Admit Date/Time: 05/20/24 07:41 Discharge Disposition Discharge Disposition: ?? Discharge Diagnosis Fibromyalgia (M79.7) GERD - Gastro-esophageal reflux disease (K21.9) IBS - Irritable bowel syndrome (K58.9) Low back pain (M54.50) GONZÁLEZ (obstructive sleep apnea) (G47.33) Diverticulitis (K57.92) _ Discharge Medications Albuterol (Albuterol (Eqv-ProAir HFA) 90 mcg/inh inhalation aerosol)?2?puff(s)?Inhalation?4 times a day?as needed? NEEDED FOR WHEEZING OR SHORTNESS OF BREATH Docusate-Senna (docusate-senna 50 mg-187 mg oral tablet)?2?tab(s)?By Mouth?Daily at bedtime?as needed?Constipation?for 5?Days Levofloxacin (levoFLOXacin 750 mg oral tablet)?1?tab(s)?750?Milligram?By Mouth?Every 24 hours?for 6?Days Metronidazole (metroNIDAZOLE 500 mg oral tablet)?1?tab(s)?500?Milligram?By Mouth?Every 8 hours?for 6?Days Omeprazole (omeprazole 20 mg oral enteric coated capsule)?1?capsule?By Mouth?Daily?as needed? NEEDED FOR INDIGESTION onabotulinumtoxinA (Botox Inj)?Every 3 months?for migraines Ondansetron (ondansetron 4 mg oral tablet, disintegrating)?1?tab(s)?4?Milligram?By Mouth?Every 8 hours?as needed?as needed for nausea/vomiting?for 5?Days Oxycodone / Acetaminophen (acetaminophen-oxyCODONE 325 mg-5 mg oral tablet)?1?tab(s)?By Mouth?2 times a day?as needed?for 28?Days?Pain , Severe ? Durable Medical Equipment Ambulatory devices needed: None (05/20/24) ? Medications Started levofloxacin, flagyl, zofran Allergies Allergies ?(Active and Proposed Allergies Only) NKA? (Severity: Unknown severity, Onset: Unknown) ? Objective Assessment and Plan ??49-year-old woman with a past medical history significant for chronic low back pain, GERD, chronic migraines, fibromyalgia,??GERD, IBS,??GONZÁLEZ??who presents with a chief complaint of abdominal pain and discomfort. ?? Diverticulitis (K57.92):?? presents with 2 day course of left-sided tenderness abd pain associated with nausea and diarrhea Ct a/p showing??acute uncomplicated diverticulitis of the distal descending colon. Pt is feeling better now abd pain improving, tolerating po DC home today with Levofloxacin and Flagyl for 6 more days Avoid constipation ??low fiber diet ??Colonoscopy as outpatient in 4-6 weeks ? Fibromyalgia (M79.7):?? pt is on Oxycodone at home ?? GERD - Gastro-esophageal reflux disease (K21.9):?? continue PPI ?? IBS - Irritable bowel syndrome (K58.9):??stable, OP FU ?? Low back pain (M54.50):??PRN pain regimen ?? GONZÁLEZ (obstructive sleep apnea) (G47.33):??cpap ? . Physical Exam GENERAL: In no apparent distress HEENT: Head normocephalic, PERRL,Moist mucous membrane. Neck supple CARDIOVASCULAR: Normal rate and rhythm, no murmurs, no rubs, no gallops RESPIRATORY: Lungs clear to auscultation, no wheezes , no crackles ABDOMEN/GI: Nondistended, soft, nontender, normal bowel sounds EXTREMITIES: No pitting edema SUPERVISOR DENTURE DEPARTMENT: Alert and oriented x 3.Non focal neuro exam. ? Pending Results No Pending Results Patient Education Titles Web[employer] Patient Education - Understanding Diverticulosis and Diverticulitis?? [employer] Patient Education - Diverticulitis?? [employer] Patient Education - Discharge Instructions for Diverticulitis?? Follow-Up Appointments Added Follow Up ?Time Frame ?Comments Ursula BURCH, Meg Bains?1 to 2 weeks Patient Instructions ??You came with abdominal pain , you have been diagnosed with diverticulitis. As you are feeling better you will be discharge home today. You have been prescribed oral antibiotics for 6 days . Pleasetake??low fiber diet , avoid constipation. Follow up with PCP and discuss about colonoscopy in 4-6 weeks .?? Post Discharge Care Discharge ?05/21/24 9:20:00 EDT Discharge Prescriptions ?ePrescribed, 05/21/24 9:20:00 EDT Home Health Face to Face ^HomeHealthFTF Results Discharge Labs BLOOD COUNT & DIFF WBC 12.7 k/mm3 (High)?? 05/21/2024 00:31 RBC 4.17 m/mm3 (Low)?? 05/21/2024 00:31 Hgb 11.4 Gm/dL (Low)?? 05/21/2024 00:31 Hct 36.6 % ()?? 05/21/2024 00:31 MCV 87.8 femtoliters ()?? 05/21/2024 00:31 MCH 27.3 pg ()?? 05/21/2024 00:31 MCHC 31.1 g/dL (Low)?? 05/21/2024 00:31 Platelet Count 234 k/mm3 ()?? 05/21/2024 00:31 RDW-SD 43.9 femtoliters ()?? 05/21/2024 00:31 MPV 9.2 femtoliters (Low)?? 05/21/2024 00:31 Nucleated RBC (Automated) 0.0 #/100 WBC'S ()?? 05/21/2024 00:31 Abs. NRBC 0.0 k/mm3 ()?? 05/21/2024 00:31 Abs. Neut 11.5 k/mm3 (High)?? 05/20/2024 10:14 Abs. Lymph 1.8 k/mm3 ()?? 05/20/2024 10:14 Abs. Wirt 1.5 k/mm3 (High)?? 05/20/2024 10:14 Abs. Eo 0.1 k/mm3 ()?? 05/20/2024 10:14 Abs. Baso 0.0 k/mm3 ()?? 05/20/2024 10:14 Neut % 75.9 % ()?? 05/20/2024 10:14 Lymph % 12.1 % (Low)?? 05/20/2024 10:14 Wirt % 9.7 % ()?? 05/20/2024 10:14 Eos % 0.9 % ()?? 05/20/2024 10:14 Baso % 0.2 % ()?? 05/20/2024 10:14 Imm Gran 1.2 % ()?? 05/20/2024 10:14 Abs. Imm Gran 0.2 k/mm3 ()?? 05/20/2024 10:14 ?? CHEM GENERAL Sodium 138 mmol/L ()?? 05/21/2024 00:31 Potassium 3.7 mmol/L ()?? 05/21/2024 00:31 Chloride 105 mmol/L ()?? 05/21/2024 00:31 Bicarbonate Level 23 mmol/L ()?? 05/21/2024 00:31 Anion Gap 10 ()?? 05/21/2024 00:31 Glucose Level 105 mg/dL (High)?? 05/21/2024 00:31 BUN 7 mg/dL ()?? 05/21/2024 00:31 Creatinine-Blood 0.68 mg/dL ()?? 05/21/2024 00:31 Estimated GFR Creatinine 106 ML/MIN/1.73 M2 ()?? 05/21/2024 00:31 Calcium 8.4 mg/dL (Low)?? 05/21/2024 00:31 Alkaline Phosphatase 68 units/L ()?? 05/20/2024 08:26 Lipase 26 units/L ()?? 05/20/2024 10:14 AST (SGOT) 17 units/L ()?? 05/20/2024 10:14 ALT (SGPT) 27 units/L ()?? 05/20/2024 08:26 Bilirubin, Total 0.5 mg/dL ()?? 05/20/2024 08:26 Lactate HEMOLYZED mmol/L ()?? 05/20/2024 08:26 ?? ENDOCRINE/TUMOR MARKER Blood <1 mIU/mL ()?? 05/20/2024 08:26 ? UA/URINALYSIS Appear/Color, Urine LIGHT YELLOW ()?? 05/20/2024 10:09 Specific [place], Urine 1.025 ()?? 05/20/2024 10:09 pH, Urine 5.5 ()?? 05/20/2024 10:09 Albumin, Urine NEGATIVE ()?? 05/20/2024 10:09 Glucose, Urine NEGATIVE ()?? 05/20/2024 10:09 Ketones, Urine NEGATIVE ()?? 05/20/2024 10:09 Bilirubin, Urine NEGATIVE ()?? 05/20/2024 10:09 Hemoglobin, Urine TRACE (Abnormal)?? 05/20/2024 10:09 Nitrite, Urine NEGATIVE ()?? 05/20/2024 10:09 Leukocyte, Urine NEGATIVE ()?? 05/20/2024 10:09 Urobilinogen NORMAL mg/dL ()?? 05/20/2024 10:09 WBC's, Urine <1 /HPF ()?? 05/20/2024 10:09 RBC's, Urine 1 /HPF ()?? 05/20/2024 10:09 Mucus SLIGHT /LPF ()?? 05/20/2024 10:09 Hold Urine Culture Testing available 48 hours from time of collection. ()?? 05/20/2024 10:09 ? URINE OTHER Est Creatinine Clearance 81.85 mL/min ()?? 05/21/2024 01:43 ? 35_ minutes spent on discharge * Anita Hemphill RN: PERFORM Event Display: Patient Education/Instruction Authored Date: Inpatient Adult Discharge Instructions. [address] [address] Name: HUGO GOMES : 1975?? Visit: 05/20/2024 07:41?? Current Date: 05/21/2024 10:53 ?? Account: [id number]?? Inpatient Adult Discharge Instructions We would like to thank you for allowing us to assist you with your healthcare needs. The following includes patient education materials and information regarding your injury/illness. Our entire staffstrives to provide an excellent experience for our patients and their families. PLEASE ENSURE YOU FOLLOW-UP PER THE INSTRUCTIONS BELOW! ?? YOUR OPINION IS IMPORTANT TO US! Please complete the survey you may receive by mail or email. Your feedback will be used to make improvements to the healthcare experiences of our patients and their families. Surveys are administered by [employer] ?? If further treatment with your primary care physician or another doctor is recommended, it is important for you to keep the appointment. Call your primary care physician or return to the Emergency Department immediately if your condition worsens, fails to improve, or new symptoms develop. If you need to find a doctor, you can call [facility] [employer] Link for a referral at [phone] or toll free at [phone] or log in to [email or web address].. ?? [facility], in keeping with [facility] guidance, no longer requires face masks [...] medical provider or home test kit. ?? You can view and manage your care through the patient portal or by using a health care charlene of your choosing. [employer] is a website that allows you to securely view your medical information including your hospital discharge summary, office visit summaries, medications and follow-up visits. You can also request appointments, renew medications, and request access to your medical information using a health care charlene of your choosing, or just ask a question. You can enroll at [email or web address] or register during your next office visit. You have been discharged from [facility], Patient Care Unit: D3B??. If you have any questions regarding these instructions, including results of studies pending, afteryou leave, please call us and we will be happy to assist you 04/06. [facility] Your Care Team Attending Physician Felicia Montana MD?? Consulting Providers Felicia Montana MD?? Discharging Providers Felicia Montana MD Reason for Your Visit Diverticulitis, pain control?? Your Diagnosis Fibromyalgia GERD - Gastro-esophageal reflux disease IBS - Irritable bowel syndrome Low back pain GONZÁLEZ (obstructive sleep apnea) Diverticulitis General medical Tests Performed Below is a partial list of the tests performed during your hospitalization. You may have had other tests and procedures not included in this list. Please discuss all test results with your provider. Alk Phos ALT AST BUN Calcium Level CBC CBC w/ Differential Creatinine Electrolytes Glucose Level Lactate Level Lipase Potassium Level Serum Quantitative Total Bilirubin Urinalysis w/hold for Urine Culture CT Abd/Pelvis W/ IV Contrast Only No tests performed during this visit.?? Primary Care Provider Meg Vergara MD? Advance Directive Health Care Proxy on File Yes - Health Care Proxy Discharge Vitals Temperature: 97.6 DegF Height: 160 cm Pulse Rate: 73 bpm Weight: 80.7 kg Respiratory Rate: 18 br/min Body Mass Index:??31.52 kg/m2??Critical Systolic Blood Pressure: 135 mm Hg Body surface area: 1.89 Diastolic Blood Pressure:??85 mm Hg??High ?? Oxygen Saturation: 97 % ?? Studies Pending All studies ordered during this hospital stay have been completed unless listed below. Please discuss all pending results with your provider listed above in these instructions. ?? No incomplete studies found?? What to do next Instructions From Your Doctor ??You came with abdominal pain , you have been diagnosed with diverticulitis. As you are feeling better you will be discharge home today. You have been prescribed oral antibiotics for 6 days . Pleasetake??low fiber diet , avoid constipation. Follow up with PCP and discuss about colonoscopy in 4-6 weeks .? Orders? 05/21/24 9:20:00 EDT?? Prescriptions??, ??05/21/24 9:20:00 EDT?? You Need to Schedule the Following Appointments Follow Up with??Ursula BURCH, Meg Bains When:??Within 1 to 2 weeks Where: ?? Discharge Medications HUGO GOMES :1975 Visit Date:05/20/2024 Medications: Please continue your medications until treatment is completed or stopped by your provider. Medications not listed below should be discontinued. Discuss any questions related to medications with your provider. What How Much When Why Instructions Next Dose New Docusate-Senna (docusate-senna 50 mg-187 mg oral tablet) 2 tab(s) Oral Daily at Bedtime as needed for Constipation Duration: 5 Days Pickup at [facility] #[id number] 05/21/24 New Levofloxacin (levoFLOXacin 750 mg oral tablet) 1 tab(s) Oral Every 24 hours Duration: 6 Days Pickup at [facility] #[id number] 05/21/24 New Metronidazole (metroNIDAZOLE 500 mg oral tablet) 1 tab(s) Oral Every 8 hours Duration: 6 Days Pickup at [facility] #[id number] 05/21/24 New Ondansetron (ondansetron 4 mg oral tablet, disintegrating) 1 tab(s) Oral Every 8 hours as needed for as needed for nausea/vomiting Duration: [facility][id number] as needed Unchanged Albuterol (Albuterol (Eqv-ProAir HFA) 90 mcg/ inh inhalation aerosol) 2 puff(s) Inhalation 4 times a day as needed for NEEDED FOR WHEEZING OR SHORTNESS OF BREATH as needed Unchanged Meloxicam (meloxicam 15 mg oral tablet) 05/22/24 Unchanged Omeprazole (omeprazole 20 mg oral enteric coated capsule) 1 capsule Oral Daily as needed for NEEDED FOR INDIGESTION as needed Unchanged onabotulinumtoxinA (Botox Inj) Every 3 months for migraines ?? as ordered Unchanged Oxycodone / Acetaminophen (acetaminophen-oxyCODONE 325 mg-5 mg oral tablet) 1 tab(s) Oral Twice a day as needed for Pain , Severe DDD (degenerative disc disease), lumbar Duration: 28 Days as needed Unchanged Topiramate (topiramate 50 mg oral tablet) 05/21/24 Pharmacy Information [facility] #[id number]: [address] [place] [address] [phone] Prescription Given During Visit Docusate-Senna (docusate-senna 50 mg-187 mg oral tablet) - 2 tablet, By Mouth, Daily at bedtime, # 10 tablet, 0 Refills, [facility] #[id number], [address] [place] [phone]?? Levofloxacin (levoFLOXacin 750 mg oral tablet) - 1 tablet = 750 mg, By Mouth, Every 24 hours, # 6 tablet, 0 Refills, [facility] #[id number], [address] [place] [phone]?? Metronidazole (metroNIDAZOLE 500 mg oral tablet) - 1 tablet = 500 mg, By Mouth, Every 8 hours, # 18tablet, 0 Refills, [facility] #[id number], [address] [place] [phone]?? Ondansetron (ondansetron 4 mg oral tablet, disintegrating) - 1 tablet = 4 mg, By Mouth, Every 8 hours, # 15 tablet, 0 Refills, [facility] #[id number], [address] [place] [phone]?? Laboratory Results Below is a partial list of the most recent Laboratory test results done prior to this discharge. You may have had other tests and procedures not included in this list. Please discuss all test resultswith your provider. Est Creatinine Clearance - 81.85 mL/min (05/21/2024) Alk Phos (05/20/2024) ???Alkaline Phosphatase - 68 units/L ALT (05/20/2024) ???ALT (SGPT) - 27 units/L AST (05/20/2024) ???AST (SGOT) - 17 units/L BUN (05/21/2024) ???BUN - 7 mg/dL Calcium Level (05/21/2024) ???Calcium - 8.4 mg/dL CBC (05/21/2024) ???WBC - 12.7 k/mm3???RBC - 4.17 m/mm3???Hgb - 11.4 Gm/dL???Hct - 36.6 %???MCV - 87.8 femtoliters???MCH - 27.3 pg???MCHC - 31.1 g/dL???Platelet Count - 234 k/mm3???RDW-SD - 43.9 femtoliters???MPV - 9.2 femtoliters???Nucleated RBC (Automated) - 0.0 #/100 WBC'S???Abs. NRBC - 0.0 k/mm3 CBC w/ Differential (05/20/2024) ???WBC - 15.2 k/mm3???RBC - 4.61 m/mm3???Hgb - 12.8 Gm/dL???Hct - 40.4 %???MCV - 87.6 femtoliters???MCH - 27.8 pg???MCHC - 31.7 g/dL???Platelet Count - 248 k/mm3???RDW-SD - 43.0 femtoliters???MPV - 9.2 femtoliters???Nucleated RBC (Automated) - 0.0 #/100 WBC'S???Abs. NRBC - 0.0 k/mm3???Abs. Neut - 11.5 k/mm3???Abs. Lymph - 1.8 k/mm3???Abs. Wirt - 1.5 k/mm3???Abs. Eo - 0.1 k/mm3???Abs. Baso - 0.0 k/mm3???Neut % - 75.9 %???Lymph % - 12.1 %???Wirt % - 9.7 %???Eos % - 0.9 %???Baso % - 0.2 %???Imm Gran - 1.2 %???Abs. Imm Gran - 0.2 k/mm3 Creatinine (05/21/2024) ???Creatinine-Blood - 0.68 mg/dL???Estimated GFR Creatinine - 106 ML/MIN/1.73 M2 Electrolytes (05/21/2024) ???Sodium - 138 mmol/L???Potassium - 3.7 mmol/L???Chloride - 105 mmol/L???Bicarbonate Level - 23 mmol/L???Anion Gap - 10 Glucose Level (05/21/2024) ???Glucose Level - 105 mg/dL Lactate Level (05/20/2024) ???Lactate - HEMOLYZED Lipase (05/20/2024) ???Lipase - 26 units/L Potassium Level (05/20/2024) ???Potassium - 4.6 mmol/L Serum Quantitative (05/20/2024) ? ?Blood - <1 mIU/mL Total Bilirubin (05/20/2024) ???Bilirubin, Total - 0.5 mg/dL Urinalysis w/hold for Urine Culture (05/20/2024) ???Appear/Color, Urine - LIGHT YELLOW???Specific [place], Urine - 1.025???pH, Urine - 5.5???Albumin, Urine - NEGATIVE???Glucose, Urine - NEGATIVE???Ketones, Urine - NEGATIVE???Bilirubin, Urine - NEGATIVE???Hemoglobin, Urine - TRACE???Nitrite, Urine - NEGATIVE???Leukocyte, Urine - NEGATIVE???Urobilinogen - NORMAL? ?WBC's, Urine - <1 /HPF? ?RBC's, Urine - 1 /HPF? ?Mucus - SLIGHT? ?Hold Urine Culture - Testing available 48 hours from time of collection. Allergies (NKA means No Known Allergies) NKA Problems Active Problems??(18) Diverticulosis of colon?? Drug or alcohol risk assessment or counseling?? Family history of diabetes mellitus?? Fibromyalgia?? GERD - Gastro-esophageal reflux disease?? IBS - Irritable bowel syndrome?? Insomnia?? Low back pain?? Lower extremity pain?? Lumbar spondylosis?? Lumbosacral radiculopathy?? Migraine?? Moderate somatic symptom disorder with predominant pain?? Obese class I?? GONZÁLEZ (obstructive sleep apnea)?? pituitary adenoma?? Use of opiates for therapeutic purposes?? Well woman exam with routine gynecological exam?? Education Materials Below is the list of Educational Leaflet Providered with your Discharge Instructions. [employer] Patient Education - Understanding Diverticulosis and Diverticulitis?? [employer] Patient Education - Diverticulitis?? [employer] Patient Education - Discharge Instructions for Diverticulitis?? Valuables and Belongings I fully understand and agree that [facility] accepts no responsibility for all my personal property including clothing, toilet articles, radios, jewelry, dentures, hearing aids, rings, money, or any other property that is in my possession or is brought to me after admission. I understand certain valuables may be placed in a hospital safe for a short period of time. I understand that the hospital is not liable for loss or damage due to accident, fire, or other natural occurrence while said property is in the safe. I accept full responsibility for any personal property that I keep with me, and will not hold the hospital responsible in case of loss or disappearance. I acknowledge that i have been encouraged to send valuables and belongings home. ?? Review of Valuable and Belonging List: With witness Date for Pt to Sign Valuables/Belongings: 05/21/24 06:08:00 ?? Other Discharge Information ? Pulmonary Rehab Status?? Pulmonary Rehab Discharge Status?? Respiratory Rate: 18 br/min ? Common Emergency Awareness Tips IS IT A [...] are strongly encouraged to quit. Please call [facility] [employer] Link at [phone] or [phone] ([phone]) or log in to [email or web address] for referrals to smoking cessation programs. ?? 763 Suicide & Crisis Lifeline is available 04/06 if you or someone you know needs to find a reason to keep living. By calling 157 you'll be connected to a skilled, trained counselor at a crisis center in your area. INPATIENT DISCHARGE INSTRUCTIONS SIGNATURE PAGE HUGO GOMES Location:[facility] Registration Date and Time:05/20/2024 07:41 EDT Primary Care Physician: Ursula BURCH, Meg Bains, Attending Physician: Rubén BURCH, Felicia, I HUGO GOMES, have received the above patient education materials/instructions and have verbalized understanding. If ambulance or transport services are being used I further acknowledge being given a choice of service. ?? If you need to contact me, please call me at this number: . Patient/Bead Forming Machine Operator Name: Patient/Bead Forming Machine Operator Signature: Relationship to Patient: Witness Name/Signature: Date: * Felicia Montana MD: PERFORM Event Display: Patient Education Leaflets Authored Date: [id number] Understanding Diverticulosis and Diverticulitis ?? [address] Understanding Diverticulosis and Diverticulitis The colon (large intestine) is the last part of the digestive tract. It absorbs water from stool and changes it from a liquid to a solid. In some people, small pouches called diverticula can form in the colon wall. This is called diverticulosis. It's very common as people get older. The pouches canbecome inflamed and infected. If this happens, it becomes a more severe problem called diverticulitis. These problems can be painful. But they may be managed with treatment. Pouches or diverticula usually occur in the lower part of the colon called the sigmoid. Diverticulitis occurs when the pouches become infected or inflamed. Managing your condition Your healthcare provider may prescribe diet changes or medicines. You might need surgery if your problem is severe. Certain medicines can help soften and bulk up stool, which makes bowel movements easier. Available in pill, powder, and wafer form, examples of these medicines include: ??? Psyllium ??? Methylcellulose ??? Polycarbophil ?? If you have diverticulosis Follow this treatment advice: ??? Make changes to your diet. This is often all that's needed to control symptoms. The main changes are adding fiber and drinking more water. Fiber absorbs water as it travels through your colon. This helps your stool stay soft and move smoothly. Water helps with thisprocess. ??? If needed, you may be told to take [id number] stool softeners. ??? To help ease pain, take antispasmodic medicines as prescribed. ??? Watch for changes in your bowel movements. Tell your healthcare provider if you notice any changes. ??? Begin an exercise program. Ask your healthcare provider how to get started. ??? Get plenty of rest and sleep.? If you have diverticulitis Treatment depends on how bad your symptoms are. They include: ??? For mild symptoms. You may be puton a liquid diet for a short time. Antibiotic medicine may be prescribed. If these two steps ease your symptoms, you may then be prescribed a high-fiber diet. If you still have symptoms, your healthcare provider will discuss more treatment options with you. ??? For severe symptoms. You may need to be in the hospital. There, you can be given IV (intravenous) antibiotics and fluids. You'll be put on a low-fiber or liquid diet. You may need surgery if severe symptoms aren't eased by medical treatment, or if the diverticula have burst (ruptured). ?? [place] to colon health Help keep your colon healthy with these lifestyle tips: ??? Eat a healthy diet. Include plenty of high-fiber fruits, vegetables, and whole grains. ??? Drink plenty of liquids such as water and juice. ??? Keep a healthy lifestyle. Do regular exercise, manage your stress, and get enough rest and sleep. ?? Last Reviewed Date: 2024 ?? [employer]. All rights reserved. This information is not intended as a substitute for professional medical care. Always follow your healthcare professional's instructions. ?? * Felicia Montana MD: PERFORM Event Display: Patient Education Leaflets Authored Date: [id number] Diverticulitis ?? [id number] Diverticulitis Some people as they get older get pouches that push into the wall of the colon. These pouches are??called diverticuli. They often cause no symptoms. If the pouches become blocked, they can become inflamed and infected This is called diverticulitis. It causes pain in your lower belly (abdomen) and fever. It may also cause nausea, vomiting, diarrhea, or constipation. If not treated, it can become aserious health problem. It can cause an abscess to form around the pouch. The abscess may block theintestinal tract. The pouch may even tear or rupture. This can spread infection throughout the belly. You will need emergency medical treatment if that happens. Sometimes, diverticulitis may not need antibiotics. But antibiotics are most often used. When treatment is started early, oral antibiotics alone may be enough to cure diverticulitis. This method is tried first. But if you don't get better or if your condition gets worse while taking antibiotics, you may need to be admitted to the hospital. There, you will get antibiotics and fluids through an IV (intravenous) line. You may also have to rest your bowel. That means you won't eat or drink for a period of time. Severe cases may need surgery. Home care These guidelines will help you care for yourself at home: ??? During the acute illness, rest and follow your healthcare??provider's instructions about diet. Sometimes you will need to be on a clear liquid diet to rest your bowel. Once your symptoms are better, you may be told to eat a low- fiber diet for some time. You can eat foods such as: o Flake cerealo Mashed potatoes o Pancakes and waffles o Pasta o White bread o Rice o Applesauce o Bananas o Eggso Fish o Poultry o Tofu o Cooked soft vegetables ??? Take antibiotics exactly as told. Don't miss any doses or stop taking the medicine, even if you feel better. ??? Monitor your temperature. Tell your healthcare provider if you have a rising temperature. Preventing future attacks Once you have an episode of diverticulitis, you are at risk for having it again. But you may be able to lower your risk by eating a high-fiber diet (20 g/day to 35 g/day of fiber). This cleans out the colon pouches that already exist. It may also prevent new ones from forming. Foods high in fiber include: ??? Fresh fruits and edible peelings ??? Raw or lightly cooked vegetables ??? Whole-grain cereals and breads ??? Dried beans and peas ??? Bran Here are other steps you can take to help prevent future attacks: ??? Take your medicines, such as antibiotics, as??your healthcare provider says. ??? Drink 6 to 8 glasses of water every day, unless told otherwise. ??? Use a heating pad or hot water bottle to help belly cramping or pain. ??? Start an exercise program. Ask your healthcare provider how to get started. You can benefit from simple act ivities such as walking or gardening. ??? Treat diarrhea with a bland diet. Start with liquids only. Then slowly add fiber over time. ??? Watch for changes in your bowel movements (constipation to diarrhea). Prevent constipation by eating a high-fiber diet and taking a stool softener if needed. ???Get plenty of rest and sleep. ??? Don't take NSAIDs (anti-inflammatory drugs) unless your healthcare provider tells you to. They can increase your risk for diverticulitis. ?? Follow-up care Check in with your healthcare provider as advised or sooner if you are not getting better in the next 2??days. Your provider may advise a colonoscopy to look at the colon once it has healed. ?? When to call your healthcare provider Call your healthcare provider right away if any of these occur: ??? Fever of 100.4??F (38??C) or higher, or as directed by your healthcare provider ??? Repeated vomiting or swelling of the belly ??? Weakness, dizziness, light- headedness ??? Pain in your belly that gets worse, is severe, or spreads to your back ??? Pain that moves to the right lower belly ??? Rectal bleeding. This means stools that are red, black, or maroon in color. ??? Unexpected vaginal bleeding ?? Last Reviewed Date: 2021 ?? 3018-4506 [employer]. All rights reserved. This information is not intended as a substitute for professional medical care. Always follow your healthcare professional's instructions. ?? * Felicia Montana MD: PERFORM Event Display: Patient Education Leaflets Authored Date: [id number] Discharge Instructions for Diverticulitis ?? 57914 Discharge Instructions for Diverticulitis You have been diagnosed with diverticulitis. This is a condition??in which??small pouches form in your colon (large intestine) and become inflamed or infected. Follow the guidelines below for home care. As you recover Tips for recovery include: ??? Eat a low-fiber diet at first while you recover. Your healthcare provider may??advise a liquid diet.??This gives your bowel a chance to rest so that it can recover. ???Include these foods: flake cereal, mashed potatoes, pancakes, waffles, pasta, white bread, rice, applesauce, bananas, eggs, fish, poultry, tofu, and well-cooked vegetables. ??? Take your medicines??as directed. Don't stop taking the medicines, even if you feel better. ??? Monitor your temperature and report any rise in temperature to your healthcare provider. ??? Take any prescribed antibiotics exactly as directed. Don't miss any and keep taking them even if you feel better.? Drink 6 to 8 glasses of water every day, unless told otherwise. ??? Use a heating pad or hot water bottle to reduce abdominal cramping or pain. ?? Preventing diverticulitis in the future Tips for prevention include: ??? Eat a high-fiber diet. Fiber adds bulk to the stool so that it passes through the large intestine more easily. ??? Keep drinking 6 to 8 glasses of water every day, unless told otherwise. ??? Start an exercise program. Ask your healthcare provider how to get started.You can benefit from simple activities such as walking or gardening. ??? Treat diarrhea with a bland diet. Start with liquids only,??then slowly add fiber over time. ??? Watch for changes in your bowel movements (constipation to diarrhea). ??? Prevent constipation with fiber and add a stool softener if needed.? Get plenty of rest and sleep. ??? If possible, don't take nonsteroidal anti-inflam matory drugs (NSAIDs) such as ibuprofen. They increase the risk of diverticulitis. ?? Follow-up care Make a follow-up appointment, or as advised. You may need a colonoscopy or other imaging test of your colon. ?? When to call your healthcare provider Call your healthcare provider right away if you have any of these: ??? Fever of 100.4??F (38.0??C) or higher, or as advised by your provider ??? Chills ??? Severe cramps in??your belly, most often the lower left side ??? Soreness in??your belly, most often the lower left side ??? Nausea and vomiting ??? Bleeding from your rectum ?? Last Reviewed Date: 2021 ?? 8636-1909 [employer]. All rights reserved. This information is not intended as a substitute for professional medical care. Always follow your healthcare professional's instructions. ?? Patient Care team information Care Team Personnel Name: Kandis Leahy RN Position: [facility] RN Member Role: Primary Care Nurse Name: Anita Hemphill RN Position: [facility] RN Member Role: Primary Care Nurse Name: Ursula BURCH, Meg Bains Position: [facility] Physician - Primary Care Member Role: PCP Address: Address: [address] [place] [address] Adult [place] [address]- [place] Care Team Related Persons Name: ROB KANG Name: LAUREN GOMES Address: home [address] [place] [id number] Name: REGINE TREADWELL Address: home [address] [place] [address]
--- OUTSIDE RECORDS SUMMARY | 2024-10-14 07:43 | XMS_ITS | Continuity of Care Document ---
Author Organization [facility] Address [address] [place] [address]- Care Team Providers Care Internal Communications Intern Name Role Phone Ursula BURCH, Meg Bains Primary Care Physician Encounter [facility] Date(s): 11/01/21 - 12/01/21 [facility] [address] [place], [place] [address] Allergies, Adverse [...] tetanus/diphtheria/pertussis, acel(Tdap) 5 01/12/11 Given 1Result Comment: [facility] 21932-485-83 Pt tolerated vaccine without inicident...NH 2Result Comment: [id number] 3Admin Note: FLULAVAL 4Admin Note: given w/o incident 5Admin Note: [employer] [facility] Medications acetaminophen-oxyCODONE 325 mg-5 mg oral tablet 1, tablet, By Mouth, 2 times a day, PRN, may fill for less for 28 days, # 56 tablet, Refills 0, Tot. Refills 0, Acute, Pain , Severe, 12/23/21 9:48:00 EST, 11/25/21 9:48:00 EST, Route to Pharmacy Electronically, [facility] #[id number] Tablet,... Start Date: 11/25/21 Stop Date: 12/23/21 Status: Ordered Aimovig SureClick Autoinjector-aooe 140 mg/mL subcutaneous solution 0 Refills, Maintenance, 09/05/19 11:33:37 EDT Start Date: 09/05/19 Status: Ordered omeprazole 20 mg oral enteric coated capsule 1 capsule, By Mouth, Daily, PRN NEEDED FOR INDIGESTION, # 30 capsule, 2 Refills, [facility] #[id number], 169, cm, 10/31/21 15:06:00 EST, Height, 92.8, kg, 05/12/21 16:58:00 EDT, Dry Weight Start Date: 11/03/21 Status: Ordered ProAir HFA 90 mcg/inh inhalation aerosol with adapter 2, puffs, Inhalation, 4 times a day, PRN, # 1 each, Refills 2, Tot. Refills 2, Maintenance, 12/23/20 15:08:00 EST, Aerosol, Route to Pharmacy Electronically, [id number], [facility] #[id number], 160, cm, 12/17/20 10:53:00... Start Date: 12/23/20 [...]
--- OUTSIDE RECORDS SUMMARY | 2024-10-14 07:43 | XMS_ITS | Continuity of Care Document ---
Author Organization [facility] Address [address] [place] [address]- Care Team Providers Care Client Customer Manager Name Role Phone Meg Vergara MD Primary Care Physician [facility]counter [facility] Date(s): 02/01/23 - 03/03/23 [facility] [address] [place], [place] [address] Allergies, Adverse Reactions, Alerts No Known [...] 01/24/21 Recorded 1Result Comment: [facility] [id number] 2Result Comment: [facility] 60244-216-81 Pt tolerated vaccine without inicident...NH 3Result Comment: [id number] 4Admin Note: FLULAVAL 5Admin Note: given w/o incident 6Result Comment: [facility] 18325-430-61 7Admin Note: [employer] Medications acetaminophen-oxyCODONE 325 mg-5 mg oral tablet 1, tablet, By Mouth, 2 times a day, PRN, for 28 days, # 56 tablet, Refills 0, Tot. Refills 0, Acute, Pain , Severe, 03/07/23 16:43:00 EDT, 02/07/23 16:43:00 EDT, Route to Pharmacy Electronically, [facility] #[id number] Tablet, Partial fill upon p... Start Date: 02/07/23 Stop Date: 03/07/23 Status: Ordered Albuterol (Eqv-ProAir HFA) 90 mcg/inh inhalation aerosol 2 puffs, Inhalation, 4 times a day, PRN NEEDED FOR WHEEZING OR SHORTNESS OF BREATH, # 8.5 Gm, 0 Refills, [facility] #[id number], 25, INHALE 2 PUFFS FOUR TIMES DAILY NEEDED FOR WHEEZING OR SHORTNESS OF BREATH, 169, cm, 10/31/21 15:06:00 EST,... Start Date: 01/19/22 Status: Ordered amitriptyline 10 mg oral tablet 1, tablet, By Mouth, Daily at bedtime, # 30 tablet, Refills 0, Maintenance, 12/14/22 17:14:00 EST, Route to Pharmacy Electronically, [facility] #[id number], 169, cm, 11/08/22 14:13:00 EST, Height, 92.8, [...] 09/07/22 14:26:00 EDT, Route to Pharmacy Electronically, [facility] #[id number], Partial fill upon patient request if the prescript... Start Date: 09/07/22 Stop Date: 10/07/22 Status: Ordered ibuprofen 600 mg oral tablet 600 mg, 1, tablet, By Mouth, 3 times a day, # 42 tablet, Refills 0, Tot. Refills 0, Acute 03/10/23 12:03:00 EDT, 02/07/23 12:02:00 EDT, Route to Pharmacy Electronically, [facility] #[id number], Partial fill upon patient request if the prescriptio... Start Date: 02/07/23 Stop Date: 03/10/23 Status: Ordered omeprazole 20 mg oral enteric coated capsule 1 capsule, By Mouth, Daily, PRN NEEDED FOR INDIGESTION, # 90 capsule, 1 Refills, Maintenance, 11/08/22 15:02:00 EST, [facility] #[id number], 169, cm, 11/08/22 14:13:00 EST, Height, 92.8, [...] Team Personnel Name: Kandis Leahy RN Position: [facility] RN Member Role: Primary Care Nurse Name: Meg Vergara MD Position: [facility] Primary Care Physician Member Role: PCP Address: Address: [address] [place] [address] Adult [place] [address]- Care Team Related Persons Name: ROB KANG Name: LAUREN GOMES Address: [address] [place] [address] Name: REGINE TREADWELL Address: home [address] [place] [address]
--- OUTSIDE RECORDS SUMMARY | 2024-10-14 07:43 | XMS_ITS | Continuity of Care Document ---
Author Organization [facility] Address [address] [place] [address]- Care Team Providers Care Tobacco Wetter Name Role Phone Meg Vergara MD Primary Care Physician Encounter 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 Refills 0, Acute, Pain , Severe, 03/22/22 12:20:00 EDT, 02/22/22 12:20:00 EDT, Route to Pharmacy Electronically, [facility]... Start Date: 02/22/22 Stop Date: 03/22/22 Status: Ordered Aimovig SureClick Autoinjector-aooe 140 mg/mL subcutaneous solution 0 Refills, Maintenance, 09/05/19 11:33:37 EDT Start Date: 09/05/19 Status: Ordered Albuterol (Eqv-ProAir HFA) 90 mcg/inh inhalation aerosol 2 puffs, Inhalation, 4 times a day, PRN NEEDED FOR WHEEZING OR SHORTNESS OF BREATH, # 8.5 Gm, 0 Refills, [facility] #[id number], 25, INHALE 2 PUFFS FOUR TIMES DAILY [...] FOR INDIGESTION, # 30 capsule, 2 Refills, [facility] #[id number], 169, cm, 10/31/21 15:06:00 EST, Height, 92.8, [...] CT scan,# 2 each, 0 Refills, Maintenance, 12/21/21 9:55:00... Start Date: 11/01/21 Status: Ordered Splint [...] Dates Health Status Cl inical Service Informant Elevated blood pressure reading Discharge Diagnosis 02/15/22 Vital Signs Most recent to oldest [Reference Range]: 1 2 Height 169 cm (02/15/22 2:30 PM) 169 cm (02/15/22 2:05 PM) Weight 83.1 kg (02/15/22 2:05 PM) Oxygen Saturation [94-100 %] 99 % (02/15/22 2:05 PM) Pulse Rate [55-90 bpm] 88 bpm (02/15/22 2:05 PM) Body Mass Index [18.5-24.99] 29.1 *H* (02/15/22 2:05 PM) Blood Pressure [90-138/55-84 mm Hg] 130/ 82mm Hg (02/15/22 2:30 PM) 136/90mm Hg (02/15/22 2:05 PM) Temperature [96.8-100.4 DegF] 97.1 DegF (02/15/22 2:05 PM) Mode of Delivery (Oxygen) Room air (02/15/22 2:05 PM) Blood pressure sites Arm, left (02/15/22 2:30 PM) Arm, left (02/15/22 2:05 PM) Temperature Route Temporal (02/15/22 2:05 PM) Weight Obtained Via Standing scale (02/15/22 2:05 PM) Social History Social History Type Response Smoking Status Never smoker entered on: 02/05/14 Sex
--- OUTSIDE RECORDS SUMMARY | 2024-10-14 07:43 | XMS_ITS | Continuity of Care Document ---
Author Organization [facility] Address [address] [place] [address]- Care Team Providers Care Jailkeeper Name Role Phone Meg Vergara MD Primary Care Physician [phone] Encounter [facility] Date(s): 10/19/23 - 10/26/23 [facility] [address] [place] [address]- Encounter Diagnosis Cough(Discharge Diagnosis) - 10/19/23 Attending Physician: Meg Vergara MD Allergies, Adverse [...] [facility] 25476-832-71 2Result Comment: [facility] 16540-063-76 3Result Comment: [facility] 52849-802-38 Pt tolerated vaccine without inicident...NH 4Result Comment: [id number] 5Admin Note: FLULAVAL 6Admin Note: given w/o incident 7Result Comment: [facility] 24404-264-80 8Admin Note: [facility] Medications acetaminophen-oxyCODONE 325 mg-5 mg oral tablet 1, tablet, By Mouth, 2 times a day, PRN, for 28 days, # 56 tablet, Refills 0, Tot. Refills 0, Acute, Pain , Severe, 11/22/23 16:49:00 EST, 10/25/23 16:49:00 EST, Route to Pharmacy Electronically, [facility] #[id number] Tablet, Partial fill upon p... Start Date: 10/25/23 Stop Date: 11/22/23 Status: Ordered Albuterol (Eqv-ProAir HFA) 90 mcg/inh inhalation aerosol 2 puffs, Inhalation, 4 times a day, PRN NEEDED FOR WHEEZING OR SHORTNESS OF BREATH, # 8.5 Gm, 0 Refills, [facility] #[id number], 25, INHALE 2 PUFFS FOUR TIMES DAILY NEEDED FOR WHEEZING OR SHORTNESS OF BREATH, 169, cm, 10/31/21 15:06:00 EST,... Start Date: 01/19/22 Status: Ordered amitriptyline 10 mg oral tablet 1, tablet, By Mouth, Daily at bedtime, # 30 tablet, Refills 0, Maintenance, 12/14/22 17:14:00 EST, Route to Pharmacy Electronically, [facility] #[id number], 169, cm, 11/08/22 14:13:00 EST, Height, 92.8, [...] 10/22/23 12:37:00 EST, Route to Pharmacy Electronically, [facility] #[id number], Partial fill upon patient request if the prescript... Start Date: 10/22/23 Stop Date: 11/21/23 Status: Ordered omeprazole 20 mg oral enteric coated capsule 1 capsule, By Mouth, Daily, PRN NEEDED FOR INDIGESTION, # 90 capsule, 1 Refills, Maintenance, 07/13/23 13:09:00 EDT, [facility] #[id number], 169, cm, 02/07/23 11:17:00 EDT, Height Start [...] mL, 0 Refills, Maintenance, 10/22/23 12:37:00 EST, [facility] #[id number], Partial fill upon patient request if the [...] 0 Refills, Maintenance, 10/19/23 14:39:00 EST, Tablet, [facility] #[id number], Partial fill upon patient request if the [...] Dates Health Status Clini rodney Service Informant Cough Discharge Diagnosis 10/19/23 Social History Social History Type Response Smoking Status Never smoker entered on: 02/05/14 Sex Patient Care team information Care Team Personnel Name: Kandis Leahy RN Position: [facility] SN RN Member Role: Primary Care Nurse Name: Meg Vergara MD Position: [facility] Physician - Primary Care Member Role: PCP Address: Address: [address] [place] [address] Adult & [place] [address]- Care Team Related Persons Name: ROB KANG Name: LAUREN GOMES Address: [address] [place] [address] Name: REGINE TREADWELL Address: home [address] [place] [address]
--- OUTSIDE RECORDS SUMMARY | 2024-10-14 07:43 | XMS_ITS | Continuity of Care Document ---
Author Organization [facility] Address [address] [place] [address]- Care Team Providers Care Sign Hanger Supervisor Name Role Phone Meg Vergara MD Primary Care Physician Encounter [facility] Date(s): 07/28/22 - 08/04/22 [facility] [address] [place], [place] [address] Attending Physician: Meg Vergara MD Allergies, [...] mRNA BNT-162b2 vac 01/24/21 Recorded 1Result Comment: [facility] 10387-619-58 2Admin Note: [employer] 3Result Comment: [facility] 83545-736-05 Pt tolerated vaccine without inicident...[place] 4Result Comment: [id number] 5Admin Note: FLULAVAL 6Admin Note: given w/o incident Medications acetaminophen-oxyCODONE 325 mg-5 mg oral tablet 1, tablet, By Mouth, 2 times a day, PRN, for 28 days, # 56 tablet, Refills 0, Tot. Refills 0, Acute, Pain , Severe, 08/15/22 14:06:00 EDT, 07/18/22 14:06:00 EDT, Route to Pharmacy Electronically, [facility] #[id number] Tablet, Partial fill upon p... Start Date: 07/18/22 Stop Date: 08/15/22 Status: Ordered Aimovig SureClick Autoinjector-aooe 140 mg/mL subcutaneous solution 0 Refills, Maintenance, 09/05/19 11:33:37 EDT Start Date: 09/05/19 Status: Ordered Albuterol (Eqv-ProAir HFA) 90 mcg/inh inhalation aerosol 2 puffs, Inhalation, 4 times a day, PRN NEEDED FOR WHEEZING OR SHORTNESS OF BREATH, # 8.5 Gm, 0 Refills, [facility] #[id number], 25, INHALE 2 PUFFS FOUR TIMES DAILY [...] Acute 09/26/22 10:53:00EST, 07/28/22 10:53:00 EDT, Capsule, [facility] #[id number], Partial fill upon patient requestif the prescription [...] FOR INDIGESTION, # 30 capsule, 2 Refills, [facility] #[id number], 169, cm, 03/27/22 16:12:00 EDT, Height, 92.8, [...] oldest [Reference Range]: 1 Height 169 cm (07/28/22 10:21 AM) Weight 84.2 kg (07/28/22 10:21 AM) Oxygen Saturation [94-100 %] 99 % (07/28/22 10:21 AM) Pulse Rate [55-90 bpm] 83 bpm (07/28/22 10:21 AM) Body Mass Index [18.5-24.99] 29.48 *H* (07/28/22 10:21 AM) Blood Pressure [90-138/55-84 mm Hg] 122/ 84mm Hg (07/28/22 10:21 AM) Temperature [96.8-100.4 DegF] 98.8 DegF (07/28/22 10:21 AM) Mode of Delivery (Oxygen) Room air (07/28/22 10:21 AM) Blood pressure sites Arm, right (07/28/22 10:21 AM) Temperature Route Temporal (07/28/22 10:21 AM) Weight Obtained Via Standing scale (07/28/22 10:21 AM) Social History Social History Type Response Smoking Status Never smoker entered on: 02/05/14 Sex Care Team Personnel Name: Ursula BURCH, Meg Bains Address: [address] [place] [address] Adult & Pediatric Med [address]
--- OUTSIDE RECORDS SUMMARY | 2024-10-14 07:43 | XMS_ITS | Continuity of Care Document ---
Author Organization [facility] Address [address] [place] [address]- Care Team Providers Care Liner Machine Operator Helper Name Role Phone Ursula BURCH, Meg Bains Primary Care Physician [phone] Encounter [facility] Date(s): 11/06/21 - 12/06/21 [facility] [address] [place], [place] [address] Allergies, Adverse Reactions, Alerts No [...] tetanus/diphtheria/pertussis, acel(Tdap) 5 01/12/11 Given 1Result Comment: [facility] 40954-132-85 Pt tolerated vaccine without inicident...NH 2Result Comment: [id number] 3Admin Note: FLULAVAL 4Admin Note: given w/o incident 5Admin Note: [facility] Medications acetaminophen-oxyCODONE 325 mg-5 mg oral tablet 1, tablet, By Mouth, 2 times a day, PRN, may fill for less for 28 days, # 56 tablet, Refills 0, Tot. Refills 0, Acute, Pain , Severe, 12/23/21 9:48:00 EST, 11/25/21 9:48:00 EST, Route to Pharmacy Electronically, [facility] #[id number] Tablet,... Start Date: 11/25/21 Stop Date: 12/23/21 Status: Ordered Aimovig SureClick Autoinjector-aooe 140 mg/mL subcutaneous solution 0 Refills, Maintenance, 09/05/19 11:33:37 EDT Start Date: 09/05/19 Status: Ordered omeprazole 20 mg oral enteric coated capsule 1 capsule, By Mouth, Daily, PRN NEEDED FOR INDIGESTION, # 30 capsule, 2 Refills, [facility] #[id number], 169, cm, 10/31/21 15:06:00 EST, Height, 92.8, kg, 05/12/21 16:58:00 EDT, Dry Weight Start Date: 11/03/21 Status: Ordered ProAir HFA 90 mcg/inh inhalation aerosol with adapter 2, puffs, Inhalation, 4 times a day, PRN, # 1 each, Refills 2, Tot. Refills 2, Maintenance, 12/23/20 15:08:00 EST, Aerosol, Route to Pharmacy Electronically, [id number], [facility] #[id number], 160, cm, 12/17/20 10:53:00... Start Date: 12/23/20 [...]
--- OUTSIDE RECORDS SUMMARY | 2024-10-14 07:43 | XMS_ITS | Continuity of Care Document ---
Author Organization [facility] Address [address] [place] [address]- Care Team Providers Care Author'S Agent Name Role Phone Meg Vergara MD Primary Care Physician Encounter [facility] Date(s): 02/07/23 - 03/21/23 [facility] [address] [place], [place] [address] Attending Physician: Meg Vergara MD [...] mRNA BNT-162b2 vac 01/24/21 Recorded 1Result Comment: [facility] [id number] 2Result Comment: [facility] 23936-651-50 Pt tolerated vaccine without inicident...NH 3Result Comment: [id number] 4Admin Note: FLULAVAL 5Admin Note: given w/o incident 6Result Comment: [facility] 29369-911-70 7Admin Note: [facility] Medications acetaminophen-oxyCODONE 325 mg-5 mg oral tablet 1, tablet, By Mouth, 2 times a day, PRN, for 28 days, # 56 tablet, Refills 0, Tot. Refills 0, Acute, Pain , Severe, 04/05/23 15:37:00 EDT, 03/08/23 15:37:00 EDT, Route to Pharmacy Electronically, [facility] #[id number] Tablet, Partial fill upon p... Start Date: 03/08/23 Stop Date: 04/05/23 Status: Ordered Albuterol (Eqv-ProAir HFA) 90 mcg/inh inhalation aerosol 2 puffs, Inhalation, 4 times a day, PRN NEEDED FOR WHEEZING OR SHORTNESS OF BREATH, # 8.5 Gm, 0 Refills, [facility] #[id number], 25, INHALE 2 PUFFS FOUR TIMES DAILY NEEDED FOR WHEEZING OR SHORTNESS OF BREATH, 169, cm, 10/31/21 15:06:00 EST,... Start Date: 01/19/22 Status: Ordered amitriptyline 10 mg oral tablet 1, tablet, By Mouth, Daily at bedtime, # 30 tablet, Refills 0, Maintenance, 12/14/22 17:14:00 EST, Route to Pharmacy Electronically, [facility] #[id number], 169, cm, 11/08/22 14:13:00 EST, Height, 92.8, [...] 0, Tot. Refills 0, Maintenance, for spasm, 10/27/22 14:26:00 EDT, Route to Pharmacy Electronically, [facility] #[id number], Partial fill upon patient request if the prescript... Start Date: 09/07/22 Stop Date: 10/07/22 Status: Ordered omeprazole 20 mg oral enteric coated capsule 1 capsule, By Mouth, Daily, PRN NEEDED FOR INDIGESTION, # 90 capsule, 1 Refills, Maintenance, 11/08/22 15:02:00 EST, [facility] #[id number], 169, cm, 11/08/22 14:13:00 EST, Height, 92.8, [...] Team Personnel Name: Kandis Leahy RN Position: [facility] RN Member Role: Primary Care Nurse Name: Meg Vergara MD Position: [facility] Primary Care Physician Member Role: PCP Address: Address: [facility] [place] [address]- Care Team Related Persons Name: ROB KANG Name: LAUREN GOMES Address: [address] [address] Name: REGINE TREADWELL Address: home [address] [place] [address]
--- OUTSIDE RECORDS SUMMARY | 2024-10-14 07:43 | XMS_ITS | Continuity of Care Document ---
Author Organization [facility] Address [address] [place] [address]- Care Team Providers Care Rn Case Mgr Name Role Phone Meg Vergara MD Primary Care Physician Encounter [facility] Date(s): 12/20/22 - 01/19/23 [facility] [address] [place], [place] [address] Allergies, Adverse Reactions, Alerts No Known [...] Recorded 1Result Comment: [facility] 37150-191-37 2Result Comment: [facility] 27124-878-44 Pt tolerated vaccine without inicident...NH 3Result Comment: [id number] 4Admin Note: FLULAVAL 5Admin Note: given w/o incident 6Result Comment: [facility] 93710-470-79 7Admin Note: [facility] Medications acetaminophen-oxyCODONE 325 mg-5 mg oral tablet 1, tablet, By Mouth, 2 times a day, PRN, for 28 days, # 56 tablet, Refills 0, Tot. Refills 0, Acute, Pain , Severe, 02/01/23 10:46:00 EDT, 01/04/23 10:46:00 EST, Route to Pharmacy Electronically, [facility] #[id number] Tablet, Partial fill upon p... Start Date: 01/04/23 Stop Date: 02/01/23 Status: Ordered Albuterol (Eqv-ProAir HFA) 90 mcg/inh inhalation aerosol 2 puffs, Inhalation, 4 times a day, PRN NEEDED FOR WHEEZING OR SHORTNESS OF BREATH, # 8.5 Gm, 0 Refills, [facility] #[id number], 25, INHALE 2 PUFFS FOUR TIMES DAILY NEEDED FOR WHEEZING OR SHORTNESS OF BREATH, 169, cm, 10/31/21 15:06:00 EST,... Start Date: 01/19/22 Status: Ordered amitriptyline 10 mg oral tablet 1, tablet, By Mouth, Daily at bedtime, # 30 tablet, Refills 0, Maintenance, 12/14/22 17:14:00 EST, Route to Pharmacy Electronically, [facility] #[id number], 169, cm, 11/08/22 14:13:00 EST, Height, 92.8, [...] 09/07/22 14:26:00 EDT, Route to Pharmacy Electronically, [facility] #[id number], Partial fill upon patient request if the prescript... Start Date: 09/07/22 Stop Date: 10/07/22 Status: Ordered omeprazole 20 mg oral enteric coated capsule 1 capsule, By Mouth, Daily, PRN NEEDED FOR INDIGESTION, # 90 capsule, 1 Refills, Maintenance, 11/08/22 15:02:00 EST, [facility] #[id number], 169, cm, 11/08/22 14:13:00 EST, Height, 92.8, [...] Team Personnel Name: Kandis Leahy RN Position: [facility] RN Member Role: Primary Care Nurse Name: Meg Vergara MD Position: [facility] Primary Care Physician Member Role: PCP Address: Address: [address] [place] [address] Adult & [place] [address]- [place] Care Team Related Persons Name: ROB KANG Name: LAUREN GOMES Address: [address] [address] Name: REGINE TREADWELL Address: home [address] [place] [address]
--- OUTSIDE RECORDS SUMMARY | 2024-10-14 07:43 | XMS_ITS | Continuity of Care Document ---
Author Organization [facility] Address [address] [place] [address]- Care Team Providers Care Time Clerk Name Role Phone Ursula BURCH, Meg Bains Primary Care Physician [phone] Encounter [facility] [place] [place] Date(s): 08/08/21 - 08/15/21 [facility] [address] [place], [place] [address] Attending Physician: Meg Vergraa MD Allergies, Adverse Reactions, Alerts Substance Reaction [...] tetanus/diphtheria/pertussis, acel(Tdap) 5 01/12/11 Given 1Result Comment: [facility] 39872-158-00 Pt tolerated vaccine without inicident...NH 2Result Comment: [id number] 3Admin Note: FLULAVAL 4Admin Note: given w/o incident 5Admin Note: [facility] Medications acetaminophen-oxyCODONE 325 mg-5 mg oral tablet 1, tablet, By Mouth, 2 times a day, PRN, may fill for less for 28 days, # 56 tablet, Refills 0, Tot. Refills 0, Acute, Pain , Severe, 09/02/21 12:15:00 EDT, 08/05/21 12:15:00 EDT, Route to Pharmacy Electronically, [facility] #[id number] Tablet... Start Date: 08/05/21 Stop Date: 09/02/21 Status: Ordered [employer] SureClick Autoinjector-aooe 140 mg/mL subcutaneous solution 0 Refills, Maintenance, 09/05/19 11:33:37 EDT Start Date: 09/05/19 Status: Ordered magnesium oxide 400 mg oral tablet 1 tablet = 400 mg, By Mouth, Daily, for 14 days, # 14 tablet, 0 Refills, Acute 08/22/21 9:51:00 EDT, 08/08/21 9:51:00 EDT, Tablet, [facility] #[id number], 169, cm, 08/08/21 9:22:00 EDT, Height, 92.8, kg, 05/12/21 16:58:00 EDT, Dry Weight Start Date: 08/08/21 Stop Date: 08/22/21 Status: Ordered omeprazole 20 mg oral enteric coated capsule 1 capsule = 20 mg, By Mouth, Daily, PRN Dyspepsia, # 30 capsule, 2 Refills, Maintenance, 08/08/21 9:43:00 EDT, [facility] #57339, 169, cm, 08/08/21 9:22:00 EDT, Height, 92.8, kg, 05/12/21 16:58:00 EDT, Dry Weight Start Date: 08/08/21 Stop Date: 11/06/21 Status: Ordered ProAir HFA 90 mcg/inh inhalation aerosol with adapter 2, puffs, Inhalation, 4 times a day, PRN, # 1 each, Refills 2, Tot. Refills 2, Maintenance, 12/23/20 15:08:00 EST, Aerosol, Route to Pharmacy Electronically, [id number], [facility] #[id number], 160, cm, 12/17/20 10:53:00... Start Date: 12/23/20 Stop Date: 5/12/21 Status: Ordered Splint See Instructions, # 1 [...] oldest [Reference Range]: 1 Height 169 cm (08/08/21 9:22 AM) Weight 86.6 kg (08/08/21 9:22 AM) Oxygen Saturation [94-100 %] 100 % (08/08/21 9:22 AM) Pulse Rate [55-90 bpm] 79 bpm (08/08/21 9:22 AM) Body Mass Index [18.5-24.99] 30.32 *>HHI* (08/08/21 9:22 AM) Blood Pressure [90-138/55-84 mm Hg] 120/ 74mm Hg (08/08/21 9:22 AM) Temperature [96.8-100.4 DegF] 98 DegF (08/08/21 9:22 AM) Mode of Delivery (Oxygen) Room air (08/08/21 9:22 AM) Blood pressure sites Arm, left (08/08/21 9:22 AM) Temperature Route Temporal (08/08/21 9:22 AM) Weight Obtained Via Standing scale (08/08/21 9:22 AM) Social History Social History Type Response Smoking Status Never smoker entered on: 02/05/14 Sex
--- OUTSIDE RECORDS SUMMARY | 2024-10-14 07:43 | XMS_ITS | Continuity of Care Document ---
Author Organization [facility] Address [address] [place] [address]- Care Team Providers Care Invasive Physician Name Role Phone Meg Vergara MD Primary Care Physician [phone] Encounter [facility] Date(s): 06/18/24 - 07/18/24 [facility] [address] [place], [place] [address] Allergies, Adverse Reactions, Alerts [...] Recorded 1Result Comment: [facility] 79725-691-53 2Result Comment: [facility] 01582-051-45 3Result Comment: [facility] 77208-411-91 Pt tolerated vaccine without inicident...NH 4Result Comment: [id number] 5Admin Note: FLULAVAL 6Admin Note: given w/o incident 7Result Comment: [facility] 07710-342-15 8Admin Note: [facility] Medications acetaminophen-oxyCODONE 325 mg-5 mg oral tablet 1, tablet, By Mouth, 2 times a day, PRN, for 28 days, # 56 tablet, Refills 0, Tot. Refills 0, Acute, Pain , Severe, 08/12/24 13:25:00 EDT, 07/15/24 13:25:00 EDT, Route to Pharmacy Electronically, [facility] #[id number] Tablet, Partial fill upon p... Start Date: 07/15/24 Stop Date: 08/12/24 Status: Ordered Albuterol (Eqv-ProAir HFA) 90 mcg/inh inhalation aerosol 2 puffs, Inhalation, 4 times a day, PRN NEEDED FOR WHEEZING OR SHORTNESS OF BREATH, # 8.5 Gm, 0 Refills, [facility] #[id number], 25, INHALE 2 PUFFS FOUR TIMES DAILY [...] Gm, 1 Refills, Maintenance, 06/23/24 12:37:00 EDT, [place], [facility] #43855, Partial fill upon patient request if the prescription is for a schedule II opioid drug.... Start Date: 06/23/24 Stop Date: 08/22/24 Status: Ordered omeprazole 20 mg oral enteric coated capsule 1 capsule, By Mouth, Daily, PRN NEEDED FOR INDIGESTION, # 90 capsule, 3 Refills, Maintenance, 05/30/24 16:14:00 EDT, [facility] #[id number], 160, cm, 05/30/24 15:48:00 EDT, Height, 81, [...] Team Personnel Name: Kandis Leahy RN Position: [facility] RN Member Role: Primary Care Nurse Name: Anita Hemphill RN Position: [facility] RN Member Role: Primary Care Nurse Name: Meg Vergara MD Position: [facility] Physician - Primary Care Member Role: PCP Address: Address: [address] [place] [address] Adult [place] [address]- Care Team Related Persons Name: ROB KANG Name: LAUREN GOMES Address: [address] [place] [address] Name: REGINE TREADWELL Address: [address] [place] [address]
--- OUTSIDE RECORDS SUMMARY | 2024-10-14 07:43 | XMS_ITS | Continuity of Care Document ---
Author Organization [facility] Address [address] [place] [address]- Care Team Providers Care Audiovisual Technician Name Role Phone Meg Vergara MD Primary Care Physician [phone] Encounter [facility] [place] Date(s): 09/07/22 - 09/14/22 [facility] [address] [place], [place] [address] Attending Physician: Meg Vergara MD [...] mRNA BNT-162b2 vac 01/24/21 Recorded 1Result Comment: [facility] 16120-376-71 2Result Comment: [facility] 60158-738-12 Pt tolerated vaccine without inicident...NH 3Result Comment: [id number] 4Admin Note: FLULAVAL 5Admin Note: given w/o incident 6Result Comment: [facility] 66910-312-09 7Admin Note: [facility] Medications acetaminophen-oxyCODONE 325 mg-5 mg oral tablet 1, tablet, By Mouth, 2 times a day, PRN, for 28 days, # 56 tablet, Refills 0, Tot. Refills 0, Acute, Pain , Severe, 10/10/22 12:30:00 EST, 09/12/22 12:30:00 EDT, Route to Pharmacy Electronically, [facility] #[id number] Tablet, Partial fill upon p... Start Date: 09/12/22 Stop Date: 10/10/22 Status: Ordered [employer] SureClick Autoinjector-aooe 140 mg/mL subcutaneous solution 0 Refills, Maintenance, 09/05/19 11:33:37 EDT Start Date: 09/05/19 Status: Ordered Albuterol (Eqv-ProAir HFA) 90 mcg/inh inhalation aerosol 2 puffs, Inhalation, 4 times a day, PRN NEEDED FOR WHEEZING OR SHORTNESS OF BREATH, # 8.5 Gm, 0 Refills, [facility] #[id number], 25, INHALE 2 PUFFS FOUR TIMES DAILY [...] 09/07/22 14:26:00 EDT, Route to Pharmacy Electronically, [facility] #[id number], Partial fill upon patient request if the prescript... Start Date: 09/07/22 Stop Date: 10/07/22 Status: Ordered Linzess 145 mcg oral capsule 1 capsule = 145 mcg, By Mouth, Daily, for 30 days, # 30 capsule, 1 Refills, Acute 09/26/22 10:53:00EST, 07/28/22 10:53:00 EDT, Capsule, [facility] #[id number], Partial fill upon patient requestif the prescription [...] capsule, 1 Refills, Maintenance, 09/13/22 18:38:00 EDT, [facility] #[id number], 169, cm, 09/07/22 13:52:00 EDT, Height, 92.8, [...] oldest [Reference Range]: 1 Height 169 cm (09/07/22 1:52 PM) Weight 85.0 kg (09/07/22 1:52 PM) Oxygen Saturation [94-100 %] 98 % (09/07/22 1:52 PM) Pulse Rate [55-90 bpm] 84 bpm (09/07/22 1:52 PM) Body Mass Index [18.5-24.99 kg/m2] 29.76 kg/m2 *H* (09/07/22 1:52 PM) Blood Pressure [90-138/55-84 mm Hg] 134/ 80mm Hg (09/07/22 1:52 PM) Blood pressure sites Arm, left (09/07/22 1:52 PM) Weight Obtained Via Standing scale (09/07/22 1:52 PM) Social History Social History Type Response Smoking Status Never smoker entered on: 02/05/14 Sex Patient Care team information Personnel Name: Ursula BURCH, Meg Bains Address: Address: [address] [place] [address] Adult & Pediatric [place], [place] [address]
--- OUTSIDE RECORDS SUMMARY | 2024-10-14 07:43 | XMS_ITS | Continuity of Care Document ---
Author Organization [facility] Address [address] [place] [address]- Care Team Providers Care Aoc Plans Intelligence Officer Name Role Phone Meg Vergara MD Primary Care Physician Encounter [facility] Date(s): 10/31/19 - 11/07/19 [facility] [address] [place] [address]- [facility] Attending Physician: Meg Vergara MD Allergies, [...] tetanus/diphtheria/pertussis, acel(Tdap) 4 01/12/11 Given 1Result Comment: [id number] 2Admin Note: FLULAVAL 3Admin Note: given w/o [...] 10/31/19 10:48:00 EST, Route to Pharmacy Electronically, [facility] #62454, 160, cm, 10/31/19 10:30:00 EST, Heigh... Start [...] 10/20/19 13:52:00 EST, Route to Pharmacy Electronically, [id number]... Start Date: 10/20/19 Stop Date: 11/17/19 Status: Ordered ProAir HFA 90 mcg/inh inhalation aerosol with adapter 2, puffs, Inhalation, 4 times a day, PRN, # 1 each, Refills 0, Tot. Refills 0, Maintenance, 10/24/18 11:31:25 EST, Aerosol, Route to Pharmacy Electronically, [id number], [facility] [id number] Start Date: 10/24/18 Stop Date: 11/23/18 Status: [...] oldest [Reference Range]: 1 Height 160 cm (10/31/19 10:30 AM) Weight 84.0 kg (10/31/19 10:30 AM) Oxygen Saturation [94-100 %] 98 % (10/31/19 10:30 AM) Pulse Rate [55-90 bpm] 86 bpm (10/31/19 10:30 AM) Body Mass Index [18.5-24.99] 32.81 *>HHI* (10/31/19 10:30 AM) Blood Pressure [90-138/55-84 mm Hg] 122/ 72mm Hg (10/31/19 10:30 AM) Mode of Delivery (Oxygen) Room air (10/31/19 10:30 AM) Blood pressure sites Arm, left (10/31/19 10:30 AM) Social History Social History Type Response Smoking Status Never smoker entered on: 02/05/14 Sex
--- OUTSIDE RECORDS SUMMARY | 2024-10-14 07:43 | XMS_ITS | Continuity of Care Document ---
Author Organization [facility] Address [address] [place] [address]- Care Team Providers Care Rechecker Name Role Phone Meg Vergara MD Primary Care Physician [phone] [place] [facility] 07[place]28[place]22 - 08/27/22 [facility] [address] [place], [place] [address] Attending Physician: AdmGhazala pena Admitting Physician: AdmtrGhazala Referring Physician: Admtr, Ar8 [...] mRNA BNT-162b2 vac 01/24/21 Recorded 1Result Comment: [facility] 10666-362-40 2Admin Note: [facility] 3Result Comment: [facility] 28651-473-69 Pt tolerated vaccine without inicident...NH 4Result Comment: [id number] 5Admin Note: FLULAVAL 6Admin Note: given w/o incident Medications acetaminophen-oxyCODONE 325 mg-5 mg oral tablet 1, tablet, By Mouth, 2 times a day, PRN, for 28 days, # 56 tablet, Refills 0, Tot. Refills 0, Acute, Pain , Severe, 09/12/22 12:59:00 EDT, 08/15/22 12:59:00 EDT, Route to Pharmacy Electronically, [facility] #95265 Tablet, Partial fill upon p... Start Date: 08/15/22 Stop Date: 09/12/22 Status: Ordered [facility] SureClick Autoinjector-aooe 140 mg/mL subcutaneous solution 0 Refills, Maintenance, 09/05/19 11:33:37 EDT Start Date: 09/05/19 Status: Ordered Albuterol (Eqv-ProAir HFA) 90 mcg/inh inhalation aerosol 2 puffs, Inhalation, 4 times a day, PRN NEEDED FOR WHEEZING OR SHORTNESS OF BREATH, # 8.5 Gm, 0 Refills, [facility] #97814, 25, INHALE 2 PUFFS FOUR TIMES DAILY [...] Acute 09/26/22 10:53:00EST, 07/28/22 10:53:00 EDT, Capsule, [facility] #36425, Partial fill upon patient requestif the prescription [...] capsule, 0 Refills, Maintenance, 08/15/22 5:56:00 EDT, [facility] #[id number], 169, cm, 07/28/22 10:21:00 EDT, Height, 92.8, [...] Name: Ursula BURCH, Meg Bains Address: Address: [address] [place] [address] Adult & Pediatric [place], [place] [address]
--- OUTSIDE RECORDS SUMMARY | 2024-10-14 07:43 | XMS_ITS | Continuity of Care Document ---
Author Organization [facility] Address [address] [place] [address]- Care Team Providers Care Urologist Name Role Phone Meg Vergara MD Primary Care Physician [facility]counter [facility] Date(s): 02/07/23 - 03/09/23 [facility] [address] [place], [place] [address] Allergies, Adverse Reactions, Alerts No Known Allergies [...] 01/24/21 Recorded 1Result Comment: [facility] 29100-653-54 2Result Comment: [facility] 96740-328-05 Pt tolerated vaccine without inicident...NH 3Result Comment: [id number] 4Admin Note: FLULAVAL 5Admin Note: given w/o incident 6Result Comment: [facility] 80696-320-58 7Admin Note: [facility] Medications acetaminophen-oxyCODONE 325 mg-5 mg oral tablet 1, tablet, By Mouth, 2 times a day, PRN, for 28 days, # 56 tablet, Refills 0, Tot. Refills 0, Acute, Pain , Severe, 04/05/23 15:37:00 EDT, 03/08/23 15:37:00 EDT, Route to Pharmacy Electronically, [facility] #78521 Tablet, Partial fill upon p... Start Date: 03/08/23 Stop Date: 04/05/23 Status: Ordered Albuterol (Eqv-ProAir HFA) 90 mcg/inh inhalation aerosol 2 puffs, Inhalation, 4 times a day, PRN NEEDED FOR WHEEZING OR SHORTNESS OF BREATH, # 8.5 Gm, 0 Refills, [facility] #17856, 25, INHALE 2 PUFFS FOUR TIMES DAILY NEEDED FOR WHEEZING OR SHORTNESS OF BREATH, 169, cm, 10/31/21 15:06:00 EST,... Start Date: 01/19/22 Status: Ordered amitriptyline 10 mg oral tablet 1, tablet, By Mouth, Daily at bedtime, # 30 tablet, Refills 0, Maintenance, 12/14/22 17:14:00 EST, Route to Pharmacy Electronically, [facility] #[id number], 169, cm, 11/08/22 14:13:00 EST, Height, 92.8, [...] 09/07/22 14:26:00 EDT, Route to Pharmacy Electronically, [facility] #[id number], Partial fill upon patient request if the prescript... Start Date: 09/07/22 Stop Date: 10/07/22 Status: Ordered ibuprofen 600 mg oral tablet 600 mg, 1, tablet, By Mouth, 3 times a day, # 42 tablet, Refills 0, Tot. Refills 0, Acute 03/10/23 12:03:00 EDT, 02/07/23 12:02:00 EDT, Route to Pharmacy Electronically, [facility] #[id number], Partial fill upon patient request if the prescriptio... Start Date: 02/07/23 Stop Date: 03/10/23 Status: Ordered omeprazole 20 mg oral enteric coated capsule 1 capsule, By Mouth, Daily, PRN NEEDED FOR INDIGESTION, # 90 capsule, 1 Refills, Maintenance, 11/08/22 15:02:00 EST, [facility] #27031, 169, cm, 11/08/22 14:13:00 EST, Height, 92.8, [...] Name: Kandis Leahy RN Position: [facility] RN Member Role: Primary Care Nurse Name: Meg Vergara MD Position: [facility] Primary Care Physician Member Role: PCP Address: Address: [address] [place] [address] Adult & [place] [address]- Care Team Related Persons Name: ROB KANG Name: LAUREN GOMES Address: [address] [place] [address] Name: REGINE TREADWELL Address: [address] [place] [address]
--- OUTSIDE RECORDS SUMMARY | 2024-10-14 07:43 | XMS_ITS | Continuity of Care Document ---
Author Organization [facility] Address [address] [place] [address]- Care Team Providers Care Ballistics Laboratory Gunsmith Name Role Phone Meg Vergara MD Primary Care Physician [place] [facility] [place] 05/18/21 [facility] [address] [place] [address]- Encounter Diagnosis Constipation(Discharge Diagnosis) - 05/12/21 IBS - Irritable bowel syndrome(Discharge Diagnosis) - 05/12/21 Attending Physician: Meg Vergara MD Allergies, Adverse [...] tetanus/diphtheria/pertussis, acel(Tdap) 5 01/12/11 Given 1Result Comment: [facility] 51858-735-62 Pt tolerated vaccine without inicident...NH 2Result Comment: [id number] 3Admin Note: FLULAVAL 4Admin Note: given w/o incident 5Admin Note: [facility] Medications acetaminophen-oxyCODONE 325 mg-5 mg oral tablet 1, tablet, By Mouth, 2 times a day, PRN, may fill for less for 28 days, # 56 tablet, Refills 0, Tot. Refills 0, Acute, Pain , Severe, 06/02/21 11:11:00 EDT, 05/05/21 11:11:00 EDT, Route to Pharmacy Electronically, [facility] #[id number] Tablet... Start Date: 05/05/21 Stop Date: 06/02/21 Status: Ordered Aimovig SureClick Autoinjector-aooe 140 mg/mL subcutaneous solution 0 Refills, Maintenance, 09/05/19 11:33:37 EDT Start Date: 09/05/19 Status: Ordered docusate sodium 100 mg oral capsule 100 mg, 1, capsule, By Mouth, 2 times a day, # 60 capsule, Refills 5, Tot. Refills 5, Maintenance, 05/11/21 16:01:00 EDT, Route to Pharmacy Electronically, [facility] #[id number], 160, cm, 12/17/20 10:53:00 EST, Height, 83.9, kg, 11/21/19 2:52:00... Start Date: 05/11/21 Stop Date: 11/07/21 Status: Ordered Excedrin Migraine oral tablet 2 tablet, By Mouth, Every 6 hours, PRN for headache, Maintenance, 06/28/19 17:39:20 EDT, Tablet Start Date: 06/28/19 Status: Ordered MiraLax oral powder for reconstitution = 17 Gm, By Mouth, Daily, dissolve in water before taking, # 255 Gm, 0 Refills, Acute 06/10/21 20:00:00 EDT, 05/13/21 12:25:00 EDT, REC Powder, [facility] #[id number], Partial fill upon patient request if the [...] 15:08:00 EST, Aerosol, Route to Pharmacy Electronically, [id number], [facility] #[id number], 160, cm, 12/17/20 10:53:00... Start Date: 12/23/20 [...] Effective Dates Health Status Clinical Service Informant Constipation Discharge Diagnosis 05/12/21 IBS - Irritable bowel syndrome Discharge Diagnosis 05/12/21 Social History Social History Type Response Smoking Status Never smoker entered on: 02/05/14 Sex
--- OUTSIDE RECORDS SUMMARY | 2024-10-14 07:43 | XMS_ITS | Continuity of Care Document ---
Author Organization [facility] Address [address] [place] [address]- Care Team Providers Care Door Person Name Role Phone Meg Vergara MD Primary Care Physician Encounter [facility] [place] Date(s): 11/20/19 - 11/21/[address] [address]- [facility] Discharge Disposition: A-D/C Home Attending Physician: Lopez Goldsmith MD Admitting Physician: Lopez Goldsmith MD Referring Physician: Not on Staff, Referring [...] tetanus/diphtheria/pertussis, acel(Tdap) 4 01/12/11 Given 1Result Comment: [id number] 2Admin Note: FLULAVAL 3Admin Note: given w/o [...] Tot. Refills 0, Acute, Pain , Severe, 12/16/19 16:06:00 EST, 11/18/19 16:06:00 EST, Route to Pharmacy Electronically, [facility] #[id number], 160,... Start Date: 11/18/19 Stop Date: 12/16/19 Status: Ordered ProAir HFA 90 mcg/inh inhalation aerosol with adapter 2, puffs, Inhalation, 4 times a day, PRN, # 1 each, Refills 5, Tot. Refills 5, Maintenance, 11/18/19 12:52:00 EST, Aerosol, Route to Pharmacy Electronically, [id number], [facility] #[id number], 160, cm, 10/31/19 10:30:00... Start Date: 11/18/19 [...] predominant pain(Confirmed) Active 1SOAPP-R: 5 on 05/08/17 Results Radiology Reports * Exam Date Time Procedure Performing Provider Status 11/20/19 6:51 PM Chest 2 Views Frontal and Lat Kimberly Schaefer (Verified) Notes: (Chest 2 Views Frontal and Lat) Reason For Exam: Shortness of Breath RESULT: Chest 2 Views Frontal and Lat Chest 2 Views Frontal and Lat Indication: Left-sided chest discomfort. COMPARISON: 10/01/2014 FINDINGS: LINES AND TUBES: None. LUNGS AND PLEURA: Clear lungs. Normal pulmonary vascularity. No pleural effusion. No pneumothorax. HEART, MEDIASTINUM AND LINH: Heart is normal in size. Normal mediastinal and hilar contour. BONES AND SOFT TISSUES: No acute abnormality. IMPRESSION: No acute abnormality. WSN: [id number] Dictated By: Florencio Oleary MD Dictated Date/Time: 11/20/19 6:55 pm Reviewed By: Florencio Oleary MD Signed By: Florencio Oleary MD Signed Date/Time: 11/20/19 6:55 pm Transcribed By: MICHELLE Transcribed Date/Time: 11/20/19 6:54 pm Vital Signs Most recent to oldest [Reference Range]: 1 2 3 Weight 83.9 kg (11/21/19 2:52 AM) 83.9 kg (11/20/19 5:44 PM) 83.9 kg (11/20/19 5:41 PM) Oxygen Saturation [94-100 %] 100 % (11/21/19 2:52 AM) 100 % (11/21/19 12:23 AM) 100 % (11/20/19 5:41 PM) Pulse Rate [55-90 bpm] 75 bpm (11/21/19 2:52 AM) 89 bpm (11/21/19 12:23 AM) 97 bpm *H* (11/20/19 5:41 PM) Blood Pressure [90-138/55-84 mm Hg] 136/88mm Hg (11/21/19 2:52 AM) 147/98mm Hg *H* (11/21/19 1:21 AM) 154/97mm Hg *H* (11/21/19 12:23 AM) Respiratory Rate [16-30 br/min] 18 br/min (11/21/19 2:52 AM) 16 br/min (11/21/19 12:23 AM) 18 br/min (11/20/19 5:41 PM) Temperature [96.8-100.4 DegF] 97.8 DegF (11/21/19 12:23 AM) 98.1 DegF (11/20/19 5:41 PM) Mode of Delivery (Oxygen) Room air (11/21/19 2:52 AM) Room air (11/21/19 12:23 AM) Room air (11/20/19 5:41 PM) Blood pressure sites Arm, left (11/21/19 2:52 AM) Arm, right (11/21/19 12:23 AM) Arm, right (11/20/19 5:41 PM) Temperature Route Oral (11/21/19 12:23 AM) Oral (11/20/19 5:41 PM) Dry Weight 83.9 kg (11/21/19 2:52 AM) 83.9 kg (11/20/19 5:44 PM) 83.9 kg (11/20/19 5:41 PM) Weight Obtained Via Standing scale (11/20/19 5:41 PM) Dry Weight Obtained Via Standing scale (11/20/19 5:41 PM) Social History Social History Type Response Smoking Status Never smoker entered on: 02/05/14 Sex
--- OUTSIDE RECORDS SUMMARY | 2024-10-14 07:43 | XMS_ITS | Continuity of Care Document ---
Author Organization [facility] Address [address] [place] [address]- Care Team Providers Care Supervisor Incising Name Role Phone Meg Vergara MD Primary Care Physician [phone] En[place] [facility] [place] Date(s): 03/25/24 - 04/24/24 [facility] [address] [place], [place] [address] Allergies, Adverse Reactions, Alerts [...] 01/24/21 Recorded 1Result Comment: [facility] 41713-882-29 2Result Comment: [facility] [id number] 3Result Comment: [facility] 60789-775-15 Pt tolerated vaccine without inicident...NH 4Result Comment: [id number] 5Admin Note: FLULAVAL 6Admin Note: given w/o incident 7Result Comment: [facility] 16014-896-98 8Admin Note: [facility] Medications acetaminophen-oxyCODONE 325 mg-5 mg oral tablet 1, tablet, By Mouth, 2 times a day, PRN, for 28 days, # 56 tablet, Refills 0, Tot. Refills 0, Acute, Pain , Severe, 05/15/24 10:20:00 EDT, 04/17/24 10:20:00 EDT, Route to Pharmacy Electronically, [facility] #[id number] Tablet, Partial fill upon p... Start Date: 04/17/24 Stop Date: 05/15/24 Status: Ordered Albuterol (Eqv-ProAir HFA) 90 mcg/inh inhalation aerosol 2 puffs, Inhalation, 4 times a day, PRN NEEDED FOR WHEEZING OR SHORTNESS OF BREATH, # 8.5 Gm, 0 Refills, [facility] #[id number], 25, INHALE 2 PUFFS FOUR TIMES DAILY [...] 04/16/24 11:22:00 EDT, Route to Pharmacy Electronically, [facility] #[id number], Partial fill upon patient request if the [...] capsule, 1 Refills, Maintenance, 04/16/24 11:14:00 EDT, [facility] #[id number], 169, cm, 04/16/24 10:32:00 EDT, Height, 83.9, kg, 04/16/24 10:29:00 EDT, Dry Weight Start Date: 04/16/24 Status: Ordered phentermine 37.5 mg oral tablet 1 tablet = 37.5 mg, By Mouth, Daily, for 30 days, at least one hour after meals, # 30 tablet, 0 Refills, Acute 05/11/24 14:14:00 EDT, 04/11/24 14:14:00 EDT, Tablet, [facility] #[id number], Partial fill upon patient request if the [...] Team Personnel Name: Kandis Leahy RN Position: [facility] RN Member Role: Primary Care Nurse Name: Meg Vergara MD Position: [facility] Physician - Primary Care Member Role: PCP Address: Address: [address] [facility] [place] [address]- Care Team Related Persons Name: ROB KANG Name: LAUREN GOMES Address: home [address] [place] [address] Name: REGINE TREADWELL Address: home [address] [place] [address]
--- OUTSIDE RECORDS SUMMARY | 2024-10-14 07:44 | XMS_ITS | Continuity of Care Document ---
Author Organization [facility] Address [address] [place] [address]- Care Team Providers Care Supervisor Hide House Name Role Phone Meg Vergara MD Primary Care Physician [phone] Encounter [facility] Date(s): 09/03/23 - 10/03/23 [facility] [address] [place], [place] [address] Allergies, Adverse Reactions, Alerts No [...] mRNA BNT-162b2 vac 01/24/21 Recorded 1Result Comment: [facility] [id number] 2Result Comment: [facility] 71053-443-06 3Result Comment: [facility] 09795-598-51 Pt tolerated vaccine without inicident...NH 4Result Comment: [id number] 5Admin Note: FLULAVAL 6Admin Note: given w/o incident 7Result Comment: [facility] [id number] 8Admin Note: [facility] Medications acetaminophen-oxyCODONE 325 mg-5 mg oral tablet 1, tablet, By Mouth, 2 times a day, PRN, for 28 days, # 56 tablet, Refills 0, Tot. Refills 0, Acute, Pain , Severe, 10/25/23 13:36:00 EST, 09/27/23 13:36:00 EST, Route to Pharmacy Electronically, [email or web address] #[id number] Tablet, Partial fill upon p... Start Date: 09/27/23 Stop Date: 10/25/23 Status: Ordered Albuterol (Eqv-ProAir HFA) 90 mcg/inh inhalation aerosol 2 puffs, Inhalation, 4 times a day, PRN NEEDED FOR WHEEZING OR SHORTNESS OF BREATH, # 8.5 Gm, 0 Refills, [facility] #[id number], 25, INHALE 2 PUFFS FOUR TIMES DAILY NEEDED FOR WHEEZING OR SHORTNESS OF BREATH, 169, cm, 10/31/21 15:06:00 EST,... Start Date: 01/19/22 Status: Ordered amitriptyline 10 mg oral tablet 1, tablet, By Mouth, Daily at bedtime, # 30 tablet, Refills 0, Maintenance, 12/14/22 17:14:00 EST, Route to Pharmacy Electronically, [email or web address] #[id number], 169, cm, 11/08/22 14:13:00 EST, Height, 92.8, [...] 09/07/22 14:26:00 EDT, Route to Pharmacy Electronically, [facility] #[id number], Partial fill upon patient request if the prescript... Start Date: 09/07/22 Stop Date: 10/07/22 Status: Ordered omeprazole 20 mg oral enteric coated capsule 1 capsule, By Mouth, Daily, PRN NEEDED FOR INDIGESTION, # 90 capsule, 1 Refills, Maintenance, 07/13/23 13:09:00 EDT, [email or web address] #[id number], 169, cm, 02/07/23 11:17:00 EDT, Height Start [...] Name: Kandis Leahy RN Position: [facility] RN Member Role: Primary Care Nurse Name: Meg Vergara MD Position: [facility] Physician - Primary Care Member Role: PCP Address: Address: [address] [place] [address] Adult & Pediatric [address] Care Team Related Persons Name: ROB KANG Name: LAUREN GOMES Address: home [address] [place] [id number] Name: REGINE TREADWELL Address: home [address] [place] [address]
--- OUTSIDE RECORDS SUMMARY | 2024-10-14 07:44 | XMS_ITS | Continuity of Care Document ---
Author Organization [facility] Address [address] [place] [address]- Care Team Providers Care Pick Up Attendant Name Role Phone Ursula BURCH, Meg Bains Primary Care Physician Encounter [facility] Date(s): 05/17/20 - 06/16/20 [facility] [address] [place] [address]- [facility] Allergies, Adverse Reactions, Alerts Substance [...] tetanus/diphtheria/pertussis, acel(Tdap) 4 01/12/11 Given 1Result Comment: [id number] 2Admin Note: FLULAVAL 3Admin Note: given w/o [...] 02/20/20 9:33:00 EDT, Route to Pharmacy Electronically, [facility] #[id number], 160, cm, 01/16/20 11:09:00 EST, Height, 83.9, [...] 12:52:00 EST, Aerosol, Route to Pharmacy Electronically, [id number], [facility] #[id number], 160, cm, 10/31/19 10:30:00... Start Date: 11/18/19 [...]
--- OUTSIDE RECORDS SUMMARY | 2024-10-14 07:44 | XMS_ITS | Continuity of Care Document ---
Author Organization [facility] Address [address] [place] [address]- Care Team Providers Care Assistant Quality Manager Name Role Phone Meg Vergara MD Primary Care Physician Encounter [facility] Date(s): 08/14/21 - 09/13/21 [facility] [address] [place], [place] [address] Allergies, Adverse Reactions, Alerts Substance Reaction [...] tetanus/diphtheria/pertussis, acel(Tdap) 5 01/12/11 Given 1Result Comment: [facility] 35995-012-09 Pt tolerated vaccine without inicident...NH 2Result Comment: [id number] 3Admin Note: FLULAVAL 4Admin Note: given w/o incident 5Admin Note: [facility] Medications acetaminophen-oxyCODONE 325 mg-5 mg oral tablet 1, tablet, By Mouth, 2 times a day, PRN, may fill for less for 28 days, # 56 tablet, Refills 0, Tot. Refills 0, Acute, Pain , Severe, 09/30/21 9:57:00 EST, 09/02/21 9:57:00 EDT, Route to Pharmacy Electronically, [facility] #[id number] Tablet,... Start Date: 09/02/21 Stop Date: 09/30/21 Status: Ordered Aimovig SureClick Autoinjector-aooe 140 mg/mL subcutaneous solution 0 Refills, Maintenance, 09/05/19 11:33:37 EDT Start Date: 09/05/19 Status: Ordered omeprazole 20 mg oral enteric coated capsule 1 capsule = 20 mg, By Mouth, Daily, PRN Dyspepsia, # 30 capsule, 2 Refills, Maintenance, 08/08/21 9:43:00 EDT, [facility] #[id number], 169, cm, 08/08/21 9:22:00 EDT, Height, 92.8, kg, 05/12/21 16:58:00 EDT, Dry Weight Start Date: 08/08/21 Stop Date: 11/06/21 Status: Ordered ProAir HFA 90 mcg/inh inhalation aerosol with adapter 2, puffs, Inhalation, 4 times a day, PRN, # 1 each, Refills 2, Tot. Refills 2, Maintenance, 12/23/20 15:08:00 EST, Aerosol, Route to Pharmacy Electronically, [id number], [facility] #[id number], 160, cm, 12/17/20 10:53:00... Start Date: 12/23/20 [...]
--- OUTSIDE RECORDS SUMMARY | 2024-10-14 07:44 | XMS_ITS | Continuity of Care Document ---
Author Organization [facility] Address [address] [place] [address]- Care Team Providers Care Websphere Consultant Name Role Phone Meg Vergara MD Primary Care Physician [phone] Encounter [facility] [place] Date(s): 02/19/23 - 03/21/23 [facility] [address] [place], [place] [address] Attending Physician: AdmGhazala pena Admitting Physician: AdmtrGhazala [...] 1Result Comment: [facility] 17395-046-30 2Result Comment: [facility] 89279-247-32 Pt tolerated vaccine without inicident...NH 3Result Comment: [id number] 4Admin Note: FLULAVAL 5Admin Note: given w/o incident 6Result Comment: [facility] 14221-427-35 7Admin Note: [facility] Medications acetaminophen-oxyCODONE 325 mg-5 mg oral tablet 1, tablet, By Mouth, 2 times a day, PRN, for 28 days, # 56 tablet, Refills 0, Tot. Refills 0, Acute, Pain , Severe, 04/05/23 15:37:00 EDT, 03/08/23 15:37:00 EDT, Route to Pharmacy Electronically, [facility] #[id number] Tablet, Partial fill upon p... Start Date: 03/08/23 Stop Date: 04/05/23 Status: Ordered Albuterol (Eqv-ProAir HFA) 90 mcg/inh inhalation aerosol 2 puffs, Inhalation, 4 times a day, PRN NEEDED FOR WHEEZING OR SHORTNESS OF BREATH, # 8.5 Gm, 0 Refills, [facility] #[id number], 25, INHALE 2 PUFFS FOUR TIMES DAILY NEEDED FOR WHEEZING OR SHORTNESS OF BREATH, 169, cm, 10/31/21 15:06:00 EST,... Start Date: 01/19/22 Status: Ordered amitriptyline 10 mg oral tablet 1, tablet, By Mouth, Daily at bedtime, # 30 tablet, Refills 0, Maintenance, 12/14/22 17:14:00 EST, Route to Pharmacy Electronically, [facility] #[id number], 169, cm, 11/08/22 14:13:00 EST, Height, 92.8, [...] 09/07/22 14:26:00 EDT, Route to Pharmacy Electronically, [facility] #[id number], Partial fill upon patient request if the prescript... Start Date: 09/07/22 Stop Date: 10/07/22 Status: Ordered omeprazole 20 mg oral enteric coated capsule 1 capsule, By Mouth, Daily, PRN NEEDED FOR INDIGESTION, # 90 capsule, 1 Refills, Maintenance, 11/08/22 15:02:00 EST, [facility] #[id number], 169, cm, 11/08/22 14:13:00 EST, Height, 92.8, [...] * Event Display: X-Ray Shoulder Authored Date: XR Knee Views * Event Display: X-Ray Knee Authored Date: Radiology * Event Display: X-Ray Hip/Groin Authored Date: * Juan, Fannie: PERFORM Event Display: Radiology Results Scanned Authored Date: [id number] Patient Care team information Care Team Personnel Name: Kandis Leahy RN Position: [facility] SN RN Member Role: Primary Care Nurse Name: Meg Vergara MD Position: [facility] Primary Care Physician Member Role: PCP Address: Address: [address] [place] [address] [place] [address]- Care Team Related Persons Name: ROB KANG Name: LAUREN GOMES Address: [address] [place] [address] Name: REGINE TREADWELL Address: [address] [place] [address]
--- OUTSIDE RECORDS SUMMARY | 2024-10-14 07:44 | XMS_ITS | Continuity of Care Document ---
Author Organization [facility] Address [address] [place] [address]- Care Team Providers Care Cooling Room Attendant Name Role Phone Meg Vergara MD Primary Care Physician Encounter [facility] [place] Date(s): 12/07/20 - 01/06/21 [facility] [address] [place], [place] [address] Allergies, Adverse Reactions, Alerts Substance [...] tetanus/diphtheria/pertussis, acel(Tdap) 5 01/12/11 Given 1Result Comment: [facility] 44964-467-96 Pt tolerated vaccine without inicident...NH 2Result Comment: [id number] 3Admin Note: FLULAVAL 4Admin Note: given w/o incident 5Admin Note: [facility] Medications acetaminophen-oxyCODONE 325 mg-5 mg oral tablet 1, tablet, By Mouth, 2 times a day, PRN, may fill for less for 28 days, # 56 tablet, Refills 0, Tot. Refills 0, Acute, Pain , Severe, 01/31/21 12:29:00 EDT, 01/03/21 12:29:00 EST, Route to Pharmacy Electronically, [facility] #[id number] Tablet... Start Date: 01/03/21 Stop Date: 01/31/21 Status: Ordered [facility] SureClick Autoinjector-aooe 140 mg/mL [...] 15:08:00 EST, Aerosol, Route to Pharmacy Electronically, [id number], [facility] #[id number], 160, cm, 12/17/20 10:53:00... Start Date: 12/23/20 [...]
--- OUTSIDE RECORDS SUMMARY | 2024-10-14 07:44 | XMS_ITS | Continuity of Care Document ---
Author Organization [facility] Address [address] [place] [address]- Care Team Providers Care Trackman Name Role Phone Meg Vergara MD Primary Care Physician [phone] [place] [facility] [place] 11/05/22 - 12/05/22 [facility] [address] [place], [place] [address] Allergies, Adverse Reactions, [...] BNT-162b2 vac 01/24/21 Recorded 1Result Comment: [facility] 39665-364-48 2Result Comment: [facility] 38151-680-96 Pt tolerated vaccine without inicident...NH 3Result Comment: [id number] 4Admin Note: FLULAVAL 5Admin Note: given w/o incident 6Result Comment: [facility] 22283-154-96 7Admin Note: [facility] Medications acetaminophen-oxyCODONE 325 mg-5 mg oral tablet 1, tablet, By Mouth, 2 times a day, PRN, for 28 days, # 56 tablet, Refills 0, Tot. Refills 0, Acute, Pain , Severe, 12/07/22 15:58:00 EST, 11/09/22 15:58:00 EST, Route to Pharmacy Electronically, [email or web address] #[id number] Tablet, Partial fill upon p... Start Date: 11/09/22 Stop Date: 12/07/22 Status: Ordered Albuterol (Eqv-ProAir HFA) 90 mcg/inh inhalation aerosol 2 puffs, Inhalation, 4 times a day, PRN NEEDED FOR WHEEZING OR SHORTNESS OF BREATH, # 8.5 Gm, 0 Refills, [email or web address] #[id number], 25, INHALE 2 PUFFS FOUR TIMES DAILY NEEDED FOR WHEEZING OR SHORTNESS OF BREATH, 169, cm, 10/31/21 15:06:00 EST,... Start Date: 01/19/22 Status: Ordered amitriptyline 10 mg oral tablet 10 mg, 1, tablet, By Mouth, Daily at bedtime, # 30 tablet, Refills 0, Tot. Refills 0, Maintenance, 11/08/22 15:03:00 EST, Route to Pharmacy Electronically, [email or web address] #[id number], Partial fill upon patient request if the [...] 09/07/22 14:26:00 EDT, Route to Pharmacy Electronically, [email or web address] #05690, Partial fill upon patient request if the prescript... Start Date: 09/07/22 Stop Date: 10/07/22 Status: Ordered omeprazole 20 mg oral enteric coated capsule 1 capsule, By Mouth, Daily, PRN NEEDED FOR INDIGESTION, # 90 capsule, 1 Refills, Maintenance, 11/08/22 15:02:00 EST, [id number], 169, cm, 11/08/22 14:13:00 EST, Height, 92.8, [...] Name: Kandis Leahy RN Position: [facility] RN Member Role: Primary Care Nurse Name: Meg Vergara MD Position: [facility] Primary Care Physician Member Role: PCP Address: Address: [address] [place] [address] Adult & Pediatric [address] Care Team Related Persons Name: ROB KAGN Name: LAUREN GOMES Address: [address] [place] [address] Name: REGINE TREADWELL Address: [address] [place] [address]
--- OUTSIDE RECORDS SUMMARY | 2024-10-14 07:44 | XMS_ITS | Continuity of Care Document ---
Author Organization [facility] Address [address] [place] [address]- Care Team Providers Care Bilingual Speech Language Pathologist Name Role Phone Meg Vergara MD Primary Care Physician [phone] Encounter [facility] Date(s): 01/11/24 - 02/10/24 [facility] [address] [place], [place] [address] Allergies, Adverse Reactions, Alerts [...] mRNA BNT-162b2 vac 01/24/21 Recorded 1Result Comment: [facility] [id number] 2Result Comment: [facility] [id number] 3Result Comment: [facility] 70570-534-52 Pt tolerated vaccine without inicident...NH 4Result Comment: [id number] 5Admin Note: FLULAVAL 6Admin Note: given w/o incident 7Result Comment: [facility] 77398-055-05 8Admin Note: [facility] Medications Albuterol (Eqv-ProAir HFA) 90 mcg/inh inhalation aerosol 2 puffs, Inhalation, 4 times a day, PRN NEEDED FOR WHEEZING OR SHORTNESS OF BREATH, # 8.5 Gm, 0 Refills, [facility] #[id number], 25, INHALE 2 PUFFS FOUR TIMES DAILY NEEDED FOR WHEEZING OR SHORTNESS OF BREATH, 169, cm, 10/31/21 15:06:00 EST,... Start Date: 01/19/22 Status: Ordered amitriptyline 10 mg oral tablet 1, tablet, By Mouth, Daily at bedtime, # 30 tablet, Refills 0, Maintenance, 12/14/22 17:14:00 EST, Route to Pharmacy Electronically, [facility] #[id number], 169, cm, 11/08/22 14:13:00 EST, Height, 92.8, [...] 10/22/23 12:37:00 EST, Route to Pharmacy Electronically, [facility] #[id number], Partial fill upon patient request if the prescript... Start Date: 10/22/23 Stop Date: 11/21/23 Status: Ordered omeprazole 20 mg oral enteric coated capsule 1 capsule, By Mouth, Daily, PRN NEEDED FOR INDIGESTION, # 90 capsule, 0 Refills, Maintenance, 01/18/24 18:31:00 EST, [facility] #[id number], 169, cm, 10/22/23 12:21:00 EST, Height, 83, kg, 10/22/23 12:21:00 EST, Dry Weight Start Date: 01/18/24 Status: Ordered sucralfate 1 gm/10 ml oral suspension 10 mL = 1 Gm, By Mouth, 3 times a day before meals and bedtime, # 280 mL, 0 Refills, Maintenance, 10/22/23 12:37:00 EST, [facility] #[id number], Partial fill upon patient request if the [...] 0 Refills, Maintenance, 10/19/23 14:39:00 EST, Tablet, [facility] #[id number], Partial fill upon patient request if the [...] Care team information Care Team Personnel Name: Meg Vergara MD Position: S Physician - Primary Care Member Role: PCP Address: Address: [address] [facility] [place] [address]- Care Team Related Persons Name: ROB KANG Name: LAUREN GOMES Address: home [address] [place] [address] Name: REGINE TREADWELL Address: [address] [place] [address]
--- OUTSIDE RECORDS SUMMARY | 2024-10-14 07:44 | XMS_ITS | Continuity of Care Document ---
Author Organization [facility] Address [address] [place] [address]- Care Team Providers Care Operation Supervisor Name Role Phone Meg Vergara MD Primary Care Physician [phone] Encounter [facility] Date(s): 12/19/23 - 12/26/23 [facility] [address] [place] [address]- Encounter Diagnosis Overweight (BMI 25.0-29.9)(Discharge Diagnosis) - 12/19/23 Arthritis of knee(Discharge Diagnosis) - 12/19/23 Contact dermatitis(Discharge Diagnosis) - 12/19/23 Attending Physician: Donna Castillo MD Referring Physician: Meg Vergara MD Allergies, [...] 1Result Comment: [facility] [phone] 2Result Comment: [facility] 90606-053-95 3Result Comment: [facility] 29754-771-42 Pt tolerated vaccine without inicident...NH 4Result Comment: [id number] 5Admin Note: FLULAVAL 6Admin Note: given w/o incident 7Result Comment: [facility] [id number] 8Admin Note: [employer] [facility] Medications acetaminophen-oxyCODONE 325 mg-5 mg oral tablet 1, tablet, By Mouth, 2 times a day, PRN, for 28 days, # 56 tablet, Refills 0, Tot. Refills 0, Acute, Pain , Severe, 01/17/24 17:02:00 EST, 12/20/23 17:02:00 EST, Route to Pharmacy Electronically, [facility] #[id number] Tablet, Partial fill upon p... Start Date: 12/20/23 Stop Date: 01/17/24 Status: Ordered Albuterol (Eqv-ProAir HFA) 90 mcg/inh inhalation aerosol 2 puffs, Inhalation, 4 times a day, PRN NEEDED FOR WHEEZING OR SHORTNESS OF BREATH, # 8.5 Gm, 0 Refills, [facility] #[id number], 25, INHALE 2 PUFFS FOUR TIMES DAILY NEEDED FOR WHEEZING OR SHORTNESS OF BREATH, 169, cm, 10/31/21 15:06:00 EST,... Start Date: 01/19/22 Status: Ordered amitriptyline 10 mg oral tablet 1, tablet, By Mouth, Daily at bedtime, # 30 tablet, Refills 0, Maintenance, 12/14/22 17:14:00 EST, Route to Pharmacy Electronically, [facility] #[id number], 169, cm, 11/08/22 14:13:00 EST, Height, 92.8, [...] 10/22/23 12:37:00 EST, Route to Pharmacy Electronically, [facility] #[id number], Partial fill upon patient request if the prescript... Start Date: 10/22/23 Stop Date: 11/21/23 Status: Ordered omeprazole 20 mg oral enteric coated capsule 1 capsule, By Mouth, Daily, PRN NEEDED FOR INDIGESTION, # 90 capsule, 1 Refills, Maintenance, 07/13/23 13:09:00 EDT, [facility] #[id number], 169, cm, 02/07/23 11:17:00 EDT, Height Start [...] mL, 0 Refills, Maintenance, 10/22/23 12:37:00 EST, [facility] #26174, Partial fill upon patient request if the [...] 01/02/24 13:56:00 EST, 12/19/23 13:56:00 EST, Cream, [facility] #[id number], Partial fill upon patient re... Start Date: 12/19/23 Stop Date: 01/02/24 Status: Ordered Wegovy (0.25 mg dose) subcutaneous solution = 0.25 mg, Subcutaneous Injection, Every week, for 4 week(s), in the abdomen, thigh, or upper arm, # 2 mL, 0 Refills, Acute 01/18/24 9:58:00 EST, 12/21/23 9:58:00 EST, Solution, [facility] #[id number], Partial fill upon patient request if the pre... Start Date: 12/21/23 Stop Date: 01/18/24 Status: Ordered Zithromax Z-Nash 250 mg oral tablet See Instructions, as directed on package labeling, # 6 tablet, 0 Refills, Maintenance, 10/19/23 14:39:00 EST, Tablet, [facility] #03311, Partial fill upon patient request if the [...] Effective Dates Health Status Clinical Service Informant Overweight (BMI 25.0-29.9) Discharge Diagnosis 12/19/23 Arthritis of knee Discharge Diagnosis 12/19/23 Contact dermatitis Discharge Diagnosis 12/19/23 Social History Social History Type Response Smoking Status Never smoker entered on: 02/05/14 Sex Patient Care team information Care Team Personnel Name: Meg Vergara MD Position: S Physician - Primary Care Member Role: PCP Address: Address: [address] [place] [address] Adult & [place] [address]- Care Team Related Persons Name: ROB KANG Name: LAUREN GOMES Address: [address] [address] Name: REGINE TREADWELL Address: [address] [place] [address]
--- OUTSIDE RECORDS SUMMARY | 2024-10-14 07:44 | XMS_ITS | Continuity of Care Document ---
Author Organization [facility] Address [address] [place] [address]- Care Team Providers Care Trapper Animal Name Role Phone Meg Vergara MD Primary Care Physician [phone] Encounter [facility] Date(s): 03/24/21 - 04/23/21 [facility] [address] [place], [place] [address] Allergies, Adverse Reactions, Alerts Substance [...] acel(Tdap) 5 01/12/11 Given 1Result Comment: [facility] [id number] Pt tolerated vaccine without inicident...NH 2Result Comment: [id number] 3Admin Note: FLULAVAL 4Admin Note: given w/o incident 5Admin Note: [employer] Medications acetaminophen-oxyCODONE 325 mg-5 mg oral tablet 1, tablet, By Mouth, 2 times a day, PRN, may fill for less for 28 days, # 56 tablet, Refills 0, Tot. Refills 0, Acute, Pain , Severe, 05/05/21 16:01:00 EDT, 04/07/21 16:01:00 EDT, Route to Pharmacy Electronically, [facility] #[id number] Tablet... Start Date: 04/07/21 Stop Date: 05/05/21 Status: Ordered [employer] SureClick Autoinjector-aooe 140 mg/mL [...] 15:08:00 EST, Aerosol, Route to Pharmacy Electronically, [id number], [facility] #[id number], 160, cm, 12/17/20 10:53:00... Start Date: 12/23/20 [...]
--- OUTSIDE RECORDS SUMMARY | 2024-10-14 07:44 | XMS_ITS | Continuity of Care Document ---
Author Organization [facility] Address [address] [place] [address]- Care Team Providers Care Banquet Houseperson Name Role Phone Meg Vergara MD Primary Care Physician [phone] Encounter [facility] Date(s): 05/23/24 - 06/22/24 [facility] [address] [place], [place] [address] Allergies, Adverse Reactions, Alerts No [...] vac 01/24/21 Recorded 1Result Comment: [facility] 08540-222-42 2Result Comment: [facility] 95443-277-02 3Result Comment: [facility] 44467-018-47 Pt tolerated vaccine without inicident...NH 4Result Comment: [id number] 5Admin Note: FLULAVAL 6Admin Note: given w/o incident 7Result Comment: [facility] 96920-786-28 8Admin Note: [employer] [facility] Medications acetaminophen-oxyCODONE 325 mg-5 mg oral tablet 1, tablet, By Mouth, 2 times a day, PRN, for 28 days, # 56 tablet, Refills 0, Tot. Refills 0, Acute, Pain , Severe, 07/15/24 15:39:00 EDT, 06/17/24 15:39:00 EDT, Route to Pharmacy Electronically, [facility] #[id number] Tablet, Partial fill upon p... Start Date: 06/17/24 Stop Date: 07/15/24 Status: Ordered Albuterol (Eqv-ProAir HFA) 90 mcg/inh inhalation aerosol 2 puffs, Inhalation, 4 times a day, PRN NEEDED FOR WHEEZING OR SHORTNESS OF BREATH, # 8.5 Gm, 0 Refills, [facility] #18109, 25, INHALE 2 PUFFS FOUR TIMES DAILY [...] capsule, 1 Refills, Maintenance, 04/16/24 11:14:00 EDT, [facility] #[id number], 169, cm, 04/16/24 10:32:00 EDT, Height, 83.9, kg, 04/16/24 10:29:00 EDT, Dry Weight Start Date: 04/16/24 Status: Ordered omeprazole 20 mg oral enteric coated capsule 1 capsule, By Mouth, Daily, PRN NEEDED FOR INDIGESTION, # 90 capsule, 3 Refills, Maintenance, 05/30/24 16:14:00 EDT, [facility] #[id number], 160, cm, 05/30/24 15:48:00 EDT, Height, 81, [...] Care Nurse Name: Anita Hemphill RN Position: Nara RN Member Role: Primary Care Nurse Name: Meg Vergara MD Position: [facility] Physician - Primary Care Member Role: PCP Address: Address: [address] [place] [address] Adult & [place] [address]- Care Team Related Persons Name: ROB KANG Name: LAUREN GOMES Address: [address] [place] [address] Name: REGINE TREADWELL Address: [address] [place] [address]
--- OUTSIDE RECORDS SUMMARY | 2024-10-14 07:44 | XMS_ITS | Continuity of Care Document ---
Author Organization [facility] Address [address] [place] [address]- Care Team Providers Care Information Coder Name Role Phone Ursula BURCH, Meg Bains Primary Care Physician [phone] Encounter [facility] Date(s): 06/16/20 - 07/16/20 [facility] [address] [place] [address]- [facility] Allergies, Adverse Reactions, Alerts Substance Reaction [...] tetanus/diphtheria/pertussis, acel(Tdap) 4 01/12/11 Given 1Result Comment: [id number] 2Admin Note: FLULAVAL 3Admin Note: given w/o incident 4Admin Note: [facility] Medications acetaminophen-oxyCODONE 325 mg-5 mg oral tablet 1, tablet, By Mouth, 2 times a day, PRN, may fill for less for 28 days, # 56 tablet, Refills 0, Tot. Refills 0, Acute, Pain , Severe, 08/12/20 16:57:00 EDT, 07/15/20 16:57:00 EDT, Route to Pharmacy Electronically, [facility] #[id number] Tablet... Start Date: 07/15/20 Stop Date: 08/12/20 Status: Ordered [facility] SureClick Autoinjector-aooe 140 mg/mL [...] 02/20/20 9:33:00 EDT, Route to Pharmacy Electronically, [facility] #[id number], 160, cm, 01/16/20 11:09:00 EST, Height, 83.9, [...] 12:52:00 EST, Aerosol, Route to Pharmacy Electronically, [id number], [facility] #[id number], 160, cm, 10/31/19 10:30:00... Start Date: 11/18/19 [...]
--- OUTSIDE RECORDS SUMMARY | 2024-10-14 07:44 | XMS_ITS | Continuity of Care Document ---
Author Organization [facility] Address [address] [place] [address]- Care Team Providers Care Substitute Teacher Name Role Phone Meg Vergara MD Primary Care Physician Encounter [facility] Date(s): 03/08/20 - 04/16/20 [facility] [address] [place] [address] [facility] Attending Physician: Callie West MD Admitting Physician: Callie West MD Referring Physician: Meg Vergara MD Allergies, [...] tetanus/diphtheria/pertussis, acel(Tdap) 4 01/12/11 Given 1Result Comment: [id number] 2Admin Note: FLULAVAL 3Admin Note: given w/o incident 4Admin Note: [facility] Medications acetaminophen-oxyCODONE 325 mg-5 mg oral tablet 1, tablet, By Mouth, 2 times a day, PRN, may fill for less for 28 days, # 56 tablet, Refills 0, Tot. Refills 0, Acute, Pain , Severe, 04/20/20 10:44:00 EDT, 03/23/20 10:44:00 EDT, Route to Pharmacy Electronically, [facility] #[id number] Tablet... Start Date: 03/23/20 Stop Date: 04/20/20 [...] 02/20/20 9:33:00 EDT, Route to Pharmacy Electronically, [facility] #[id number], 160, cm, 01/16/20 11:09:00 EST, Height, 83.9, [...] 12:52:00 EST, Aerosol, Route to Pharmacy Electronically, [id number], [facility] #[id number], 160, cm, 10/31/19 10:30:00... Start Date: 11/18/19 [...]
--- OUTSIDE RECORDS SUMMARY | 2024-10-14 07:44 | XMS_ITS | Continuity of Care Document ---
Author Organization [facility] Address [address] [place] [address]- Care Team Providers Care Mixer Diamond Powder Name Role Phone Meg Vergara MD Primary Care Physician [phone] Encounter [facility] Date(s): 10/23/22 - 11/22/22 [facility] [address] [place], [place] [address] Allergies, Adverse Reactions, Alerts No Known [...] BNT-162b2 vac 01/24/21 Recorded 1Result Comment: [facility] 60126-230-16 2Result Comment: [facility] 3[facility] 71886-921-90 Pt tolerated vaccine without inicident...NH 3Result Comment: [id number] 4Admin Note: FLULAVAL 5Admin Note: given w/o incident 6Result Comment: [facility][NOTE 3] 52256-242-29 7Admin Note: [facility] Medications acetaminophen-oxyCODONE 325 mg-5 mg oral tablet 1, tablet, By Mouth, 2 times a day, PRN, for 28 days, # 56 tablet, Refills 0, Tot. Refills 0, Acute, Pain , Severe, 12/07/22 15:58:00 EST, 11/09/22 15:58:00 EST, Route to Pharmacy Electronically, [facility] #[id number] Tablet, Partial fill upon p... Start Date: 11/09/22 Stop Date: 12/07/22 Status: Ordered Albuterol (Eqv-ProAir HFA) 90 mcg/inh inhalation aerosol 2 puffs, Inhalation, 4 times a day, PRN NEEDED FOR WHEEZING OR SHORTNESS OF BREATH, # 8.5 Gm, 0 Refills, [facility] #22814, 25, INHALE 2 PUFFS FOUR TIMES DAILY NEEDED FOR WHEEZING OR SHORTNESS OF BREATH, 169, cm, 10/31/21 15:06:00 EST,... Start Date: 01/19/22 Status: Ordered amitriptyline 10 mg oral tablet 10 mg, 1, tablet, By Mouth, Daily at bedtime, # 30 tablet, Refills 0, Tot. Refills 0, Maintenance, 11/08/22 15:03:00 EST, Route to Pharmacy Electronically, [facility] #[id number], Partial fill upon patient request if the [...] 09/07/22 14:26:00 EDT, Route to Pharmacy Electronically, [facility] #47581, Partial fill upon patient request if the prescript... Start Date: 09/07/22 Stop Date: 10/07/22 Status: Ordered omeprazole 20 mg oral enteric coated capsule 1 capsule, By Mouth, Daily, PRN NEEDED FOR INDIGESTION, # 90 capsule, 1 Refills, Maintenance, 11/08/22 15:02:00 EST, [facility] #48739, 169, cm, 11/08/22 14:13:00 EST, Height, 92.8, [...] MD Position: [facility] Primary Care Physician Member Role: PCP Address: Address: [address] [place] [address] Adult [address] Care Team Related Persons Name: ROB KANG Name: LAUREN GOMES Address: [address] [place] [address] Name: REGINE TREADWELL Address: [address] [place] [address]
--- OUTSIDE RECORDS SUMMARY | 2024-10-14 07:44 | XMS_ITS | Continuity of Care Document ---
Author Organization [facility] Address [address] [place] [address]- Care Team Providers Care Sports Internship Name Role Phone Meg Vergara MD Primary Care Physician Encounter [facility] Date(s): 01/30/23 - 03/01/23 [facility] [address] [place], [place] [address] Allergies, Adverse Reactions, Alerts No [...] Recorded 1Result Comment: [facility] 97199-722-76 2Result Comment: [facility] 85010-578-85 Pt tolerated vaccine without inicident...NH 3Result Comment: [id number] 4Admin Note: FLULAVAL 5Admin Note: given w/o incident 6Result Comment: [facility] 85660-796-79 7Admin Note: [facility] Medications acetaminophen-oxyCODONE 325 mg-5 mg oral tablet 1, tablet, By Mouth, 2 times a day, PRN, for 28 days, # 56 tablet, Refills 0, Tot. Refills 0, Acute, Pain , Severe, 03/07/23 16:43:00 EDT, 02/07/23 16:43:00 EDT, Route to Pharmacy Electronically, [facility] #[id number] Tablet, Partial fill upon p... Start Date: 02/07/23 Stop Date: 03/07/23 Status: Ordered Albuterol (Eqv-ProAir HFA) 90 mcg/inh inhalation aerosol 2 puffs, Inhalation, 4 times a day, PRN NEEDED FOR WHEEZING OR SHORTNESS OF BREATH, # 8.5 Gm, 0 Refills, [facility] #04147, 25, INHALE 2 PUFFS FOUR TIMES DAILY NEEDED FOR WHEEZING OR SHORTNESS OF BREATH, 169, cm, 10/31/21 15:06:00 EST,... Start Date: 01/19/22 Status: Ordered amitriptyline 10 mg oral tablet 1, tablet, By Mouth, Daily at bedtime, # 30 tablet, Refills 0, Maintenance, 12/14/22 17:14:00 EST, Route to Pharmacy Electronically, [facility] #78525, 169, cm, 11/08/22 14:13:00 EST, Height, 92.8, [...] 09/07/22 14:26:00 EDT, Route to Pharmacy Electronically, [facility] #63440, Partial fill upon patient request if the prescript... Start Date: 09/07/22 Stop Date: 10/07/22 Status: Ordered ibuprofen 600 mg oral tablet 600 mg, 1, tablet, By Mouth, 3 times a day, # 42 tablet, Refills 0, Tot. Refills 0, Acute 03/10/23 12:03:00 EDT, 02/07/23 12:02:00 EDT, Route to Pharmacy Electronically, [facility] #[id number], Partial fill upon patient request if the prescriptio... Start Date: 02/07/23 Stop Date: 03/10/23 Status: Ordered omeprazole 20 mg oral enteric coated capsule 1 capsule, By Mouth, Daily, PRN NEEDED FOR INDIGESTION, # 90 capsule, 1 Refills, Maintenance, 11/08/22 15:02:00 EST, [facility] #[id number], 169, cm, 11/08/22 14:13:00 EST, Height, 92.8, [...] Team Personnel Name: Kandis Leahy RN Position: [facility] RN Member Role: Primary Care Nurse Name: Meg Vergara MD Position: [facility] Primary Care Physician Member Role: PCP Address: Address: [address] [place] [address] Adult & [place] [address]- Care Team Related Persons Name: ROB KANG Name: LAUREN GOMES Address: [address] [place] [address] Name: REGINE TREADWELL Address: [address] [place] [address]
--- OUTSIDE RECORDS SUMMARY | 2024-10-14 07:44 | XMS_ITS | Continuity of Care Document ---
Author Organization [facility] Address [address] [place] [address]- Care Team Providers Care Headlight Adjuster Name Role Phone Ursula BURCH, Meg Bains Primary Care Physician Encounter [facility] Date(s): 08/15/22 - 10/13/22 [facility] [address] [place] [address] Attending Physician: Callie West MD Admitting Physician: [...] Comment: [facility] 83116-944-44 2Result Comment: [facility] 69848-160-82 Pt tolerated vaccine without inicident...NH 3Result Comment: [id number] 4Admin Note: FLULAVAL 5Admin Note: given w/o incident 6Result Comment: [facility] [id number] 7Admin Note: [facility] Medications acetaminophen-oxyCODONE 325 mg-5 mg oral tablet 1, tablet, By Mouth, 2 times a day, PRN, for 28 days, # 56 tablet, Refills 0, Tot. Refills 0, Acute, Pain , Severe, 11/09/22 12:50:00 EST, 10/12/22 12:50:00 EST, Route to Pharmacy Electronically, [facility] #[id number] Tablet, Partial fill upon p... Start Date: 10/12/22 Stop Date: 11/09/22 Status: Ordered [employer]ig SureClick Autoinjector-aooe 140 mg/mL subcutaneous solution 0 Refills, Maintenance, 09/05/19 11:33:37 EDT Start Date: 09/05/19 Status: Ordered Albuterol (Eqv-ProAir HFA) 90 mcg/inh inhalation aerosol 2 puffs, Inhalation, 4 times a day, PRN NEEDED FOR WHEEZING OR SHORTNESS OF BREATH, # 8.5 Gm, 0 Refills, [facility] #68594, 25, INHALE 2 PUFFS FOUR TIMES DAILY [...] 09/07/22 14:26:00 EDT, Route to Pharmacy Electronically, [facility] #[id number], Partial fill upon patient request if the [...] capsule, 1 Refills, Maintenance, 09/13/22 18:38:00 EDT, [facility] #17126, 169, cm, 09/07/22 13:52:00 EDT, Height, 92.8, [...] Nurse Name: Ursula BURCH, Meg Bains Position: [facility] Primary Care Physician Member Role: PCP Address: Address: [address] [place] [address] Adult & [place] [address]- Care Team Related Persons Name: ROB KANG Name: LAUREN GOMES Address: [address] [place] [address] Name: REGINE TREADWELL Address: [address] [place] [address]
--- OUTSIDE RECORDS SUMMARY | 2024-10-14 07:44 | XMS_ITS | Continuity of Care Document ---
Author Organization [facility] Address [address] [place] [address]- Care Team Providers Care Accountancy Professor Name Role Phone Meg Vergara MD Primary Care Physician [phone] [facility] Date[facility]): 12/05/22 - 01/04/23 [facility] [address] [place], [place] [address] Allergies, Adverse Reactions, Alerts No [...] Recorded 1Result Comment: [facility] [id number] 2Result Comment: [facility] 08374-971-74 Pt tolerated vaccine without inicident...NH 3Result Comment: [id number] 4Admin Note: FLULAVAL 5Admin Note: given w/o incident 6Result Comment: [facility] 07187-282-91 7Admin Note: [employer] Medications acetaminophen-oxyCODONE 325 mg-5 mg oral tablet 1, tablet, By Mouth, 2 times a day, PRN, for 28 days, # 56 tablet, Refills 0, Tot. Refills 0, Acute, Pain , Severe, 02/01/23 10:46:00 EDT, 01/04/23 10:46:00 EST, Route to Pharmacy Electronically, [facility] #[id number] Tablet, Partial fill upon p... Start Date: 01/04/23 Stop Date: 02/01/23 Status: Ordered Albuterol (Eqv-ProAir HFA) 90 mcg/inh inhalation aerosol 2 puffs, Inhalation, 4 times a day, PRN NEEDED FOR WHEEZING OR SHORTNESS OF BREATH, # 8.5 Gm, 0 Refills, [facility] #[id number], 25, INHALE 2 PUFFS FOUR TIMES DAILY NEEDED FOR WHEEZING OR SHORTNESS OF BREATH, 169, cm, 10/31/21 15:06:00 EST,... Start Date: 01/19/22 Status: Ordered amitriptyline 10 mg oral tablet 1, tablet, By Mouth, Daily at bedtime, # 30 tablet, Refills 0, Maintenance, 12/14/22 17:14:00 EST, Route to Pharmacy Electronically, [facility] #[id number], 169, cm, 11/08/22 14:13:00 EST, Height, 92.8, [...] 09/07/22 14:26:00 EDT, Route to Pharmacy Electronically, [facility] #[id number], Partial fill upon patient request if the prescript... Start Date: 09/07/22 Stop Date: 10/07/22 Status: Ordered omeprazole 20 mg oral enteric coated capsule 1 capsule, By Mouth, Daily, PRN NEEDED FOR INDIGESTION, # 90 capsule, 1 Refills, Maintenance, 11/08/22 15:02:00 EST, [facility] #[id number], 169, cm, 11/08/22 14:13:00 EST, Height, 92.8, [...] Care Physician Member Role: PCP Address: Address: [address] [place] [address] Adult & [place] [address]- [place] Care Team Related Persons Name: ROB KANG Name: LAUREN GOMES Address: [address] [address] Name: REGINE TREADWELL Address: home [address] [place] [address]
--- OUTSIDE RECORDS SUMMARY | 2024-10-14 07:44 | XMS_ITS | Continuity of Care Document ---
Author Organization [facility] Address [address] [place] [address]- Care Team Providers Care Retail Marketing Coordinator Name Role Phone Meg Vergara MD Primary Care Physician [facility] Date(s): 02/07/23 - 03/09/23 [facility] [address] [place], [place] [address] Allergies, Adverse Reactions, Alerts No [...] Recorded 1Result Comment: [facility] 47661-967-62 2Result Comment: [facility] 45761-939-24 Pt tolerated vaccine without inicident...NH 3Result Comment: [id number] 4Admin Note: FLULAVAL 5Admin Note: given w/o incident 6Result Comment: [facility] 95243-021-85 7Admin Note: [employer] Medications acetaminophen-oxyCODONE 325 mg-5 mg oral tablet 1, tablet, By Mouth, 2 times a day, PRN, for 28 days, # 56 tablet, Refills 0, Tot. Refills 0, Acute, Pain , Severe, 04/05/23 15:37:00 EDT, 03/08/23 15:37:00 EDT, Route to Pharmacy Electronically, [facility] #[id number] Tablet, Partial fill upon p... Start Date: 03/08/23 Stop Date: 04/05/23 Status: Ordered Albuterol (Eqv-ProAir HFA) 90 mcg/inh inhalation aerosol 2 puffs, Inhalation, 4 times a day, PRN NEEDED FOR WHEEZING OR SHORTNESS OF BREATH, # 8.5 Gm, 0 Refills, [facility] #[id number], 25, INHALE 2 PUFFS FOUR TIMES DAILY NEEDED FOR WHEEZING OR SHORTNESS OF BREATH, 169, cm, 10/31/21 15:06:00 EST,... Start Date: 01/19/22 Status: Ordered amitriptyline 10 mg oral tablet 1, tablet, By Mouth, Daily at bedtime, # 30 tablet, Refills 0, Maintenance, 12/14/22 17:14:00 EST, Route to Pharmacy Electronically, [facility] #[id number], 169, cm, 11/08/22 14:13:00 EST, Height, 92.8, [...] 09/07/22 14:26:00 EDT, Route to Pharmacy Electronically, [facility] #[id number], Partial fill upon patient request if the prescript... Start Date: 09/07/22 Stop Date: 10/07/22 Status: Ordered ibuprofen 600 mg oral tablet 600 mg, 1, tablet, By Mouth, 3 times a day, # 42 tablet, Refills 0, Tot. Refills 0, Acute 03/10/23 12:03:00 EDT, 02/07/23 12:02:00 EDT, Route to Pharmacy Electronically, [facility] #[id number], Partial fill upon patient request if the prescriptio... Start Date: 02/07/23 Stop Date: 03/10/23 Status: Ordered omeprazole 20 mg oral enteric coated capsule 1 capsule, By Mouth, Daily, PRN NEEDED FOR INDIGESTION, # 90 capsule, 1 Refills, Maintenance, 11/08/22 15:02:00 EST, [facility] #[id number], 169, cm, 11/08/22 14:13:00 EST, Height, 92.8, [...] Team Personnel Name: Kandis Leahy RN Position: [facility] RN Member Role: Primary Care Nurse Name: Meg Vergara MD Position: [facility] Primary Care Physician Member Role: PCP Address: Address: [address] [place] [address] Adult & [place] [address]- Care Team Related Persons Name: ROB KANG Name: LAUREN GOMES Address: home [address] [place] [address] Name: REGINE TREADWELL Address: [address] [place] [address]
--- OUTSIDE RECORDS SUMMARY | 2024-10-14 07:44 | XMS_ITS | Continuity of Care Document ---
Author Organization [facility] Address [address] [place] [address]- Care Team Providers Care Stenographer Secretary Name Role Phone Meg Vergara MD Primary Care Physician [phone] [facility]counter [facility] Date(s): 08/20/24 - 09/19/24 [facility] [address] [place], [place] [address] Allergies, Adverse Reactions, Alerts No Known [...] mRNA BNT-162b2 vac 01/24/21 Recorded 1Result Comment: [facility] 29710-545-62 2Result Comment: [facility] 88804-775-05 3Result Comment: [facility] 06174-724-71 4Result Comment: [facility] 31488-159-33 Pt tolerated vaccine without inicident...NH 5Result Comment: [id number] 6Admin Note: FLULAVAL 7Admin Note: given w/o incident 8Result Comment: [facility] 71999-901-72 9Admin Note: [employer] Medications acetaminophen-oxyCODONE 325 mg-5 mg oral tablet 1, tablet, By Mouth, 2 times a day, PRN, for 28 days, # 56 tablet, Refills 0, Tot. Refills 0, Acute, Pain , Severe, 10/16/24 13:51:00 EST, 09/18/24 13:51:00 EST, Route to Pharmacy Electronically, [facility] #[id number] Tablet, Partial fill upon p... Start Date: 09/18/24 Stop Date: 10/16/24 Status: Ordered Albuterol (Eqv-ProAir HFA) 90 mcg/inh inhalation aerosol 2 puffs, Inhalation, 4 times a day, PRN NEEDED FOR WHEEZING OR SHORTNESS OF BREATH, # 8.5 Gm, 0 Refills, [facility] #[id number], 25, INHALE 2 PUFFS FOUR TIMES DAILY [...] Gm, 0 Refills, Maintenance, 08/20/24 21:36:00 EDT, [facility] #[id number], 30, SHAKE LIQUID AND USE 1 SPRAY IN EACH NOSTRIL TWICE DAILY SHAKE... Start Date: 08/20/24 Status: Ordered metronidazole topical 0.75% gel with applicator 1 applicator, Vaginally, Daily at bedtime, for 5 days, # 70 Gm, 0 Refills, Acute 09/20/24 10:34:00 EST, 09/15/24 10:34:00 EST, Gel, [facility] #[id number], Partial fill upon patient request if the prescription is for a schedule II opioid drug., 1... Start Date: 09/15/24 Stop Date: 09/20/24 Status: Ordered omeprazole 20 mg oral enteric coated capsule 1 capsule, By Mouth, Daily, PRN NEEDED FOR INDIGESTION, # 90 capsule, 3 Refills, Maintenance, 05/30/24 16:14:00 EDT, [facility] #[id number], 160, cm, 05/30/24 15:48:00 EDT, Height, 81, [...] Nurse Name: Ursula BURCH, Meg Bains Position: [facility] Physician - Primary Care Member Role: PCP Address: Address: [address] [place] [address] Adult & Pediatric [place], [place] [address] Name: Elaina Lyon RN Position: [facility] OB RN Member Role: Primary Care Nurse Care Team Related Persons Name: ROB KANG Name: LAUREN GOMES Address: home [address] [place] [address] Name: REGINE TREADWELL Address: home [address] [place] [address]
--- OUTSIDE RECORDS SUMMARY | 2024-10-14 07:44 | XMS_ITS | Continuity of Care Document ---
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 Refills 0, Acute, Pain , Severe, 04/20/22 13:02:00 EDT, 03/23/22 13:02:00 EDT, Route to Pharmacy Electronically, [facility]... Start Date: 03/23/22 Stop Date: 04/20/22 Status: Ordered [employer] SureClick Autoinjector-aooe 140 mg/mL subcutaneous solution 0 Refills, Maintenance, 09/05/19 11:33:37 EDT Start Date: 09/05/19 Status: Ordered Albuterol (Eqv-ProAir HFA) 90 mcg/inh inhalation aerosol 2 puffs, Inhalation, 4 times a day, PRN NEEDED FOR WHEEZING OR SHORTNESS OF BREATH, # 8.5 Gm, 0 Refills, [facility] #[id number], 25, INHALE 2 PUFFS FOUR TIMES DAILY [...] 1 Refills, Maintenance, 03/29/22 11:14:00 EDT, Capsule, [facility] #50407, Partial fill upon patient request if the [...] PRN NEEDED FOR INDIGESTION, # 30 capsule, 5 Refills, 03/09/22 10:55:00 EDT, [facility] #[id number], 169, cm, 03/09/22 10:36:00 EDT, Height, 92.8, kg, 05/12/21 16:58:00 EDT, Dry Weight Start Date: 03/09/22 Status: Ordered Vitamin C By Mouth, Daily, [...] Dates Health Status Cl inical Service Informant Abdominal pain Discharge Diagnosis 03/27/22 Constipation Discharge Diagnosis 03/27/22 Insomnia Discharge Diagnosis 03/27/22 Vital Signs Most recent to oldest [Reference Range]: 1 Height 169 cm (03/27/22 4:12 PM) Weight 84.3 kg (03/27/22 4:12 PM) Oxygen Saturation [94-100 %] 97 % (03/27/22 4:12 PM) Pulse Rate [55-90 bpm] 90 bpm (03/27/22 4:12 PM) Body Mass Index [18.5-24.99] 29.52 *H* (03/27/22 4:12 PM) Blood Pressure [90-138/55-84 mm Hg] 128/ 80mm Hg (03/27/22 4:12 PM) Blood pressure sites Arm, left (03/27/22 4:12 PM) Weight Obtained Via Standing scale (03/27/22 4:12 PM) Social History Social History Type Response Smoking Status Never smoker entered on: 02/05/14 Sex
--- OUTSIDE RECORDS SUMMARY | 2024-10-14 07:44 | XMS_ITS | Continuity of Care Document ---
Author Organization [facility] Address [address] [place] [address]- Care Team Providers Care Link And Link Knitting Machine Operator Name Role Phone Meg Vergara MD Primary Care Physician [phone] Encounter [facility] Date(s): 10/20/23 - 11/19/23 [facility] [address] [place], [place] [address] Allergies, Adverse Reactions, Alerts [...] mRNA BNT-162b2 vac 01/24/21 Recorded 1Result Comment: [facility] 86942-488-91 2Result Comment: [facility] 31420-831-75 3Result Comment: [facility] 75179-137-52 Pt tolerated vaccine without inicident...NH 4Result Comment: [id number] 5Admin Note: FLULAVAL 6Admin Note: given w/o incident 7Result Comment: [facility] 45929-522-57 8Admin Note: [employer] Medications acetaminophen-oxyCODONE 325 mg-5 mg oral tablet 1, tablet, By Mouth, 2 times a day, PRN, for 28 days, # 56 tablet, Refills 0, Tot. Refills 0, Acute, Pain , Severe, 11/22/23 16:49:00 EST, 10/25/23 16:49:00 EST, Route to Pharmacy Electronically, [facility] #[id number] Tablet, Partial fill upon p... Start Date: 10/25/23 Stop Date: 11/22/23 Status: Ordered Albuterol (Eqv-ProAir HFA) 90 mcg/inh inhalation aerosol 2 puffs, Inhalation, 4 times a day, PRN NEEDED FOR WHEEZING OR SHORTNESS OF BREATH, # 8.5 Gm, 0 Refills, [facility] #[id number], 25, INHALE 2 PUFFS FOUR TIMES DAILY NEEDED FOR WHEEZING OR SHORTNESS OF BREATH, 169, cm, 10/31/21 15:06:00 EST,... Start Date: 01/19/22 Status: Ordered amitriptyline 10 mg oral tablet 1, tablet, By Mouth, Daily at bedtime, # 30 tablet, Refills 0, Maintenance, 12/14/22 17:14:00 EST, Route to Pharmacy Electronically, [facility] #[id number], 169, cm, 11/08/22 14:13:00 EST, Height, 92.8, [...] 10/22/23 12:37:00 EST, Route to Pharmacy Electronically, [facility] #[id number], Partial fill upon patient request if the prescript... Start Date: 10/22/23 Stop Date: 11/21/23 Status: Ordered omeprazole 20 mg oral enteric coated capsule 1 capsule, By Mouth, Daily, PRN NEEDED FOR INDIGESTION, # 90 capsule, 1 Refills, Maintenance, 07/13/23 13:09:00 EDT, [facility] #[id number], 169, cm, 02/07/23 11:17:00 EDT, Height Start [...] mL, 0 Refills, Maintenance, 10/22/23 12:37:00 EST, [facility] #[id number], Partial fill upon patient request if the [...] 0 Refills, Maintenance, 10/19/23 14:39:00 EST, Tablet, [facility] #84779, Partial fill upon patient request if the [...] Kandis Leahy RN Position: [facility] SN RN Member Role: Primary Care Nurse Name: Meg Vergara MD Position: [facility] Physician - Primary Care Member Role: PCP Address: Address: [address] [place] [address] Adult & [place] [address]- Care Team Related Persons Name: ROB KANG Name: LAUREN GOMES Address: home [address] [place] [address] Name: REGINE TREADWELL Address: home [address] [place] [address]
--- OUTSIDE RECORDS SUMMARY | 2024-10-14 07:44 | XMS_ITS | Continuity of Care Document ---
Author Organization [facility] Address [address] [place] [address]- Care Team Providers Care Dining Services Director Name Role Phone Meg Vergara MD Primary Care Physician Encounter [facility] Date(s): 12/21/23 - 01/20/24 [facility] [address] [place], [place] [address] Allergies, Adverse Reactions, Alerts No [...] 1Result Comment: [facility] 19105-604-43 2Result Comment: [facility] 35378-139-98 3Result Comment: [facility] 71813-431-84 Pt tolerated vaccine without inicident...NH 4Result Comment: [id number] 5Admin Note: FLULAVAL 6Admin Note: given w/o incident 7Result Comment: [facility] 15405-165-06 8Admin Note: [employer] Medications Albuterol (Eqv-ProAir HFA) 90 mcg/inh inhalation aerosol 2 puffs, Inhalation, 4 times a day, PRN NEEDED FOR WHEEZING OR SHORTNESS OF BREATH, # 8.5 Gm, 0 Refills, [facility] #[id number], 25, INHALE 2 PUFFS FOUR TIMES DAILY NEEDED FOR WHEEZING OR SHORTNESS OF BREATH, 169, cm, 10/31/21 15:06:00 EST,... Start Date: 01/19/22 Status: Ordered amitriptyline 10 mg oral tablet 1, tablet, By Mouth, Daily at bedtime, # 30 tablet, Refills 0, Maintenance, 12/14/22 17:14:00 EST, Route to Pharmacy Electronically, [facility] #[id number], 169, cm, 11/08/22 14:13:00 EST, Height, 92.8, [...] 10/22/23 12:37:00 EST, Route to Pharmacy Electronically, [facility] #[id number], Partial fill upon patient request if the prescript... Start Date: 10/22/23 Stop Date: 11/21/23 Status: Ordered omeprazole 20 mg oral enteric coated capsule 1 capsule, By Mouth, Daily, PRN NEEDED FOR INDIGESTION, # 90 capsule, 0 Refills, Maintenance, 01/18/24 18:31:00 EST, [facility] #[id number], 169, cm, 10/22/23 12:21:00 EST, Height, 83, [...] mL, 0 Refills, Maintenance, 10/22/23 12:37:00 EST, [facility] #65859, Partial fill upon patient request if the [...] 0 Refills, Maintenance, 10/19/23 14:39:00 EST, Tablet, [facility] #78092, Partial fill upon patient request if the [...] Personnel Name: Ursula BURCH, Meg Bains Position: [facility] Physician - Primary Care Member Role: PCP Address: Address: [address] [place] [address] Adult [place] [address]- Care Team Related Persons Name: ROB KANG Name: LAUREN GOMES Address: home [address] [place] [address] Name: REGINE TREADWELL Address: [address] [place] [address]
--- OUTSIDE RECORDS SUMMARY | 2024-10-14 07:45 | XMS_ITS | Continuity of Care Document ---
Author Organization [facility] Address [address] [place] [address]- Care Team Providers Care Catastrophe Claims Supervisor Name Role Phone Meg Vergara MD Primary Care Physician Encounter [facility] Date(s): 04/14/24 - 05/14/24 [facility] [address] [place], [place] [address] Allergies, Adverse Reactions, Alerts No [...] [facility] 27460-223-47 2Result Comment: [facility] 68789-965-86 3Result Comment: [facility] 40868-313-91 Pt tolerated vaccine without inicident...NH 4Result Comment: [id number] 5Admin Note: FLULAVAL 6Admin Note: given w/o incident 7Result Comment: [facility] 47531-484-81 8Admin Note: [employer] Medications acetaminophen-oxyCODONE 325 mg-5 mg oral tablet 1, tablet, By Mouth, 2 times a day, PRN, for 28 days, # 56 tablet, Refills 0, Tot. Refills 0, Acute, Pain , Severe, 05/15/24 10:20:00 EDT, 04/17/24 10:20:00 EDT, Route to Pharmacy Electronically, [facility] #[id number] Tablet, Partial fill upon p... Start Date: 04/17/24 Stop Date: 05/15/24 Status: Ordered Albuterol (Eqv-ProAir HFA) 90 mcg/inh inhalation aerosol 2 puffs, Inhalation, 4 times a day, PRN NEEDED FOR WHEEZING OR SHORTNESS OF BREATH, # 8.5 Gm, 0 Refills, [facility] #42693, 25, INHALE 2 PUFFS FOUR TIMES DAILY [...] capsule, 1 Refills, Maintenance, 04/16/24 11:14:00 EDT, [facility] #[id number], 169, cm, 04/16/24 10:32:00 EDT, Height, 83.9, kg, 04/16/24 10:29:00 EDT, Dry Weight Start Date: 04/16/24 Status: Ordered topiramate 50 mg oral tablet [...] Team Personnel Name: Kandis Leahy RN Position: [facility] SN RN Member Role: Primary Care Nurse Name: Meg Vergara MD Position: [facility] Physician - Primary Care Member Role: PCP Address: Address: [address] [place] [address] Adult & [place] [address]- Care Team Related Persons Name: ROB KANG Name: LAUREN GOMES Address: [address] [place] [address] Name: REGINE TREADWELL Address: [address] [place] [address]
--- OUTSIDE RECORDS SUMMARY | 2024-10-14 07:45 | XMS_ITS | Continuity of Care Document ---
Author Organization [facility] Address [address] [place] [address]- Care Team Providers Care News Director Name Role Phone Meg Vergara MD Primary Care Physician [phone] Encounter [facility] Date(s): 12/16/20 - 01/15/21 [facility] [address] [place], [place] [address] Allergies, Adverse Reactions, Alerts Substance Reaction Severity Status NKA Active Immunizations Given and Recorded Vaccine Date Status Refusal Reason influenza virus vaccine, inactivated 1 09/28/20 Gi venkatesh influenza virus vaccine, inactivated 2 10/31/19 Gi venkatesh influenza virus vaccine, inactivated 11/27/17 [place] rded influenza virus vaccine, inactivated 09/27/16 Give n influenza virus vaccine, inactivated 08/05/14 Give n influenza virus vaccine, inactivated 3 07/22/12 Gi venkatesh influenza virus vaccine, inactivated 4 08/17/11 Gi venkatesh influenza virus vaccine, inactivated 08/18/10 Give n tetanus/diphtheria/pertussis, acel(Tdap) 5 01/12/11 Given 1Result Comment: [facility] 92798-217-72 Pt tolerated vaccine without inicident...NH 2Result Comment: [id number] 3Admin Note: FLULAVAL 4Admin Note: given w/o incident 5Admin Note: [employer] [facility] Medications acetaminophen-oxyCODONE 325 mg-5 mg oral tablet 1, tablet, By Mouth, 2 times a day, PRN, may fill for less for 28 days, # 56 tablet, Refills 0, Tot. Refills 0, Acute, Pain , Severe, 01/31/21 12:29:00 EDT, 01/03/21 12:29:00 EST, Route to Pharmacy Electronically, [facility] #[id number] Tablet... Start Date: 01/03/21 Stop Date: 01/31/21 [...] 15:08:00 EST, Aerosol, Route to Pharmacy Electronically, [id number], [facility] #[id number], 160, cm, 12/17/20 10:53:00... Start Date: 12/23/20 [...]
--- OUTSIDE RECORDS SUMMARY | 2024-10-14 07:45 | XMS_ITS | Continuity of Care Document ---
Author Organization [facility] Address [address] [place] [address]- Care Team Providers Care Flattening Press Operator Name Role Phone Meg Vergara MD Primary Care Physician Encounter [facility] Date(s): 07/18/22 - 08/17/22 [facility] [address] [place], [place] [address] Allergies, Adverse Reactions, Alerts No Known [...] mRNA BNT-162b2 vac 01/24/21 Recorded 1Result Comment: [facility] 21019-889-82 2Admin Note: [employer] [facility] 3Result Comment: [facility] 09998-832-50 Pt tolerated vaccine without inicident...NH 4Result Comment: [id number] 5Admin Note: FLULAVAL 6Admin Note: given w/o incident Medications acetaminophen-oxyCODONE 325 mg-5 mg oral tablet 1, tablet, By Mouth, 2 times a day, PRN, for 28 days, # 56 tablet, Refills 0, Tot. Refills 0, Acute, Pain , Severe, 09/12/22 12:59:00 EDT, 08/15/22 12:59:00 EDT, Route to Pharmacy Electronically, [facility] #[id number] Tablet, Partial fill upon p... Start Date: 08/15/22 Stop Date: 09/12/22 Status: Ordered [employer]ig SureClick Autoinjector-aooe 140 mg/mL subcutaneous solution 0 Refills, Maintenance, 09/05/19 11:33:37 EDT Start Date: 09/05/19 Status: Ordered Albuterol (Eqv-ProAir HFA) 90 mcg/inh inhalation aerosol 2 puffs, Inhalation, 4 times a day, PRN NEEDED FOR WHEEZING OR SHORTNESS OF BREATH, # 8.5 Gm, 0 Refills, [facility] #[id number], 25, INHALE 2 PUFFS FOUR TIMES DAILY [...] Acute 09/26/22 10:53:00EST, 07/28/22 10:53:00 EDT, Capsule, [facility] #[id number], Partial fill upon patient requestif the prescription [...] capsule, 0 Refills, Maintenance, 08/15/22 5:56:00 EDT, [facility] #[id number], 169, cm, 07/28/22 10:21:00 EDT, Height, 92.8, [...] Name: Ursula BURCH, Meg Bains Address: Address: [address] [place] [address] Adult & Pediatric [address]
--- OUTSIDE RECORDS SUMMARY | 2024-10-14 07:45 | XMS_ITS | Continuity of Care Document ---
Author Organization [facility] Address [address] [place] [address]- Care Team Providers Care Small Engine Specialist Name Role Phone Ursula BURCH, Meg Bains Primary Care Physician [place] [facility] [place] 01[place]26[place]20 [facility] [address] [place] [address]- [facility] Attending Physician: Ghazala Ventura Admitting Physician: Ghazala Ventura Referring Physician: AdmtrGhazala Allergies, Adverse Reactions, Alerts Substance Reaction Severity [...] tetanus/diphtheria/pertussis, acel(Tdap) 4 01/12/11 Given 1Result Comment: [id number] 2Admin Note: FLULAVAL 3Admin Note: given w/o [...] 12:52:00 EST, Aerosol, Route to Pharmacy Electronically, [id number], [facility] #[id number], 160, cm, 10/31/19 10:30:00... Start Date: 11/18/19 [...]
--- OUTSIDE RECORDS SUMMARY | 2024-10-14 07:45 | XMS_ITS | Continuity of Care Document ---
Author Organization [facility] Address [address] [place] [address]- Care Team Providers Care Yard Specialist Name Role Phone Meg Vergara MD Primary Care Physician Encounter [facility] Date(s): 10/31/21 - 11/30/21 [facility] [address] [place], [place] [address] Attending Physician: Ghazala Ventura Admitting Physician: AdmGhazala pena Referring Physician: AdmtrGhazala Allergies, Adverse Reactions, Alerts No Known Allergies [...] 01/12/11 Given 1Result Comment: [facility] 29063-547-77 Pt tolerated vaccine without inicident...NH 2Result Comment: [id number] 3Admin Note: FLULAVAL 4Admin Note: given w/o incident 5Admin Note: [facility] Medications acetaminophen-oxyCODONE 325 mg-5 mg oral tablet 1, tablet, By Mouth, 2 times a day, PRN, may fill for less for 28 days, # 56 tablet, Refills 0, Tot. Refills 0, Acute, Pain , Severe, 12/23/21 9:48:00 EST, 11/25/21 9:48:00 EST, Route to Pharmacy Electronically, [facility] #[id number] Tablet,... Start Date: 11/25/21 Stop Date: 12/23/21 Status: Ordered Aimovig SureClick Autoinjector-aooe 140 mg/mL subcutaneous solution 0 Refills, Maintenance, 09/05/19 11:33:37 EDT Start Date: 09/05/19 Status: Ordered omeprazole 20 mg oral enteric coated capsule 1 capsule, By Mouth, Daily, PRN NEEDED FOR INDIGESTION, # 30 capsule, 2 Refills, [facility] #[id number], 169, cm, 10/31/21 15:06:00 EST, Height, 92.8, kg, 05/12/21 16:58:00 EDT, Dry Weight Start Date: 11/03/21 Status: Ordered ProAir HFA 90 mcg/inh inhalation aerosol with adapter 2, puffs, Inhalation, 4 times a day, PRN, # 1 each, Refills 2, Tot. Refills 2, Maintenance, 12/23/20 15:08:00 EST, Aerosol, Route to Pharmacy Electronically, [id number], [facility] #[id number], 160, cm, 12/17/20 10:53:00... Start Date: 12/23/20 [...]
--- OUTSIDE RECORDS SUMMARY | 2024-10-14 07:45 | XMS_ITS | Continuity of Care Document ---
Author Organization [facility] Address [address] [place] [address]- Care Team Providers Care Hematology Supervisor Name Role Phone Meg Vergara MD Primary Care Physician [phone] [place] [facility] [place] 03[place]22 [facility] [address] [place], [place] [address] Attending Physician: Meg Vergara MD Allergies, [...] Recorded 1Result Comment: [facility] 58053-802-85 2Admin Note: [facility] 3Result Comment: [facility] 41734-035-51 Pt tolerated vaccine without inicident...NH 4Result Comment: [id number] 5Admin Note: FLULAVAL 6Admin Note: given w/o incident Medications acetaminophen-oxyCODONE 325 mg-5 mg oral tablet 1, tablet, By Mouth, 2 times a day, PRN, fill on or after 12/28/21; may fill for less for 28 days, #56 tablet, Refills 0, Tot. Refills 0, Acute, Pain , Severe, 03/22/22 12:20:00 EDT, 02/22/22 12:20:00 EDT, Route to Pharmacy Electronically, [facility]... Start Date: 02/22/22 Stop Date: 03/22/22 Status: Ordered Aimovig SureClick Autoinjector-aooe 140 mg/mL subcutaneous solution 0 Refills, Maintenance, 09/05/19 11:33:37 EDT Start Date: 09/05/19 Status: Ordered Albuterol (Eqv-ProAir HFA) 90 mcg/inh inhalation aerosol 2 puffs, Inhalation, 4 times a day, PRN NEEDED FOR WHEEZING OR SHORTNESS OF BREATH, # 8.5 Gm, 0 Refills, [facility] #[id number], 25, INHALE 2 PUFFS FOUR TIMES DAILY [...] 30 capsule, 5 Refills, 03/09/22 10:55:00 EDT, [facility] #[id number], 169, cm, 03/09/22 10:36:00 EDT, Height, 92.8, [...] predominant pain(Confirmed) Active 1SOAPP-R: 5 on 05/08/17 Procedures Procedure Date Related Diagnosis Body Site Status Liposuction of abdomen + BBL 04/19/21 Completed Vital Signs Most recent to oldest [Reference Range]: 1 Height 169 cm (03/09/22 10:36 AM) Weight 83.4 kg (03/09/22 10:36 AM) Oxygen Saturation [94-100 %] 99 % (03/09/22 10:36 AM) Pulse Rate [55-90 bpm] 78 bpm (03/09/22 10:36 AM) Body Mass Index [18.5-24.99] 29.2 *H* (03/09/22 10:36 AM) Blood Pressure [90-138/55-84 mm Hg] 122/ 80mm Hg (03/09/22 10:36 AM) Mode of Delivery (Oxygen) Room air (03/09/22 10:36 AM) Blood pressure sites Arm, left (03/09/22 10:36 AM) Weight Obtained Via Standing scale (03/09/22 10:36 AM) Social History Social History Type Response Smoking Status Never smoker entered on: 02/05/14 Sex
--- OUTSIDE RECORDS SUMMARY | 2024-10-14 07:45 | XMS_ITS | Continuity of Care Document ---
Author Organization [facility] Address [address] [place] [address]- Care Team Providers Care Data Engineer Name Role Phone Ursula BURCH, Meg Bains Primary Care Physician [phone] [place] [facility] [place] 12[place]/[address] [address] Attending Physician: Meg Vergara MD Admitting Physician: Meg Vergara MD Referring Physician: Not on Staff, Referring [...] tetanus/diphtheria/pertussis, acel(Tdap) 5 01/12/11 Given 1Result Comment: [facility] 47190-054-34 Pt tolerated vaccine without inicident...NH 2Result Comment: [id number] 3Admin Note: FLULAVAL 4Admin Note: given w/o incident 5Admin Note: [facility] Medications acetaminophen-oxyCODONE 325 mg-5 mg oral tablet 1, tablet, By Mouth, 2 times a day, PRN, may fill for less for 28 days, # 56 tablet, Refills 0, Tot. Refills 0, Acute, Pain , Severe, 01/03/21 15:42:00 EST, 12/06/20 15:42:00 EST, [id number]... Start Date: 12/06/20 Stop Date: 01/03/21 [...]
--- OUTSIDE RECORDS SUMMARY | 2024-10-14 07:45 | XMS_ITS | Continuity of Care Document ---
Author Organization [facility] Address [address] [place] [address]- Care Team Providers Care Drawer In Jacquard Loom Name Role Phone Meg Vergara MD Primary Care Physician [facility]counter [facility] Date(s): 09/05/23 - 10/05/23 [facility] [address] [place], [place] [address] Allergies, Adverse Reactions, Alerts No Known Allergies [...] 1Result Comment: [facility] 60879-372-71 2Result Comment: [facility] 75644-379-15 3Result Comment: [facility] 75953-752-93 Pt tolerated vaccine without inicident...NH 4Result Comment: [id number] 5Admin Note: FLULAVAL 6Admin Note: given w/o incident 7Result Comment: [facility] 46839-453-66 8Admin Note: [facility] Medications acetaminophen-oxyCODONE 325 mg-5 mg oral tablet 1, tablet, By Mouth, 2 times a day, PRN, for 28 days, # 56 tablet, Refills 0, Tot. Refills 0, Acute, Pain , Severe, 10/25/23 13:36:00 EST, 09/27/23 13:36:00 EST, Route to Pharmacy Electronically, [facility] #[id number] Tablet, Partial fill upon p... Start Date: 09/27/23 Stop Date: 10/25/23 Status: Ordered Albuterol (Eqv-ProAir HFA) 90 mcg/inh inhalation aerosol 2 puffs, Inhalation, 4 times a day, PRN NEEDED FOR WHEEZING OR SHORTNESS OF BREATH, # 8.5 Gm, 0 Refills, [facility] #[id number], 25, INHALE 2 PUFFS FOUR TIMES DAILY NEEDED FOR WHEEZING OR SHORTNESS OF BREATH, 169, cm, 10/31/21 15:06:00 EST,... Start Date: 01/19/22 Status: Ordered amitriptyline 10 mg oral tablet 1, tablet, By Mouth, Daily at bedtime, # 30 tablet, Refills 0, Maintenance, 12/14/22 17:14:00 EST, Route to Pharmacy Electronically, [facility] #[id number], 169, cm, 11/08/22 14:13:00 EST, Height, 92.8, [...] 09/07/22 14:26:00 EDT, Route to Pharmacy Electronically, [facility] #[id number], Partial fill upon patient request if the prescript... Start Date: 09/07/22 Stop Date: 10/07/22 Status: Ordered omeprazole 20 mg oral enteric coated capsule 1 capsule, By Mouth, Daily, PRN NEEDED FOR INDIGESTION, # 90 capsule, 1 Refills, Maintenance, 07/13/23 13:09:00 EDT, [facility] #[id number], 169, cm, 02/07/23 11:17:00 EDT, Height Start [...] Team Personnel Name: Kandis Leahy RN Position: [facility] RN Member Role: Primary Care Nurse Name: Meg Vergara MD Position: [facility] Physician - Primary Care Member Role: PCP Address: Address: [address] [place] [address] Adult & Pediatric [address] Care Team Related Persons Name: ROB KANG Name: LAUREN GOMES Address: home [address] [place] [address] Name: REGINE TREADWELL Address: [address] [place] [address]
--- OUTSIDE RECORDS SUMMARY | 2024-10-14 07:45 | XMS_ITS | Continuity of Care Document ---
Author Organization [facility] Address [address] [place] [address]- Care Team Providers Care Aluminum Polisher Name Role Phone Meg Vergara MD Primary Care Physician [phone] Encounter [facility] [place] [facility] [id number] Date(s): 10/18/22 - 10/25/22 [facility] [address] [place], [place] [address] Encounter Diagnosis COVID-19 virus infection(Discharge Diagnosis) - 10/18/22 Attending Physician: Yesenia RUFFLING MACHINE OPERATOR, Shea Allergies, Adverse Reactions, Alerts No Known [...] mRNA BNT-162b2 vac 01/24/21 Recorded 1Result Comment: [facility] [id number] 2Result Comment: [facility] 92742-741-15 Pt tolerated vaccine without inicident...NH 3Result Comment: [id number] 4Admin Note: FLULAVAL 5Admin Note: given w/o incident 6Result Comment: [facility] [id number] 7Admin Note: [facility] Medications acetaminophen-oxyCODONE 325 mg-5 mg oral tablet 1, tablet, By Mouth, 2 times a day, PRN, for 28 days, # 56 tablet, Refills 0, Tot. Refills 0, Acute, Pain , Severe, 11/09/22 12:50:00 EST, 10/12/22 12:50:00 EST, Route to Pharmacy Electronically, [facility] #[id number] Tablet, Partial fill upon p... Start Date: 10/12/22 Stop Date: 11/09/22 Status: Ordered [employer]ig SureClick Autoinjector-aooe 140 mg/mL subcutaneous solution 0 Refills, Maintenance, 09/05/19 11:33:37 EDT Start Date: 09/05/19 Status: Ordered Albuterol (Eqv-ProAir HFA) 90 mcg/inh inhalation aerosol 2 puffs, Inhalation, 4 times a day, PRN NEEDED FOR WHEEZING OR SHORTNESS OF BREATH, # 8.5 Gm, 0 Refills, [facility] #[id number], 25, INHALE 2 PUFFS FOUR TIMES DAILY [...] 09/07/22 14:26:00 EDT, Route to Pharmacy Electronically, [facility] #[id number], Partial fill upon patient request if the [...] capsule, 1 Refills, Maintenance, 09/13/22 18:38:00 EDT, [facility] #[id number], 169, cm, 09/07/22 13:52:00 EDT, Height, 92.8, [...] Condition Confirmation Course Effective Dates Status H ealt Status Informant Family history of diabetes mellitus [...] Effective Dates Health Status inical Service Informant COVID-19 virus infection Discharge Diagnosis 10/18/22 Vital Signs Most recent to oldest [Reference Range]: 1 Height 169 cm (10/18/22 10:11 AM) Social History Social History Type Response Smoking Status Never smoker entered on: 02/05/14 Sex Patient Care team information Care Team Personnel Name: Kandis Leahy RN Position: [facility] RN Member Role: Primary Care Nurse Name: Meg Vergara MD Position: [facility] Primary Care Physician Member Role: PCP Address: Address: [address] [place] [address] Adult & [place] [address]- Care Team Related Persons Name: ROB KANG Name: LAUREN GOMES Address: home [address] [place] [address] Name: REGINE TREADWELL Address: home [address] [place] [address]
--- OUTSIDE RECORDS SUMMARY | 2024-10-14 07:45 | XMS_ITS | Continuity of Care Document ---
Author Organization [facility] Address [address] [place] [address]- Care Team Providers Care Medical Insurance Biller Name Role Phone Meg Vergara MD Primary Care Physician [phone] Encounter [facility] Date(s): 10/22/23 - 10/29/23 [facility] [address] [place] [address]- Encounter Diagnosis Epigastric pain(Discharge Diagnosis) - 10/22/23 Attending Physician: Meg Vergara MD Allergies, Adverse [...] 01/24/21 Recorded 1Result Comment: [facility] 49368-174-93 2Result Comment: [facility] 35473-047-00 3Result Comment: [facility] 47720-518-61 Pt tolerated vaccine without inicident...NH 4Result Comment: [id number] 5Admin Note: FLULAVAL 6Admin Note: given w/o incident 7Result Comment: [facility] 10522-007-83 8Admin Note: [facility] Medications acetaminophen-oxyCODONE 325 mg-5 mg oral tablet 1, tablet, By Mouth, 2 times a day, PRN, for 28 days, # 56 tablet, Refills 0, Tot. Refills 0, Acute, Pain , Severe, 11/22/23 16:49:00 EST, 10/25/23 16:49:00 EST, Route to Pharmacy Electronically, [facility] #[id number] Tablet, Partial fill upon p... Start Date: 10/25/23 Stop Date: 11/22/23 Status: Ordered Albuterol (Eqv-ProAir HFA) 90 mcg/inh inhalation aerosol 2 puffs, Inhalation, 4 times a day, PRN NEEDED FOR WHEEZING OR SHORTNESS OF BREATH, # 8.5 Gm, 0 Refills, [facility] #[id number], 25, INHALE 2 PUFFS FOUR TIMES DAILY NEEDED FOR WHEEZING OR SHORTNESS OF BREATH, 169, cm, 10/31/21 15:06:00 EST,... Start Date: 01/19/22 Status: Ordered amitriptyline 10 mg oral tablet 1, tablet, By Mouth, Daily at bedtime, # 30 tablet, Refills 0, Maintenance, 12/14/22 17:14:00 EST, Route to Pharmacy Electronically, [facility] #[id number], 169, cm, 11/08/22 14:13:00 EST, Height, 92.8, [...] 10/22/23 12:37:00 EST, Route to Pharmacy Electronically, [facility] #[id number], Partial fill upon patient request if the prescript... Start Date: 10/22/23 Stop Date: 11/21/23 Status: Ordered omeprazole 20 mg oral enteric coated capsule 1 capsule, By Mouth, Daily, PRN NEEDED FOR INDIGESTION, # 90 capsule, 1 Refills, Maintenance, 07/13/23 13:09:00 EDT, [facility] #[id number], 169, cm, 02/07/23 11:17:00 EDT, Height Start [...] mL, 0 Refills, Maintenance, 10/22/23 12:37:00 EST, [facility] #[id number], Partial fill upon patient request if the [...] 0 Refills, Maintenance, 10/19/23 14:39:00 EST, Tablet, [facility] #[id number], Partial fill upon patient request if the [...] Dates Health Status Cl inical Service Informant Epigastric pain Discharge Diagnosis 10/22/23 Vital Signs Most recent to oldest [Reference Range]: 1 Height 169 cm (10/22/23 12:21 PM) Weight 83 kg (10/22/23 12:21 PM) Oxygen Saturation [94-100 %] 98 % (10/22/23 12:21 PM) Pulse Rate [55-90 bpm] 80 bpm (10/22/23 12:21 PM) Body Mass Index [18.5-24.99 kg/m2] 29.06 kg/m2 *H* (10/22/23 12:21 PM) Blood Pressure [90-138/55-84 mm Hg] 129/ 85mm Hg (10/22/23 12:21 PM) Mode of Delivery (Oxygen) Room air (10/22/23 12:21 PM) Blood pressure sites Arm, left (10/22/23 12:21 PM) Dry Weight 83 kg (10/22/23 12:21 PM) Weight Obtained Via Standing scale (10/22/23 12:21 PM) Dry Weight Obtained Via Standing scale (10/22/23 12:21 PM) Social History Social History Type Response Smoking Status Never smoker entered on: 02/05/14 Sex Note * Anaid Tapia: PERFORM, SIGN, VERIFY Event Display: Patient Education/Instruction Authored Date: [id number] [facility] *No [facility] Adult [facility] Clinical Summary Name HUGO GOMES Age 48 Years 1975 PCP Ursula BURCH, Meg Bains PCP Visit Date 10/22/2023 11:31:00 Patient Instructions use carafate liquid - 3-4 timesd aily for??1 week GERD diet continue omeprazole?? hyoscyamine forpain Additional Instructions: Scheduled Appointments?? Future Appointments ?No Future Appointments Scheduled Follow-Up Instructions ?? Diagnosis Epigastric pain Medications: Please continue your medications until treatment is completed or stopped by your provider. Discuss any questions related to medications with your provider. New Medications [facility] #[id number], [address], [place] [id number], [phone] Sucralfate (sucralfate 1 gm/10 ml oral suspension) 10 Milliliter Oral 3 times a day before meals and bedtime for 7 Days. Refills: 0. Next Dose: Medications to Continue with No Changes [facility] #[id number], [address], [place] [id number], [phone] Hyoscyamine (hyoscyamine 0.125 mg oral tablet) 1 tab(s) Oral 3 times a day as needed for spasm for 30 Days. Refills: 0. Next Dose: These medications were not printed or sent to your pharmacy Albuterol (Albuterol (Eqv-ProAir HFA) 90 mcg/inh inhalation aerosol) 2 puff(s) Inhalation 4 times aday as needed NEEDED FOR WHEEZING OR SHORTNESS OF BREATH. Refills: 0. Next Dose: amiTRIPTYLINE (amitriptyline 10 mg oral tablet) 1 tab(s) Oral Daily at Bedtime. Refills: 0. Next Dose: Azithromycin (Zithromax Z-Nash 250 mg oral tablet) as directed on package labeling. Refills: 0. Next Dose: galcanezumab ([facility] Prefilled Syringe 120 mg/mL subcutaneous solution) Next Dose: Omeprazole (omeprazole 20 mg oral enteric coated capsule) 1 capsule Oral Daily as needed NEEDED FOR INDIGESTION. Refills: 1. Next Dose: Oxycodone / Acetaminophen (acetaminophen-oxyCODONE 325 mg-5 mg oral tablet) 1 tab(s) Oral twice a day as needed Pain , Severe for 28 Days. Refills: 0. Next Dose: Phentermine (phentermine 37.5 mg oral tablet) Next Dose: Topiramate (topiramate 100 mg oral tablet) Next Dose: Allergy Info:?? NKA Medications Given This Visit Future Orders ?No future orders Vital Signs Height 169 cm Weight 83 kg BMI 29.06 kg/m2 Blood Pressure 129 mm Hg/85 mm Hg Temperature Pulse Rate 80 bpm Respiratory Rate 02 Sat Mode of Delivery 98 %/Room air You can now view a summary of your hospital visit from the comfort of your home through a free online portal called [employer]. [employer] is a website that allows you to securely view your medical information including discharge summary, medications and follow-up visits. ??You can alsosend a secure electronic message to your doctor???s office to request appointments, renew medications or just ask a question. You can enroll at [email or web address] or register during your next office visit. Disclaimer:?? The information provided is of a general nature and is intended to be used in conjunction with the recommendations and advice of your health care practitioner. ??Every effort has been made to ensure that the information provided is accurate and complete at the time it is provided to you however, as your needs change, or, as new ??information becomes available, different or additional instructions may be required. If you have questions, please consult with your primary care provider or pharmacist, as appropriate. ??This information is not intended to serve as substitution for assessment and evaluation by a qualified health care provider. If you do not have a primary care provider, you may find a [facility] provider by calling [facility] Why Not Give Back Link at [phone]. [facility], in keeping with [facility] guidance, no longer requires face masks for staff, patientsor visitors in most situations. Similar to time spent indoors at other locations, there is the chance that you were exposed to respiratory viruses during your time with us (such as flu or COVID-19).? If you develop symptoms concerning for a viral respiratory infection, please seek testing (and treatment if indicated) from your medical provider or home test kit. For information about the plan of care including goals and instructions for your diagnosis, please see the patient education orders section of this document. Patient Education Materials?? The content of this educational material or handout may have been modified, supplemented, or adapted from its original content and format to support your individualized medical care. Patient Care team information Care Team Personnel Name: Kandis Leahy RN Position: [facility] RN Member Role: Primary Care Nurse Name: Ursula BURCH, Meg Bains Position: [facility] Physician - Primary Care Member Role: PCP Address: Address: [address] [place] [address] Adult [place] [address]- Care Team Related Persons Name: ROB KANG Name: LAUREN GOMES Address: home [address] [place] [id number] Name: REGINE TREADWELL Address: [address] [place] [address]
--- OUTSIDE RECORDS SUMMARY | 2024-10-14 07:45 | XMS_ITS | Continuity of Care Document ---
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 Name Role Phone Meg Vergara MD Primary Care Physician Encounter [facility] Date(s): 09/12/24 - 10/12/24 [employer] [facility] [address], [address] [place], [place] [address] Attending Physician: Ghazala Ventura Admitting Physician: Ghazala Ventura Referring Physician: Ghazala Ventura Encounter Type: Triage Allergies, Adverse Reactions, Alerts [...] mRNA BNT-162b2 vac 01/24/21 Recorded 1Result Comment: [facility] 54667-205-78 2Result Comment: [facility] 23737-501-30 3Result Comment: [facility] 84137-843-32 4Result Comment: [facility] 50297-108-74 Pt tolerated vaccine without inicident...NH 5Result Comment: [id number] 6Admin Note: FLULAVAL 7Admin Note: given w/o incident 8Result Comment: [facility] [id number] 9Admin Note: [employer] Medications acetaminophen-oxyCODONE 325 mg-5 mg oral tablet 1, tablet, By Mouth, 2 times a day, PRN, for 28 days, # 56 tablet, Refills 0, Tot. Refills 0, Acute, Pain , Severe, 10/16/24 1:51:00 PM EST, 09/18/24 1:51:00 PM EST, Route to Pharmacy Electronically, [facility] #[id number] Tablet, Partial fill upon patient request -; [...] OF BREATH, # 8.5 Gm, 0 Refills, [facility] #[id number], 25, INHALE 2 PUFFS FOUR TIMES DAILY NEEDED FOR WHEEZING OR SHORTNESS OF BREATH, 169, cm, 10/31/21 15:06:00 EST, Height, 92.8, kg, 05/12/21 16:58:00 EDT, Dry Weight Start Date: 01/19/22 Status: Ordered Quantity: 8.5 Unit: g Repeat [...] 0 Refills, Maintenance, 08/20/24 9:36:00 PM EDT, [facility] #[id number], 30, SHAKE LIQUID AND USE 1 SPRAY [...] 3 Refills, Maintenance, 05/30/24 4:14:00 PM EDT, [facility] #[id number], 160, cm, 05/30/24 15:48:00 EDT, Height, 81, [...] Team Personnel Name: Kandis Leahy RN Position: [facility] SN RN Member Role: Primary Care Nurse Name: Anita Hemphill RN Position: [facility] RN Member Role: Primary Care Nurse Name: Meg Vergara MD Position: [facility] Physician - Primary Care Member Role: PCP Address: [address] [place] [address] Adult & Pediatric [address] Telecom: Name: Elaina Lyon RN Position: [facility] OB RN Member Role: Primary Care Nurse Care Team Related Persons Name: ROB KANG Name: LAUREN GOMES Name: REGINE TREADWELL Insurance Providers Guarantor name: [facility] Health Plan Information #: 1 Payer: [facility] C[facility] Member Number: NA Policy Number: NA Group Number: NA
--- OUTSIDE RECORDS SUMMARY | 2024-10-14 07:45 | XMS_ITS | Continuity of Care Document ---
Author Organization [facility] Address [address] [place] [address]- Care Team Providers Care Marine Service Manager Name Role Phone Meg Vergara MD Primary Care Physician [phone] [place] [facility] [place] [place] [id number] Date(s): 07/21/22 - 07/28/22 [facility] [address] [place] [address]- Encounter Diagnosis Fall down steps(Discharge Diagnosis) - 07/21/22 Low back pain(Discharge Diagnosis) - 07/21/22 Attending Physician: Pati Fisher MD Allergies, Adverse Reactions, Alerts No Known [...] 01/24/21 Recorded 1Result Comment: [facility] 08571-902-99 2Admin Note: [employer] 3Result Comment: [facility] 51704-321-83 Pt tolerated vaccine without inicident...NH 4Result Comment: [id number] 5Admin Note: FLULAVAL 6Admin Note: given w/o incident Medications acetaminophen-oxyCODONE 325 mg-5 mg oral tablet 1, tablet, By Mouth, 2 times a day, PRN, for 28 days, # 56 tablet, Refills 0, Tot. Refills 0, Acute, Pain , Severe, 08/15/22 14:06:00 EDT, 07/18/22 14:06:00 EDT, Route to Pharmacy Electronically, [facility] #08374 Tablet, Partial fill upon p... Start Date: 07/18/22 Stop Date: 08/15/22 Status: Ordered Aimovig SureClick Autoinjector-aooe 140 mg/mL subcutaneous solution 0 Refills, Maintenance, 09/05/19 11:33:37 EDT Start Date: 09/05/19 Status: Ordered Albuterol (Eqv-ProAir HFA) 90 mcg/inh inhalation aerosol 2 puffs, Inhalation, 4 times a day, PRN NEEDED FOR WHEEZING OR SHORTNESS OF BREATH, # 8.5 Gm, 0 Refills, [facility] #[id number], 25, INHALE 2 PUFFS FOUR TIMES DAILY [...] Acute 09/26/22 10:53:00EST, 07/28/22 10:53:00 EDT, Capsule, [facility] #67050, Partial fill upon patient requestif the prescription [...] FOR INDIGESTION, # 30 capsule, 2 Refills, [facility] #74379, 169, cm, 03/27/22 16:12:00 EDT, Height, 92.8, [...] Dates Health Status Cl inical Service Informant Fall down steps Discharge Diagnosis 07/21/22 Low back pain Discharge Diagnosis 07/21/22 Vital Signs Most recent to oldest [Reference Range]: 1 Height 169 cm (07/21/22 10:04 AM) Weight 83.9 kg (07/21/22 10:04 AM) Oxygen Saturation [94-100 %] 98 % (07/21/22 10:04 AM) Pulse Rate [55-90 bpm] 75 bpm (07/21/22 10:04 AM) Body Mass Index [18.5-24.99] 29.38 *H* (07/21/22 10:04 AM) Blood Pressure [90-138/55-84 mm Hg] 132/ 82mm Hg (07/21/22 10:04 AM) Blood pressure sites Arm, left (07/21/22 10:04 AM) Weight Obtained Via Standing scale (07/21/22 10:04 AM) Social History Social History Type Response Smoking Status Never smoker entered on: 02/05/14 Sex Care Team Personnel Name: Ursula BURCH, Meg Bains Address: [address] [place] [address] Adult & Pediatric Med [address]
--- OUTSIDE RECORDS SUMMARY | 2024-10-14 07:45 | XMS_ITS | Continuity of Care Document ---
Author Organization [facility] Address [address] [place] [address]- Care Team Providers Care Check Scaler Name Role Phone Ursula BURCH, Meg Bains Primary Care Physician [facility]counter [facility] Date(s): 05/11/21 - 06/10/21 [facility] [address] [place], [place] [address] Allergies, Adverse Reactions, Alerts Substance Reaction Severity Status NKA Active Immunizations Given and Recorded Vaccine Date Status Refusal Reason SARS-CoV-2 (COVID-19) mRNA BNT-162b2 vac 02/14/21 Recorded SARS-CoV-2 (COVID-19) mRNA BNT-162f4 vac 01/24/21 Recorded influenza virus vaccine, inactivated [...] tetanus/diphtheria/pertussis, acel(Tdap) 5 01/12/11 Given 1Result Comment: [facility] 20561-977-13 Pt tolerated vaccine without inicident...NH 2Result Comment: [id number] 3Admin Note: FLULAVAL 4Admin Note: given w/o incident 5Admin Note: [employer] Medications acetaminophen-oxyCODONE 325 mg-5 mg oral tablet 1, tablet, By Mouth, 2 times a day, PRN, may fill for less for 28 days, # 56 tablet, Refills 0, Tot. Refills 0, Acute, Pain , Severe, 06/30/21 9:52:00 EDT, 06/02/21 9:52:00 EDT, Route to Pharmacy Electronically, [facility] #[id number] Tablet,... Start Date: 06/02/21 Stop Date: 06/30/21 Status: Ordered Aimovig SureClick Autoinjector-aooe 140 mg/mL subcutaneous solution 0 Refills, Maintenance, 09/05/19 11:33:37 EDT Start Date: 09/05/19 Status: Ordered docusate sodium 100 mg oral capsule 100 mg, 1, capsule, By Mouth, 2 times a day, # 60 capsule, Refills 5, Tot. Refills 5, Maintenance, 05/11/21 16:01:00 EDT, Route to Pharmacy Electronically, [facility] #15629, 160, cm, 12/17/20 10:53:00 EST, Height, 83.9, [...] 15:08:00 EST, Aerosol, Route to Pharmacy Electronically, [id number], [facility] #[id number], 160, cm, 12/17/20 10:53:00... Start Date: 12/23/20 [...]
--- OUTSIDE RECORDS SUMMARY | 2024-10-14 07:45 | XMS_ITS | Continuity of Care Document ---
Author Organization [facility] Address [address] [place] [address]- Care Team Providers Care Manager Language Name Role Phone Meg Vergara MD Primary Care Physician [phone] Encounter [facility] Date(s): 05/11/21 - 06/10/21 [facility] [address] [place], [place] [address] Attending Physician: Not on Staff, Attending MD Allergies, Adverse Reactions, Alerts Substance Reaction [...] 1Result Comment: [facility] 19513-713-58 Pt tolerated vaccine without inicident...NH 2Result Comment: [id number] 3Admin Note: FLULAVAL 4Admin Note: given w/o incident 5Admin Note: [employer] Medications acetaminophen-oxyCODONE 325 mg-5 mg oral tablet 1, tablet, By Mouth, 2 times a day, PRN, may fill for less for 28 days, # 56 tablet, Refills 0, Tot. Refills 0, Acute, Pain , Severe, 06/30/21 9:52:00 EDT, 06/02/21 9:52:00 EDT, Route to Pharmacy Electronically, [facility] #55489 Tablet,... Start Date: 06/02/21 Stop Date: 06/30/21 Status: Ordered Aimovig SureClick Autoinjector-aooe 140 mg/mL subcutaneous solution 0 Refills, Maintenance, 09/05/19 11:33:37 EDT Start Date: 09/05/19 Status: Ordered docusate sodium 100 mg oral capsule 100 mg, 1, capsule, By Mouth, 2 times a day, # 60 capsule, Refills 5, Tot. Refills 5, Maintenance, 05/11/21 16:01:00 EDT, Route to Pharmacy Electronically, [facility] #74305, 160, cm, 12/17/20 10:53:00 EST, Height, 83.9, [...] 15:08:00 EST, Aerosol, Route to Pharmacy Electronically, [id number], [facility] #96644, 160, cm, 12/17/20 10:53:00... Start Date: 12/23/20 [...] with routine gynecological exam(Confirmed) Active Migraine(Confirmed) Active GNOZÁLEZ (obstructive sleep apnea)(Confirmed) Active Lower extremity pain(Confirmed) Active Moderate somatic symptom dis order with predominant pain(Confirmed) Active 1SOAPP-R: 5 on 05/08/17 Social History Social History Type Response Smoking Status Never smoker entered on: 02/05/14 Sex
--- OUTSIDE RECORDS SUMMARY | 2024-10-14 07:45 | XMS_ITS | Continuity of Care Document ---
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 Role Phone Meg Vergara MD Primary Care Physician Encounter [facility] Date(s): 01/15/24 - 02/14/24 [facility] [address] [place], [place] [address] Allergies, Adverse Reactions, Alerts No [...] 01/24/21 Recorded 1Result Comment: [facility] 74846-321-44 2Result Comment: [facility] 89236-044-45 3Result Comment: [facility] 07087-298-78 Pt tolerated vaccine without inicident...NH 4Result Comment: [id number] 5Admin Note: FLULAVAL 6Admin Note: given w/o incident 7Result Comment: [facility] [id number] 8Admin Note: [employer] Medications acetaminophen-oxyCODONE 325 mg-5 mg oral tablet 1-2 tablet, By Mouth, Every 6 hours, PRN, dx- acute knee pain post knee replacement for 7 days, # 28 tablet, Refills 0, Tot. Refills 0, Acute, Pain , Severe, 02/20/24 15:03:00 EDT, 02/13/24 15:03:00 EDT, Route to Pharmacy Electronically, [facility]... Start Date: 02/13/24 Stop Date: 02/20/24 Status: Ordered Albuterol (Eqv-ProAir HFA) 90 mcg/inh inhalation aerosol 2 puffs, Inhalation, 4 times a day, PRN NEEDED FOR WHEEZING OR SHORTNESS OF BREATH, # 8.5 Gm, 0 Refills, [facility] #72346, 25, INHALE 2 PUFFS FOUR TIMES DAILY NEEDED FOR WHEEZING OR SHORTNESS OF BREATH, 169, cm, 10/31/21 15:06:00 EST,... Start Date: 01/19/22 Status: Ordered amitriptyline 10 mg oral tablet 1, tablet, By Mouth, Daily at bedtime, # 30 tablet, Refills 0, Maintenance, 12/14/22 17:14:00 EST, Route to Pharmacy Electronically, [facility] #[id number], 169, cm, 11/08/22 14:13:00 EST, Height, 92.8, [...] 10/22/23 12:37:00 EST, Route to Pharmacy Electronically, [facility] #88098, Partial fill upon patient request if the prescript... Start Date: 10/22/23 Stop Date: 11/21/23 Status: Ordered omeprazole 20 mg oral enteric coated capsule 1 capsule, By Mouth, Daily, PRN NEEDED FOR INDIGESTION, # 90 capsule, 0 Refills, Maintenance, 01/18/24 18:31:00 EST, [facility] #31014, 169, cm, 10/22/23 12:21:00 EST, Height, 83, kg, 10/22/23 12:21:00 EST, Dry Weight Start Date: 01/18/24 Status: Ordered sucralfate 1 gm/10 ml oral suspension 10 mL = 1 Gm, By Mouth, 3 times a day before meals and bedtime, # 280 mL, 0 Refills, Maintenance, 10/22/23 12:37:00 EST, [facility] #77551, Partial fill upon patient request if the [...] 0 Refills, Maintenance, 10/19/23 14:39:00 EST, Tablet, [facility] #97092, Partial fill upon patient request if the [...] Care Member Role: PCP Address: Address: [address] [place] [address] Adult [place] [address]- Care Team Related Persons Name: ROB KANG Name: LAUREN GOMES Address: home [address] [place] [address] Name: REGINE TREADWELL Address: home [address] [place] [address]
--- OUTSIDE RECORDS SUMMARY | 2024-10-14 07:45 | XMS_ITS | Continuity of Care Document ---
Author Organization [facility] ter Address [address] [place] [address]- Care Team Providers Care Inventory Control Planner Name Role Phone Meg Vergara MD Primary Care Physician [phone] Encounter [facility] Date(s): 10/31/19 - 10/31/[address] [address]- [facility] Attending Physician: Meg Vergara MD Allergies, [...] tetanus/diphtheria/pertussis, acel(Tdap) 4 01/12/11 Given 1Result Comment: [id number] 2Admin Note: FLULAVAL 3Admin Note: given w/o [...] 10/31/19 10:48:00 EST, Route to Pharmacy Electronically, [facility] #72620, 160, cm, 10/31/19 10:30:00 EST, Heigh... Start [...] 10/20/19 13:52:00 EST, Route to Pharmacy Electronically, [id number]... Start Date: 10/20/19 Stop Date: 11/17/19 Status: Ordered ProAir HFA 90 mcg/inh inhalation aerosol with adapter 2, puffs, Inhalation, 4 times a day, PRN, # 1 each, Refills 0, Tot. Refills 0, Maintenance, 10/24/18 11:31:25 EST, Aerosol, Route to Pharmacy Electronically, [id number], [facility] [id number] Start Date: 10/24/18 Stop Date: 11/23/18 Status: [...]
--- OUTSIDE RECORDS SUMMARY | 2024-10-14 07:45 | XMS_ITS | Continuity of Care Document ---
Author Organization [facility] Address [address] [place] [address]- Care Team Providers Care Tower Supervisor Name Role Phone Meg Vergara MD Primary Care Physician Encounter [facility] ACCT R [id number] Date(s): 02/07/23 - 02/14/23 [facility] [address] [place], [place] [address] Attending Physician: Meg Vergara MD Allergies, [...] mRNA BNT-162b2 vac 01/24/21 Recorded 1Result Comment: [facility] 48681-077-46 2Result Comment: [facility] 93632-676-32 Pt tolerated vaccine without inicident...NH 3Result Comment: [id number] 4Admin Note: FLULAVAL 5Admin Note: given w/o incident 6Result Comment: [facility] 38590-994-59 7Admin Note: [employer] Medications acetaminophen-oxyCODONE 325 mg-5 mg oral tablet 1, tablet, By Mouth, 2 times a day, PRN, for 28 days, # 56 tablet, Refills 0, Tot. Refills 0, Acute, Pain , Severe, 03/07/23 16:43:00 EDT, 02/07/23 16:43:00 EDT, Route to Pharmacy Electronically, [facility] #66281 Tablet, Partial fill upon p... Start Date: 02/07/23 Stop Date: 03/07/23 Status: Ordered Albuterol (Eqv-ProAir HFA) 90 mcg/inh inhalation aerosol 2 puffs, Inhalation, 4 times a day, PRN NEEDED FOR WHEEZING OR SHORTNESS OF BREATH, # 8.5 Gm, 0 Refills, [facility] #24526, 25, INHALE 2 PUFFS FOUR TIMES DAILY NEEDED FOR WHEEZING OR SHORTNESS OF BREATH, 169, cm, 10/31/21 15:06:00 EST,... Start Date: 01/19/22 Status: Ordered amitriptyline 10 mg oral tablet 1, tablet, By Mouth, Daily at bedtime, # 30 tablet, Refills 0, Maintenance, 12/14/22 17:14:00 EST, Route to Pharmacy Electronically, [facility] #[id number], 169, cm, 11/08/22 14:13:00 EST, Height, 92.8, [...] 09/07/22 14:26:00 EDT, Route to Pharmacy Electronically, [facility] #85666, Partial fill upon patient request if the prescript... Start Date: 09/07/22 Stop Date: 10/07/22 Status: Ordered ibuprofen 600 mg oral tablet 600 mg, 1, tablet, By Mouth, 3 times a day, # 42 tablet, Refills 0, Tot. Refills 0, Acute 03/10/23 12:03:00 EDT, 02/07/23 12:02:00 EDT, Route to Pharmacy Electronically, [facility] #75983, Partial fill upon patient request if the prescriptio... Start Date: 02/07/23 Stop Date: 03/10/23 Status: Ordered omeprazole 20 mg oral enteric coated capsule 1 capsule, By Mouth, Daily, PRN NEEDED FOR INDIGESTION, # 90 capsule, 1 Refills, Maintenance, 11/08/22 15:02:00 EST, [facility] #57886, 169, cm, 11/08/22 14:13:00 EST, Height, 92.8, [...] [Reference Range]: 1 2 Height 169 cm (02/07/23 11:17 AM) 169 cm (02/07/23 11:12 AM) Weight 82.7 kg (02/07/23 11:12 AM) Oxygen Saturation [94-100 %] 96 % (02/07/23 11:12 AM) Pulse Rate [55-90 bpm] 97 bpm *H* (02/07/23 11:12 AM) Body Mass Index [18.5-24.99 kg/m2] 28.96 kg/m2 *H* (02/07/23 11:12 AM) Blood Pressure [90-138/55-84 mm Hg] 150/ 100mm Hg *H* (02/07/23 11:17 AM) 150/100mm Hg *H* (02/07/23 11:12 AM) Mode of Delivery (Oxygen) Room air (02/07/23 11:12 AM) Blood pressure sites Arm, left (02/07/23 11:17 AM) Arm, left (02/07/23 11:12 AM) Weight Obtained Via Standing scale (02/07/23 11:12 AM) Social History Social History Type Response Smoking Status Never smoker entered on: 02/05/14 Sex Note * Raiza Artis: PERFORM, SIGN, VERIFY Event Display: Patient Education/Instruction Authored Date: [id number] [facility] *[facility] Clinical Summary Name HUGO GOMES Age 47 Years 1975 PCP Ursula BURCH, Meg Bains PCP Visit Date 02/07/2023 10:48:00 Additional Instructions: Scheduled Appointments?? Future Appointments ?*Rehab??Adult??Aud ?Phone:??--?Fax:??-- ?Appt. Date:??02/13/2023?11:30 AM ?Scheduled Provider:??Sarah Zuniga ?*[facility]??[facility]Adult??Ped ?[address]??[place],??[place],??[address] ?Phone:??--?Fax:??-- ?Appt. Date:??02/19/2023?2:00 PM ?Scheduled Provider:??Ursula BURCH , Meg Bains Follow-Up Instructions ?? Diagnosis Other dislocation of unspecified shoulder joint, initial encounter Medications: Please continue your medications until treatment is completed or stopped by your provider. Discuss any questions related to medications with your provider. New Medications [facility] #[id number], [address], [place] [id number], [phone] Ibuprofen (ibuprofen 600 mg oral tablet) 1 tab(s) Oral 3 times a day. Refills: 0. Next Dose: Medications to Continue with No Changes These medications were not printed or sent to your pharmacy Albuterol (Albuterol (Eqv-ProAir HFA) 90 mcg/inh inhalation aerosol) 2 puff(s) Inhalation 4 times aday as needed NEEDED FOR WHEEZING OR SHORTNESS OF BREATH. Refills: 0. Next Dose: amiTRIPTYLINE (amitriptyline 10 mg oral tablet) 1 tab(s) Oral Daily at Bedtime. Refills: 0. Next Dose: galcanezumab ([employer] Prefilled Syringe 120 mg/mL subcutaneous solution) Next Dose: Hyoscyamine (hyoscyamine 0.125 mg oral tablet) 1 tab(s) Oral 3 times a day as needed for spasm for 30 Days. Refills: 0. Next Dose: Omeprazole (omeprazole 20 mg oral enteric coated capsule) 1 capsule Oral Daily as needed NEEDED FOR INDIGESTION for 90 Days. Refills: 1. Next Dose: Phentermine (phentermine 37.5 mg oral tablet) Next Dose: Topiramate (topiramate 100 mg oral tablet) Next Dose: Allergy Info:?? NKA Medications Given This Visit Future Orders ?No future orders Vital Signs Height 169 cm Weight 82.7 kg BMI 28.96 kg/m2 Blood Pressure 150 mm Hg/100 mm Hg Temperature Pulse Rate 97 bpm Respiratory Rate 02 Sat Mode of Delivery 96 %/Room air You can now view a summary of your hospital visit from the comfort of your home through a free online portal called [employer]. [employer] is a website that allows you to securely view your medical information including discharge summary, medications and follow-up visits. ??You can alsosend a secure electronic message to your doctor???s office to request appointments, renew medications or just ask a question. You can enroll at [email or web address] or register during your next office visit. [...] primary care provider, you may find a [facility] provider by calling [facility] Link at [phone]. For information about the plan of care [...] Team Personnel Name: Kandis Leahy RN Position: [facility] RN Member Role: Primary Care Nurse Name: Meg Vergara MD Position: [facility] Primary Care Physician Member Role: PCP Address: Address: [address] [place] [address] Adult & [place] [address]- Care Team Related Persons Name: ROB KANG Name: LAUREN GOMES Address: home [address] [place] [id number] Name: REGINE TREADWELL Address: home [address] [place] [address]
--- OUTSIDE RECORDS SUMMARY | 2024-10-14 07:45 | XMS_ITS | Continuity of Care Document ---
Author Organization [facility] Address [address] [place] [address]- Care Team Providers Care Airplane Pilot Crop Dusting Name Role Phone Ursula BURCH, Meg Bains Primary Care Physician Encounter [facility] Date(s): 04/02/20 - 05/02/20 [facility] [address] [place] [address]- [facility] Attending Physician: Ghazala Ventura Admitting [...] tetanus/diphtheria/pertussis, acel(Tdap) 4 01/12/11 Given 1Result Comment: [id number] 2Admin Note: FLULAVAL 3Admin Note: given w/o incident 4Admin Note: [facility] Medications acetaminophen-oxyCODONE 325 mg-5 mg oral tablet 1, tablet, By Mouth, 2 times a day, PRN, may fill for less for 28 days, # 56 tablet, Refills 0, Tot. Refills 0, Acute, Pain , Severe, 05/18/20 11:17:00 EDT, 04/20/20 11:17:00 EDT, Route to Pharmacy Electronically, [facility] #[id number] Tablet... Start Date: 04/20/20 Stop Date: 05/18/20 [...] 02/20/20 9:33:00 EDT, Route to Pharmacy Electronically, [facility] #27408, 160, cm, 01/16/20 11:09:00 EST, Height, 83.9, [...] 12:52:00 EST, Aerosol, Route to Pharmacy Electronically, [id number], [facility] #60700, 160, cm, 10/31/19 10:30:00... Start Date: 11/18/19 [...]
--- OUTSIDE RECORDS SUMMARY | 2024-10-14 07:45 | XMS_ITS | Continuity of Care Document ---
Author Organization [facility] Address [address] [place] [address]- Care Team Providers Care Streetcar Operator Name Role Phone Meg Vergara MD Primary Care Physician [phone] Encounter [facility] Date(s): 01/09/24 - 02/08/24 [facility] [address] [place], [place] [address] Allergies, Adverse Reactions, Alerts No [...] BNT-162b2 vac 01/24/21 Recorded 1Result Comment: [facility] [id number] 2Result Comment: [facility] [id number] 3Result Comment: [facility] [id number] Pt tolerated vaccine without inicident...NH 4Result Comment: [id number] 5Admin Note: FLULAVAL 6Admin Note: given w/o incident 7Result Comment: [facility] [id number] 8Admin Note: [facility] Medications Albuterol (Eqv-ProAir HFA) 90 mcg/inh inhalation aerosol 2 puffs, Inhalation, 4 times a day, PRN NEEDED FOR WHEEZING OR SHORTNESS OF BREATH, # 8.5 Gm, 0 Refills, [facility] #[id number], 25, INHALE 2 PUFFS FOUR TIMES DAILY NEEDED FOR WHEEZING OR SHORTNESS OF BREATH, 169, cm, 10/31/21 15:06:00 EST,... Start Date: 01/19/22 Status: Ordered amitriptyline 10 mg oral tablet 1, tablet, By Mouth, Daily at bedtime, # 30 tablet, Refills 0, Maintenance, 12/14/22 17:14:00 EST, Route to Pharmacy Electronically, [facility] #[id number], 169, cm, 11/08/22 14:13:00 EST, Height, 92.8, [...] 10/22/23 12:37:00 EST, Route to Pharmacy Electronically, [facility] #[id number], Partial fill upon patient request if the prescript... Start Date: 10/22/23 Stop Date: 11/21/23 Status: Ordered omeprazole 20 mg oral enteric coated capsule 1 capsule, By Mouth, Daily, PRN NEEDED FOR INDIGESTION, # 90 capsule, 0 Refills, Maintenance, 01/18/24 18:31:00 EST, [facility] #[id number], 169, cm, 10/22/23 12:21:00 EST, Height, 83, kg, 10/22/23 12:21:00 EST, Dry Weight Start Date: 01/18/24 Status: Ordered sucralfate 1 gm/10 ml oral suspension 10 mL = 1 Gm, By Mouth, 3 times a day before meals and bedtime, # 280 mL, 0 Refills, Maintenance, 10/22/23 12:37:00 EST, [facility] #[id number], Partial fill upon patient request if the [...] 0 Refills, Maintenance, 10/19/23 14:39:00 EST, Tablet, [facility] #[id number], Partial fill upon patient request if the [...] Care Member Role: PCP Address: Address: [address] [facility] [place] [address]- Care Team Related Persons Name: ROB KANG Name: LAUREN GOMES Address: [address] [place] [address] Name: REGINE TREADWELL Address: home [address] [place] [address]
--- OUTSIDE RECORDS SUMMARY | 2024-10-14 07:45 | XMS_ITS | Continuity of Care Document ---
Author Organization [facility] Address [address] [place] [address]- Care Team Providers Care Matrix Inspector Name Role Phone Ursula BURCH, Meg Bains Primary Care Physician Encounter [facility] Date(s): 05/19/21 - 05/26/21 [facility] [address] [place], [place] [address] Attending Physician: Meg Vergara MD Allergies, [...] Given 1Result Comment: [facility] [id number] Pt tolerated vaccine without inicident...NH 2Result Comment: [id number] 3Admin Note: FLULAVAL 4Admin Note: given w/o incident 5Admin Note: [facility] Medications acetaminophen-oxyCODONE 325 mg-5 mg oral tablet 1, tablet, By Mouth, 2 times a day, PRN, may fill for less for 28 days, # 56 tablet, Refills 0, Tot. Refills 0, Acute, Pain , Severe, 06/02/21 11:11:00 EDT, 05/05/21 11:11:00 EDT, Route to Pharmacy Electronically, [facility] #[id number] Tablet... Start Date: 05/05/21 Stop Date: 06/02/21 Status: Ordered Aimovig SureClick Autoinjector-aooe 140 mg/mL subcutaneous solution 0 Refills, Maintenance, 09/05/19 11:33:37 EDT Start Date: 09/05/19 Status: Ordered docusate sodium 100 mg oral capsule 100 mg, 1, capsule, By Mouth, 2 times a day, # 60 capsule, Refills 5, Tot. Refills 5, Maintenance, 05/11/21 16:01:00 EDT, Route to Pharmacy Electronically, [facility] #[id number], 160, cm, 12/17/20 10:53:00 EST, Height, 83.9, [...] 20:00:00 EDT, 05/13/21 12:25:00 EDT, REC Powder, [facility] #[id number], Partial fill upon patient request if the [...] 15:08:00 EST, Aerosol, Route to Pharmacy Electronically, [id number], [id number], 160, cm, 12/17/20 10:53:00... Start Date: 12/23/20 [...] oldest [Reference Range]: 1 Height 169 cm (05/19/21 2:14 PM) Weight 88.6 kg (05/19/21 2:14 PM) Oxygen Saturation [94-100 %] 98 % (05/19/21 2:14 PM) Pulse Rate [55-90 bpm] 97 bpm *H* (05/19/21 2:14 PM) Body Mass Index [18.5-24.99] 31.02 *>HHI* (05/19/21 2:14 PM) Blood Pressure [90-138/55-84 mm Hg] 128/ 76mm Hg (05/19/21 2:14 PM) Temperature [96.8-100.4 DegF] 97.9 DegF (05/19/21 2:14 PM) Mode of Delivery (Oxygen) Room air (05/19/21 2:14 PM) Blood pressure sites Arm, left (05/19/21 2:14 PM) Temperature Route Temporal (05/19/21 2:14 PM) Weight Obtained Via Standing scale (05/19/21 2:14 PM) Social History Social History Type Response Smoking Status Never smoker entered on: 02/05/14 Sex
[2024-10-14] MEDS: Gabapentin 300 MG CAPSULE PO (07:58)
[2024-10-14] MEDS: methocarbamoL 750 MG TABLET PO ×2 (07:58→17:00)
[2024-10-14] MEDS: Lactated Ringers 1,000 ML 100 ML IVCONT (08:21)
--- NOTE | 2024-10-14 09:02 | MHC.SHP ---
Pre-Procedural Eval Section A - 24 Hr Update-Section A only Date of Service: 10/14/24 The patient is an INPATIENT: No Changes since office visit: No Cold of Flu in the past 2 weeks, No New Medical Problems, No Changes in Medication and No Patient answered all questions The patient has been examined within 24 hours of the surgical procedure. The History & Physical has been completed within 30 days and I have reviewed it.: No Section B - Complete if H&P > 30 days Chief Complaint: L4-5 OLIF Allergies: Allergies Allergy/AdvReac Type Severity Reaction Status Date / Time No Known Allergies Allergy Verified 09/29/24 10:22 Review of Systems Sugical H&P ROS: Negative: Constitution, Cardiovascular, Respiratory, Neurological, Psychiatric, Hem-Onc, Allergic/Immunologic, Gastrointestinal, Genitourinary, Musculoskeletal, Integumentary, Endocrine and Eyes/Ears/Nose/Throat Exam Surgical H&P Exam: Normal: HEENT, Normal: Heart, Normal: Lungs, Normal: Extremities, Normal: Abdomen, Normal: Skin and Normal: Neurological (awake, alert,oriented x 3 ) Plan Diagnosis/Plan: Unchanged L4-5 OLIF Time Spent With Patient Time: Total time managing care of this patient today __3__ minutes.
--- NOTE | 2024-10-14 09:24 | P.CONAN_ITS ---
Documented by User: Jie Breaux NP 10/13/24 12:35 HPI - Anesthesia Eval Consult details Narrative: 49yo F for L4-5 Oblique Lumbar Interbody Fusion, 10/14/2023 No recent illness No CP/SOB with stress test Recent w/u for atypical CP by PCP: EKG abnormal, Treadmill stress test WNL GONZÁLEZ: Resolved with weight loss Chronic opioids: Percocet BID s/p hysterectomy PMFSH Active Problems Active Problems: All Active Problems Change in bowel habit (Acute) History of diverticulitis (Acute) Chest pain (Acute) GERD (gastroesophageal reflux disease) (Acute) Spondylolisthesis, lumbar region (Acute) Dislocation of shoulder, right, closed (Acute) Past Medical History Medical History (Updated 09/29/24 @ 10:25 by Marie Crockett RN) GONZÁLEZ (obstructive sleep apnea) Arthritis Hx of dislocation of shoulder (~01/2023) Chronic, continuous use of opioids Insomnia Constipation Back pain Fibromyalgia History of arthritis History of IBS History of diverticulosis Hx of migraines Family History Family history of problems with anesthesia: No Surgical History Surgical History (Updated 09/29/24 @ 10:16 by Marie Crockett RN) Hx of hysterectomy Hx of tonsillectomy Hx of abdominoplasty (~2003) H/O breast augmentation (~2004) History of total right knee replacement (TKR) (~12/2023) Hx of colonoscopy History of Problems with Anesthesia: No Social History Social History (Updated 09/29/24 @ 10:30 by Marie Crockett RN) Household Members: Spouse Housing: House Are you a primary hospice spiritual care coordinator to a significant other at home: No Do you presently have visiting nurse or other home services: No Patient Tobacco Use Status: Never used Tobacco e-Cigarette/Vaping Use: Never Used Use of substances other than those prescribed or required for medical reasons: No Have you been hit, kicked, punched, or otherwise hurt by someone within the past year? 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 Allergies Allergy/AdvReac Type Severity Reaction Status Date / Time No Known Allergies Allergy Verified 09/29/24 10:22 Home Medications ?Medication ?Instructions ?Recorded ?Confirmed ?Last Taken ?Type oxycodone-acetaminophen 5 mg-325 1 tab PO BID PRN Pain 02/08/23 09/29/24 10/12/24 13:00 History mg tablet omeprazole 20 mg capsule,delayed 20 mg PO DAILY PRN Gastric Reflux 09/26/24 09/26/24 09/25/24 History release semaglutide (weight loss) 0.25 0.25 mg subcut QWEEK 10/14/24 Unknown History mg/0.5 mL [facility] Exam Height,Weight and Vital Signs: Height 5 ft 3 in Weight 81.6 kg Last Vital Signs Pulse 73 09/29/24 10:06 Resp 16 09/29/24 10:06 BP 156/91 H 09/29/24 10:06 Pulse Ox 97 09/29/24 10:06 O2 Del Method Room Air 09/29/24 10:06 Pertinent Lab Results Pertinent Lab Results: Lab Results 09/29/24 Range/Units 10:56 WBC 6.6 (4.8-10.8) X10*3/uL RBC 4.99 (4.20-5.50) X10*6/uL Hgb 14.3 (12.0-16.0) g/dl Hct 44.2 (37.0-47.0) % MCV 88.6 (80.0-98.0) fL MCH 28.7 (27.0-33.0) pg MCHC 32.4 (31.0-35.0) g/dl RDW 12.3 (11.0-16.0) % Plt Count 325 (160-400) X10*3/uL MPV 9.6 (9.4-12.3) fL Absolute Nucleated RBC 0.000 (0.0-0.012) X10*3/uL Nucleated RBC % (auto) 0.0 (0.0-0.2) /100WBC Sodium 138 (135-145) mmol/L Potassium 4.0 (3.3-5.1) mmol/L Chloride 108 (96-108) mmol/L Carbon Dioxide 24 (22-29) mmol/L Anion Gap 10 L (12-20) BUN 14 (9-16) mg/dL Creatinine 0.74 (0.5-1.4) mg/dL Estim Creat Clear Calc 92.0 Estimated GFR > 60 Fasting Glucose 81 (60-99) mg/dL Calcium 9.1 (8.4-10.2) mg/dL Narrative Narrative: EKG 08/2024 Ventricular Rate: 81 BPM Atrial Rate: 81 BPM P-R Interval: 144 ms QRS Duration: 84 ms Q-T Interval: 384 ms QTC Calculation(Bazett): 446 ms P Grandy: 43 degrees R Grandy: -8 degrees T Grandy: 18 degrees Normal sinus rhythm Possible Left atrial enlargement Cannot rule out Anterior infarct , age undetermined Abnormal ECG When compared with ECG of 20-MAY-2024 08:28, No significant change was found Confirmed by GREGORY LUNA MD ([id number]) on 08/27/2024 5:10:01 PM Treadmill Stress Test 08/2024 No ischemic EKG changes No Chest pain Dyspnea and fatigue resolved in recovery Nml response Airway Mallampati Class: I TM Dist: >3cm Neck ROM: Full Loose/Missing/Broken Teeth: Yes (Molars extracted) Heart: RRR Lungs: CTAB Assessment and Plan Assessment Anesthesia Assessment: Anesthesia Plan Discussed and PAT Visit Final Anesthetic Review Family History of Problems with Anesthesia: No History of Problems with Anesthesia: No Documented by User: Saskia Kaur DO 10/14/24 09:24 [facility] Past Medical History Medical History (Updated 09/29/24 @ 10:25 by Marie Crockett RN) GONZÁLEZ (obstructive sleep apnea) Arthritis Hx of dislocation of shoulder (~01/2023) Chronic, continuous use of opioids Insomnia Constipation Back pain Fibromyalgia History of arthritis History of IBS History of diverticulosis Hx of migraines Family History Family history of problems with anesthesia: No Surgical History Surgical History (Updated 09/29/24 @ 10:16 by Marie Crockett RN) Hx of hysterectomy Hx of tonsillectomy Hx of abdominoplasty (~2003) H/O breast augmentation (~2004) History of total right knee replacement (TKR) (~12/2023) Hx of colonoscopy History of Problems with Anesthesia: No Social History Social History (Updated 09/29/24 @ 10:30 by Marie Crockett RN) Household Members: Spouse Housing: House Are you a primary hospice spiritual care coordinator to a significant other at home: No Do you presently have visiting nurse or other home services: No Patient Tobacco Use Status: Never used Tobacco e-Cigarette/Vaping Use: Never Used Use of substances other than those prescribed or required for medical reasons: No Have you been hit, kicked, punched, or otherwise hurt by someone within the past year? 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 Allergies Allergy/AdvReac Type Severity Reaction Status Date / Time No Known Allergies Allergy Verified 09/29/24 10:22 Home Medications ?Medication ?Instructions ?Recorded ?Confirmed ?Last Taken ?Type oxycodone-acetaminophen 5 mg-325 1 tab PO BID PRN Pain 02/08/23 09/29/24 10/12/24 13:00 History mg tablet omeprazole 20 mg capsule,delayed 20 mg PO DAILY PRN Gastric Reflux 09/26/24 09/26/24 09/25/24 History release semaglutide (weight loss) 0.25 0.25 mg subcut QWEEK 10/14/24 Unknown History mg/0.5 mL subcutaneous pen injector ([facility]) Exam Exam Date and Time: 10/14/24 0920 Height,Weight and Vital Signs: Height 5 ft 3 in Weight 81.6 kg Last Vital Signs Pulse 73 09/29/24 10:06 Resp 16 09/29/24 10:06 BP 156/91 H 09/29/24 10:06 Pulse Ox 97 09/29/24 10:06 O2 Del Method Room Air 09/29/24 10:06 Vital Signs Pulse Rate 73 09/29/24 10:06 Respiratory Rate 16 09/29/24 10:06 Blood Pressure 156/91 H 09/29/24 10:06 Pulse Oximetry 97 09/29/24 10:06 Oxygen Delivery Method Room Air 09/29/24 10:06 Temperature 98.0 F 10/14/24 07:40 Pulse Rate 85 10/14/24 07:40 Respiratory Rate 16 10/14/24 07:40 Blood Pressure 147/95 H 10/14/24 07:40 Pulse Oximetry 97 10/14/24 07:40 Oxygen Delivery Method Room Air 10/14/24 07:40 Airway Mallampati Class: I TM Dist: >3cm Neck ROM: Full Loose/Missing/Broken Teeth: Yes (missing molars, otherwise no loose/broken teeth per patient) Heart: S1S2 Assessment and Plan Assessment Anesthesia Assessment: Anesthesia Plan Discussed and Chart Reviewed Final Anesthetic Review Family History of Problems with Anesthesia: No History of Problems with Anesthesia: No NPO: Yes ASA Class: II Final Preanesthetic Review: No Changes in Pt Med Stat, Meds/Allgs Chart Reviewed, Consent Obtained/Reviewed and Anes Risks/Benef Reviewed Patient Risk: Low Procedure Risk: Intermediate Anesthetic Plan Anesthetic Plan: GA and Agree w/ Assess. and Plan Disposition: Standard PACU
--- NOTE | 2024-10-14 11:58 | W.PM.OPN ---
Operative Note Operative Note Date of Service: 10/14/24 Narrative: Preop Diagnosis: 1.) lumbar spondylolisthesis L4-5 Procedure: 1) L4-5 discectomy, arthrodesis and implantation cage through an anterolateral, retroperitoneal approach 2) L4-5 posterior instrumented fusion 3) allograft 4) Injection of 10 cc of Exparel at the transverse process for a muscular erector spinae block and additional Exparel in paravertebral tissue for postop management Consent Informed Consent was obtained for this operation. I have explained the nature, purpose and benefits of the operation. I have discussed the risks and benefit of the operation including possible complications or adverse events with patient/family. Alternative(s) were discussed with the patient with their relative benefits and risks as well as the consequences of not accepting the operation were included in obtaining consent. Surgeon: ZEHRA REAVES MD, PHD Procedure Assisted By: desire Turner Description of Procedure this patient is suffering from chronic back pain. MRI shows a grade 1-2 lumbar spondylolisthesis confirmed with lumbar x-ray. The patient was offered an oblique lumbar interbody fusion L4-5. The procedure complications were explained. The patient was consented. The patient was brought to the operating room and endotracheally intubated. The patient was turned in a lateral position with the left side up. Prep and drape was done followed by timeout. A small incision was made in the left lower abdominal quadrant. The muscle fascia was opened after which the 3 muscle layer was split to enter the retroperitoneal space. Dilators were docked in the anterior one third of the L4-5disc space followed by a retractor. The retractor was opened. The L4-5 disc space was exposed. An annulotomy was done after which an elevator Acevedo was used to release the disc material from its endplates and to perforate the contralateral side. A partial discectomy was done. An 8 and 10 mm height trial implant was inserted. The discectomy was completed. The endplates were prepared. An 10 x 45 mm with 0 degree lordosis 4 web cage filled with allograft was inserted into the disc space under fluoroscopic guidance. This resulted in correction of the spondylolisthesis. The retractor was removed. Hemostasis was done. The incision was closed in 2 layers. Steri-Strips used to approximate incision. An OpSite with Tegaderm was used to cover the incision. This marked first part of the procedure. The patient was turned prone on the Mendez spine table. 2C arms were installed for fluoroscopy. Prep and drape was done followed by a second timeout. Injection of 10 cc of Exparel at the bilateral L4 transverse process was donefor a muscular erector spinae block. Two paramedian incisions were made lateral from the L4-5 pedicles. The muscle fascia was opened after which the muscle layer was split bluntly to expose the posterolateral gutter. The following steps were taken. A pediguard tap was used to create a transpedicular trajectory into the vertebral body. A K wire was placed. A specially designed instrument was advanced over the K wire to decorticate the posterolateral gutter in preparation for the posterolateral fusion. A pedicle screw was advanced over the K wire and the K wire was removed. The steps were done for the bilateral L4 and [id number]. A total of forscrews were placed with a diameter of 6.5 x 40 mm in the bilateral L4 pedicles and 6.5 x 45 mm in the bilateral L5 pedicles. Pedicle screws were connected with 45 mm chastity bilaterally and locked down with locking caps. The extension towers were removed. The posterolateral gutter was filled with allograft to complete the posterolateral [] fusion Hemostasis was done and the incision was closed in 2 layers. Steri-Strips were used to approximate the incision. An OpSite were taken and was used to cover the incision. All sponge and needle counts were correct. Patient was extubated and transferred in stable is to recovery room. Anesthesia: General Estimated Blood Loss (ml): 30 mL Duration of Surgery: 2 hours Complications: None Postoperative Plan: Admit to inpatient for observation
[2024-10-14] MEDS: HYDROmorphone HCl 0.5 MG/0.5 ML SYRINGE IVPUSH ×2 (13:15→13:25)
--- NOTE | 2024-10-14 15:08 | PHA.MEDREC ---
Pharmacy Consult ? Medication Reconciliation Pharmacy reviewed med rec done by nursing, matches claims well. Patient states she accidentally wasted her wegovy 2 weeks ago and hasn't been able to fill since, waiting until insurance will fill more. Removed from home med list at this time.
[2024-10-14] MEDS: 0.9 % Sodium Chloride 1,000 ML 75 ML IVCONT (16:37)
[2024-10-14] MEDS: Ketorolac Tromethamine 15 MG/ML VIAL IVPUSH (16:43)
[2024-10-14] MEDS: ceFAZolin Sodium/Dextrose,Iso 2 GM/50 ML PIGGYBACK IV ×2 (16:48→21:29)
[2024-10-14] MEDS: Acetaminophen 1,000 MG/100 ML PIGGYBACK 400 MG IV (16:51)
[2024-10-14] MEDS: oxyCODONE HCl Immed Release 5 MG TABLET 10 MG PO ×2 (16:59→21:25)
[2024-10-14] MEDS: Docusate Sodium 100 MG CAPSULE PO (21:24)
[2024-10-15] MEDS: Acetaminophen 1,000 MG/100 ML PIGGYBACK 400 MG IV ×2 (00:07→05:46)
[2024-10-15] MEDS: Ketorolac Tromethamine 15 MG/ML VIAL IVPUSH ×2 (00:10→06:05)
[2024-10-15] MEDS: HYDROmorphone HCl 1 MG/ML SYRINGE IVPUSH (00:44)
[2024-10-15 03:14] VITALS: BP 119/72; PULSE 88; RESP 18; TEMP 36; O2SAT 96
[2024-10-15] MEDS: ceFAZolin Sodium/Dextrose,Iso 2 GM/50 ML PIGGYBACK IV (03:49)
[2024-10-15] MEDS: oxyCODONE HCl Immed Release 5 MG TABLET 10 MG PO ×2 (03:54→08:12)
[2024-10-15] MEDS: 0.9 % Sodium Chloride 1,000 ML 75 ML IVCONT (05:46)
--- NOTE | 2024-10-15 07:06 | HO.NEURO.PN ---
Neurosurgery Operative Note Date of Service: 10/15/24 Narrative: POD: 1 Procedure: L4-5 OLIF Aura was seen this morning sitting in bed on 3-. Patient reports she is up OOB, walking around is otherwise doing well. She feels her symptoms are much better than pre-operatively. She still reports pain in her low back with good relief from current pain regimen. She is voiding well, tolerating diet. Afebrile, vital signs stable. Full strength 5/5 LE. Back dressings have some staining without signs of hematoma. No active sanguineous drainage. Area is dry. Plan: Pleasant 49 year old female POD:1 s/p L4-5 OLIF. She is progressing normally, and is OOB voiding independently and tolerating her current diet. We would like the patient to work with PT today to evaluate for mobility and strength. If she does well she will meet criteria to be medically discharged home. She was seen at bedside with Dr. Carranza.
--- NOTE | 2024-10-15 07:10 | P.DS_ITS ---
DS: Providers Provider Date of Service: 10/21/24 Date of admission: 10/14/24 07:33 Primary care physician: Meg Vergara MD DS: Summary Time Attestation Discharge Coordination Time (in mins): 14 Quality: Safe Use of Opioids Does Pt have an Active Cancer Diagnosis on the Problem List?: No Quality: Stroke Does the patient have a stroke diagnosis?: No Physical Exam Vital Signs: Vital Signs: Last Vital Signs Temp 96.8 F 10/15/24 03:14 Pulse 88 10/15/24 03:14 Resp 18 10/15/24 03:14 BP 119/72 10/15/24 03:14 Pulse Ox 96 10/15/24 03:14 O2 Del Method Room Air 10/15/24 03:14 O2 Flow Rate 2 10/14/24 14:21 BMI result Body Mass Index 31.9 DS: Data Data Completed and Pending Labs on day of discharge: Laboratory Results - last 24 hr 10/14/24 08:20 Blood Type O Positive Antibody Screen NEGATIVE Discharge Plan Discharge Anticipated Discharge Date/Time: 10/15/24 09:44 Patient Disposition: Home, Self-Care Discharge Diagnosis: s/p L4-5 OLIF Referrals: Meg Vergara MD [Primary Care Provider] - 1 Week Discharge Medications: Continued omeprazole 20 mg capsule,delayed release(DR/EC) 20 mg PO DAILY PRN (Reason: Gastric Reflux) Held oxycodone-acetaminophen 5-325 mg tablet 1 tab PO BID PRN (Reason: Pain) Hold Instructions: Resume on 10/15/24. We will fill pain medication for first 1 month after surgery No Action gabapentin 300 mg capsule 300 mg PO TID Qty: 30 1RF methocarbamol 750 mg tablet 750 mg PO TID Qty: 30 1RF Discharge Orders: Discharge Order (Routine); Ordered 10/15/24 Ordered By: Maverick Bennett Diet: Advance to usual diet Activity on Discharge: As tolerated Stand Alone Forms: Patient Portal Discharge page Print Language: Upper Sorbian Activity Restrictions/Additional Instructions: After your spinal surgery we ask you to observe the following restrictions/guidelines: Activity: With lumbar fusion surgery it is normal to have days in the first couple of weeks where you have increased leg pain. This usually lasts 1-2 days and self resolves with the continuation of medication. Attempt to stay mobile and continue activity as tolerated. It is normal to feel some discomfort as you increase your activity, but that will improve with time. We ask you avoid heavy lifting or activities that cause pain. As a general rule, 8lbs is a safe limit for lifting right after surgery. Walk as much as you feel comfortable but not to exhaustion. You will feel extra tired the first few days after surgery. Stay well hydrated. It is OK to walk up and down stairs You may return to driving when you are off narcotics (such as vicodin, oxycodone, dilaudid, etc), and you are back to normal functional capacity. If you have any concerns please check with office before driving. Return to work is specific to each patient and each surgery, so please speak with your doctor/PA at first follow up. Please bring paperwork such as FMLA at that time if you need it filled out. Medications: It is recommended that you take Tylenol 500 mg every 4 hours for the 1st week postoperatively, ?alongside ibuprofen 600 mg every 8 hours. We will give you a short supply of narcotics after surgery (usually one weeks worth). ??Please use this for breakthrough pain that is refractory to the Tylenol ibuprofen and gabapentin. If you need more please call the office but do not use more than prescribed. You will need to give our office 48 hours notice if you need narcotics refilled and we do not fill narcotics on weekends or evenings. If you are on a narcotic, it is a good idea to take a stool softener such as colace or senna to avoid constipation If you take blood thinner such as aspirin, Plavix, Coumadin, Effient, Eliquis etc for conditions such as Afib, DVT, Pulmonary embolus, coronary disease, stents etc please speak with your surgeon about specific details as to when you can resume these medications. You can resume NSAIDs on post op day 1 (eg: Motrin, Naproxen, etc). Follow up: Please call the office, , after surgery to arrange a 3 week follow up for wound check. Wound Care: You may remove your dressing on the first day after surgery. ?You may ?leave open to air. Please do not remove the steri strips underneath. they will fall off on their own in one week. IT IS NORMAL FOR THE WOUND TO OOZE OR BE BLOODY FOR A FEW DAYS AFTER SURGERY. ?IF THIS HAPPENS JUST PLACE NEW DRESSING OVER IT TO AVOID STAINING CLOTHES. You may shower on post op day # 1 We ask that you do not let the water soak the wound. If it does get wet, just towel dry lightly. Please do not scrub your incision or place any type of chemical/ointment on the wound. No tub baths, pools or jacuzzis for one month. If you have any leaking or redness from your wound, or fevers, please call office Care Plan Goals: Return to normal activity as tolerated. Health Concerns: None. Plan of Treatment: Follow-up in clinic in 2-3 weeks Assessment: POD: 1 Procedure: L4-5 OLIF Aura was seen this morning sitting in bed on . Patient reports she is up OOB, walking around is otherwise doing well. She feels her symptoms are much better than pre-operatively. She still reports pain in her low back with good relief from current pain regimen. She is voiding well, tolerating diet. Afebrile, vital signs stable. Full strength 5/5 LE. Back dressings have some staining without signs of hematoma. No active sanguineous drainage. Area is dry. Plan: Pleasant 49 year old female POD:1 s/p L4-5 OLIF. She is progressing normally, and is OOB voiding independently and tolerating her current diet. We would like the patient to work with PT today to evaluate for mobility and strength. If she does well she will meet criteria to be medically discharged home. She was seen at bedside with Dr. Carranza. I will send in Oxycodone Rx to [facility] per patient request. Discharge Date/Time: 10/15/24 09:55
[2024-10-15 07:29] VITALS: BP 111/75; PULSE 92; RESP 12; TEMP 36.6; O2SAT 98
[2024-10-15] MEDS: Docusate Sodium 100 MG CAPSULE PO (08:13)
--- NOTE | 2024-10-15 08:50 | MHC.CM.PN ---
PTG LIVES WITH ,WILL HAVE A VEGETABLE SORTER WHEN DCD THRUY HER INS PT HAS A RIDE HOME DC PLAN HOME
--- NOTE | 2024-10-15 09:44 | HO.POSTANES ---
Post Anesthesia Evaluation Post Anesthesia Evaluation Date of Service: 10/15/24 Vital Signs: Vital Signs Temp Pulse Resp BP Pulse Ox O2 Del Method 10/15/24 07:29 97.8 F 92 12 111/75 98 Room Air 10/15/24 03:14 96.8 F 88 18 119/72 96 Room Air Anesthesia: General Endotracheal-GETA Mental Status: Awake Pain Control: Satisfactory Nausea/Vomiting: None Hydration: Adequate Anesthesia-Related Issues: No Anes. Related Issues
--- OUTSIDE RECORDS SUMMARY | 2024-10-21 11:32 | XMS_ITS | Continuity of Care Document ---
Author Organization [facility] Address [address] [place] [address]- Care Team Providers Care Assignment Manager Name Role Phone Meg Vergara MD Primary Care Physician Encounter [facility] [place] Date(s): 09/14/24 - 10/14/24 [facility] [address] [place], [place] [address] Encounter Type: Triage Allergies, Adverse [...] mRNA BNT-162b2 vac 01/24/21 Recorded 1Result Comment: [facility] [id number] 2Result Comment: [facility] [phone] 3Result Comment: [facility] [phone] 4Result Comment: [facility] [id number] Pt tolerated vaccine without inicident...NH 5Result Comment: [id number] 6Admin Note: FLULAVAL 7Admin Note: given w/o incident 8Result Comment: [facility] [phone] 9Admin Note: [employer] Medications acetaminophen-oxyCODONE 325 mg-5 mg oral tablet 1, tablet, By Mouth, 2 times a day, PRN, for 28 days, # 56 tablet, Refills 0, Tot. Refills 0, Acute, Pain , Severe, 10/16/24 1:51:00 PM EST, 09/18/24 1:51:00 PM EST, Route to Pharmacy Electronically, [facility] #[id number] Tablet, Partial fill upon patient request -; [...] OF BREATH, # 8.5 Gm, 0 Refills, [facility] #[id number], 25, INHALE 2 PUFFS FOUR TIMES DAILY [...] 0 Refills, Maintenance, 08/20/24 9:36:00 PM EDT, [facility] #[id number], 30, SHAKE LIQUID AND USE 1 SPRAY [...] 3 Refills, Maintenance, 05/30/24 4:14:00 PM EDT, [facility] #[id number], 160, cm, 05/30/24 15:48:00 EDT, Height, 81, [...] Team Personnel Name: Kandis Leahy RN Position: [facility] SN RN Member Role: Primary Care Nurse Name: Anita Hemphill RN Position: [facility] RN Member Role: Primary Care Nurse Name: Meg Vergara MD Position: [facility] Physician - Primary Care Member Role: PCP Address: [address] [place] [address] Adult & Pediatric [address] Telecom: Name: Elaina Lyon RN Position: [facility] OB RN Member Role: Primary Care Nurse Care Team Related Persons Name: ROB KANG Name: LAUREN GOMES Name: REGINE TREADWELL Insurance Providers Guarantor name: HUGO GOMES Health Plan Information #: 1 Payer: [facility] CARE ALLIANCE/ONE CARE Member Number: NA Policy Number: NA Group Number: NA
--- OUTSIDE RECORDS SUMMARY | 2024-10-21 11:33 | XMS_ITS | Continuity of Care Document ---
Author Organization [facility] Address [address] [facility], [address] d Floor, [address] [place] [address]- Care Team Providers Care Research Project Manager Name Role Phone Meg Vergara MD Primary Care Physician Encounter [facility] [place] [place] Date(s): 05/27/24 - 10/19/24 [facility] [address], [address] [place] [address] Attending Physician: Elmer Jarrell MD Admitting Physician: Elmer Jarrell MD Referring Physician: Meg Vergara MD Encounter Type: Pre-OutPatient One Time Allergies, Adverse Reactions, Alerts No Known Allergies [...] inactivated 08/18/10 Give n tetanus/diphtheria/pertussis, acel(Tdap) 8 4/28/22 Given tetanus/diphtheria/pertussis, acel(Tdap) 9 01/12/11 Given SARS-CoV-2 (COVID-19) mRNA BNT-162b2 vac 09/06/21 Recorded SARS-CoV-2 (COVID-19) mRNA BNT-162b2 vac 02/14/21 Recorded SARS-CoV-2 (COVID-19) mRNA BNT-162b2 vac 01/24/21 Recorded 1Result Comment: [facility] 24540-310-07 2Result Comment: [facility] [id number] 3Result Comment: [facility] [phone] 4Result Comment: [facility] [phone] Pt tolerated vaccine without inicident...NH 5Result Comment: [id number] 6Admin Note: FLULAVAL 7Admin Note: given w/o incident 8Result Comment: [facility] [phone] 9Admin Note: [employer] [facility] Medications acetaminophen-oxyCODONE 325 mg-5 mg oral tablet 1, tablet, By Mouth, 2 times a day, PRN, for 28 days, # 56 tablet, Refills 0, Tot. Refills 0, Acute, Pain , Severe, 11/14/24 12:13:00 PM EST, 10/17/24 12:13:00 PM EST, Route to Pharmacy Electronically, [facility] #[id number] Tablet, Partial fill upon patient request -; patient is using bID PRN dose for chronic back pain. dx- M54.5, 160, cm, 09/25/24 8:05:00 EST, Height, 81.8, kg, 08/27/24 13:59:00 EDT, Dry Weight Start Date: 10/17/24 Stop Date: 11/14/24 Status: Ordered Quantity: 56.0 Unit: tablet Repeat number: 1 Indication: Other intervertebral disc degeneration, lumbar region Albuterol (Eqv-ProAir HFA) 90 mcg/inh inhalation aerosol 2 puffs, Inhalation, 4 times a day, PRN NEEDED FOR WHEEZING OR SHORTNESS OF BREATH, # 8.5 Gm, 0 Refills, [facility] #[id number], 25, INHALE 2 PUFFS FOUR TIMES DAILY [...] 0 Refills, Maintenance, 08/20/24 9:36:00 PM EDT, [facility] #[id number], 30, SHAKE LIQUID AND USE 1 SPRAY [...] 3 Refills, Maintenance, 05/30/24 4:14:00 PM EDT, [facility] #[id number], 160, cm, 05/30/24 15:48:00 EDT, Height, 81, [...] Team Personnel Name: Kandis Leahy RN Position: [facility] SN RN Member Role: Primary Care Nurse Name: Anita Hemphill RN Position: [facility] RN Member Role: Primary Care Nurse Name: Meg Vergara MD Position: [facility] Physician - Primary Care Member Role: PCP Address: [address] [place] [address] Adult & Pediatric [address] Telecom: Name: Elaina Lyon RN Position: [facility] OB RN Member Role: Primary Care Nurse Care Team Related Persons Name: ROB KANG Name: LAUREN GOMES Name: REGINE TREADWELL Insurance Providers Guarantor name: HUGO GOMES Health Plan Information #: 1 Payer: [facility] CARE ALLIANCE/ONE CARE Member Number: [id number] Policy Number: NA Group Number: IC Health Plan Information #: 2 Payer: MEDICARE PART B OUTPT Member Number: [id number] Policy Number: NA Group Number: NA
--- OUTSIDE RECORDS SUMMARY | 2024-10-21 11:33 | XMS_ITS | Continuity of Care Document ---
Author Organization [facility] Address [address] [place] [address]- Care Team Providers Care Absorption Plant Operator Name Role Phone Meg Vergara MD Primary Care Physician [place] [facility] [place]16[place]24 [place] 10/16/24 [facility] [address] [place], [place] [address] Encounter Type: Triage Allergies, Adverse Reactions, Alerts [...] mRNA BNT-162b2 vac 01/24/21 Recorded 1Result Comment: [facility] [id number] 2Result Comment: [facility] 45333-372-02 3Result Comment: [facility] 90452-208-62 4Result Comment: [facility] 21488-500-71 Pt tolerated vaccine without inicident...NH 5Result Comment: [id number] 6Admin Note: FLULAVAL 7Admin Note: given w/o incident 8Result Comment: [facility] 65014-347-35 9Admin Note: [facility] Medications Albuterol (Eqv-ProAir HFA) 90 mcg/inh inhalation aerosol 2 puffs, Inhalation, 4 times a day, PRN NEEDED FOR WHEEZING OR SHORTNESS OF BREATH, # 8.5 Gm, 0 Refills, [facility] #[id number], 25, INHALE 2 PUFFS FOUR TIMES DAILY [...] 0 Refills, Maintenance, 08/20/24 9:36:00 PM EDT, [facility] #[id number], 30, SHAKE LIQUID AND USE 1 SPRAY [...] 3 Refills, Maintenance, 05/30/24 4:14:00 PM EDT, [facility] #[id number], 160, cm, 05/30/24 15:48:00 EDT, Height, 81, [...] Leahy RN Position: [facility] RN Member Role: Primary Care Nurse Name: Anita Hemphill RN Position: [facility] RN Member Role: Primary Care Nurse Name: Meg Vergara MD Position: [facility] Physician - Primary Care Member Role: PCP Address: [address] [place] [address] Adult [place] [address]- Telecom: Name: Elaina Lyon RN Position: [facility] RN Member Role: Primary Care Nurse Care Team Related Persons Name: LISANAYE ROB Name: LAUREN GOMES Name: REGINE TREADWELL Insurance Providers Guarantor name: [facility] Plan Information #: 1 Payer: [facility] Member Number: NA Policy Number: NA Group Number: NA
--- OUTSIDE RECORDS SUMMARY | 2024-10-21 11:33 | XMS_ITS | Continuity of Care Document ---
Author Organization [facility] Address [address] [place] [address]- Care Team Providers Care Head Cd Reactor Operator Name Role Phone Meg Vergara MD Primary Care Physician Encounter [facility] [place] Date(s): 09/18/24 - 10/18/24 [facility] [address] [place], [place] [address] Encounter Type: Triage Allergies, Adverse Reactions, Alerts [...] 1Result Comment: [facility] [id number] 2Result Comment: [facility] [id number] 3Result Comment: [facility] 96203-882-63 4Result Comment: [facility] [id number] Pt tolerated vaccine without inicident...NH 5Result Comment: [id number] 6Admin Note: FLULAVAL 7Admin Note: given w/o incident 8Result Comment: [facility] [id number] 9Admin Note: [employer] [facility] Medications acetaminophen-oxyCODONE 325 mg-5 mg oral tablet 1, tablet, By Mouth, 2 times a day, PRN, for 28 days, # 56 tablet, Refills 0, Tot. Refills 0, Acute, Pain , Severe, 11/14/24 12:13:00 PM EST, 10/17/24 12:13:00 PM EST, Route to Pharmacy Electronically, [facility] #[id number] Tablet, Partial fill upon patient request -; [...] OF BREATH, # 8.5 Gm, 0 Refills, [facility] #[id number], 25, INHALE 2 PUFFS FOUR TIMES DAILY [...] 0 Refills, Maintenance, 08/20/24 9:36:00 PM EDT, [facility] #[id number], 30, SHAKE LIQUID AND USE 1 SPRAY [...] 3 Refills, Maintenance, 05/30/24 4:14:00 PM EDT, [facility] #[id number], 160, cm, 05/30/24 15:48:00 EDT, Height, 81, [...] Team Personnel Name: Kandis Leahy RN Position: [facility] SN RN Member Role: Primary Care Nurse Name: Anita Hemphill RN Position: [facility] RN Member Role: Primary Care Nurse Name: Meg Vergara MD Position: [facility] Physician - Primary Care Member Role: PCP Address: [address] [place] [address] Adult & Pediatric [address] Telecom: Name: Elaina Lyon RN Position: [facility] OB RN Member Role: Primary Care Nurse Care Team Related Persons Name: ROB KANG Name: LAUREN GOMES Name: REGINE TREADWELL Insurance Providers Guarantor name: HUGO GOMES Health Plan Information #: 1 Payer: [facility] CARE ALLIANCE/ONE CARE Member Number: NA Policy Number: NA Group Number: NA
--- OUTSIDE RECORDS SUMMARY | 2024-10-21 11:33 | XMS_ITS | Continuity of Care Document ---
Author Organization [facility] Address [address] [facility], [address] [place] [address]- Care Team Providers Care Captain Fire Prevention Bureau Name Role Phone Meg Vergara MD Primary Care Physician [phone] [place] [facility] [place] [facility] [address] [facility] [place], [place] [address] Encounter Type: Triage Allergies, Adverse Reactions, Alerts [...] BNT-162b2 vac 01/24/21 Recorded 1Result Comment: [facility] [id number] 2Result Comment: [facility] [id number] 3Result Comment: [facility] [phone] 4Result Comment: [facility] 67061-175-74 Pt tolerated vaccine without inicident...NH 5Result Comment: [id number] 6Admin Note: FLULAVAL 7Admin Note: given w/o incident 8Result Comment: [facility] 42948-458-86 9Admin Note: [employer] Medications acetaminophen-oxyCODONE 325 mg-5 mg oral tablet 1, tablet, By Mouth, 2 times a day, PRN, for 28 days, # 56 tablet, Refills 0, Tot. Refills 0, Acute, Pain , Severe, 10/16/24 1:51:00 PM EST, 09/18/24 1:51:00 PM EST, Route to Pharmacy Electronically, [facility] #[id number] Tablet, Partial fill upon patient request -; [...] OF BREATH, # 8.5 Gm, 0 Refills, [facility] #[id number], 25, INHALE 2 PUFFS FOUR TIMES DAILY [...] 0 Refills, Maintenance, 08/20/24 9:36:00 PM EDT, [facility] #[id number], 30, SHAKE LIQUID AND USE 1 SPRAY [...] 3 Refills, Maintenance, 05/30/24 4:14:00 PM EDT, [facility] #[id number], 160, cm, 05/30/24 15:48:00 EDT, Height, 81, [...] Team Personnel Name: Kandis Leahy RN Position: [facility] SN RN Member Role: Primary Care Nurse Name: Anita Hemphill RN Position: S RN Member Role: Primary Care Nurse Name: Meg Vergara MD Position: [facility] Physician - Primary Care Member Role: PCP Address: [address] [place] [address] Adult & Pediatric [address] Telecom: Name: Elaina Lyon RN Position: [facility] OB RN Member Role: Primary Care Nurse Care Team Related Persons Name: ROB KANG Name: LAUREN GOMES Name: REGINE TREADWELL Insurance Providers Guarantor name: HUGO GOMES Health Plan Information #: 1 Payer: [facility] CARE ALLIANCE/[facility] C[facility] Member Number: NA Policy Number: NA Group Number: NA
== END 2024-10-15 09:55 | disposition home or self-care (01) | DRG 451 ==
LOC: HO.SSSA 07:38 → HO.S3 14:09
PROVIDERS: Nurse Practitioner; Admitting Provider Neurological Surgery; PCP Internal Medicine; Visit Provider Neurological Surgery
PROC: 0SG00A0 Fusion of Lumbar Vertebral Joint with Interbody Fusion Device, Anterior Approach, Anterior Column, Open Approach (ICD-10-PCS; principal; 2024-10-14 09:40)
DX: M43.16 Spondylolisthesis, lumbar region (principal); G47.33 Obstructive sleep apnea (adult) (pediatric); Z79.899 Other long term (current) drug therapy
CPT/HCPCS: 36415; 80048; 85027; 86850; 86900; 86901; 97161; C1713; C1889; C9290; J0131; J0665; J0690; J1100; J1171; J1885; J2003; J2250; J2405; J2704; J3010; L8699

== ENCOUNTER → 2024-10-14 07:33 | Outpatient (BNV) | payer OTHER, SELFPAY | PROVIDERS: Admitting Provider Neurological Surgery; PCP Internal Medicine; Visit Provider Neurological Surgery | DX: Z48.89 Encounter for other specified surgical aftercare (principal) | CPT/HCPCS: 20930; 22558; 22612; 22840; 22853; 99024; 99499 ==

== ENCOUNTER 2024-10-22 12:59 | Outpatient (AMB) | payer OTHER, SELFPAY ==
--- NOTE | 2024-10-22 13:00 | HO.SPINEOV ---
Intake Visit Reasons: incision check & pain Intake Note: Ms. Patel is here today for incision check and pain and burning on both legs Locker Attendant Required: No Allergies No Known Allergies Allergy (Verified 12/15/24 13:23) Assessment & Plan Assessment & Plan (1) S/P lumbar fusion: Code(s): Z98.1 - Arthrodesis status Category: Surgical Plan Today I saw for postoperative visit Aura Patel. She is about 1 week out from L4-5 OLIF. She was initially doing very well after surgery, but unfortunately has been having some very bad pain since then. She states that the pain starts in her right hip and shoots into her right anterior thigh. She describes it as a burning type pain. She has very little low back pain comparatively though. She has been taking the medication previously discussed in her workload messages. Currently on oxycodone 5 mg-325mg, gabapentin 300 mg t.i.d., methocarbamol 750 mg t.i.d. and has been taking [id number] remedies as needed. No new neurological deficits. The patient ambulates well and rises from a seated position without difficulty. Her posterior incision site and lateral OLIF incision site appears closed and well healing. No signs of edema, erythema, or drainage. Coding Level of Care Code Global (86118) Diagnoses S/P lumbar fusion Z98.1
== END 2024-10-22 13:22 | disposition home or self-care (01) ==
PROVIDERS: PCP Internal Medicine; Visit Provider Physician Assistant
DX: Z98.1 Arthrodesis status (principal)
CPT/HCPCS: 99024

== ENCOUNTER 2024-11-03 12:47 | Outpatient (REF) | payer OTHER, SELFPAY | END 2024-11-03 12:48 | disposition home or self-care (01) | LOC: HO.HOSX 12:47 | PROVIDERS: PCP Internal Medicine; Visit Provider Physician Assistant | DX: Z98.1 Arthrodesis status (principal) | CPT/HCPCS: 72110; 99212 ==

== ENCOUNTER 2024-11-03 12:47 | Outpatient (AMB) | payer OTHER, SELFPAY ==
--- OUTSIDE RECORDS SUMMARY | 2024-11-03 12:49 | XMS_ITS | Continuity of Care Document ---
Author Organization [facility] Address [address] [facility], [address] d Floor, [address] [place] [address]- Care Team Providers Care Humane Officer Name Role Phone Meg Vergara MD Primary Care Physician [phone] Encounter [facility] Date(s): 09/25/24 - 10/25/24 [facility] [address] [facility] [address]rd Floor, [address] [place] [address] Attending Physician: Ghazala Ventura Admitting Physician: Ghazala [...] BNT-162b2 vac 01/24/21 Recorded 1Result Comment: [facility] [phone] 2Result Comment: [facility] [id number] 3Result Comment: [facility] [id number] 4Result Comment: [facility] [id number] Pt tolerated vaccine without inicident...NH 5Result Comment: [id number] 6Admin Note: FLULAVAL 7Admin Note: given w/o incident 8Result Comment: [facility] [id number] 9Admin Note: [employer] Medications acetaminophen-oxyCODONE 325 mg-5 mg oral tablet 1, tablet, By Mouth, 2 times a day, dispensed 10/17, # 56 tablet, Refills 0, Tot. Refills 0, Maintenance, 10/20/24 3:38:00 PM EST, Partial fill upon patient request if the prescription is for a schedule II opioid drug. Start Date: 10/20/24 Stop Date: 11/17/24 Status: Ordered Quantity: 56.0 Unit: tablet Repeat number: 1 Albuterol (Eqv-ProAir HFA) 90 mcg/inh inhalation aerosol 2 puffs, Inhalation, 4 times a day, PRN NEEDED FOR WHEEZING OR SHORTNESS OF BREATH, # 8.5 Gm, 0 Refills, [facility] #[id number], 25, INHALE 2 PUFFS FOUR TIMES DAILY [...] 0 Refills, Maintenance, 08/20/24 9:36:00 PM EDT, [facility] #[id number], 30, SHAKE LIQUID AND USE 1 SPRAY IN EACH NOSTRIL TWICE DAILY SHAKE WELL BEFORE USING, 160, cm, 06/23/24 12:04:00 EDT, Height, 79.8, kg, 06/23/24 12:04:00 EDT, Dry Weight Start Date: 08/20/24 Status: Ordered Quantity: 16.0 Unit: g Repeat number: 1 ibuprofen 600 mg oral tablet 1, tablet, By Mouth, 3 times a day, # 42 tablet, Refills 0, Maintenance, 10/24/24 5:46:00 PM EST, Route to Pharmacy Electronically, [facility] #[id number], 160, cm, 09/25/24 8:05:00 EST, Height,81.8, kg, 08/27/24 13:59:00 EDT, Dry Weight Start Date: 10/24/24 Status: Ordered Quantity: 42.0 Unit: tablet Repeat number: 1 omeprazole 20 mg oral enteric coated capsule 1 capsule, By Mouth, Daily, PRN NEEDED FOR INDIGESTION, # 90 capsule, 3 Refills, Maintenance, 05/30/24 4:14:00 PM EDT, [facility] #[id number], 160, cm, 05/30/24 15:48:00 EDT, Height, 81, kg, 05/30/24 15:48:00 EDT, Dry Weight Start Date: 05/30/24 Status: Ordered Quantity: 90.0 Unit: capsule Repeat number: 4 oxyCODONE 5 mg oral tablet 1-2 tablet, PRN, dispensed 10/15, # 30 tablet, Refills 0, Tot. Refills 0, Maintenance, Pain , Severe, 10/20/24 3:38:00 PM EST, Partial fill upon patient request if the prescription is for a schedule IIopioid drug. Start Date: 10/20/24 Status: Ordered Quantity: 30.0 Unit: tablet Repeat number: 1 phentermine 37.5 mg oral tablet 0 Refills, [...] Care Nurse Name: Anita Hemphill RN Position: [facility] RN Member Role: Primary Care Nurse Name: Meg Vergara MD Position: [facility] Physician - Primary Care Member Role: PCP Address: [address] [place] [address] Adult & Pediatric [place], [place] [address] Telecom: Name: Elaina Lyon RN Position: [facility] OB RN Member Role: Primary Care Nurse Care Team Related Persons Name: ROB KANG Name: LAUREN GOMES Name: REGINE TREADWELL Insurance Providers Guarantor name: HUGO GOMES Health Plan Information #: 1 Payer: [facility] CARE ALLIANCE/ONE CARE Member Number: NA Policy Number: NA Group Number: NA
--- NOTE | 2024-11-03 13:06 | A.SPINEOV_ITS ---
Intake Visit Reasons: 1st post op Intake Note: Ms. Patel is here today for her 1st post op. Bank Courier Required: No Allergies No Known Allergies Allergy (Verified 11/03/24 13:09) Assessment & Plan Assessment & Plan (1) S/P lumbar fusion: Code(s): Z98.1 - Arthrodesis status Category: Medical Plan Aura comes in today for a subsequent follow up visit after having L4-[address] Carranza on 10/14. She reports that her back pain has much resolved but her shooting pain down her right leg has continued despite the surgery. She feels fine at rest, but if standing for more than 3-5 minutes she begins experiencing pain shooting into her right buttocks and down the right lateral aspect of her leg. She has finished her previous prescriptions of oxycodone, see previous workload items for specifics. Therefore, I checked her MassPAT and sent in a prescription for Oxycodone 5mg Q6h PRN. We discussed the postoperative healing course and i reassured her that the pain in likely due to inflammation, however I will order a set of X-rays to make sure the inst rumentation is in stable positioning. No new neurological deficits. The patients ambulates well and rises from a seated position without difficulty. Incision sites are closed and well healing. I will review [facility] X-ray imaging and follow up again with her in 6 weeks. Orders: Orders XR lumbar spine 4V min Today Z98.1 - Arthrodesis status Medications: New oxycodone Partial Fill upon patient request. 5 mg PO Q6H PRN 30 tabs 0RF pain Discontinued oxycodone Partial Fill upon patient request. Discontinued Reason: Doctor's Order 5 mg PO Q6H PRN 30 tabs 0RF pain Coding Level of Care Code Global (26967) Diagnoses S/P lumbar fusion Z98.1
== END 2024-11-03 14:05 | disposition home or self-care (01) ==
PROVIDERS: PCP Internal Medicine; Visit Provider Physician Assistant
DX: Z98.1 Arthrodesis status (principal)
CPT/HCPCS: 99024

== ENCOUNTER 2024-12-15 13:09 | Outpatient (AMB) | payer OTHER, SELFPAY ==
--- NOTE | 2024-12-15 13:23 | A.SPINEOV_ITS ---
Intake Visit Reasons: 2nd post post Intake Note: Ms. Patel is here today for her 2nd post op visit. Personal Computer Network Engineer Required: No Allergies No Known Allergies Allergy (Verified 12/15/24 13:23) Assessment & Plan Assessment & Plan (1) S/P lumbar fusion: Code(s): Z98.1 - Arthrodesis status Category: Medical Plan Procedure: L4-5 OLIF Aura comes in today for subsequent follow-up after having L4-5 OLIF completed by our service a couple of months ago. Thankfully today she reports complete resolution of the pain that she had prior to surgery. She feels that the surgery was successful and is very happy overall with how she feels now. She did discuss how she was in a tremendous amount of pain after surgery, but is very happy that the pain finally did subside and she began to feel better. Unfortunately she was having some pain in the midthoracic spine near her should ers, which we both agree in his likely musculoskeletal in nature. x-ray imaging completed today show stable placement of surgical construct with no changes from fluoroscopy. No new neurological deficits. The patient ambulates well and rises from a seated position without difficulty. Her gait is nonantalgic and non spastic. There is no need for continued routine follow-up with the patient. She may be discharged and follow up with us if needed in the future. Maverick Carranza MD,PhD [facility] Coding Level of Care Code Global (84919) Diagnoses S/P lumbar fusion Z98.1
--- OUTSIDE RECORDS SUMMARY | 2024-12-15 14:28 | XMS_ITS | Clinical Summary ---
Author Organization [facility] Address [address] [place] [address] Phone Care Team Providers Care Brick Layer Name Role Phone Meg Vergara MD Primary Care Provider [phone] Allergies No known active allergies Medications Medication Sig Dispensed Refills Start Date End Date Status dicyclomine (BENTYL) 10 mg capsule Take 1 capsule (10 mg total) by mouth 4 (four) times a day (before meals and nightly). Active hydroCHLOROthiazi de (MICROZIDE) 12.5 mg capsule Take 1 capsule (12.5 mg total) by mouth 1 (one) time each day. Active ibuprofen (ADVIL,MOTRIN) 800 mg tablet Take 1 tablet (800 mg total) by mouth 3 (three) times a day if needed for headaches. 09/23/2019 Active omeprazole (PriLOSEC) [address] capsule Take 1 capsule (20 mg total) by mouth. Active topiramate (TOPAMAX) 100 mg tablet Take 1 tablet (100 mg total) by mouth 2 (two) times a day. 11/16/2022 Active tirzepatide, weight loss, (Zepbound) 2.5 mg/0.5 mL injectionIndicati ons:Obesity, Class I, BMI 30-34.9 Inject 0.5 mL (2.5 mg total) under the skin every 7 (seven) days for 4 doses. 2 mL 12/04/2024 12/26/2024 Active semaglutide (Wegovy) 0.25 mg/0.5 mL injection pen Inject 0.25 mg under the skin every 7 (seven) days for 28 days. 2 mL 10/17/2024 11/17/2024 Discontinued Wegovy 0.25 mg/0.5 mL injection pen ADMINISTER 0.25 MG UNDER THE SKIN EVERY 7 DAYS 2 mL 11/17/2024 11/25/2024 Discontinued semaglutide (Wegovy) 0.5 mg/0.5 mL injection penIndications:Ob esity, Class I, BMI 30-34.9 Inject 0.5 mg under the skin every 7 (seven) days for 8 doses. 2 mL 1 11/27/2024 12/04/2024 Discontinued Active Problems Problem Noted Date Diagnosed Date GONZÁLEZ (obstructive sleep apnea) 12/04/2024 Insomnia 12/04/2024 Fibromyositis 12/04/2024 Irritable bowel syndrome 08/31/2024 Gastroesophageal reflux disease 08/31/2024 Class 1 obesity 08/31/2024 Low back pain 08/31/2024 Migraine 08/31/2024 Encounters Date Type Department Care Team Description 11/24/2024 Telephone Bariatric Surgery [address] [address] Surya Chiu MD Prior auth ([place]) 10/16/2024 Telephone Bariatric Surgery [address] [phone] Jie Bragg [place] 09/16/2024 1:00 PM EST Office Visit Bariatric Surgery [address] [address] Surya Chiu MD Obesity, Class I, BMI 30-34.9 (Primary Dx) from Last 3 Months Immunizations Name Administration Dates Next Due Influenza trivalent, with preservative (Fluzone; Afluria) 6mo and older 08/27/2024,09/18/2023,09/07/2022,2020,09/28/2020,10/31/2019,11/27/2017,1 11/27/2015,08/05/2014,07/22/2012, 011,08/18/2010 Tdap Tetanus diptheria acell ular pertussis (Boostrix; Adacel) 7yo and older 03/09/2022,01/12/2011 Surgical History Surgery Date Site/Laterality Comments TONSILLECTOMY PROCEDURE: HISTORICAL TONSILLECTOMY BACK SURGERY PROCEDURE: HISTORICAL BACK SURGERY HYSTERECTOMY 1999 PROCEDURE: HISTORICAL HYSTERECTOMY BREAST SURGERY 2012 Bilateral PROCEDURE: GA BREAST AUGMENTATION WITH IMPLANT BELT ABDOMINOPLASTY 2006 PROCEDURE: HISTORICAL TUMMY TUCK Medical History Medical History Date Comments Diverticular disease of colon DX :Diverticular disease of colon Insomnia DX:Insomnia Lumbosacral radiculopathy DX:Lum bosacral radiculopathy Fibromyalgia DX:Fibromyalgia Esophageal reflux DX:Esophageal reflux Irritable bowel syndrome DX:Irri table bowel syndrome Migraine DX:Migraine GONZÁLEZ (obstructive sleep apnea) DX :GONZÁLEZ (obstructive sleep apnea) Somatoform pain disorder DX:Soma toform pain disorder Low back pain DX:Low back pain Family History Medical History Relation Name Comments Diabetes Brother Nephrolithiasis Brother Dementia Father Heart attack Father Breast cancer Paternal Grandmother Relation Name Status Comments Brother Father Mother Alive Paternal Grandmother Social History Tobacco Use Types Packs/Day Years Used Date Smoking Tobacco: Never Smokeless Tobacco: Never Alcohol Use Standard Drinks/Week Comments Yes 0 (1 standard drink = 0.6 oz pur e alcohol) Sex and Gender Information Value Date Recorded Sex Assigned at Not on file Gender Identity Not on file Sexual Orientation Not on file Job Start Date Occupation Industry Not on file Not on file Not on file Obstetrics History Last Filed Vital Signs Vital Sign Reading Time Taken Comments Blood Pressure 142/102 09/16/2024 1:07 PM EST Pulse 80 09/16/2024 1:07 PM EST Temperature 36.9 ??C (98.5 ??F) 09/16/2024 1:07 PM ES T Respiratory Rate - - Oxygen Saturation - - Inhaled Oxygen Concentration - - Weight 83.9 kg (185 lb) 09/16/2024 1:07 PM EST Height 160 cm (5' 3 ) 09/16/2024 1:07 PM EST Body Mass Index 32.77 09/16/2024 1:07 PM EST Plan of Treatment Upcoming Encounters Date Type Department Care Team (Late st Contact Info) Description 12/18/2024 1:00 PM EST Office Visit Bariatric Surgery - [place] [address] [place] [phone] Surya Chiu MD [address] [place] [address] Health Maintenance Due Date Last Done Comments Breast Cancer Screening 1974 Hepatitis B Vaccines (1 of 3 - 19+ 3-dose series) 1993 Cervical Cancer Screening: Pap Smear 06/18/2021 06/18/2018 Cholesterol Screening (Lipid Panel) 10/10/2022 Colorectal Cancer Screening: Colonoscopy 10/10/2022 Depression Screening 10/10/2022 HIV Screening 10/10/2022 Hepatitis C Screening 10/10/2022 Medicare Annual Wellness Visit 10/10/2022 Social Influencers of Health Screening 10/10/2022 Zoster Vaccines (1 of 2) 2024 COVID-19 Vaccine ( - season) 2024 09/06/2021, 02/14/2021, 01/24/2021 DTaP,Tdap,and Td Vaccines (3 - Td or Tdap) 03/09/2032 03/09/2022, 01/12/2011 Influenza Vaccine Completed 08/27/2024, , 09/07/2022, Additional history exists HIB Vaccines Aged Out No longer eligi ble based on patient's age to complete this topic HPV Vaccines Aged Out No longer eligi ble based on patient's age to complete this topic Hepatitis A Vaccines Aged Out No long er eligible based on patient's age to complete this topic IPV Vaccines Aged Out No longer eligi ble based on patient's age to complete this topic MMR Vaccines Aged Out No longer eligi ble based on patient's age to complete this topic Meningococcal ACWY Vaccine Aged Out N o longer eligible based on patient's age to complete this topic Pneumococcal Vaccine: Pediatrics (0 to 5 Years) and At-Risk Patients (6 to 64 Years) Aged Out No longer eligible based on patient's age to complete this topic RSV Immunization Patients Under 20 months Aged Out No longer eligible based on patient's age to complete this topic Varicella Vaccines Aged Out No longer eligible based on patient's age to complete this topic Procedures Procedure Name Priority Date/Time Associated Diagnosis Comments PAP SMEAR Routine 06/18/2018 from Last 3 Months or Most Recently Relevant to Health Maintenance Results * Pap Smear (06/18/2018) Pap smear no interpretation , abstracted Historical Provider MD HOSEA Corona from Last 3 Months or Most Recently Relevant to Health Maintenance Care Teams Brick Layer Relationship Specialty Start Date End Date Meg Vergara MD [address] [place] [address] PCP - General Internal Medicine 07/29/19
--- OUTSIDE RECORDS SUMMARY | 2024-12-15 14:28 | XMS_ITS | Continuity of Care Document ---
Author Organization [facility] Address [address] [place] [address]- Care Team Providers Care Life Skills Worker Name Role Phone Meg Vergara MD Primary Care Physician [phone] Encounter [facility] Date(s): 10/20/24 - 11/19/24 [facility] [address] [place], [place] [address] Encounter Type: Triage Allergies, Adverse Reactions, [...] BNT-162b2 vac 01/24/21 Recorded 1Result Comment: [facility] [id number] 2Result Comment: [facility] [id number] 3Result Comment: [facility] [id number] 4Result Comment: [facility] 48249-816-81 Pt tolerated vaccine without inicident...NH 5Result Comment: [id number] 6Admin Note: FLULAVAL 7Admin Note: given w/o incident 8Result Comment: [facility] [id number] 9Admin Note: [employer] Medications Albuterol (Eqv-ProAir HFA) 90 mcg/inh inhalation aerosol 2 puffs, Inhalation, 4 times a day, PRN NEEDED FOR WHEEZING OR SHORTNESS OF BREATH, # 8.5 Gm, 0 Refills, [facility] #[id number], 25, INHALE 2 PUFFS FOUR TIMES DAILY [...] Date: 04/08/24 Status: Ordered Repeat number: 1 Flonase Allergy Relief 50 mcg/inh nasal spray 1 sprays = 50 mcg, Nares, Both, 2 times a day, shake well before using, # 16 Gm, 1 Refills, Maintenance, 11/17/24 2:29:00 PM EST, [place], [facility] #[id number], Partial fill upon patient request if the prescription is for a schedule II opioid drug., 160, cm, 11/17/24 13:44:00 EST, Height, 82.1, kg, 11/17/24 13:38:00 EST, Dry Weight Start Date: 11/17/24 Stop Date: 01/16/25 Status: Ordered Quantity: 16.0 Unit: g Repeat number: 2 fluticasone 50 mcg/inh nasal spray See Instructions, SHAKE LIQUID AND USE 1 SPRAY IN EACH NOSTRIL TWICE DAILY SHAKE WELL BEFORE USING,# 16 Gm, 0 Refills, Maintenance, 08/20/24 9:36:00 PM EDT, [facility] #[id number], 30, SHAKE LIQUID AND USE 1 SPRAY [...] 5:46:00 PM EST, Route to Pharmacy Electronically, [facility] #[id number], 160, cm, 09/25/24 8:05:00 EST, Height,81.8, kg, 08/27/24 13:59:00 EDT, Dry Weight Start Date: 10/24/24 Status: Ordered Quantity: 42.0 Unit: tablet Repeat number: 1 omeprazole 20 mg oral enteric coated capsule 1 capsule, By Mouth, Daily, PRN NEEDED FOR INDIGESTION, # 90 capsule, 3 Refills, Maintenance, 05/30/24 4:14:00 PM EDT, [facility] #[id number], 160, cm, 05/30/24 15:48:00 EDT, Height, 81, [...] Primary Care Member Role: PCP Address: [address] [place] [address] Adult & Pediatric [place], [place] [address] Telecom: Name: Elaina Lyon RN Position: [facility] OB RN Member Role: Primary Care Nurse Care Team Related Persons Name: ROB KANG Name: LAUREN GOMES Name: REGINE TREADWELL Insurance Providers Guarantor name: HUGO GOMES Health Plan Information #: 1 Payer: [facility] CARE ALLIANCE/ONE CARE Member Number: NA Policy Number: NA Group Number: NA
--- OUTSIDE RECORDS SUMMARY | 2024-12-15 14:28 | XMS_ITS | Continuity of Care Document ---
Author Organization [facility] Address [address] [place] [address]- Care Team Providers Care Manual Tester Name Role Phone Meg Vergara MD Primary Care Physician [phone] Encounter [facility] Date(s): 11/14/24 - 12/14/24 [facility] [address] [place], [place] [address] Encounter Type: Triage Allergies, Adverse [...] mRNA BNT-162b2 vac 01/24/21 Recorded 1Result Comment: [facility] 47395-201-43 2Result Comment: [facility] 78151-204-17 3Result Comment: [facility] 78363-454-05 4Result Comment: [facility] [id number] Pt tolerated vaccine without inicident...NH 5Result Comment: [id number] 6Admin Note: FLULAVAL 7Admin Note: given w/o incident 8Result Comment: [facility] [id number] 9Admin Note: [employer] Medications Albuterol (Eqv-ProAir HFA) 90 mcg/inh inhalation aerosol 2 puffs, Inhalation, 4 times a day, PRN NEEDED FOR WHEEZING OR SHORTNESS OF BREATH, # 8.5 Gm, 0 Refills, [facility] #[id number], 25, INHALE 2 PUFFS FOUR TIMES DAILY [...] 1 Refills, Maintenance, 11/17/24 2:29:00 PM EST, [place], [facility] #[id number], Partial fill upon patient request if the [...] 0 Refills, Maintenance, 08/20/24 9:36:00 PM EDT, [facility] #[id number], 30, SHAKE LIQUID AND USE 1 SPRAY [...] 5:46:00 PM EST, Route to Pharmacy Electronically, [facility] #[id number], 160, cm, 09/25/24 8:05:00 EST, Height,81.8, kg, 08/27/24 13:59:00 EDT, Dry Weight Start Date: 10/24/24 Status: Ordered Quantity: 42.0 Unit: tablet Repeat number: 1 omeprazole 20 mg oral enteric coated capsule 1 capsule, By Mouth, Daily, PRN NEEDED FOR INDIGESTION, # 90 capsule, 3 Refills, Maintenance, 05/30/24 4:14:00 PM EDT, [facility] #[id number], 160, cm, 05/30/24 15:48:00 EDT, Height, 81, [...] Quantity: 30.0 Unit: tablet Repeat number: 1 oxyCODONE 5 mg oral tablet 1/2-1 tablet, By Mouth, 3 times a day, PRN, # 21 tablet, Refills 0, Tot. Refills 0, Maintenance, Pain , Severe, 12/03/24 3:21:00 PM EST, Route to Pharmacy Electronically, [facility] #[id number], Partial fill upon patient request if the prescription is for a schedule II opioid drug., 160, cm, 11/17/24 13:44:00 EST, Height, 82.1, kg, 11/17/24 13:38:00 EST, Dry Weight Start Date: 12/03/24 Stop Date: 12/10/24 Status: Ordered Quantity: 21.0 Unit: tablet Repeat number: 1 phentermine 37.5 [...] Care Nurse Name: Anita Hemphill RN Position: [facility] RN Member Role: Primary Care Nurse Name: Meg Vergara MD Position: [facility] Physician - Primary Care Member Role: PCP Address: [address] [place] [address] Adult & Pediatric [place], [place] [address] Telecom: Name: Elaina Lyon RN Position: [facility] OB RN Member Role: Primary Care Nurse Care Team Related Persons Name: ROB KANG Name: LAUREN GOMES Name: REGINE TREADWELL Insurance Providers Guarantor name: HUGO GOMES Health Plan Information #: 1 Payer: [facility] CARE ALLIANCE/[facility] Member Number: NA Policy Number: NA Group Number: NA
--- OUTSIDE RECORDS SUMMARY | 2024-12-15 14:28 | XMS_ITS | Continuity of Care Document ---
Author Organization [facility] Address [address] [facility], 3r d Floor, [address] [place] [address]- Care Team Providers Care Cook'S Assistant Name Role Phone Meg Vergara MD Primary Care Physician Encounter [facility] [place] Date(s): 10/27/24 - 11/26/24 [facility] [address] Floor, [address] [place] [id number] Encounter Type: Triage Allergies, Adverse Reactions, [...] BNT-162b2 vac 01/24/21 Recorded 1Result Comment: [facility] [id number] 2Result Comment: [facility] 15325-845-30 3Result Comment: [facility] 88334-003-05 4Result Comment: [facility] 61630-728-37 Pt tolerated vaccine without inicident...NH 5Result Comment: [id number] 6Admin Note: FLULAVAL 7Admin Note: given w/o incident 8Result Comment: [facility] 66112-630-15 9Admin Note: [facility] Medications Albuterol (Eqv-ProAir HFA) 90 mcg/inh inhalation aerosol 2 puffs, Inhalation, 4 times a day, PRN NEEDED FOR WHEEZING OR SHORTNESS OF BREATH, # 8.5 Gm, 0 Refills, [facility] #[id number], 25, INHALE 2 PUFFS FOUR TIMES DAILY [...] 1 Refills, Maintenance, 11/17/24 2:29:00 PM EST, [place], [facility] #[id number], Partial fill upon patient request if the [...] 0 Refills, Maintenance, 08/20/24 9:36:00 PM EDT, [facility] #[id number], 30, SHAKE LIQUID AND USE 1 SPRAY [...] 5:46:00 PM EST, Route to Pharmacy Electronically, [facility] #[id number], 160, cm, 09/25/24 8:05:00 EST, Height,81.8, kg, 08/27/24 13:59:00 EDT, Dry Weight Start Date: 10/24/24 Status: Ordered Quantity: 42.0 Unit: tablet Repeat number: 1 omeprazole 20 mg oral enteric coated capsule 1 capsule, By Mouth, Daily, PRN NEEDED FOR INDIGESTION, # 90 capsule, 3 Refills, Maintenance, 05/30/24 4:14:00 PM EDT, [facility] #[id number], 160, cm, 05/30/24 15:48:00 EDT, Height, 81, kg, 05/30/24 15:48:00 EDT, Dry Weight Start Date: 05/30/24 Status: Ordered Quantity: 90.0 Unit: capsule Repeat number: 4 oxyCODONE 5 mg oral tablet 1/2-1 tablet, By Mouth, 3 times a day, PRN, # 21 tablet, Refills 0, Tot. Refills 0, Maintenance, Pain , Severe, 11/20/24 12:59:00 PM EST, Route to Pharmacy Electronically, [facility] #[id number], Partial fill upon patient request if the prescription is for a schedule II opioid drug., 160, cm, 11/17/24 13:44:00 EST, Height, 82.1, kg, 11/17/24 13:38:00 EST, Dry Weight Start Date: 11/20/24 Stop Date: 11/27/24 Status: Ordered Quantity: 21.0 Unit: tablet Repeat number: 1 oxyCODONE 5 mg oral tablet 1-2 tablet, [...] Nurse Name: Ursula BURCH, Meg Bains Position: [facility] Physician - Primary Care Member Role: PCP Address: [address] [place] [address] Adult & Pediatric [address] Telecom: Name: Elaina Lyon RN Position: [facility] OB RN Member Role: Primary Care Nurse Care Team Related Persons Name: ROB KANG Name: LAUREN GOMES Name: REGINE TREADWELL Insurance Providers Guarantor name: HUGO GOMES Health Plan Information #: 1 Payer: [facility] CARE ALLIANCE/ONE CARE Member Number: NA Policy Number: NA Group Number: NA
--- OUTSIDE RECORDS SUMMARY | 2024-12-15 14:28 | XMS_ITS | Continuity of Care Document ---
Author Organization [facility] Address [address] [place] [address]- Care Team Providers Care Slot Machine Floor Person Name Role Phone Meg Vergara MD Primary Care Physician [id number]s): 11/17/24 - 11/24/24 [facility] [address] [place], [place] [address] [email or web address] Encounter Diagnosis Low back pain(Discharge Diagnosis) - 11/17/24 Lumbar spondylosis(Discharge Diagnosis) - 11/17/24 Use of opiates for therapeutic purposes(Discharge Diagnosis) - 11/17/24 Migraine(Discharge Diagnosis) - 11/17/24 Bilateral otitis media(Discharge Diagnosis) - 11/17/24 Postnasal drip(Discharge Diagnosis) - 11/17/24 Attending Physician: Meg Vergara MD Encounter Type: Office Visit Allergies, Adverse Reactions, Alerts No Known Allergies [...] 1Result Comment: [facility] [id number] 2Result Comment: [facility] 85791-892-54 3Result Comment: [facility] [phone] 4Result Comment: [facility] 95898-619-43 Pt tolerated vaccine without inicident...NH 5Result Comment: [id number] 6Admin Note: FLULAVAL 7Admin Note: given w/o incident 8Result Comment: [facility] [id number] 9Admin Note: [employer] Medications Albuterol (Eqv-ProAir HFA) 90 mcg/inh inhalation aerosol 2 puffs, Inhalation, 4 times a day, PRN NEEDED FOR WHEEZING OR SHORTNESS OF BREATH, # 8.5 Gm, 0 Refills, [facility] #[id number], 25, INHALE 2 PUFFS FOUR TIMES DAILY [...] 1 Refills, Maintenance, 11/17/24 2:29:00 PM EST, [place], [facility] #[id number], Partial fill upon patient request if the [...] 0 Refills, Maintenance, 08/20/24 9:36:00 PM EDT, [facility] #[id number], 30, SHAKE LIQUID AND USE 1 SPRAY [...] 5:46:00 PM EST, Route to Pharmacy Electronically, [facility] #[id number], 160, cm, 09/25/24 8:05:00 EST, Height,81.8, kg, 08/27/24 13:59:00 EDT, Dry Weight Start Date: 10/24/24 Status: Ordered Quantity: 42.0 Unit: tablet Repeat number: 1 omeprazole 20 mg oral enteric coated capsule 1 capsule, By Mouth, Daily, PRN NEEDED FOR INDIGESTION, # 90 capsule, 3 Refills, Maintenance, 05/30/24 4:14:00 PM EDT, [facility] #[id number], 160, cm, 05/30/24 15:48:00 EDT, Height, 81, kg, 05/30/24 15:48:00 EDT, Dry Weight Start Date: 05/30/24 Status: Ordered Quantity: 90.0 Unit: capsule Repeat number: 4 oxyCODONE 5 mg oral tablet 1/2-1 tablet, By Mouth, 3 times a day, PRN, # 21 tablet, Refills 0, Tot. Refills 0, Maintenance, Pain , Severe, 11/20/24 12:59:00 PM EST, Route to Pharmacy Electronically, [facility] #[id number], Partial fill upon patient request if the [...] Effective Dates Health Status Clinical Service Informant Low back pain Discharge Diagnosis 11/17/24 Lumbar spondylosis Discharge Diagnosis 11/17/24 Use of opiates for therapeutic purposes Discharge Diagnosis 11/17/24 Migraine Discharge Diagnosis 11/17/24 Bilateral otitis media Discharge Diagnosis 11/17/24 Postnasal drip Discharge Diagnosis 11/17/24 Vital Signs Most recent to oldest [Reference Range]: 1 2 Height 160 cm (11/17/24 1:44 PM) 160 cm (11/17/24 1:38 PM) Weight 82.1 kg (11/17/24 1:38 PM) Oxygen Saturation [94-100 %] 98 % (11/17/24 1:38 PM) Pulse Rate [55-90 bpm] 88 bpm (11/17/24 1:38 PM) Body Mass Index [18.5-24.99 kg/m2] 32.07 kg/m2 *>HHI* (11/17/24 1:38 PM) Blood Pressure [90-138/55-84 mm Hg] 154/ 97mm Hg *H* (11/17/24 1:44 PM) 154/95mm Hg *H* (11/17/24 1:38 PM) Mode of Delivery (Oxygen) Room air (11/17/24 1:38 PM) Blood pressure sites Arm, left (11/17/24 1:44 PM) Arm, left (11/17/24 1:38 PM) Dry Weight 82.1 kg (11/17/24 1:38 PM) Weight Obtained Via Standing scale (11/17/24 1:38 PM) Dry Weight Obtained Via Standing scale (11/17/24 1:38 PM) Social History Social History Type Response Smoking Status Never smoker entered on: 02/05/14 Sex Sex Representation Female (finding) Note * Barbie Valencia: PERFORM Event Display: Patient Education/Instruction Authored Date: [id number] Ambulatory Adult Visit Summary [facility] [address] [place] [address] Name: HUGO GOMES : 1975?? Visit: 11/17/2024 13:06?? Ambulatory Visit Instructions ?? Your Care Team Primary Care Provider Meg Vergara MD? This Visit Provider Meg Vergara MD Vitals Signs Pulse Rate: 88 bpm Height: 160 cm Systolic Blood Pressure:??154 mm Hg??High Weight: 82.1 kg Diastolic Blood Pressure:??97 mm Hg??High Body Mass Index:??32.07 kg/m2??Critical Oxygen Saturation: 98 % Body surface area: 1.91 What to do next Instructions From Your Provider ?? call neurosurgeon for 6 week followup and oxycodone refill? neurology - fllow for botix ?? flonase??nasal spray 2 times daily and mucinex??cough syrup call if not better in ~ 1 week --> will do antibiotic. Scheduled Follow-Up Appointments Sunday 1:40 PM EST ?? With: Meg Vergara MD Where: [facility] [address] [place] [address]- Status: Pending Medications The list below reflects the information in our records and provided by you today along with any changes made during this visit. Please continue your medications until treatment is completed or stopped by your provider. If this is different from the information you have or there are other questions,please contact the prescribing provider. What How Much When Instructions Changed Fluticasone Nasal (Flonase Allergy Relief 50 mcg/ inh nasalspray) 1 spray(s) Nares, Both Twice a day Duration: 30 Days shake well before using ?? Pickup at [facility] #[id number] Changed Fluticasone Nasal (fluticasone 50 mcg/ inh nasal spray) See instructions SHAKE LIQUID AND USE 1 SPRAY IN EACH NOSTRIL TWICE DAILY SHAKE WELL BEFORE USING ?? Unchanged Albuterol (Albuterol (Eqv-ProAir HFA) 90 mcg/ inh inhalation aerosol) 2 puff(s) Inhalation 4 times a day as needed for NEEDED FOR WHEEZING OR SHORTNESS OF BREATH Unchanged Ibuprofen (ibuprofen 600 mg oral tablet) 1 tab(s) Oral 3 times a day Unchanged Omeprazole (omeprazole 20 mg oral enteric coated capsule) 1 capsule Oral Daily as needed for NEEDED FOR INDIGESTION Unchanged onabotulinumtoxinA (Botox Inj) Every 3 months for migraines ?? Unchanged Oxycodone (oxyCODONE 5 mg oral tablet) 1-2 tablet As needed for Pain , Severe dispensed 10/15 ?? Unchanged Phentermine (phentermine 37.5 mg oral tablet) Unchanged Topiramate (topiramate 50 mg oral tablet) Pharmacy Information [facility] #[id number]: [address], [place] [id number] [phone] ?? What How Much When Comments Stop Taking Oxycodone / Acetaminophen (acetaminophen-oxyCODONE 325 mg-5 mg oral tablet) 1 tab(s) Oral Twice a day Duration: 28 Days dispensed 10/17 ?? Medications and Immunizations Administered Medications Given During [...] are strongly encouraged to quit. Please call [employer] Link at [phone] or 0-723-172[employer] ([phone]) or log in to [email or web address] for referrals to smoking cessation programs. ?? The National Suicide Prevention Hotline is available 04/06 if you or someone you know needs to find a reason to keep living. By calling 0-195-079-Meine Spielzeugkiste (4542) you'll be connected to a skilled, trained counselor at a crisis center in your area. [facility] Health Portal You can view and manage your care through the patient portal or by using a health care charlene of your choosing. [employer] is a website that allows you to securely view your medical information including your hospital discharge summary, office visit summaries, medications and follow-up visits. You can also request appointments, renew medications, and request access to your medical information using a health care charlene of your choosing, or just ask a question. You can enroll at [email or web address] or register during your next office visit. [facility], in keeping with [facility] guidance, no longer requires face masks for [...] care provider, you may find a [facility] provider by calling [facility] [employer] Link at [phone]. Patient Care team information Care Team Personnel Name: Kandis Leahy RN Position: [facility] SN RN Member Role: Primary Care Nurse Name: Anita Hemphill RN Position: [facility] RN Member Role: Primary Care Nurse Name: Meg Vergara MD Position: [facility] Physician - Primary Care Member Role: PCP Address: [facility] [place], [place] [address] [[email or web address]] Telecom: Name: Elaina Lyon RN Position: [facility] OB RN Member Role: Primary Care Nurse Care Team Related Persons Name: ROB KANG Name: LAUREN GOMES Name: REGINE TREADWELL Insurance Providers Guarantor name: HUGO GOMES [facility] Information #: 1 Payer: [facility] CARE ALLIANCE/ONE CARE Member Number: [id number] Policy Number: NA Group Number: [facility] [employer] Plan Information #: 2 Payer: [facility]/ONE CARE Member Number: [id number] Policy Number: NA Group Number: NA
--- OUTSIDE RECORDS SUMMARY | 2024-12-15 14:28 | XMS_ITS | Continuity of Care Document ---
Author Organization [facility] Address [address] [facility], 3r d Floor, [address] [place] [address]- Care Team Providers Care Title I Director Name Role Phone Meg Vergara MD Primary Care Physician [phone] Encounter [facility] [place] Date(s): 11/14/24 - 12/14/24 [facility] [address], [address] [place] [address] Encounter Type: Triage Allergies, [...] 01/24/21 Recorded 1Result Comment: [facility] [phone] 2Result Comment: [facility] 22317-133-38 3Result Comment: [facility] [phone] 4Result Comment: [facility] 75429-701-46 Pt tolerated vaccine without inicident...NH 5Result Comment: [id number] 6Admin Note: FLULAVAL 7Admin Note: given w/o incident 8Result Comment: [facility] 98668-851-26 9Admin Note: [employer] Medications Albuterol (Eqv-ProAir HFA) 90 mcg/inh inhalation aerosol 2 puffs, Inhalation, 4 times a day, PRN NEEDED FOR WHEEZING OR SHORTNESS OF BREATH, # 8.5 Gm, 0 Refills, [facility] #[id number], 25, INHALE 2 PUFFS FOUR TIMES DAILY [...] 1 Refills, Maintenance, 11/17/24 2:29:00 PM EST, [place], [facility] #[id number], Partial fill upon patient request if the [...] 0 Refills, Maintenance, 08/20/24 9:36:00 PM EDT, [facility] #[id number], 30, SHAKE LIQUID AND USE 1 SPRAY [...] 5:46:00 PM EST, Route to Pharmacy Electronically, [facility] #[id number], 160, cm, 09/25/24 8:05:00 EST, Height,81.8, kg, 08/27/24 13:59:00 EDT, Dry Weight Start Date: 10/24/24 Status: Ordered Quantity: 42.0 Unit: tablet Repeat number: 1 omeprazole 20 mg oral enteric coated capsule 1 capsule, By Mouth, Daily, PRN NEEDED FOR INDIGESTION, # 90 capsule, 3 Refills, Maintenance, 05/30/24 4:14:00 PM EDT, [facility] #[id number], 160, cm, 05/30/24 15:48:00 EDT, Height, 81, [...] 3:21:00 PM EST, Route to Pharmacy Electronically, [facility] #[id number], Partial fill upon patient request if the [...] Role: Primary Care Nurse Name: Ursula BURCH, Mge Bains Position: [facility] Physician - Primary Care Member Role: PCP Address: [address] [place] [address] Adult & Pediatric [address] Telecom: Name: Elaina Lyon RN Position: [facility] OB RN Member Role: Primary Care Nurse Care Team Related Persons Name: ROB KANG Name: LAUREN GOMES Name: REGINE TREADWELL Insurance Providers Guarantor name: HUGO GOMES Health Plan Information #: 1 Payer: [facility] CARE ALLIANCE/ONE CARE Member Number: NA Policy Number: NA Group Number: NA
--- OUTSIDE RECORDS SUMMARY | 2024-12-15 14:28 | XMS_ITS | Encounter Summary ---
Author Organization [facility] Address [address] [place] [id number] Care Team Providers Care Barrel Stave Inspector Name Role Phone Meg Vergara MD Primary Care Provider [phone] Reason for Visit * Reason Onset Date Comments Prior auth 11/24/2024 PA Encounter Details Date Type Department Care Team ([facility] st Contact Info) Description 11/24/2024 Telephone Bariatric Surgery - [place] [address] [facility] [address] [place] [phone] Surya Chiu MD [address] [facility] [address] [place] [address] Prior auth (PA) Social History Tobacco Use Types Packs/Day Years [...] file Not on file Not on file documented as of this encounter Progress Notes * Janis Mac MA - 12/04/2024 9:40 AM EST Patient has CCA and has to change to Zepbound - please sign script and we will send for PA. * Janis Mac MA - 11/25/2024 4:28 PM EST Patient has approval but she has to titrate up to the next dose to be covered. Please sign script. * Veronica Castro - 11/24/2024 2:20 PM EST Patient needs a PA documented in this encounter Plan of Treatment Upcoming Encounters Date Type Department Care Team (Late st Contact Info) Description 12/18/2024 1:00 PM EST Office Visit Bariatric Surgery - [place] [address] [phone] Surya Chiu MD [address] [address] documented as of this encounter Visit Diagnoses Not on filedocumented in this encounter Discontinued Medications Medication Sig Discontinue Reason Start Date End Da te Wegovy 0.25 mg/0.5 mL injection pen ADMINISTER 0.25 MG UNDER THE SKIN EVERY 7 DAYS 11/17/2024 11/25/2024 documented as of this encounter Care Teams Barrel Stave Inspector Relationship Specialty Start Date End Date Meg Vergara MD [address] [place] [address] PCP - General Internal Medicine 07/29/19 documented as of this encounter
== END 2024-12-15 15:08 | disposition home or self-care (01) ==
PROVIDERS: PCP Internal Medicine; Visit Provider Physician Assistant
DX: Z98.1 Arthrodesis status (principal)
CPT/HCPCS: 99024

== ENCOUNTER → 2024-12-15 13:09 | Outpatient (BNVA) | payer OTHER, SELFPAY | PROVIDERS: PCP Internal Medicine; Visit Provider Physician Assistant | DX: Z48.89 Encounter for other specified surgical aftercare (principal); Z98.1 Arthrodesis status | CPT/HCPCS: 99212 ==

== ENCOUNTER 2025-01-27 10:39 | Day surgery (SDC) | payer OTHER, SELFPAY ==
[2025-01-23 13:25] VITALS: BMI 32.2
[2025-01-27 10:55] VITALS: BP 148/94; PULSE 86; RESP 18; TEMP 36.1; O2SAT 97; BMI 30.9
--- NOTE | 2025-01-27 11:34 | MHC.SHP ---
Pre-Procedural Eval Section A - 24 Hr Update-Section A only Date of Service: 01/27/25 Section B - Complete if H&P > 30 days Chief Complaint: gerd,change in bowel habits, hx of diverticulitis Details of Present Illness: History of arthritis History of IBS History of diverticulosis Hx of migraines Surgical History Hx of colonoscopy Present Medications: see Short Stay Collaborative assessment Allergies: Allergies Allergy/AdvReac Type Severity Reaction Status Date / Time No Known Allergies Allergy Verified 12/15/24 13:23 Review of Systems Review of Systems Comment: Ten point ROS negative Exam Exam Comment: Gen appear: No acute distress HEENT: no icterus Chest: No overt resp distress Abd: soft, nontender, nondistended Psych: Stable affect, answering questions appropriately Neuro: A/Ox3 noted to move all extremities spontaneously Ext: no peripheral edema Plan Diagnosis/Plan: Unchanged I have reviewed the history and physical and performed a pertinent physical examination on my patient. No changes have occurred unless specified. Time Spent With Patient Time: Total time managing care of this patient today ____ minutes.
--- NOTE | 2025-01-27 12:10 | P.CONAN_ITS ---
HPI - Anesthesia Eval Consult details Narrative: 49 yo female paient for EGD, Colonoscopy Anesthesia Pre-Procedure Meds Is the patient on any of the following meds?: GLP1/DPP4 (Last dose of Tirzepatide 01/18/25) PMFSH Active Problems Active Problems: All Active Problems S/P lumbar fusion (Acute) Change in bowel habit (Acute) History of diverticulitis (Acute) Chest pain (Acute) GERD (gastroesophageal reflux disease) (Acute) Spondylolisthesis, lumbar region (Acute) Dislocation of shoulder, right, closed (Acute) Past Medical History Medical History GONZÁLEZ (obstructive sleep apnea) Arthritis Hx of dislocation of shoulder (~01/2023) Chronic, continuous use of opioids Insomnia Constipation Back pain Fibromyalgia History of arthritis History of IBS History of diverticulosis Hx of migraines Family History Family history of problems with anesthesia: No Surgical History Surgical History Hx of hysterectomy Hx of tonsillectomy Hx of abdominoplasty (~2003) H/O breast augmentation (~2004) History of total right knee replacement (TKR) (~12/2023) Hx of colonoscopy History of Problems with Anesthesia: No Social History Social History Household Members: Spouse Housing: House Are you a primary intensive care anaesthetist to a significant other at home: No Do you presently have visiting nurse or other home services: No Patient Tobacco Use Status: Never used Tobacco e-Cigarette/Vaping Use: Never Used Have you been hit, kicked, punched, or otherwise hurt by someone within the past year? 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 Meds Allergies Allergy/AdvReac Type Severity Reaction Status Date / Time No Known Allergies Allergy Verified 12/15/24 13:23 Home Medications ?Medication ?Instructions ?Recorded ?Confirmed ?Last Taken ?Type Botox 01/27/25 11/29/24 History tirzepatide (weight loss) 7.5 7.5 mg subcut QWEEK 01/27/25 01/27/25 01/18/25 History mg/0.5 mL subcutaneous pen injector (Zepbound) Exam Height,Weight and Vital Signs: Height 5 ft 3 in Weight 79.23 kg Last Vital Signs Temp 97 F 01/27/25 10:55 Pulse 86 01/27/25 10:55 Resp 18 01/27/25 10:55 BP 148/94 H 01/27/25 10:55 Pulse Ox 97 01/27/25 10:55 O2 Del Method Room Air 01/27/25 10:55 Assessment and Plan Final Anesthetic Review Family History of Problems with Anesthesia: No History of Problems with Anesthesia: No
--- NOTE | 2025-01-27 12:59 | P.OPN-COLO_ITS ---
Colonoscopy Operative Note Operative Note Date of Service: 01/27/25 Narrative: Procedure: Upper endoscopy and colonoscopy Indication: GERD, chest pain, diverticulitis Endoscopist: Nadira Urbano MD Anesthesia Provider: Dr Ariella Wallace Anesthesia type: MAC --> GEA Instrument: [id number] and [id number]-[id number] EGD Procedure:?? The procedure, indications, preparation and potential complications were reviewed with the patient, who indicated understanding and gave written informed consent to proceed. The endoscope was introduced through the mouth, and advanced to the stomach which was full of food. The procedure was therefore aborted. The scope was withdrawn and patient was then intubated for airway protection. Given the amount of food precluding visualization of stomach mucosa, decision was made to not re- attempt EGD and to proceed with colonoscopy. * Esophagus:? Normal esophageal mucosa was noted. The Z-line was at 39 cm. * Stomach:? Food in stomach. Colonoscopy Procedure:? After intubation, the patient was then turned for the colonoscopy. A digital rectal exam was performed which was normal.? A distal attachment cap was affixed to the tip of the scope and the colonoscope was then inserted through the anus and advanced through the colon and advanced to the cecum at 75 cm and terminal ileum.? Appendiceal orifice and ileocecal valve were identified. Mucosa was carefully examined under high definition white light as the instrument was slowly withdrawn in a retrograde panoramic fashion. Retroflexion was performed in rectum. The procedure was not difficult. The quality of the prep was BBPS: 3+3+3 = excellent Withdrawal time 8 minutes Limitations: No limitations Findings: Mucosa: Normal colon and terminal ileum mucosa. Protruding lesions: * 1 sessile polyp of size 3 mm in descending colon. Cold forceps polypectomy wa s performed. The polyp was completely removed and retrieved. * Small internal hemorrhoids without stigmata of recent bleeding. Excavated lesions: * Mild diverticulosis involving most of the colon except cecum. Impression: 1. Normal esophagus 2. Food in stomach 3. Normal colon and terminal ileum mucosa 4. Diverticulosis 5. Internal hemorrhoids Recommendations:?? * Follow-up path results * Repeat colonoscopy for CRC screening in 7-10 years. * EGD not completed as above. Recommend barium swallow exam as outpatient to guide indication of repeat EGD.
[2025-01-27 13:15] VITALS: BP 118/82; PULSE 96; RESP 20; TEMP 36.9; O2SAT 95
[2025-01-27 13:20] VITALS: BP 116/80; PULSE 96; RESP 20; O2SAT 96
[2025-01-27 13:25] VITALS: BP 134/79; PULSE 93; RESP 13; O2SAT 96
[2025-01-27 13:30] VITALS: BP 127/82; PULSE 86; RESP 17; O2SAT 97
[2025-01-27 13:45] VITALS: BP 112/80; PULSE 83; RESP 18; TEMP 37; O2SAT 97
== END 2025-01-27 14:14 | disposition home or self-care (01) ==
PROVIDERS: PCP Internal Medicine; Visit Provider Internal Medicine
PROC: (CPT 45380; principal; 2025-01-27 12:50)
DX: D12.4 Benign neoplasm of descending colon (principal); K57.30 Diverticulosis of large intestine without perforation or abscess without bleeding; K64.8 Other hemorrhoids; R19.4 Change in bowel habit; K21.9 Gastro-esophageal reflux disease without esophagitis; Z87.19 Personal history of other diseases of the digestive system; R07.9 Chest pain, unspecified
CPT/HCPCS: 45380; 43235; 88305; J0330; J1596; J2003; J2405; J2704; J3010

== ENCOUNTER → 2025-01-27 10:39 | Outpatient (BNV) | payer OTHER, SELFPAY | PROVIDERS: PCP Internal Medicine; Visit Provider Internal Medicine | DX: K21.9 Gastro-esophageal reflux disease without esophagitis (principal); R07.9 Chest pain, unspecified; D12.4 Benign neoplasm of descending colon; K57.90 Diverticulosis of intestine, part unspecified, without perforation or abscess without bleeding; K64.8 Other hemorrhoids | CPT/HCPCS: 43235; 45380 ==

== ENCOUNTER 2025-05-04 08:15 | Outpatient (REF) | payer OTHER, SELFPAY ==
--- NOTE | ~2025-05-04 | FL_ITS ---
EXAMINATION: XR FLUOROSCOPY ESOPHAGRAM CLINICAL INFORMATION: GERD without esophagitis. Patient states bloating and abdominal discomfort after eating. States nausea and vomiting episodically. History of diverticulitis. COMPARISON: No prior. TECHNIQUE: Fluoroscopic air contrast esophagram examination was performed utilizing standard techniques with thin and thick barium and effervescent granules. Numerous spot images were obtained. Several fluoroscopic image hold cine sequences were also obtained. FINDINGS: ESOPHAGRAM: Lateral cine images of the oropharynx and hypopharynx demonstrate normal swallow mechanism with normal epiglottic inversion and soft palate elevation. No laryngeal penetration, glottic or subglottic aspiration identified. No nasopharyngeal reflux present. Hypopharyngeal structures appear normal without evidence of mass or diverticulum. There was no significant cricopharyngeal achalasia. Dual and single contrast images of the esophagus demonstrate normal caliber, contour, and mucosal pattern. No evidence of stricture, mass, or ulcerations identified. Esophageal peristalsis was mildly disordered. Small to moderate-sized type I hiatus hernia present.. Mild gastroesophageal reflux noted throughout the examination. Dual contrast and single contrast images of the stomach demonstrated normal contour and mucosal pattern without evidence of mass, ulceration, or other abnormality. Contrast freely passed into the gastric antrum and duodenal bulb without delay. Single and air-contrast images of the duodenal bulb demonstrate no abnormality. The duodenal sweep has a normal appearance, course, and mucosal fold appearance. FLUOROSCOPY TIME: 1 minute, 58 seconds Number of Spot Images:8 Number of cines obtained: 9 DOSE AREA PRODUCT: 2193 uGy-m2 (microgray-meter squared) FL/FL barium swallow with air IMPRESSION: 1. Mildly disordered esophageal peristalsis. 2. Small to moderate-sized type I hiatus hernia. 3. Mild gastroesophageal reflux noted during the examination. 4. Otherwise, normal appearing esophagus and stomach. Electronically signed by: Ponce Pena MD 05/04/2025 09:42 AM EDT
--- OUTSIDE RECORDS SUMMARY | 2025-05-04 08:23 | XMS_ITS | Clinical Summary ---
Author Organization [facility] Address [address] [place] [address] Phone Care Team Providers Care Coding Specialist Name Role Phone Meg Vergara MD Primary Care Provider [phone] Allergies No known active allergies Medications dicyclomine (BENTYL) 10 mg capsule Take 1 capsule (10 mg total) by mouth 4 (four) times a day (before meals and nightly). Active hydroCHLOROthi azide (MICROZIDE) 12.5 mg capsule Take 1 capsule (12.5 mg total) by mouth 1 (one) time each day. Active ibuprofen (ADVIL,MOTRIN) 800 mg tablet Take 1 tablet (800 mg total) by mouth 3 (three) times a day if needed for headaches. 09/23/20 19 Active omeprazole (PriLOSEC) [address] capsule Take 1 capsule (20 mg total) by mouth. Active topiramate (TOPAMAX) 100 mg tablet Take 1 tablet (100 mg total) by mouth 2 (two) times a day. 11/16/19 23 Active tirzepatide, weight loss, (Zepbound) 15 mg/0.5 mL injectionIndic ations:Obesity , Class I, BMI 30-34.9 Inject 0.5 mL (15 mg total) under the skin every 7 (seven) days. 2 mL 04/08/20 25 025 Active tirzepatide, weight loss, (Zepbound) 15 mg/0.5 mL injection Inject 0.5 mL (15 mg total) under the skin every 7 (seven) days for 28 days. 2 mL 03/11/20 25 025 Discontinued Zepbound 15 mg/0.5 mL injection ADMINISTER 15 MG UNDER THE SKIN EVERY 7 DAYS 2 mL 04/08/20 25 025 Discontinued(Re order) Active Problems Problem Noted Date Diagnosed Date Well woman exam with routine gynecological exam 04/13/2025 Encounter for weight loss counseling 04/13/2025 Overview (04/13/2025): SOAPP-R: 5 on 05/08/17 Lower extremity pain 04/13/2025 Lumbosacral radiculopathy 04/13/2025 Somatoform pain disorder 04/13/2025 Macromastia 01/29/2025 Chronic bilateral thoracic back pain 01/29/2025 Neck pain 01/29/2025 Bilateral thoracic back pain 01/29/2025 Back pain, thoracic 12/30/2024 Macromastia 12/30/2024 GONZÁLEZ (obstructive sleep apnea) 12/04/2024 Insomnia 12/04/2024 Fibromyositis 12/04/2024 Bilateral otitis media 11/17/2024 Lumbar spondylosis 11/17/2024 Postnasal drip 11/17/2024 Irritable bowel syndrome 08/31/2024 Gastroesophageal reflux disease 08/31/2024 Class 1 obesity 08/31/2024 Low back pain 08/31/2024 Migraine 08/31/2024 Encounters Date Type Department Care Team Description 04/07/2025 Telephone Bariatric Surgery [address] [phone] Surya Chiu MD Med Refill (Zepbound 15 MG) 03/11/2025 Telephone Bariatric Surgery [address] [phone] Surya Chiu MD Med Refill (zepbound) 02/16/2025 Telephone Bariatric Surgery [address] [phone] Surya Chiu MD Med Refill (Zepound w/titration) from Last 3 Months Immunizations Name Administration Dates Next Due Influenza trivalent, with preservative (Fluzone; Afluria) 6mo and older 08/27/2024,09/18/2023,09/07/2022,2020,09/28/2020,10/31/2019,11/27/2017,1 11/27/2015,08/05/2014,07/22/2012, 011,08/18/2010 Tdap Tetanus diptheria acell ular pertussis (Boostrix; Adacel) 7yo and older 03/09/2022,01/12/2011 Surgical History Surgery Date Site/Laterality Comments TONSILLECTOMY PROCEDURE: HISTORICAL TONSILLECTOMY BACK SURGERY PROCEDURE: HISTORICAL BACK SURGERY HYSTERECTOMY 1999 PROCEDURE: HISTORICAL HYSTERECTOMY BREAST SURGERY 2011 Bilateral PROCEDURE: SD BREAST AUGMENTATION WITH IMPLANT BELT ABDOMINOPLASTY 2006 [...] drink = 0.6 oz pur e alcohol) Comments Unknown Sex and Gender Information Value Date Recorded Sex Assigned at Not on file Legal Sex Female 11:13 AM EST Gender Identity Not on file Sexual Orientation Not on file Obstetrics History Last Filed Vital Signs Vital Sign Reading Time Taken Comments Blood Pressure 127/89 01/29/2025 11:19 AM EDT Pulse 77 01/29/2025 11:19 AM EDT Temperature 36.7 C (98.1 F) 12/18/2024 1:16 PM EST Respiratory Rate - - Oxygen Saturation - - Inhaled Oxygen Concentration - - Weight 79.5 kg (175 lb 3.2 oz) 01/29/2025 11:19 AM EDT Height 160 cm (5' 3 ) 01/29/2025 11:19 AM EDT Body Mass Index 31.04 01/29/2025 11:19 AM EDT Plan of Treatment Upcoming Encounters Date Type Department Care Team (Late st Contact Info) Description 07/21/2025 1:45 PM EDT Office Visit Bariatric Surgery - [place] [address] [place] [phone] Surya Chiu MD [address] [facility] [address] [place] [address] Health Maintenance Due Date Last Done Comments Breast Cancer Screening 1974 Hepatitis B Vaccines (1 of 3 - 19+ 3-dose series) 1993 Cervical Cancer Screening: Pap Smear 06/18/2021 06/18/2018 Cholesterol Screening (Lipid Panel) 10/10/2022 Colorectal Cancer Screening: Colonoscopy 10/10/2022 Depression Screening 10/10/2022 HIV Screening 10/10/2022 Hepatitis C Screening 10/10/2022 Medicare Annual Wellness Visit 10/10/2022 Social Influencers of Health Screening 10/10/2022 Pneumococcal Vaccine: 50+ Years (1 of 1 - PCV) 2024 Zoster Vaccines (1 of 2) 2024 COVID-19 Vaccine (4 - 2023- season) 2024 09/06/2021, 02/14/2021, 01/24/2021 DTaP,Tdap,and Td [...] patient's age to complete this topic Meningococcal B Vaccine Aged Out No l onger eligible based on patient's age to complete [...] (06/18/2018) Pap smear no interpretation , abstracted us Historical Provider HEALTH MAINTENANCE Final Result from Last 3 Months or Most Recently Relevant to Health Maintenance Insurance [employer] Member Subscriber Plan / Payer (Ef fective 2023-Present) Name:AURA GOMES Relation to Subscriber:Self Name:Aura Gomes Payer ID:[id number] Group ID:[id number] Type:Not on file Address: [place] [address] [id number] Care Teams Coding Specialist Relationship Specialty Start Date End Date Meg Vergara MD [address] [place] [address] PCP - General Internal Medicine 07/29/19
== END 2025-05-04 08:16 | disposition home or self-care (01) ==
LOC: HO.XRAY 08:15
PROVIDERS: PCP Internal Medicine; Visit Provider Internal Medicine
DX: K21.9 Gastro-esophageal reflux disease without esophagitis (principal)
CPT/HCPCS: 74221

== ENCOUNTER → 2025-05-04 08:17 | Outpatient (BNV) | payer OTHER, SELFPAY | PROVIDERS: PCP Internal Medicine; Visit Provider Radiology Diagnostic Radiology | DX: K21.9 Gastro-esophageal reflux disease without esophagitis (principal) | CPT/HCPCS: 74221 ==

== ENCOUNTER 2025-07-22 11:13 | Outpatient (AMB) | payer OTHER, SELFPAY ==
--- OUTSIDE RECORDS SUMMARY | 2025-07-21 13:45 | XMS_ITS | Encounter Summary ---
Author Organization [facility] Address [address] [place] [address] Care Team Providers Care Microstrategy Reports Developer Name Role Phone Meg Vergara MD Primary Care Provider [phone] Reason for Referral * Medications - Closed Specialty Diagnoses / Procedures Referred By Contac t Referred To Contact Diagnoses Obesity, Class I, BMI 30-34.9 Surya Chiu MD [address] [place] [address] Phone: tel: fax: Referral ID Status Reason Start Date Expiration Date Visits Re quested Visits Authorized [id number] Closed 1 1 Reason for Visit * Reason Comments Follow-up 4 month Encounter Details Date Type Department Care Team (Late st Contact Info) Description 07/21/2025 1:45 PM EDT Office Visit Bariatric Surgery - [place] [address] [place] [address] Surya Chiu MD [address] [place] [address] Obesity, Class I, BMI 30-34.9 Social History Tobacco Use Types Packs/Day Years Used Date Smoking Tobacco: Never Smokeless Tobacco: Never Alcohol Use Standard Drinks/Week Comments Yes 0 (1 standard drink = 0.6 oz pur e alcohol) OCCASIONALLY Comments No Sex and Gender Information Value Date Recorded Sex Assigned at Not on file Legal Sex Female 11:13 AM EST Gender Identity Not on file Sexual Orientation Not on file documented as of this encounter Last Filed Vital Signs Vital Sign Reading Time Taken Comments Blood Pressure 130/91 07/21/2025 1:43 PM EDT Pulse 83 07/21/2025 1:43 PM EDT Temperature 36.6 C (97.8 F) 07/21/2025 1:43 PM EDT Respiratory Rate - - Oxygen Saturation - - Inhaled Oxygen Concentration - - Weight 71.7 kg (158 lb) 07/21/2025 1:43 PM EDT Height 160 cm (5' 3 ) 07/21/2025 1:43 PM EDT Body Mass Index 27.99 07/21/2025 1:43 PM EDT documented in this encounter Ordered Prescriptions Prescription Sig Dispense Quantity Refills Last Filled Start Date End Date tirzepatide, weight loss, (Zepbound) 15 mg/0.5 mL injectionIndicatio ns:Obesity, Class I, BMI 30-34.9 Inject 0.5 mL (15 mg total) under the skin every 7 (seven) days. 2 mL 5 07/21/2025 01/17/2026 documented in this encounter Progress Notes * Surya Chiu MD - 07/21/2025 1:45 PM EDT Ms. Patel is a 50 y.o. year old female who presents for surgical follow up regarding obesity. HPI: Ms. Patel Has been on tirzepatide, 15 mg for over 2 months. No side effects Has lost 27 lbs since September, 15% TBW. ROS: GENERAL: No malaise, significant unintentional weight loss, fever, chills or night sweats. HEENT: No changes in hearing or vision, no nose bleeds or other nasal problems. NECK: No lumps, goiter, pain or significant neck swelling RESPIRATORY: No cough, wheezing or shortness of breath CARDIOVASCULAR: No chest pain, leg swelling or palpitations. GI: No abdominal discomfort, nausea, vomiting, or change in bowel habits. : No dysuria, frequency or incontinence. SKIN: No lesions, rash or itching. HEMATOLOGY: No prolonged bleeding, easy bruisability. LYMPHOLOGY No swollen nodes. MUSCULOSKELETAL: No abnormalities. NEURO: No abnormalities. All other systems reviewed which are negative. PAST MEDICAL HISTORY: Patient Active Problem List Diagnosis Date Noted Date Diagnosed Well woman exam with routine gynecological exam 04/13/2025 Encounter for weight loss counseling 04/13/2025 Lower extremity pain 04/13/2025 Lumbosacral radiculopathy 04/13/2025 [...] 08/31/2024 Low back pain 08/31/2024 Migraine 08/31/2024 PAST SURGICAL HISTORY: Past Surgical History: Procedure Laterality Date BACK SURGERY PROCEDURE: HISTORICAL BACK SURGERY BELT ABDOMINOPLASTY 2006 PROCEDURE: HISTORICAL TUMMY TUCK BREAST SURGERY Bilateral 2011 PROCEDURE: [place] BREAST AUGMENTATION WITH IMPLANT HYSTERECTOMY 1999 PROCEDURE: HISTORICAL HYSTERECTOMY TONSILLECTOMY PROCEDURE: HISTORICAL TONSILLECTOMY SOCIAL HISTORY: Social History Tobacco Use Smoking status: Never Smokeless tobacco: Never Substance Use Topics Alcohol use: Yes Comment: OCCASIONALLY FAMILY HISTORY: Family History Problem Relation Name Age of Onset Dementia Father 76.00 Heart attack Father Diabetes Brother 47.00 Nephrolithiasis Brother Breast cancer Paternal Grandmother Family Status Relation Name Status Father Brother PGM Mother Alive No partnership data on file MEDICATIONS: There are no discontinued medications. ACTIVE MEDICATIONS: No outpatient medications have been marked as taking for the 07/21/25 encounter (Office Visit) with Surya Chiu MD. ALLERGIES: No Known Allergies PHYSICAL EXAM: Visit Vitals BP (!) 130/91 Pulse 83 Temp 36.6 ??C (97.8 ??F) (Temporal) Ht 1.6 m (63 ) Wt 71.7 kg (158 lb) BMI 27.99 kg/m?? OB Status Hysterectomy Smoking Status Never BSA 1.75 m?? APPEARANCE: Alert and oriented and in no acute distress EYES: Conjunctiva normal and sclera normal and anicteric. NECK: Neck supple with no adenopathy. LYMPH NODES: No gross cervical or clavicular lymphadenopathy. ABDOMEN: Bowel sounds normoactive, soft, non-tender, non-distended, EXTREMITIES: Extremities warm and well perfused without clubbing, cyanosis, or edema. SKIN: Skin color and texture normal. No rashes or lesions. NEUROLOGIC: Alert and oriented ??3. No motor or sensory deficits in the extremities. LABS/IMAGING: ASSESSMENT: No diagnosis found. PLAN: 1. Will continue with medication, 15 mg. The patient will let us know in few weeks if the medication is being effective or if the patient ishaving side effects. The dose will be adjusted depending upon the response and the presence of sideeffects. Follow-up in 6 months. documented in this encounter Plan of Treatment Upcoming Encounters Date Type Department Care Team (Late st Contact Info) Description 01/19/2026 11:15 AM EDT Office Visit Bariatric Surgery [facility] [address] [facility] [address] [place] [address] Surya Chiu MD [address] [place] [phone] documented as of this encounter Visit Diagnoses Diagnosis Obesity, Class I, BMI 30-34.9 documented in this encounter Discontinued Medications Medication Sig Discontinue Reason Start Date End Da te tirzepatide, weight loss, (Zepbound) 15 mg/0.5 mL injectionIndications:Obe sity, Class I, BMI 30-34.9 Inject 0.5 mL (15 mg total) under the skin every 7 (seven) days. Reorder 06/05/2025 07/21/2025 documented as of this encounter Care Teams Microstrategy Reports Developer Relationship Specialty Start Date End Date Meg Vergara MD [address] [place] [address] PCP - General Internal Medicine 07/29/19 documented as of this encounter
--- NOTE | 2025-07-22 11:16 | MHC.OFFVIS ---
Vital Signs 07/22/25 11:17 Height 5 ft 2.5 in Weight 158 lb BMI 28.4 BP 138/90 H Blood Pressure Location Rt brachial Position Sitting Respiration 16 Pulse Oximetry (%) 98 Intake Visit Reasons: BOTOX MIGRAINES, Migraine Allergies No Known Allergies Allergy (Verified 07/22/25 11:16) Medication List - Last Reconciled 07/22/25 by Sherry Coffey CNP [Botox for migraines last dose 2 mths ago] ibuprofen 600 mg PO TID omeprazole 20 mg PO DAILY oxycodone-acetaminophen 5-325 mg 1 tab PO BID PRN tirzepatide (weight loss) (Zepbound) 7.5 mg subcut QWEEK HPI Comments Details: Aura is a 50-year-old female patient with a past medical history of chronic low back pain, GERD, fibromyalgia, IBS, GONZÁLEZ, being treated for chronic migraine. She was a patient of mine at [facility] and is now transferring her care here to [facility]. She has been historically treated with Botox therapy for her chronic migraine and has done well with this. She does experience some wearing off affect the week leading up to her next set of injections but otherwise has good headache control. In efforts to better establish care here in our practice, we are reviewing her migraine history today. She experiences headaches three days per week, lasting all day with severe intensity, often requiring her to stay in bed. The headaches are described as throbbing and pulsing, occurring on both sides of the head, sometimes alternating sides. Associated symptoms include nausea, photophobia, phonophobia, and allodynia at the site of pain. The patient reports restlessness during headaches and difficulty sleeping, with a sleep onset latency of approximately two hours. A sleep study conducted at [facility] indicated sleep apnea, but the patient discontinued CPAP therapy due to exacerbation of headaches. She has a history of back pain, managed with oxycodone following back surgery. The patient also reports bruxism, confirmed by her dentist, but she does not consistently use a mouthguard. Before start of Botox therapy migraines were occurring near daily. She is not currently using any medicaion for acute migraine therapy though will sometimes use OTC ibuprofen or excedrine with only partial relief of her headache. Headache characteristics: Time of onset:Many years Location:All areas can be effected Radiation:Yes-all areas Positional component:No Character:Throbbing and pulsating Severity:Severe effecting ADLS and making her want to bang her head Duration:All day Frequency:3 days per week currently (daily prior to Botox therapy) Acute aggravating factors: Loud noises and bright light Acute relieving factors:Rest and dark room Associated symptoms:Nausea, light and sound sensitivity, and allodynia. Aura:No Headache triggers:Unknown Relation to menses:No Other related background information: Sleep:History of GONZÁLEZ but could not tollerate cpap which caused more headache Stressors:[] Hydration:Drinks plenty of water Caffeine intake:[] Alcohol intake:1 day per week Substance use:None Tobacco use:None Last eye exam:6 months ago Last dental visit: 3 weeks ago - does have a history of bruxism History of head injury:No Menses: Hysterectomy at age 24 Past medication trials: Propranolol- Not effective Topiramate- Not effective Amitriptyline- Not effective Sumtriptan- Not effective Rizatriptan- Not effective Zolmatriptan- Not effective Botox- Works well Ibuprofen- Partially effective Prior workup: None available [facility] Medical History GONZÁLEZ (obstructive sleep apnea) Arthritis Hx of dislocation of shoulder (~01/2023) Chronic, continuous use of opioids Insomnia Constipation Back pain Fibromyalgia History of arthritis History of IBS History of diverticulosis Hx of migraines Surgical History Hx of hysterectomy Hx of tonsillectomy Hx of abdominoplasty (~2003) H/O breast augmentation (~2004) History of total right knee replacement (TKR) (~12/2023) Hx of colonoscopy Social History Household Members: Spouse Housing: House Are you a primary specialist wound care to a significant other at home: No Do you presently have visiting nurse or other home services: No 75 years or older and lives alone: No Patient Tobacco Use Status: Never used Tobacco e-Cigarette/Vaping Use: Never Used service: No Current occupational status: employed 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, 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 Review of Systems Const Reports as per HPI Physical Exam Vital Signs: Last Vital Signs Resp 16 07/22/25 11:17 BP 138/90 H 07/22/25 11:17 Pulse Ox 98 07/22/25 11:17 BMI result Body Mass Index 28.4 Const General: cooperative, healthy appearing, comfortable and no acute distress Nutritional Appearance: well nourished Orientation/consciousness: patient oriented x3 Limitations: no limitations HEENT Head: Yes normal to inspection and Yes normocephalic Eyes General: appearance normal, both eyes and all related structures Visual Monsalve: normal visual monsalve by confrontation Alignment and Position: alignment normal Periorbital: periorbital findings normal Eyelids: Yes eyelids normal Conjunctivae: conjunctivae normal Sclerae: sclerae normal Direct Ophthalmoscopy: normal light reflex, no papilledema and fundi normal bilaterally Neck Neck: Yes normal visual inspection and Yes full ROM Back/Spine/Pelvis Back: other (Bilateral upper trapezius tightness and tenderness with palp ) Cervical Spine: normal cervical lordosis Thoracic/Lumbar Spine: thoracic and lumbar spine normal to inspection Neuro General: patient oriented x3 and tone normal Cranial nerves: Yes CN's II-XII intact bilaterally and Yes Facial sensation intact/muscles of mastication intact Cognition (Neuro): normal cognition Gait exam (Neuro): Normal gait present Motor exam (neuro): 5/5 motor strength present throughout and no tremor noted Sensory Exam: double simultaneous stimulation for sensation normal Deep tendon reflexes (DTR's): Right triceps reflex intensity grade: 2+, Left triceps reflex intensity grade: 2+, Rt Biceps (C5, C6): 2+, Left biceps reflex intensity grade: 2+, Right brachioradialis reflex intensity grade: 2+, Left brachioradialis reflex intensity grade: 2+, Right patellar reflex intensity grade: 1+, Left patellar reflex intensity grade: 0, Right ankle reflex intensity grade: 0 and Left ankle reflex intensity grade: 0 Romberg Test: Negative Pupils: Normal pupillary reactivity/response: bilateral Psych Appearance: grossly normal Mental Status: mental status grossly normal Speech and movement: Normal speech and movement present and Clear speech present Affect: normal affect Attitude: cooperative Thought process: Normal thought process present Thought content: Normal thought content present Insight: Good insight present (Psych) Judgement: Good judgement present (Psych) Assessment & Plan Assessment & Plan (1) Migraine: Code(s): G43.909 - Migraine, unspecified, not intractable, without status migrainosus (2) Chronic migraine without aura without status migrainosus, not intractable: Code(s): G43.709 - Chronic migraine without aura, not intractable, without status migrainosus Category: Medical Plan: . Leola Chavarria is a 50-year-old female patient with a past medical history of chronic low back pain, GERD, fibromyalgia, IBS, GONZÁLEZ, being treated for chronic migraine. She has good control of migraines with Botox therapy uses a preventive though she does not currently have a reliable abortive therapy. I would like to start a trial of Nurtec 75 mg as needed for abortive therapy. She was educated to take this at the 1st sign of a migraine for best effect. She has in the past not had success with triptan therapy. She was also educated on side effects and expectations of the Nurtec medication. I will plan to see her back in the clinic for her Botox therapy which will be scheduled for 09/17/2025. -Continue Botox therapy -Start a trial of Nurtec 75mg as needed for migraine abortive therapy Medications: New rimegepant (Nurtec ODT) 75 mg PO DAILY PRN 8 tabs 5RF migraine headache Coding Level of Care Code New Pt Level 4 (20825) Diagnoses Migraine G43.909 Chronic migraine without aura without status migrainosus, not intractable G43.709
[2025-07-22 11:17] VITALS: BP 138/90; RESP 16; O2SAT 98; BMI 28.4
--- OUTSIDE RECORDS SUMMARY | 2025-07-22 14:24 | XMS_ITS | Clinical Summary ---
Author Organization [facility] Address [address] [facility] [address] [place] [phone] Phone Care Team Providers Care Iap Displays Analyst Name Role Phone System, Provider Not In PhD Primary Care Provide r Unavailable Social History Tobacco Use Types Packs/Day Years Used Date Smoking Tobacco: Never Assessed Education Answer Date Recorded Are you interested in more education? Not on sandra e 03/08/2023 Are you concerned about learning? Not on file 03/08/2023 No 03/08/2023 No 03/08/2023 Digital Access Answer Date Recorded No 04/07/2023 No 04/07/2023 No 04/07/2023 Reliable internet access at home? Not on file 04/07/2023 Device with a working camera? Not on file Comments Unknown Sex and Gender Information Value Date Recorded Sex Assigned at Not on file Legal Sex Female 1:18 PM EDT Gender Identity Not on file Sexual Orientation Not on file Plan of Treatment Health Maintenance Due Date Last Done Comments LIPID PANEL 1974 DEPRESSION SCREENING 1986 SMOKING Hx and SMOKELESS TOBACCO SCREENING 1987 HEPATITIS C SCREENING 1992 HIV ONE-TIME SCREENING (18-65 YEARS) 1992 PAP SMEAR 1995 MAMMOGRAM 2014 COLOGUARD 2019 COLONOSCOPY 2019 COLORECTAL CANCER SCREENING 2019 FIT TEST 2019 FOBT 2019 SIGMOIDOSCOPY 2019 VIRTUAL COLONOSCOPY 2019 PNEUMOCOCCAL VACCINES (50+ years) (1 of 1 - PCV) 2024 ZOSTER VACCINES (1 of 2) 2024 INFLUENZA VACCINE (#1) 2025 2, 09/06/2021, 09/28/2020, Additional history exists COVID-19 VACCINE ( season) 2025 09/06/2021, 02/14/2021, 01/24/2021 Adult Td,Tdap Booster 03/09/2032 03/09/2022, 011 HEPATITIS A VACCINES Aged Out No long er eligible based on patient's age to complete this topic HIB VACCINES Aged Out No longer eligi ble based on patient's age to complete this topic MENINGOCOCCAL VACCINES (ACWY) Aged Out No longer eligible based on patient's age to complete this topic MENINGOCOCCAL VACCINES (B) Aged Out N o longer eligible based on patient's age to complete this topic Medical Devices Not on file Insurance [place] [id number] [facility] MEDICARE REPLACEMENT MEDICARE REPLACEMENT MEDICARE REPLACEMENT MEDICARE REPLACEMENT MEDICARE REPLACEMENT MEDICARE REPLACEMENT [facility] ONE CARE MEDICARE REPLACEMENT [place] [id number] Care Teams Iap Displays Analyst Relationship Specialty Start Date End Date System, Provider Not In, [place] [address] PCP - General 07/07/19 Additional Source Comments The information contained in this document represents components of the legal health record. It is not the complete legal health record.[facility]
--- OUTSIDE RECORDS SUMMARY | 2025-07-22 14:24 | XMS_ITS | Clinical Summary ---
Author Organization [address] [facility] Address [address] [place] [phone] Phone Care Team Providers Care Ebd Teacher Name Role Phone Meg Vergara MD Primary Care Provider [phone] Allergies No known active allergies Medications dicyclomine (BENTYL) 10 mg capsule Take 1 capsule (10 mg total) by mouth 4 (four) times a day (before meals and nightly). Active hydroCHLOROthia zide (MICROZIDE) 12.5 mg capsule Take 1 capsule (12.5 mg total) by mouth 1 (one) time each day. Active ibuprofen (ADVIL,MOTRIN) 800 mg tablet Take 1 tablet (800 mg total) by mouth 3 (three) times a day if needed for headaches. 9 Active omeprazole (PriLOSEC) [address] capsule Take 1 capsule (20 mg total) by mouth. Active topiramate (TOPAMAX) 100 mg tablet Take 1 tablet (100 mg total) by mouth 2 (two) times a day. 3 Active tirzepatide, weight loss, (Zepbound) 15 mg/0.5 mL injectionIndica tions:Obesity, Class I, BMI 30-34.9 Inject 0.5 mL (15 mg total) under the skin every 7 (seven) days. 2 mL 5 5 01/18/20 26 Active tirzepatide, weight loss, (Zepbound) 15 mg/0.5 mL injectionIndica tions:Obesity, Class I, BMI 30-34.9 Inject 0.5 mL (15 mg total) under the skin every 7 (seven) days. 2 mL 5 5 07/21/20 25 Discontinu ed(Reorder ) Active Problems Problem Noted Date Diagnosed Date [...] Encounters Date Type Department Care Team Description 07/21/2025 1:45 PM EDT Office Visit Bariatric Surgery - [place] [address] [facility] [address] [place] [address] Surya Chiu MD Obesity, Class I, BMI 30-34.9 07/07/2025 8:11 AM EDT Anesthesia Event [facility] [address] [place] [address] Wai Ruiz MD 07/07/2025 7:40 AM EDT - 07/07/2025 11:59 PM EDT Hospital Encounter [facility] Xray [address] [place] [address] Pain Discharge Disposition: Home or Self Care 07/07/2025 7:01 AM EDT - 07/07/2025 11:59 PM EDT Hospital Encounter [facility] [address] [place] [address] Gavin Craig DO Steele, Matthew G, CRNA Gomes, Sheldon B, MD Sacroiliitis, not elsewhere classified (CMS/HCC V24) Discharge Disposition: Home or Self Care 05/05/2025 Telephone Bariatric Surgery - [place] [address] [facility] [address] [place] [address] Surya Chiu MD from Last 3 Months Immunizations Name Administration Dates Next Due Influenza trivalent, with preservative (Fluzone; Afluria) 6mo and older 08/27/2024,09/18/2023,09/07/2022,2020,09/28/2020,10/31/2019,11/27/2017,1 11/27/2015,08/05/2014,07/22/2012, 011,08/18/2010 Tdap Tetanus diptheria acell ular pertussis (Boostrix; Adacel) 7yo and older 03/09/2022,01/12/2011 Surgical History Surgery Date Site/Laterality Comments TONSILLECTOMY PROCEDURE: HISTORICAL TONSILLECTOMY BACK SURGERY PROCEDURE: HISTORICAL BACK SURGERY HYSTERECTOMY 1999 PROCEDURE: HISTORICAL HYSTERECTOMY BREAST SURGERY 2011 Bilateral PROCEDURE: DE BREAST AUGMENTATION WITH IMPLANT BELT ABDOMINOPLASTY 2006 [...] F) 07/21/2025 1:43 PM EDT Respiratory Rate 16 07/07/2025 8:30 AM EDT Oxygen Saturation 99% 07/07/2025 9:05 AM EDT Inhaled Oxygen Concentration - - Weight 71.7 kg (158 lb) 07/21/2025 1:43 PM EDT Height 160 cm (5' 3 ) 07/21/2025 1:43 PM EDT Body Mass Index 27.99 07/21/2025 1:43 PM EDT Plan of Treatment Upcoming Encounters Date Type Department Care Team (Late st Contact Info) Description 01/19/2026 11:15 AM EDT Office Visit Bariatric Surgery - [address] [place] [address] Surya Chiu MD [address] [place] [phone] Health Maintenance Due Date Last Done Comments Breast Cancer Screening 1974 Hepatitis B Vaccines (1 of 3 - 19+ 3-dose series) 1993 Cervical Cancer Screening: Pap Smear 06/18/2021 06/18/2018 Cholesterol Screening (Lipid Panel) 10/10/2022 Colorectal Cancer Screening: Colonoscopy 10/10/2022 HIV Screening 10/10/2022 Hepatitis C Screening 10/10/2022 Medicare Annual Wellness Visit 10/10/2022 Social Influencers of Health Screening 10/10/2022 Pneumococcal Vaccine: 50+ Years (1 of 1 - PCV) 2024 Zoster Vaccines (1 of 2) 2024 Depression Screening 11/12/2024 COVID-19 Vaccine ( season) 2025 09/06/2021, 02/14/2021, 01/24/2021 Influenza Vaccine (#1) 2025 , 09/18/2023, 09/07/2022, Additional history exists DTaP,Tdap,and Td Vaccines (3 - Td or Tdap) 03/09/2032 03/09/2022, 01/12/2011 HIB Vaccines Aged Out No longer eligi [...] age to complete this topic Medical Devices Implanted Type Area Agricultural Produce Sorter Device Identifier Shelf Expiration Date Model / Serial / Lot Breast Implants Breast Implants Bilateral: Breast Joints Knee Joints Knee Right: Knee Procedures Procedure Name Priority Date/Time Associated Diagnosis Comments PAP SMEAR Routine 06/18/2018 from Last 3 Months or Most Recently Relevant to Health Maintenance Results * Pap Smear (06/18/2018) Pap smear no interpretation , abstracted Historical Provider MD HEALTH MAINTENANCE Final Result from Last 3 Months or Most Recently Relevant to Health Maintenance Insurance [employer] MEDICARE Member Subscriber Plan / Payer (Ef fective 2023-Present) Name:AURA GOMES Relation to Subscriber:Self Name:Aura Gomes Payer ID:[id number] Group ID:[id number] Type:Not on file Address: [address] [phone] Care Teams Ebd Teacher Relationship Specialty Start Date End Date Meg Vergara MD [address] [place] [address] PCP - General Internal Medicine 07/29/19
--- OUTSIDE RECORDS SUMMARY | 2025-07-22 14:25 | XMS_ITS | Encounter Summary ---
Author Organization [facility] Address [address] [place] [address] Care Team Providers Care Product Management Consultant Name Role Phone Meg Vergara MD Primary Care Provider [phone] Reason for Visit * Reason Onset Date Comments Prior auth 11/24/2024 PA Encounter Details Date Type Department Care Team (Late st Contact Info) Description 11/24/2024 Telephone Bariatric Surgery - [place] [address] [facility] [address] [place] [address] Surya Chiu MD [address] [place] [phone] Social History Tobacco Use Types Packs/Day Years [...] AM EDT Office Visit Bariatric Surgery - [place] [address] [facility] [address] [place] [address] Surya Chiu MD [address] [place] [phone] documented as of this encounter Visit Diagnoses Not on filedocumented in this encounter Discontinued Medications Medication Sig Discontinue Reason Start Date End Da te Wegovy 0.25 mg/0.5 mL injection pen ADMINISTER 0.25 MG UNDER THE SKIN EVERY 7 DAYS 11/17/2024 11/25/2024 documented as of this encounter Care Teams Product Management Consultant Relationship Specialty Start Date End Date Meg Vergara MD [address] [place] [address] PCP - General Internal Medicine 07/29/19 documented as of this encounter
== END 2025-07-22 11:51 | disposition home or self-care (01) ==
LOC: HO.HSM 11:14
PROVIDERS: PCP Internal Medicine; Visit Provider Nurse Practitioner
DX: G43.909 Migraine, unspecified, not intractable, without status migrainosus (principal); G43.709 Chronic migraine without aura, not intractable, without status migrainosus
CPT/HCPCS: 99204

== ENCOUNTER → 2025-07-22 11:13 | Outpatient (BNVA) | payer OTHER, SELFPAY | PROVIDERS: PCP Internal Medicine; Visit Provider Nurse Practitioner | DX: G43.709 Chronic migraine without aura, not intractable, without status migrainosus (principal) | CPT/HCPCS: 99202 ==

== ENCOUNTER 2025-09-17 10:13 | Outpatient (AMB) | payer OTHER, SELFPAY ==
--- NOTE | 2025-09-17 10:25 | A.OFFVIS_ITS ---
Vital Signs 09/17/25 10:27 Height 5 ft 2.5 in Weight 152 lb BMI 27.4 BP 136/90 H Blood Pressure Location Rt brachial Position Sitting Respiration 16 Pulse 86 Pulse Source Pulse Oximeter Pulse Oximetry (%) 99 Oxygen Delivery Method Room Air Intake Visit Reasons: Botox Allergies No Known Allergies Allergy (Verified 09/17/25 10:30) HPI Comments Details: Aura is a 50-year-old female patient with a past medical history of chronic low back pain, GERD, fibromyalgia, IBS, GONZÁLEZ, being treated for chronic migraine. She is here today for her therapy. According to previous documentation: She has been historically treated with Botox therapy for her chronic migraine and has done well with this. She does experience some wearing off affect the week leading up to her next set of injections but otherwise has good headache control. In efforts to better establish care here in our practice, we are reviewing her migraine history today. She experiences headaches three days per week, lasting all day with severe intensity, often requiring her to stay in bed. The headaches are described as throbbing and pulsing, occurring on both sides of the head, sometimes alternating sides. Associated symptoms include nausea, photophobia, phonophobia, and allodynia at the site of pain. The patient reports restlessness during headaches and difficulty sleeping, with a sleep onset latency of approximately two hours. A sleep study conducted at [facility] indicated sleep apnea, but the patient discontinued CPAP therapy due to exacerbation of headaches. She has a history of back pain, managed with oxycodone following back surgery. The patient also reports bruxism, confirmed by her dentist, but she does not consistently use a mouthguard. Before start of Botox therapy migraines were occurring near daily. She is not currently using any medicaion for acute migraine therapy though will sometimes use OTC ibuprofen or excedrine with only partial relief of her headache . Headache characteristics: Time of onset:Many years Location:All areas can be effected Radiation:Yes-all areas Positional component:No Character:Throbbing and pulsating Severity:Severe effecting ADLS and making her want to bang her head Duration:All day Frequency:3 days per week currently (daily prior to Botox therapy) Acute aggravating factors: Loud noises and bright light Acute relieving factors:Rest and dark room Associated symptoms:Nausea, light and sound sensitivity, and allodynia. Aura:No Headache triggers:Unknown Relation to menses:No Other related background information: Sleep:History of GONZÁLEZ but could not tollerate cpap which caused more headache Stressors:[] Hydration:Drinks plenty of water Caffeine intake:[] Alcohol intake:1 day per week Substance use:None Tobacco use:None Last eye exam:6 months ago Last dental visit: 3 weeks ago - does have a history of bruxism History of head injury:No Menses: Hysterectomy at age 24 Past medication trials: Propranolol- Not effective Topiramate- Not effective Amitriptyline- Not effective Sumtriptan- Not effective Rizatriptan- Not effective Zolmatriptan- Not effective Botox- Works well Ibuprofen- Partially effective Prior workup: None available [facility] Medical History GONZÁLEZ (obstructive sleep apnea) Arthritis Hx of dislocation of shoulder (~01/2023) Chronic, continuous use of opioids Insomnia Constipation Back pain Fibromyalgia History of arthritis History of IBS History of diverticulosis Hx of migraines Surgical History Hx of hysterectomy Hx of tonsillectomy Hx of abdominoplasty (~2003) H/O breast augmentation (~2004) History of total right knee replacement (TKR) (~12/2023) Hx of colonoscopy Social History Household Members: Spouse Housing: House Are you a primary child daycare worker to a significant other at home: No Do you presently have visiting nurse or other home services: No 75 years or older and lives alone: No Patient Tobacco Use Status: Never used Tobacco e-Cigarette/Vaping Use: Never Used service: No Current occupational status: employed 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, 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 Review of Systems Const All systems reviewed & are unremarkable except as noted in HPI and below Physical Exam Vital Signs: Last Vital Signs Pulse 86 09/17/25 10:27 Resp 16 09/17/25 10:27 BP 136/90 H 09/17/25 10:27 Pulse Ox 99 09/17/25 10:27 Oxygen Delivery Method Room Air 09/17/25 10:27 BMI result Body Mass Index 27.4 Const General: cooperative, healthy appearing, comfortable and no acute distress Nutritional Appearance: well nourished Orientation/consciousness: patient oriented x3 Limitations: no limitations HEENT Head: Yes normal to inspection and Yes normocephalic Eyes General: appearance normal, both eyes and all related structures Visual Roberts: normal visual roberts by confrontation Alignment and Position: alignment normal Periorbital: periorbital findings normal Eyelids: Yes eyelids normal Conjunctivae: conjunctivae normal Sclerae: sclerae normal Direct Ophthalmoscopy: normal light reflex, no papilledema and fundi normal bilaterally Neck Neck: Yes normal visual inspection and Yes full ROM Back/Spine/Pelvis Back: other (Bilateral upper trapezius tightness and tenderness with palp ) Cervical Spine: normal cervical lordosis Thoracic/Lumbar Spine: thoracic and lumbar spine normal to inspection Neuro General: patient oriented x3 Cranial nerves: Yes CN's II-XII intact bilaterally and Yes Facial sensation intact/muscles of mastication intact Cognition (Neuro): normal cognition Gait exam (Neuro): Normal gait present Motor exam (neuro): 5/5 motor strength present throughout and no tremor noted Romberg Test: Negative Pupils: Normal pupillary reactivity/response: bilateral Psych Appearance: grossly normal Mental Status: mental status grossly normal Speech and movement: Normal speech and movement present and Clear speech present Affect: normal affect Attitude: cooperative Thought process: Normal thought process present Thought content: Normal thought content present Insight: Good insight present (Psych) Judgement: Good judgement present (Psych) Office Procedures Botulinum toxin Injection Details: Procedure: Botox therapy for Chronic Migraine Laterally: Bilateral Indications: Chronic Migraine Medications: Botox 155units How the med was supplied: Buy and Bill Timeout performed before procedure, patient identified with full name and date of . Risks and benefits of procedure reviewed, as well as site verified, sonsent signed, allergies reviewed, and medication reconsilliatino reviewed/completed. Following universal hygiene protocol and PREEMPT protocol, Botox 200unit vial was reconstituted with 4cc normal saline for a final concentration of 5units/0.1cc. The areas of injection were cleansed with alcohol. A 30g 0.5 needle was used to administer the injections as below. Procerus: 5units midline Dye Stand Loader: 5units left and 5units right Frontalis: 10units left and 10units right Temporalis: 20units left and 20units right Occipitalis:15units left and 15units right Cervical paraspinal 10units left and 10units right Trapezius 15units left and 15units right No noted paresthesias during injection 155units of Botox used and 45units wasted per PREEMPT protocol Complications: None Patient was observed for 15 minutes after the procedure and discharged home with instructions to apply ice to their head as needed. 28048 - Migraine Procedure code (CPT) selection complete Office Meds onabotulinumtoxinA 200 unit solution for injection Performing Provider: Sheryr Coffey CNP [place]forming [place] [facility] Administered by: Sherry Coffey CNP on 09/17/25 10:57 Dose Route Admin Location Dispensed Lot Number Expiration Date [facility] Information Systems Professor 155 unit IM 200 units [id number] 11/11/27 9536-0200-09 ALLER[employer] N/BOTOX Total Dispensed Waste 200 units 22.5 % Assessment & Plan Assessment & Plan (1) Chronic migraine without aura without status migrainosus, not intractable: Code(s): G43.709 - Chronic migraine without aura, not intractable, without status migrainosus Category: Medical Plan Aura is a 50-year-old female patient with a past medical history of chronic low back pain, GERD, fibromyalgia, IBS, GONZÁLEZ, being treated for chronic migraine. She is here today for her therapy. Her Botox therapy session went well without any complications. She will return in 3 months for repeat Botox injections. -Botox therapy for chronic migraine every 3 months -Nurtec 75 mg as needed for abortive relief -follow up sooner if needed Orders: Orders AMB Botulinum toxin Injection Today G43.709 - Chronic migraine without aura, not intractable, without status migrainosus Coding Level of Care Code Est Pt Level 1 (42218) Diagnoses Chronic migraine without aura without status migrainosus, not intractable G43.709 CPT Codes Botox Injection - Botox 3: 83058 - Migraine ([id number])
[2025-09-17 10:27] VITALS: BP 136/90; PULSE 86; RESP 16; O2SAT 99; BMI 27.4
--- OUTSIDE RECORDS SUMMARY | 2025-09-17 11:56 | XMS_ITS | Encounter Summary ---
Author [facility] Address [address] [place] [address] Care Team Providers Care Travel Occupational Therapist Name Role Phone Meg Vergara MD Primary Care Provider [phone] Reason for Visit * Reason Onset Date Comments Med Refill 09/16/2025 Zepbound Encounter Details Date Type Department Care Team (Late st Contact Info) Description 09/16/2025 Telephone Bariatric Surgery - [place] [address] [facility] [address] [place] [address] Surya Chiu MD [address] [place] [phone] Social History Tobacco Use Types Packs/Day [...] as of this encounter Progress Notes * Veronica Castro - 09/16/2025 10:12 AM EST Patient did well on Zepbound 15 mgs and would like a refill If appropriate, please send script for Zepbound 15 mgs to their pharmacy. The patient does have a follow up in 01/19/2026 documented in this encounter Plan of Treatment Upcoming Encounters Date Type Department Care Team (Late st Contact Info) Description 01/19/2026 11:15 AM EDT Office Visit Bariatric Surgery - [place] [address] [facility] [address] [place] [phone] Surya Chiu MD [address] [place] [phone] documented as of this encounter Visit Diagnoses Not on filedocumented in this encounter Care Teams Travel Occupational Therapist Relationship Specialty Start Date End Date Meg Vergara MD [address] [place] [address] PCP - General Internal Medicine 07/29/19 documented as of this encounter
--- OUTSIDE RECORDS SUMMARY | 2025-09-17 11:56 | XMS_ITS | Encounter Summary ---
Author Organization [facility] Address [address] [place] [address] Care Team Providers Care Global Project Manager Name Role Phone Meg Vergara MD Primary Care Provider [phone] Encounter Details Date Type Department Care Team (Late st Contact Info) Description 09/14/2025 Telephone Orthopedic Surgery - [place] [address] [facility] [address] [place] [phone] Silvino Manzano MD [address] [facility] [address] [place] [phone] Social History Tobacco Use Types Packs/Day Years [...] as of this encounter Progress Notes * Indu Pop - 09/14/2025 3:24 PM EST Authorization Medical Record Request SHARON from Provider : Dr Manzano Patient request records to be sent to: Self- mail SHARON Signed and scanned: Yes Date Records Mailed: 09/14/25 documented in this encounter Plan of Treatment Upcoming Encounters Date Type Department Care Team (Late st Contact Info) Description 01/19/2026 11:15 AM EDT Office Visit Bariatric Surgery - [place] [address] [facility] [address] [place] [phone] Surya Chiu MD [address] [place] [phone] documented as of this encounter Visit Diagnoses Not on filedocumented in this encounter Care Teams Global Project Manager Relationship Specialty Start Date End Date Meg Vergara MD [address] [place] [phone] PCP - General Internal Medicine 07/29/19 documented as of this encounter
--- OUTSIDE RECORDS SUMMARY | 2025-09-17 11:56 | XMS_ITS | Clinical Summary ---
Author Organization [address] [place] [address] [place] [phone] Phone Care Team Providers Care Business Intelligence Administrator Name Role Phone Meg Vergara MD Primary Care Provider [phone] Allergies No known active allergies Medications dicyclomine [...] day. 11/16/2022 Active tirzepatide, weight loss, (Zepbound) 15 mg/0.5 mL injectionIndica tions:Obesity, Class I, BMI 30-34.9 Inject 0.5 mL (15 mg total) under the skin every 7 (seven) days. 2 mL 5 07/21/2025 Active Active Problems Problem Noted Date Diagnosed Date [...] Encounters Date Type Department Care Team Description 09/16/2025 Telephone Bariatric Surgery [facility] [address] [phone] Surya Chiu MD 09/14/2025 Telephone Orthopedic Surgery [facility] 250 [address] [facility] [address] [place] [phone] Silvino Manzano MD 07/21/2025 1:45 PM EDT Office Visit Bariatric Surgery [facility] [address] [phone] Surya Chiu MD Obesity, Class I, BMI 30-34.9 07/07/2025 8:11 AM EDT Anesthesia Event [facility] [address] [place] [phone] Wai Ruiz MD 07/07/2025 7:40 AM EDT - 07/07/2025 11:59 PM EDT Hospital Encounter [facility] Xray [address] [place] [phone] Pain Discharge Disposition: Home or Self Care 07/07/2025 7:01 AM EDT - 07/07/2025 11:59 PM EDT Hospital Encounter [facility] [address] [place] [address] Gavin Craig DO Steele, Matthew G, CRNA Gomes, Sheldon B, MD Sacroiliitis, not elsewhere classified (CMS/[facility] V24) Discharge Disposition: Home or Self Care from Last 3 Months Immunizations Immunization Administration Dates Next Due Influenza trivalent, with preservative (Fluzone; Afluria) 6mo and older 08/27/2024,09/18/2023,09/07/2022,2020,09/28/2020,10/31/2019,11/27/2017,1 11/27/2015,08/05/2014,07/22/2012, 011,08/18/2010 Tdap Tetanus diptheria acell ular pertussis (Boostrix; Adacel) 7yo and older 03/09/2022,01/12/2011 Surgical History Surgery Date Site/Laterality Comments TONSILLECTOMY PROCEDURE: HISTORICAL TONSILLECTOMY BACK SURGERY PROCEDURE: HISTORICAL BACK SURGERY HYSTERECTOMY 1999 PROCEDURE: HISTORICAL HYSTERECTOMY BREAST SURGERY 2011 Bilateral PROCEDURE: SC BREAST AUGMENTATION WITH IMPLANT BELT ABDOMINOPLASTY 2006 [...] AM EDT Office Visit Bariatric Surgery - [address] [place] [address] Surya Chiu MD [address] [place] [phone] Health Maintenance Due Date Last Done Comments Breast Cancer Screening 1974 Colorectal Cancer Screening: Colonoscopy 1974 Hepatitis B Vaccines (1 of 3 - 19+ 3-dose series) 1993 Cervical Cancer Screening: Pap Smear 06/18/2021 06/18/2018 Cholesterol Screening (Lipid Panel) 10/10/2022 HIV Screening 10/10/2022 Hepatitis C Screening 10/10/2022 Medicare Annual Wellness Visit 10/10/2022 Social Influencers of Health Screening 10/10/2022 Pneumococcal Vaccine: 50+ Years (1 of 1 - PCV) 2024 Zoster Vaccines (1 of 2) 2024 Depression Screening 11/12/2024 COVID-19 Vaccine (4 - season) 2025 09/06/2021, 02/14/2021, 01/24/2021 Influenza Vaccine (#1) 2025 , 09/18/2023, 09/07/2022, Additional history exists DTaP,Tdap,and Td Vaccines (3 - Td or Tdap) 03/09/2032 03/09/2022, 01/12/2011 RSV Immunization Adult Patients (1 - 1-dose 75+ series) 2049 HIB Vaccines Aged Out No longer eligi [...] this topic Medical Devices Implanted Type Area [employer] Professional Device Identifier Shelf Expiration Date Model / Serial / Lot Breast Implants Breast Implants Bilateral: Breast Joints Knee Joints Knee Right: Knee Procedures Procedure Name Priority Date/Time Associated Diagnosis Comments PAP SMEAR Routine 06/18/2018 from Last 3 Months or Most Recently Relevant to Health Maintenance Results * Pap Smear (06/18/2018) Pap smear no interpretation , abstracted Historical Provider HEALTH MAINTENANCE Final Result from Last 3 Months or Most Recently Relevant to Health Maintenance Insurance [facility] MEDICARE Member Subscriber Plan / Payer (Ef fective 2023-Present) Name:AURA GOMES Relation to Subscriber:Self Name:Aura Gomes Payer ID:[id number] Group ID:[id number] Type:Not on file Address: [address] [place] [id number] Care Teams Business Intelligence Administrator Relationship Specialty Start Date End Date Meg Vergara MD [address] [place] [address] PCP - General Internal Medicine 07/29/19
--- OUTSIDE RECORDS SUMMARY | 2025-09-17 11:56 | XMS_ITS | Clinical Summary ---
Author Organization [facility] Address [address] [facility] [address] [place] [phone] Phone Care Team Providers Care Airplane Engineer Name Role Phone System, Provider Not In [...] 01/24/2021 Adult Td,Tdap Booster 03/09/2032 03/09/2022, 011 RSV VACCINE (1 - 1-dose 75+ series) 2049 HEPATITIS A VACCINES Aged Out No long [...] Devices Not on file Insurance [place] [id number] [place] [address] MEDICARE REPLACEMENT MEDICARE REPLACEMENT MEDICARE [place] [address] [employer] MEDICARE REPLACEMENT [place] [facility] Care Teams Airplane Engineer Relationship Specialty Start Date End Date System, Provider Not In, PhD [address] [address] PCP - General 07/07/19 Additional Source Comments The information contained in this document represents components of the legal health record. It is not the complete legal health record.[facility]
--- OUTSIDE RECORDS SUMMARY | 2025-09-17 11:56 | XMS_ITS | Encounter Summary ---
Author Organization [facility] Address [address] [place] [address] Care Team Providers Care Geothermal Electrical Engineer Name Role Phone Meg Vergara MD Primary Care Provider [phone] Reason for Visit * Reason Onset Date Comments Prior auth 11/24/2024 PA Encounter Details Date Type Department Care Team (Late st Contact Info) Description 11/24/2024 Telephone Bariatric Surgery - [place] [address] [facility] [address] [place] [address] Surya Chiu MD [address] [place] [phone] Social History Tobacco Use Types Packs/Day [...] AM EDT Office Visit Bariatric Surgery - [place] 175 [facility] [address] [place] [phone] Surya Chiu MD [address] [place] [phone] documented as of this encounter Visit Diagnoses Not on filedocumented in this encounter Discontinued Medications Medication Sig Discontinue Reason Start Date End Da te Wegovy 0.25 mg/0.5 mL injection pen ADMINISTER 0.25 MG UNDER THE SKIN EVERY 7 DAYS 11/17/2024 11/25/2024 documented as of this encounter Care Teams Geothermal Electrical Engineer Relationship Specialty Start Date End Date Meg Vergara MD [address] [place] [address] PCP - General Internal Medicine 07/29/19 documented as of this encounter
== END 2025-09-17 10:48 | disposition home or self-care (01) ==
LOC: HO.HSM 10:14
PROVIDERS: PCP Internal Medicine; Visit Provider Nurse Practitioner
DX: G43.709 Chronic migraine without aura, not intractable, without status migrainosus (principal)
CPT/HCPCS: 64615

== ENCOUNTER → 2025-09-17 10:13 | Outpatient (BNVA) | payer OTHER, SELFPAY | PROVIDERS: PCP Internal Medicine; Visit Provider Nurse Practitioner | DX: G43.709 Chronic migraine without aura, not intractable, without status migrainosus (principal) | CPT/HCPCS: 64615; J0585 ==